=== PATIENT | female | born 1970 | race Caucasian/White ===

== ENCOUNTER → 2016-06-23 | Outpatient (CLI) | payer BC ==
[~2016-06-23] MED LIST: CATHETER FLUSH 10 ML SYR IV PRN
--- OUTSIDE RECORDS SUMMARY | 2016-06-23 09:42 | XMS REPORT | Clinical Summary ---
Author Author User, [employer] Organization [facility] Physician [place] Address Unknown Phone Unavailable Allergies, Adverse Reactions, Alerts Allergy Name Reaction Description Start Date Severity Status Provider No Known Allergies Jamie Hurley Conditions or Problems Problem Name Problem Code Onset Date Status Entry Date Provider Comment Standard Description Annotate HYPOTHYROIDISM, PRIMARY 244.9 Active Rachel Plaza Unspecified hypothyroidism WEIGHT GAIN, ABNORMAL 783.1 Resolved Rachel Plaza Abnormal weight gain FATIGUE 780.79 Resolved Rachel Plaza Other malaise and fatigue ABDOMINAL PAIN, LEFT LOWER QUADRANT 789.04 Resolved Rachel Plaza Abdominal pain, left lower quadrant WELL WOMAN V70.0 Resolved Rachel Plaza Routine general medical examination at a health care facility PLANTAR FASCIITIS, BILATERAL 728.71 Resolved Rachel Plaza Plantar fascial fibromatosis TRANSAMINASES, SERUM, ELEVATED 790.4 Resolved Rachel Plaza Nonspecific elevation of levels of transaminase or lactic acid dehydrogenase [LDH] MYCOPLASMA PNEUMONIA 483.0 Resolved Rachel Plaza Pneumonia due to Mycoplasma pneumoniae NUMBNESS, HAND 782.0 Resolved Rachel Plaza Disturbance of skin sensation HEADACHE 784.0 Resolved Rachel Plaza Headache DIZZINESS 780.4 Resolved Rachel Plaza Dizziness and giddiness WEIGHT LOSS 783.21 Active Rachel Plaza Loss of weight FEVER 780.6 Resolved Rachel Plaza Fever and other physiologic disturbances of temperature regulation EAR PAIN, BILATERAL 388.70 Resolved Rachel Plaza Otalgia, unspecified WRIST PAIN 719.43 Resolved Rachel Plaza Pain in joint involving forearm NEUROPATHY, IDIOPATHIC PERIPHERAL 356.9 Resolved Rachel Plaza Unspecified idiopathic peripheral neuropathy SHOULDER PAIN 719.41 Resolved Rachel Plaza Pain in joint involving shoulder region IRREGULAR MENSES 626.4 Resolved Rachel Plaza Irregular menstrual cycle EDEMA LEG 782.3 Resolved Rachel Plaza Edema SINUSITIS, SPHENOIDAL, ACUTE 461.3 Resolved Rachel Plaza Acute sphenoidal sinusitis SHOULDER PAIN 719.41 Resolved Rachel Plaza Pain in joint involving shoulder region DIZZINESS 780.4 Resolved Rachel Plaza Dizziness and giddiness BRONCHITIS 490 Resolved Rachel Plaza Bronchitis, not specified as acute or chronic GERD 530.81 Active Rachel Plaza Esophageal reflux SINUS CONGESTION 478.1 Resolved Rachel Plaza Other diseases of nasal cavity and sinuses LARYNGITIS 464.0 Resolved Rachel Plaza Acute laryngitis EAR PAIN, BILATERAL 388.70 Resolved Rachel Plaza Otalgia, unspecified SHOULDER PAIN 719.41 Resolved Rachel Plaza Pain in joint involving shoulder region MAMMOGRAM, ABNORMAL, LEFT 793.80 Resolved Rachel Plaza Abnormal mammogram, unspecified DERMATITIS 692.9 Resolved Rachel Plaza Contact dermatitis and other eczema, unspecified cause DERMATOPHYTOSIS 110.9 Resolved Rachel Plaza Dermatophytosis of unspecified site ANKLE PAIN, RIGHT 719.47 Resolved Rachel Plaza Pain in joint involving ankle and foot ANKLE PAIN, LEFT 719.47 Resolved Rachel Plaza Pain in joint involving ankle and foot COUGH 786.2 Resolved Rachel Plaza Cough PNEUMONIA 486 Resolved Rachel Plaza Pneumonia, organism unspecified DEHYDRATION 276.51 Resolved Rachel Plaza Dehydration SKIN NEOPLASM, BENIGN 216.9 Resolved Rachel Plaza Benign neoplasm of skin, site unspecified URI 465.9 Resolved Rachel Plaza Acute upper respiratory infections of unspecified site CHEST PAIN, ATYPICAL 786.59 Inactive Rachel Plaza Other chest pain BRONCHITIS 490 Inactive Rachel Plaza Bronchitis, not specified as acute or chronic WHEEZING 786.07 Inactive Rachel Plaza Wheezing SINUSITIS, SPHENOIDAL, ACUTE 461.3 Inactive Rachel Plaza Acute sphenoidal sinusitis SINUSITIS, SPHENOIDAL, ACUTE 461.3 Inactive Rachel Plaza Acute sphenoidal sinusitis WHEEZING 786.07 Resolved Rachel Plaza Wheezing HIP PAIN 719.45 Correction Rachel Plaza Pain in joint involving pelvic region and thigh OSTEOARTHRITIS, LUMBAR SPINE 721.90 Active Rachel Plaza Spondylosis of unspecified site without mention of myelopathy SINUSITIS, SPHENOIDAL, ACUTE 461.3 Resolved Rachel Plaza Acute sphenoidal sinusitis CHEST PAIN, ATYPICAL 786.59 Resolved Rachel Plaza Other chest pain HEMATOCHEZIA 578.1 Active Rachel Plaza Blood in stool WHEEZING 786.07 Active Rachel Plaza Wheezing BRONCHITIS, ACUTE 466.0 Active Rachel Plaza Acute bronchitis SHOULDER PAIN 719.41 Active Rachel Plaza Pain in joint involving shoulder region Medication List Medication Instructions Start Date Stop Date Generic Name NDC Status Provider Patient Instruction PREDNISONE 10 MG TAB 2 po day one time once daily for 5 days 2014 PREDNISONE [id number] No Longer Active Casi Elizabeth PROAIR HFA 108 (90 BASE) MCG/ACT AERS 2 puff Q4 hrs prn wheezing ALBUTEROL SULFATE 11987445899 Active Rachel Plaza ADVAIR DISKUS 100-50 MCG/DOSE MISC 1 puff BID FLUTICASONE- SALMETEROL 36742834458 Active Rachel Plaza TUSSIONEX PENNKINETIC ER 10-8 MG/5ML LQCR 1 tsp PO BID prn cough HYDROCOD POLST-CHLORPHEN POLST 82832213254 No Longer Active Rachel Plaza SUDAFED 30 MG TAB 1 PO TID prn congestion PSEUDOEPHEDRINE HCL 93165436483 Active Rachel Plaza PREDNISONE 10 MG TAB 4 PO at one time once daily for 2 days, then 2 PO at one time once daily PREDNISONE 20244470867 No Longer Active Rachel Plaza CEFDINIR 300 MG CAPS 1 PO BID CEFDINIR 14598723312 No Longer Active Casi Elizabeth SUDAFED 30 MG TAB 1 PO TID prn PSEUDOEPHEDRINE HCL 23467633402 No Longer Active Rachel DEXTER'Bala NASAL SPRAY (DEXAMETHASONE, GENTAMICIN, SALINE) 2 puffs each nostril TID for [address] DEXTER'Bala NASAL SPRAY ( DEXAMETHASONE, GENTAMICIN, SALINE) No Longer Active Racheljuventino Plaza AUGMENTIN 500-125 MG TAB 1 PO BID AMOXICILLIN-POT CLAVULANATE 95225522683 No Longer Active Rachel Rosie Plaza TOPAMAX 25 MG TABS 1 PO BID TOPIRAMATE 95058503890 Active Rachel Rosie Plaza ALEVE 220 MG TAB 2 PO QHS NAPROXEN SODIUM 71287946577 Active Rachel Rosie Plaza ULTRAM 50 MG TAB 1 PO TID TRAMADOL HCL 43363496349 No Longer Active Racheljuventino Plaza ADVAIR DISKUS 100-50 MCG/DOSE MISC 1 puff BID FLUTICASONE-SALMETEROL 29648039535 No Longer Active Racheljuventino Plaza BIAXIN 500 MG TAB 1 PO BID CLARITHROMYCIN 80574553987 No Longer Active Racheljuventino Plaza LEVOXYL 75 MCG TABS 1 PO DAILY LEVOTHYROXINE SODIUM 56419378179 Active Racheljuventino Plaza AMOXICILLIN 500 MG CAP 1 PO TID AMOXICILLIN 30531007953 No Longer Active Racheljuventino Plaza ATROVENT 0.06 % SOLN 2 puffs each nostril TID prn runny nose 2013 IPRATROPIUM BROMIDE 56003740718 No Longer Active Racheljuventino Plaza PREDNISONE 20 MG TAB 2 pills at once for 2 days then 1 pill daily for 2 days PREDNISONE 90058714463 No Longer Active Rachel Rosie Plaza AUGMENTIN 875-125 MG TAB 1 PO BID AMOXICILLIN-POT CLAVULANATE 61278322934 No Longer Active Rachel DEXTER'S NASAL SPRAY (DEXAMETHASONE, GENTAMICIN, SALINE) 2 puffs each nostril TID for [address] DEXTER'Bala NASAL SPRAY ( DEXAMETHASONE, GENTAMICIN, SALINE) No Longer Active Rachel Plaza PREDNISONE 20 MG TAB 2 pills at once for 2 days then 1 pill daily for 5 days PREDNISONE 02805737198 No Longer Active Racheljuventino Plaza BIAXIN 500 MG TAB 1 PO BID CLARITHROMYCIN 74653752330 No Longer Active Racheljuventino Plaza KENALOG 0.1 % CREA apply to affected areas BID TRIAMCINOLONE ACETONIDE No Longer Active Rachel Rosie Plaza PROAIR HFA 108 (90 BASE) MCG/ACT AERS 2 puff Q4 hrs prn wheezing ALBUTEROL SULFATE 82781479286 No Longer Active Racheljuventino Plaza SUDAFED 30 MG TAB 1 PO TID for 5 days PSEUDOEPHEDRINE HCL 54159767403 No Longer Active Rachel Plaza PREDNISONE 20 MG TAB 2 pills at once for 3 days then 1 pill daily for 3 days PREDNISONE 63648707653 No Longer Active Racheljuventino Plaza ADVAIR DISKUS 100-50 MCG/DOSE MISC 1 puff BID FLUTICASONE-SALMETEROL 88938809242 No Longer Active Racheljuventino Plaza BIAXIN 500 MG TAB 1 PO BID CLARITHROMYCIN 06591489841 No Longer Active Rachel Plaza OMEPRAZOLE 20 MG CPDR 1 PO daily OMEPRAZOLE 90652364999 Active Rachel Rosie Plaza PROAIR HFA 108 (90 BASE) MCG/ACT AERS 2 puff Q4 hrs prn wheezing ALBUTEROL SULFATE 17828046082 No Longer Active Racheljuventino Plaza LAMISIL 250 MG TAB 1 po daily TERBINAFINE HCL 54619809700 No Longer Active Rachel Rosie Plaza LOTRISONE 0.05-1 % CREAM apply to affected areas BID prn CLOTRIMAZOLE-BETAMETHASONE 61261261333 No Longer Active Rachel Rosie Plaza BIAXIN XL PAC 500 MG TB24 2 pills at same time daily for 7 days CLARITHROMYCIN 65557862992 No Longer Active Rachel Rosie Plaza PREDNISONE 20 MG TAB 3 pills daily at once for 2 days, 2 pills daily at once for 2 days, 1 once daily for 2 days PREDNISONE 41407188194 No Longer Active Racheljuventino Plaza ADVAIR DISKUS 100-50 MCG/DOSE MISC 1 puff BID for two weeks 05/02 FLUTICASONE-SALMETEROL 44562528857 No Longer Active Rachel Rosie Plaza PROAIR HFA 108 (90 BASE) MCG/ACT AERS 2 puff Q4 hrs prn wheezing ALBUTEROL SULFATE 72873413747 No Longer Active Racheljuventino Plaza LEVAQUIN 500 MG TAB 1 PO QD LEVOFLOXACIN 88232281615 No Longer Active Racheljuventino Plaza TESSALON 200 MG CAPS 1 PO TID prn cough BENZONATATE 12574067189 No Longer Active Rachel Rosie Plaza LAMISIL 250 MG TAB 1 PO daily TERBINAFINE HCL 05812764976 No Longer Active Rachel Rosie Plaza LAMISIL 250 MG TABS 1 PO daily TERBINAFINE HCL 26971962247 No Longer Active Rachel Rosie Plaza DIFLUCAN 100 MG TABS 1 PO daily FLUCONAZOLE 84525584224 No Longer Active Rachel Rosie Plaza NYSTATIN 349469 UNIT/GM CREA Apply to affected areas TID until resolved 01/10 NYSTATIN 08716067108 No Longer Active Rachel Rosie Plaza LAMISIL 250 MG TABS 1 PO daily TERBINAFINE HCL 03676353515 No Longer Active Rachel Rosie Plaza LOTRISONE 0.05-1 % CREAM apply small amount to affected areas TID CLOTRIMAZOLE-BETAMETHASONE 94325783043 No Longer Active Rachel Rosie Plaza BIAXIN XL PAC 500 MG TB24 2 pills at same time daily for 7 days CLARITHROMYCIN 27969249119 No Longer Active Racheljuventino Plaza CILOXAN 0.3 % SOLN 2 drops Q6hrs for 7 days CIPROFLOXACIN HCL 37984464979 No Longer Active Dorene Cristina METFORMIN HCL 500 MG TABS 2 PO BID METFORMIN HCL 23117473037 Active Rachel Rosie Plaza NAPROXEN 500 MG TAB 1 PO BID NAPROXEN 41050783963 No Longer Active Rachel Rosie Plaza LASIX 20 MG TAB 1 PO QD prn for swelling FUROSEMIDE 19037447836 No Longer Active Racheljuventino Plaza FLONASE 50 MCG/DOSE INHALANT 2 puffs each nostril daily FLONASE 50 MCG/DOSE INHALANT No Longer Active Racheljuventino Plaza KEVIN-D 24 HOUR 180-240 MG TB24 1 PO Daily for sinus pressure. FEXOFENADINE-PSEUDOEPHEDRINE 68041151054 No Longer Active Rachel Plaza KEVIN 180 MG TABS 1 PO QD FEXOFENADINE HCL 56028079354 No Longer Active Rachel Rosie Plaza MUCINEX 600 MG TB12 1 PO BID for 5 days GUAIFENESIN 47889725574 No Longer Active Rachel Rosie Plaza DOXYCYCLINE HYCLATE 100 MG CAP 1 po BID DOXYCYCLINE HYCLATE 57808349985 No Longer Active Rachel Arellanoner MULTIVITAMINS TABS 1 po daily MULTIPLE VITAMIN 39160214761 Active Rachel Arellanoner PHENTERMINE HCL 37.5 MG CAPS 1 po daily PHENTERMINE HCL 07980906179 Active Rachel Rosie Plaza Immunizations Vaccine Administration Date Value Standard Description Influenza vaccine given done influenza virus vaccine, unspecified formulation Influenza vaccine given Done influenza virus vaccine, unspecified formulation Vital Signs Date Name Value Unit Range Description blood pressure, diastolic - 8462-4 70 mm[Hg] BP coello blood pressure, systolic - 8480-6 118 mm[Hg] BP sys pulse rate E&M - 8867-4 78 /min Heart rate respiratory rate E&M - 9279-1 14 /min Resp rate temperature E&M 97.7 [degF] Body temperature weight E&M - 3141-9 184 [lb_av] Weight Measured blood pressure, diastolic - 8462-4 64 mm[Hg] BP coello blood pressure, systolic - 8480-6 110 mm[Hg] BP sys pulse rate E&M - 8867-4 74 /min Heart rate respiratory rate E&M - 9279-1 14 /min Resp rate weight E&M - 3141-9 186 [lb_av] Weight Measured blood pressure, diastolic - 8462-4 78 mm[Hg] BP coello blood pressure, systolic - 8480-6 110 mm[Hg] BP sys pulse rate E&M - 8867-4 60 /min Heart rate respiratory rate E&M - 9279-1 14 /min Resp rate weight E&M - 3141-9 186 [lb_av] Weight Measured blood pressure, diastolic - 8462-4 60 mm[Hg] BP coello blood pressure, systolic - 8480-6 130 mm[Hg] BP sys weight E&M - 3141-9 187 [lb_av] Weight Measured blood pressure, diastolic - 8462-4 84 mm[Hg] BP coello blood pressure, systolic - 8480-6 138 mm[Hg] BP sys pulse rate E&M - 8867-4 62 /min Heart rate respiratory rate E&M - 9279-1 14 /min Resp rate weight E&M - 3141-9 183 [lb_av] Weight Measured blood pressure, diastolic - 8462-4 68 mm[Hg] BP coello blood pressure, systolic - 8480-6 110 mm[Hg] BP sys pulse rate E&M - 8867-4 70 /min Heart rate respiratory rate E&M - 9279-1 14 /min Resp rate temperature E&M 97.8 [degF] Body temperature weight E&M - 3141-9 184 [lb_av] Weight Measured blood pressure, diastolic - 8462-4 80 mm[Hg] BP coello blood pressure, systolic - 8480-6 118 mm[Hg] BP sys pulse rate E&M - 8867-4 72 /min Heart rate respiratory rate E&M - 9279-1 14 /min Resp rate temperature E&M 98.6 [degF] Body temperature weight E&M - 3141-9 185 [lb_av] Weight Measured blood pressure, diastolic - 8462-4 78 mm[Hg] BP coello blood pressure, systolic - 8480-6 140 mm[Hg] BP sys pulse rate E&M - 8867-4 60 /min Heart rate respiratory rate E&M - 9279-1 12 /min Resp rate weight E&M - 3141-9 183 [lb_av] Weight Measured blood pressure, diastolic - 8462-4 70 mm[Hg] BP coello blood pressure, systolic - 8480-6 123 mm[Hg] BP sys pulse rate E&M - 8867-4 80 /min Heart rate respiratory rate E&M - 9279-1 14 /min Resp rate temperature E&M 98.6 [degF] Body temperature weight E&M - 3141-9 183 [lb_av] Weight Measured blood pressure, diastolic - 8462-4 79 mm[Hg] BP coello blood pressure, systolic - 8480-6 116 mm[Hg] BP sys pulse rate E&M - 8867-4 62 /min Heart rate respiratory rate E&M - 9279-1 14 /min Resp rate temperature E&M 98.6 [degF] Body temperature weight E&M - 3141-9 180 [lb_av] Weight Measured blood pressure, diastolic - 8462-4 66 mm[Hg] BP coello blood pressure, systolic - 8480-6 118 mm[Hg] BP sys pulse rate E&M - 8867-4 96 /min Heart rate respiratory rate E&M - 9279-1 14 /min Resp rate temperature E&M 98.6 [degF] Body temperature weight E&M - 3141-9 179 [lb_av] Weight Measured blood pressure, diastolic - 8462-4 70 mm[Hg] BP coello blood pressure, systolic - 8480-6 125 mm[Hg] BP sys pulse rate E&M - 8867-4 84 /min Heart rate respiratory rate E&M - 9279-1 14 /min Resp rate temperature E&M 98.6 [degF] Body temperature weight E&M - 3141-9 181 [lb_av] Weight Measured Diagnostic Results Date Name Value Unit Range Description Clinical Lists Update: CBC,CMP,Chol,Trig,TSH,Free T4 - Chemistry calcium, serum 9.2 mg/dL anion gap, serum 11 creatinine, serum 0.8 mg/dL bilirubin, serum, total 0.6 mg/dL thyroxine, serum, free 1.04 ng/dL Estimated Glomerular Filtration Rate (calc) 82 mL/min/1.73m2 thyroid stimulating hormone, serum 2.23 u[iU]/mL potassium, serum 3.9 mmol/L albumin, serum 4.1 g/dL glucose, plasma fasting 85 mg/dL alkaline phosphatase, serum 50 U/L protein, total, serum 6.2 g/dL urea nitrogen, blood 10 mg/dL sodium, serum 139 mmol/L carbon dioxide, venous blood 27.0 mmol/L aspartate aminotransferase (SGOT), serum 13 U/L chloride, serum 105 mmol/L cholesterol, serum 142 mg/dL alanine aminotransferase (SGPT), serum 13 U/L triglyceride, serum, fasting 65 mg/dL Clinical Lists Update: CBC,CMP,Chol,Trig,TSH,Free T4 - Hematology hematocrit, blood 41 % red blood cell distribution width 13.4 % mean corpuscular volume, RBC 94 fL leukocyte count, blood 5.9 10*3/mm3 erythrocyte (RBC) count 4.39 10*6/mm3 platelet count 294 10*3/mm3 hemoglobin, blood 13.1 g/dL Office Visit: Dr Plaza's Check Up: Established Patient Visit - Chemistry albumin, serum 4.1 g/dL alkaline phosphatase, serum 63 U/L urea nitrogen, blood 18 mg/dL calcium, serum 9.1 mg/dL chloride, serum 106 mmol/L cholesterol, serum 137 mg/dL carbon dioxide, venous blood 26.0 mmol/L creatinine, serum 0.8 mg/dL thyroxine, serum, free 1.13 ng/dL thyroid stimulating hormone, serum 1.81 u[iU]/mL potassium, serum 4.0 mmol/L protein, total, serum 6.3 g/dL aspartate aminotransferase (SGOT), serum 19 U/L alanine aminotransferase (SGPT), serum 17 U/L bilirubin, serum, total 0.4 mg/dL triglyceride, serum, fasting 58 mg/dL sodium, serum 138 mmol/L anion gap, serum 10 glucose, plasma fasting 77 mg/dL Estimated Glomerular Filtration Rate (calc) 82 mL/min/1.73m2 Encounters Code Encounter Date Provider Facility CPT-98748 Ofc Vst, Est Level IV 15:30:54 CDT [facility] CPT-19165 Ofc Vst, Est Level III 20:51:09 CDT Rachel Plaza DO, FACP CPT-54464 Ofc Vst, Est Level III 16:39:04 [facility] Rachel Plaza DO, FACP CPT-38454 Ofc Vst, Est Level III 20:33:24 [facility] Rachel Plaza DO, FACP CPT-69040 Ofc Vst, Est Level IV 20:17:26 [facility] CPT-88217 Ofc Vst, Est Level III 16:29:23 [facility] BLOCK[facility] Rachel Plaza DO, FACP CPT-23402 Ofc Vst, Est Level III 16:41:30 CDT Racheljuventino Mckenna Bola, DO, FACP CPT-98925 Ofc Vst, Est Level III 12:12:47 CDT Rachel Rosie Mckenna Bola, DO, FACP CPT-66199 Ofc Vst, Est Level III 16:03:46 CDT Rachel Rosie Mckenna Bola, DO, FACP CPT-92242 Ofc Vst, Est Level IV 17:56:18 CDT Rachel Rosie Plaza [facility] CPT-33210 Ofc Vst, Est Level III 15:42:50 CDT Rachel Rosie Plaza [facility] CPT-75379 Ofc Vst, Est Level III 15:37:57 CDT Rachel Rosie Plaza [facility] CPT-65377 Ofc Vst, Est Level III 19:30:03 CDT Rachel Rosie Mckenna Bola, DO, FACP CPT-25116 Ofc Vst, Est Level III 20:02:43 CDT Rachel Rosie Plaza [facility] CPT-99337 Ofc Vst, Est Level III 13:45:40 [employer] [facility] Rachel Mckenna Bola, DO, FACP CPT-41349 Ofc Vst, Est Level III 19:57:30 [employer] [facility] Rachel Mckenna Bola, DO, FACP CPT-65706 Ofc Vst, Est Level III 20:20:40 [employer] Rachel Mckenna Bola, DO, FACP CPT-38907 Ofc Vst, Est Level III 15:09:23 CAR BLOCK[employer] Rachel Arellanoner Rachel S Bola, DO, FACP CPT-61951 Ofc Vst, Est Level III 16:20:28 CDT Racheljuventino Mckenna Bola, DO, FACP CPT-79080 Ofc Vst, Est Level III 10:14:05 CDT Rachel Rosie Mckenna Plaza, DO, FACP CPT-16898 Ofc Vst, Est Level III 15:38:48 CDT Rachel Rosie Mckenna Plaza, DO, FACP CPT-60481 Ofc Vst, Est Level III 17:19:17 CDT Rachel Rosie Mckenna Plaza, DO, FACP CPT-28560 Ofc Vst, Est Level III 16:30:31 CDT Rachel Rosie Mckenna Plaza, DO, FACP CPT-45902 Ofc Vst, Est Level III 20:41:25 CDT Rachel Rosie Mckenna Plaza, DO, FACP CPT-59657 Ofc Vst, Est Level III 16:38:44 CDT Rachel Rosie Mckenna Plaza, DO, FACP CPT-51073 Ofc Vst, Est Level III 14:31:54 CDT Rachel Rosie Mckenna Plaza, DO, FACP CPT-64130 Ofc Vst, Est Level III 20:41:14 CAR BLOCK[employer] Rachel Rosie Mckenna Plaza, DO, FACP CPT-67642 Ofc Vst, Est Level III 16:34:32 [employer] BLOCK[employer] Rachel Rosie Mckenna Plaza, DO, FACP CPT-88217 Ofc Vst, Est Level III 17:31:03 [employer] BLOCK[facility] Rachel Rosie Mckenna Plaza, DO, FACP CPT-65707 Ofc Vst, Est Level III 13:46:07 [employer] BLOCK[facility] Rachel Rosie Mckenna Plaza, DO, FACP CPT-80375 Ofc Vst, Est Level III 16:31:25 CDT Rachel Rosie Mckenna Plaza, DO, FACP CPT-99937 Ofc Vst, Est Level III 13:49:29 CDT Rachel Rosie Plaza [facility] CPT-88117 Ofc Vst, Est Level III 13:49:22 CDT Rachel Rosie Plaza [facility] CPT-66767 Ofc Vst, Est Level III 13:28:51 CDT Rachel Rosie Plaza [facility] CPT-93951 Ofc Vst, Est Level III 13:30:40 CDT Rachel Rosie Mckenna Bola, DO, FACP CPT-21964 Ofc Vst, Est Level III 14:49:17 CDT Rachel Rosie Plaza [facility] CPT-71139 Ofc Vst, Est Level III 13:30:39 CAR BLOCK[employer] Rachel Rosie Mckenna Bola, DO, FACP CPT-13780 Ofc Vst, Est Level III 09:43:47 CAR BLOCKER Rachel Plaza [facility] CPT-00416 Ofc Vst, Est Level III 09:43:54 CAR BLOCK[facility] Rachel Rosie Plaza [facility] CPT-91054 Ofc Vst, Est Level IV 10:15:14 [employer] BLOCK[employer] Rachel Mckenna Bola, DO, FACP CPT-59527 Ofc Vst, Est Level III 15:24:26 [employer] [facility] Rachel Mckenna Bola, DO, FACP CPT-91500 Ofc Vst, Est Level III 14:22:31 [employer] BLOCK[employer] Rachel Mckenna Bola, DO, FACP CPT-82134 Ofc Vst, Est Level IV 10:02:54 CDT Racheljuventino Plaza [facility] CPT-65806 Ofc Vst, Est Level III 16:32:40 CDT Racheljuventino Plaza [facility] CPT-84966 Ofc Vst, Est Level III 16:29:26 CDT Racheljuventino Mckenna Bola, DO, FACP CPT-11958 Ofc Vst, Est Level IV 14:43:12 CDT Racheljuventino Plaza [facility] CPT-23756 Ofc Vst, Est Level IV 14:48:51 CDT Rachel Rosie Plaza [facility] CPT-08708 Ofc Vst, Est Level III 14:21:26 CDT Rachel Rosie Mckenna Bola, DO, FACP CPT-10391 Ofc Vst, Est Level III 16:25:48 CDT Rachel Rosie Mckenna Bola, DO, FACP CPT-77290 Ofc Vst, Est Level III 15:53:26 CDT Rachel Rosie Mckenna Bola, DO, FACP CPT-80439 Ofc Vst, Est Level III 16:00:22 CDT Rachel Rosie Mckenna Bola, DO, FACP CPT-32939 Ofc Vst, Est Level III 10:41:27 CAR BLOCK[employer] Rachel Mckenna Bola, DO, FACP CPT-71096 Ofc Vst, Est Level IV 09:59:09 CAR BLOCK[employer] Rachel Mckenna Bola, DO, FACP CPT-76971 Ofc Vst, Est Level III 10:07:13 CAR BLOCKER Rachel [facility] CPT-33913 Ofc Vst, Est Level III 14:54:02 CAR BLOCK[employer] Rachel Mckenna Bola, DO, FACP CPT-91795 Ofc Vst, Est Level III 13:15:03 CDT Racheljuventino Plaza [facility] CPT-94039 Ofc Vst, Est Level IV 16:30:43 CDT Racheljuventino Mckenna Bola, DO, FACP CPT-51269 Ofc Vst, Est Level IV 12:52:15 CDT Racheljuventino Mckenna Bola, DO, FACP CPT-79330 Ofc Vst, Est Level III 14:55:16 CDT Rachel Rosie Plaza [facility] CPT-56893 Ofc Vst, Est Level III 09:36:49 CDT Rachel Rosie Mckenna Plaza, DO, FACP CPT-92726 Ofc Vst, Est Level IV 13:11:53 CDT Rachel Rosie Mckenna Bola, DO, FACP CPT-14385 Ofc Vst, Est Level IV 09:21:55 CAR BLOCK[facility] Rachel Rosie Mckenna Bola, DO, FACP CPT-18988 Ofc Vst, Est Level IV 16:18:13 CAR BLOCK[facility] Rachel Rosie Plaza [facility] CPT-99920 Ofc Vst, Est Level III 14:24:17 CAR BLOCK[facility] Rachel Plaza [facility] CPT-26451 Ofc Vst, Est Level III 14:33:19 CAR BLOCK[facility] Rachel Rosie Plaza [facility] CPT-12400 Ofc Vst, Est Level III 16:11:48 CDT Rachel Rosie Mckenna Bola, DO, FACP CPT-33414 Ofc Vst, Est Level IV 21:11:44 CDT Rachel Rosie Plaza [facility] CPT-01942 Ofc Vst, Est Level IV 16:18:03 CDT Rachel Rosie Mckenna Bola, DO, FACP CPT-13017 Ofc Vst, Est Level IV 16:48:22 CDT Rachel Rosie Plaza [facility] CPT-10549 Ofc Vst, Est Level IV 14:26:27 CDT Rachel Rosie Mckenna Bola, DO, FACP CPT-60480 Ofc Vst, Est Level IV 16:41:37 [employer] BLOCK[employer] Rachel Mckenna Bola, DO, FACP CPT-44261 Ofc Vst, Est Level III 16:38:27 CAR BLOCK[employer] Rachel Rosie Mckenna Plaza, DO, FACP CPT-99202 Ofc Vst, Est Level III 18:02:37 CAR BLOCKER Archeljuventino Mckenna Bola, DO, FACP CPT-82938 Ofc Vst, Est Level III 15:48:55 CAR BLOCK[employer] Rachel Mckenna Bola, DO, FACP CPT-88526 Ofc Vst, Est Level III 17:01:29 CDT Rachel Rosie Mckenna Bola, DO, FACP CPT-01552 Ofc Vst, Est Level III 16:07:45 CDT Rachel Rosie Mckenna Bola, DO, FACP CPT-12144 Ofc Vst, Est Level III 10:10:13 CDT Rachel Rosie Mckenna Bola, DO, FACP CPT-60488 Ofc Vst, Est Level III 15:02:09 CDT Rachel Rosie Mckenna Bola, DO, FACP CPT-68383 Ofc Vst, Est Level III 15:58:47 CDT Rachel Rosie Mckenna Bola, DO, FACP CPT-65422 Ofc Vst, Est Level IV 16:03:29 CDT Racheljuventino Plaza [facility] CPT-33861 Ofc Vst, Est Level III 09:44:56 CDT Rachel Rosie Mckenna Bola, DO, FACP CPT-54215 Ofc Vst, Est Level IV 13:34:08 CAR BLOCK[facility] Rachel Rosie Mckenna Bola, DO, FACP CPT-79062 Ofc Vst, Est Level III 16:12:13 CAR BLOCK[facility] Rachel Renoi Bala Bola, DO, FACP CPT-51765 Ofc Vst, Est Level IV 09:46:09 CAR BLOCK[facility] Rachel Rosie Mckenna Bola, DO, FACP CPT-45437 Ofc Vst, Est Level III 17:04:16 CAR BLOCK[facility] Rachel Mckenna Plaza, DO, FACP CPT-84828 Ofc Vst, Est Level IV 16:28:43 CDT Rachel Rosie Mckenna Plaza, DO, FACP CPT-34003 Ofc Vst, Est Level III 16:25:00 CDT Rachel Rosie Plaza Rachel Mckenna Plaza, DO, FACP CPT-57561 Ofc Vst, Est Level III 16:34:11 CDT Rachel Rosie Arellanoner Rachel Mckenna Plaza, DO, FACP CPT-72936 Ofc Vst, Est Level III 11:09:04 CDT Rachel Rosie Arellanoner Rachel Mckenna Plaza, DO, FACP CPT-91883 Ofc Vst, Est Level III 10:15:02 CDT Rachel Rosie Arellanoner Rachel Mckenna Plaza, DO, FACP CPT-50066 Ofc Vst, New Level III 15:50:58 CDT Rachel [facility] [facility] Procedures Code Procedure Name Date Entry Date Standard Description CPT-56532 Preventive, Est, (40-64) 16:23:06 CDT CPT-26933 Handling of specimen from office to lab 13:14:22 CDT CPT-69022 Preventive, Est, (40-64) 13:14:22 CDT CPT-74243 Biopsy, skin/subcut/mucous membrane; sngl lsn 11:08:35 CDT CPT-77172 Preventive, Est, (40-64) 15:03:18 CDT CPT-68795 Handling of specimen from office to lab 15:03:18 CDT CPT-94848 Handling of specimen from office to lab 16:01:28 CDT CPT-66170 Preventive, Est, (18-39) 16:01:28 CDT CPT-50890 Preventive, Est, (18-39) 10:39:27 CDT CPT-65615 Handling of specimen from office to lab 10:39:27 CDT CPT-74189 Preventive, Est, (18-39) 13:53:34 CDT CPT-82902 Handling of specimen from office to lab 13:53:34 CDT CPT-05887 Preventive, Est, (18-39) 09:42:54 CDT CPT-76435 Handling of specimen from office to lab 09:42:54 CDT
--- NOTE | 2016-06-23 13:06 | Diagnostic Imaging Report ---
EXAMINATION: HIDA with EF measurements Indication: Abdominal pain TECHNIQUE: After the intravenous administration of 5.3 mCi of Tc 99m Choletec, imaging over the abdomen was obtained. This was followed by administration of Ensure orally to stimulate intrinsic CCK secretion, followed by continued imaging with ejection fraction measured. FINDINGS: There is homogeneous uptake in the liver with prompt bile duct and gallbladder filling seen. Bowel activity is seen at 30 minutes. Based on further imaging and gallbladder area of interest activity measurements after the administration of Ensure, the gallbladder ejection fraction is estimated at 69%. IMPRESSION: 1. Normal hepatobiliary uptake and Gallbladder filling. 2. Normal gallbladder ejection fraction. Dictated by: Dictated on workstation # [id number]
== END ==
LOC: CARD 09:36
PROVIDERS: ATTEND Internal Medicine
DX: R10.11 Right upper quadrant pain (principal)
CPT/HCPCS: 78227

== ENCOUNTER → 2016-06-25 | Outpatient (CLI) | payer BC ==
--- NOTE | 2016-06-26 14:24 | Diagnostic Imaging Report ---
Bilateral screening mammogram The current study was also evaluated with a Computer Aided Detection (CAD) system. Indication: Screening. No current complaints stated on the questionnaire. COMPARISON: 06/13/15 FINDINGS: There is a 5 mm asymmetry that appears more prominent compared to the prior exam in the medial aspect of the right breast. No definitive correlate on the MLO view. The left breast demonstrate nonspecific asymmetry with increased density along the outer aspect that appears to spread out on the MLO view. IMPRESSION: Focal compression views and ultrasound evaluation for medial right breast and lateral left breast asymmetries. BI-RADS 0. ACR BI-RADS Category 0: Incomplete. (Needs additional imaging evaluation). Result letter will be mailed to the patient. Note: At least 10% of breast cancer is not imaged by mammography. Dictated by: Dictated on workstation # [id number]
== END ==
LOC: RAD 09:36
PROVIDERS: ATTEND Internal Medicine
DX: Z12.31 Encounter for screening mammogram for malignant neoplasm of breast (principal)
CPT/HCPCS: 77067

== ENCOUNTER → 2016-07-04 | Outpatient (CLI) | payer BC ==
--- NOTE | 2016-07-04 08:16 | Diagnostic Imaging Report ---
Bilateral diagnostic mammogram. CAD is utilized. INDICATION: Asymmetries, one in the medial aspect of the right breast and another in the lateral aspect of the left breast, were evaluated with focal compression views with persistent underlying densities but no definitive mass detected. IMPRESSION: Persistent asymmetries with focal compression views with no definitive underlying mass. Ultrasound evaluation pending. ACR BI-RADS Category 0: Incomplete. (Needs additional imaging evaluation). Result letter will be mailed to the patient. Note: At least 10% of breast cancer is not imaged by mammography. Dictated by: Dictated on workstation # [id number]
--- NOTE | 2016-07-04 08:36 | Diagnostic Imaging Report ---
Bilateral breast ultrasound. INDICATION: Asymmetries along the outer aspect of the left breast and the inner aspect of the right breast. FINDINGS: The outer aspect of the left breast and inner aspect of the right breast were scanned with no underlying abnormality seen. IMPRESSION: Negative study. The asymmetries seen on mammography could be related to summation artifact of parenchyma. Six-month followup bilateral mammogram is recommended. Further evaluation with breast MRI could be considered based on patient's risk factors. ACR BI-RADS Category 3: Probably benign findings. Result letter will be mailed to the patient. Note: At least 10% of breast cancer is not imaged by mammography. Dictated by: Dictated on workstation # [id number]
== END ==
LOC: RAD 07:37
PROVIDERS: ATTEND Internal Medicine
DX: R92.0 Mammographic microcalcification found on diagnostic imaging of breast (principal)
CPT/HCPCS: 76642; 77066

== ENCOUNTER → 2017-05-13 | Outpatient (CLI) | payer BC ==
--- NOTE | 2017-05-13 15:01 | Diagnostic Imaging Report ---
EXAMINATION: Bilateral breast diagnostic mammogram with tomography evaluation. The current study was also evaluated with a Computer Aided Detection (CAD) system. INDICATION: Followup asymmetry along the upper outer aspect of the right breast. COMPARISON: 07/04/2016. FINDINGS: There is a focal asymmetry in the upper-outer aspect of the left breast which appears minimally more prominent compared to the previous study. It is probably related to fibroglandular tissue with no definitive underlying mass confirmed with tomography. The right breast demonstrates no definite change. IMPRESSION: The focal asymmetry in the upper-outer aspect of the left breast appears slightly more prominent on this exam. Tomographic evaluation is in favor of summation artifact of parenchyma. An ultrasound evaluation is pending. ACR BI-RADS Category 0: Incomplete. (Needs additional imaging evaluation). Result letter will be mailed to the patient. Note: At least 10% of breast cancer is not imaged by mammography. Dictated by: Dictated on workstation # [id number]
--- NOTE | 2017-05-13 20:21 | Diagnostic Imaging Report ---
Left breast ultrasound. INDICATION: Asymmetry along the outer aspect of the left breast. FINDINGS: In the outer aspect of the left breast there is a hyperechoic area which probably correlates with the fibroglandular tissue centered around 2 o'clock zone probably correlating with the mammographic findings. No suspicious mass. IMPRESSION: The focal asymmetry in the upper outer aspect of the left breast is likely related to summation artifact of fibroglandular tissue. The density of the tissue is markedly increased when compared to older mammograms and only very minimally increased from the most recent study. Overall, this is felt to be benign asymmetric fibroglandular tissue. Evaluation with MRI suggested to ensure lack of occult suspicious finding. If not performed, then close followup with a left breast mammogram in 6 months is recommended. ACR BI-RADS Category 3: Probably benign findings. Dictated by: Dictated on workstation # [id number]
== END ==
LOC: RAD 13:49
PROVIDERS: ATTEND Internal Medicine
DX: N64.89 Other specified disorders of breast (principal); R92.0 Mammographic microcalcification found on diagnostic imaging of breast
CPT/HCPCS: 76642; 77066

== ENCOUNTER 2017-07-09 13:21 | Outpatient (CLI) | payer OTHER, BC ==
[~2017-07-09] VITALS: Ht 165.1 cm; Wt 86.2 kg
[2017-07-09] MEDS ORDERED: methylPREDNISolone 80 MG/ML (DEPO MEDROL) VIAL ONE (13:31)
[2017-07-09 13:39] VITALS: BP 122/81
[2017-07-09 14:02] VITALS: BP 121/73
== END 2017-07-09 14:04 | disposition home or self-care (01) ==
LOC: CARD 13:21
PROVIDERS: ATTEND Pain Medicine Interventional Pain Medicine
DX: M54.16 Radiculopathy, lumbar region (principal)
CPT/HCPCS: 62323

== ENCOUNTER → 2017-09-03 | Outpatient (CLI) | payer OTHER ==
[~2017-09-03] VITALS: Ht 165.1 cm; Wt 88.5 kg
[~2017-09-03] MED LIST changes: -CATHETER FLUSH 10 ML SYR IV PRN; +methylPREDNISolone 80 MG/ML (DEPO MEDROL) VIAL ONE
[2017-09-03 12:51] VITALS: BP 117/70
--- NOTE | 2017-09-03 20:42 | OPERATIVE REPORT ---
DATE OF SERVICE: DIAGNOSIS: Lumbar radiculopathy. PROCEDURE: Fluoroscopic guided interlaminar epidural steroid injection. PROCEDURE IN DETAIL: After obtaining informed consent from the patient, the patient's chart was reviewed. The patient was then brought to the procedure room and placed in the prone position. A timeout was performed. The back was prepped with antiseptic solution and under fluoro guidance, the patient's lumbar spine was identified at the level of L5-S1. The L5-S1 vertebra was identified with fluoro guidance and approximately 2 mL of 1.5% lidocaine solution was used to anesthetize the skin directly down to the pedicle of the L5-S1 and under fluoroscopic guidance, the tract was anesthetized up to the interlaminar space and the ligamentum flavum. This needle was withdrawn. Then, a 20-gauge 3.5 inch Tuohy needle was then directed following the same tract that was anesthetized with the spinal needle. Using loss of resistance, the epidural space was identified and then the syringe was switched for contrast solution which was injected, approximately 1 mL. After secondary confirmation of epidural access, another syringe was placed and 80 mg of Depo-Medrol was injected. The Tuohy needle was then flushed out with approximately 2 mL of the normal saline used from the loss of resistance syringe. Band-Aids were applied to all the procedure sites. The patient tolerated the procedure well and was taken to the recovery room in stable condition. COMPLICATIONS: None. Job ID: [id number] DocumentID: [id number] Dictated Date: 09/03/2017 13:11:17 Transportation Planning Technician Date: 09/03/2017 20:41:41 Dictated By: EDITH RENO DO
== END ==
LOC: CARD 12:31
PROVIDERS: ATTEND Pain Medicine Interventional Pain Medicine
DX: M54.16 Radiculopathy, lumbar region (principal); Z79.899 Other long term (current) drug therapy
CPT/HCPCS: 62323

== ENCOUNTER 2018-03-11 12:05 | Outpatient (CLI) | payer OTHER ==
[~2018-03-11] VITALS: Ht 165.1 cm; Wt 86.2 kg
[2018-03-11 12:10] VITALS: BP 136/76
[2018-03-11 12:50] LABS: BASOPHILS % (AUTO) 0 % (0-10); EOSINOPHILS # (AUTO) 0.1 10^3/uL (0.0-0.3); EOSINOPHILS % (AUTO) 2 % (0-10); HEMATOCRIT 38 % (35-52); HEMOGLOBIN 12.4 G/DL (11.5-16.0); LYMPHOCYTES % (AUTO) 25 % (12-44); MEAN CORPUSCULAR HEMOGLOBIN 30 PG (25-34); MEAN CORPUSCULAR HGB CONC 33 G/DL (32-36); MEAN CORPUSCULAR VOLUME 90 FL (80-99); MEAN PLATELET VOLUME 10.8 FL (7.4-10.4); MONOCYTES # (AUTO) 0.7 X 10^3 (0.0-1.0); MONOCYTES % (AUTO) 9 % (0-12); NEUTROPHILS % (AUTO) 64 % (42-75); PLATELET COUNT 295 10^3/uL (130-400); RED BLOOD COUNT 4.18 10^6/uL (4.35-5.85); RED CELL DISTRIBUTION WIDTH 12.9 % (10.0-14.5); WHITE BLOOD COUNT 7.8 10^3/uL (4.3-11.0)
[2018-03-11] MEDS ORDERED: MONT10TA24 PO (12:50)
[2018-03-11] MEDS ORDERED: FLUT9.9S NSEACH (12:50)
[2018-03-11] MEDS ORDERED: GABA-488 PO (12:50)
[2018-03-11] MEDS ORDERED: OMEP40CA36 PO (12:50)
[2018-03-11] MEDS ORDERED: MULT-884 PO (12:50)
[2018-03-11] MEDS ORDERED: CYAN50003 PO (12:50)
[2018-03-11] MEDS ORDERED: ASCO500T6 PO (12:50)
[2018-03-11] MEDS ORDERED: METF-399 PO (12:50)
[2018-03-11] MEDS ORDERED: CITA40TA19 PO (12:50)
[2018-03-11] MEDS ORDERED: CETI10TA17 PO (12:50)
[2018-03-11] MEDS ORDERED: LEVO100T7 PO (12:50)
[2018-03-11] MEDS ORDERED: PHEN37.53 PO (12:50)
== END 2018-03-11 12:40 | disposition home or self-care (01) ==
LOC: PREOP 12:05
PROVIDERS: ATTEND Orthopaedic Surgery Orthopaedic Surgery of the Spine
DX: Z01.812 Encounter for preprocedural laboratory examination (principal); Z11.2 Encounter for screening for other bacterial diseases; M48.061 Spinal stenosis, lumbar region without neurogenic claudication; Z22.322 Carrier or suspected carrier of Methicillin resistant Staphylococcus aureus
CPT/HCPCS: 36415; 85025; 86850; 86900; 86901; 87081

== ENCOUNTER 2018-03-22 05:59 | Inpatient (IN) | payer OTHER ==
[~2018-03-22] VITALS: Ht 165.1 cm; Wt 86.2 kg
[~2018-03-22 05:59] MED LIST changes: +ASCO500T6 PO; +CETI10TA17 PO; +CITA40TA19 PO; +CYAN50003 PO; +FLUT9.9S NSEACH; +GABA-488 PO; +LEVO100T7 PO; +METF-399 PO; +MONT10TA24 PO; +MULT-884 PO; +OMEP40CA36 PO; +PHEN37.53 PO; -methylPREDNISolone 80 MG/ML (DEPO MEDROL) VIAL ONE
--- OUTSIDE RECORDS SUMMARY | 2018-03-22 06:04 | XMS REPORT ---
Author Author STEPHANIE STEEL Organization [facility] Address [address] [place] [address] Care Team Providers Care Cardroom Attendant Name Role Phone STEPHANIE STEEL Unavailable PROBLEMS Type Condition ICD9-CM Code [id number] Code Onset Dates Condition Status SNOMED Code Problem Eustachian tube dysfunction, bilateral H69.83 Active 44642337 ALLERGIES No Information ENCOUNTERS Encounter Location Date Diagnosis [facility] [id number] [place] [address] [phone] Feb, Encounter for immunization Z23 [facility] [address] [id number] Apr, Acute suppurative otitis media of left ear with spontaneous rupture of tympanic membrane, recurrence not specified H66.012 and Otalgia of left ear H92.02 [facility] [address] [id number] Dec, Encounter for [facility] [id number] [place] [address] [phone] Dec, Acute non-recurrent pansinusitis J01.40 [facility] [address] [id number] September, Eustachian tube dysfunction, left H69.82 [facility] [address] [id number] Aug, Sinus congestion R09.81 ; Eustachian tube dysfunction, right H69.81 and Eustachian tube dysfunction, left H69.82 [facility] [id number] [place] [address] [id number] May, Acute non-recurrent pansinusitis J01.40 [facility] [address] [address] Jun, Eustachian tube dysfunction H69.80 [facility] [id number] [place] [address] [phone] Jun, Eustachian tube dysfunction, bilateral H69.83 [facility] [id number] [place] [address]- [phone] Feb, Encounter for immunization Z23 [facility] [id number] [place] [address] [phone]- [phone] Feb, [facility] [id number] [place] [address] [phone] Feb, [facility] [id number] [place] [address]5930- [phone] Feb, [facility] [id number] [place] [address] [phone] Feb, [facility] [id number] [place] [address] [phone]- [phone] Feb, [facility] [id number] [place] [phone]- [phone] Feb, IMMUNIZATIONS Vaccine Route Administration Date Status FLULAVAL QUAD 0.5ML (6 MO & UP) 2017 IM Intramuscular Mar 08, 2018 Administered SOCIAL HISTORY Never Assessed REASON FOR VISIT Flu shot PLAN OF CARE VITAL SIGNS MEDICATIONS Unknown Medications RESULTS No Results PROCEDURES Procedure Date Ordered Result Body Site FLULAVAL QUAD 0.5ML (6 MO AND UP) 2018 Mar 08, 2018 SINGLE IMMUNIZATION ADMIN Mar 08, 2018 INSTRUCTIONS MEDICATIONS ADMINISTERED No Known Medications MEDICAL (GENERAL) HISTORY Type Description Date Medical History hypothyroid
--- OUTSIDE RECORDS SUMMARY | 2018-03-22 06:04 | XMS REPORT ---
Author Author TODD WALLACE [facility] Address [address] [place] [address] Care Team Providers Care Pneudraulic Systems Mechanic Name Role Phone TODD WALLACE Unavailable PROBLEMS Type Condition ICD9-CM Code CXJ27-WF Code Onset Dates Condition Status SNOMED Code Problem Eustachian tube dysfunction, bilateral H69.83 Active [id number] ALLERGIES No Information ENCOUNTERS Encounter Location Date Diagnosis [facility] [address] [id number] Apr, Acute suppurative otitis media of left ear with spontaneous rupture of tympanic membrane, recurrence not specified H66.012 and Otalgia of left ear H92.02 [facility] [place] [facility] [id number] [place] [address] [phone] Dec, Encounter for immunization Z23 [facility] [address] [phone] Dec, Acute non-recurrent pansinusitis J01.40 [facility] [place] [id number] [place] [address] [id number] September, Eustachian tube dysfunction, left H69.82 [facility] [place] [facility] [id number] [place] [address] [id number] Aug, Sinus congestion R09.81 ; Eustachian tube dysfunction, right H69.81 and Eustachian tube dysfunction, left H69.82 [facility] [employer] [place] [id number] [place] [address] [phone] May, Acute non-recurrent pansinusitis J01.40 [facility] [address] [phone] Jun, Eustachian tube dysfunction H69.80 [facility] [id number] [phone] Jun, Eustachian tube dysfunction, bilateral H69.83 [facility] [id number] [address] Feb, Encounter for immunization Z23 [facility] [id number] [address] Feb, [facility] [id number] [address] Feb, [facility] [id number] [phone] Feb, [facility] [id number] [address] Feb, [facility] [id number] [address] Feb, [facility] [id number] [phone] Feb, IMMUNIZATIONS Vaccine Route Administration Date Status TDAP (BOOSTRIX) IM Intramuscular Jan 12, 2017 Administered SOCIAL HISTORY Never Assessed REASON FOR VISIT Tdap TGuymonWI PLAN OF CARE VITAL SIGNS MEDICATIONS No Known Medications RESULTS No Results PROCEDURES Procedure Date Ordered Result Body Site TDAP (BOOSTRIX) Jan 12, 2017 SINGLE IMMUNIZATION ADMIN Jan 12, 2017 INSTRUCTIONS MEDICATIONS ADMINISTERED No Known Medications MEDICAL (GENERAL) HISTORY Type Description Date Medical History hypothyroid
--- OUTSIDE RECORDS SUMMARY | 2018-03-22 06:05 | XMS REPORT ---
Author TODD Medeiros [facility] eClinical[employer] Address Unknown Phone Unavailable Care Team Providers Care Research Geologist Name Role Phone TODD WALLACE Unavailable Allergies No Known Allergies Problems Problem Type Condition Code Onset Dates Condition Status Assessment Encounter for immunization Z23 Active Problem Need for prophylactic vaccination and inoculation, Influenza V04.81 Active Medications No Known Medications Procedures Procedure Coding System Code Date SINGLE IMMUNIZATION ADMIN CPT-4 28011 Mar 05, 2015 TDAP (BOOSTRIX) CPT-4 34955 Mar 05, 2015 Results No Known Results Immunizations Vaccine Administration Date TDAP (BOOSTRIX) Mar 05, 2015 Summary Purpose eClinicalWorks Submission
--- OUTSIDE RECORDS SUMMARY | 2018-03-22 06:05 | XMS REPORT ---
Author Author TODD WALLACE Organization [facility] Address [address] [place] [address] Care Team Providers Care Per Diem Clerk Name Role Phone TODD WALLACE Unavailable PROBLEMS Type Condition ICD9-CM Code [id number] Code Onset Dates Condition Status SNOMED Code Problem Eustachian tube dysfunction, bilateral H69.83 Active 98680100 ALLERGIES No Known Allergies SOCIAL HISTORY Never Assessed PLAN OF CARE Activity Details Follow Up prn Reason: VITAL SIGNS Height 65 in 2016-10-06 Weight 208.4 lbs 2016-10-06 Temperature 98.3 degrees Fahrenheit 2016-10-06 Heart Rate 82 bpm 2016-10-06 Respiratory Rate 18 2016-10-06 BMI 34.68 kg/m2 2016-10-06 Blood pressure systolic 122 mmHg 2016-10-06 Blood pressure diastolic 71 mmHg 2016-10-06 MEDICATIONS Medication Instructions Dosage Frequency Start Date End Date Duration Status Levothyroxine Sodium Active Metformin HCl Active Phentermine HCl Active Sudafed 30 MG Orally every 6 hrs 1 tablet as needed 6h Aug, 10 days Active PredniSONE 20 mg Orally Once a day 2 tablets 24h September, September, 05 days Active RESULTS No Results PROCEDURES No Known procedures IMMUNIZATIONS No Known Immunizations MEDICAL (GENERAL) HISTORY Type Description Date Medical History hypothyroid
--- OUTSIDE RECORDS SUMMARY | 2018-03-22 06:05 | XMS REPORT ---
Author Author TODD WALLACE [facility] Address [address] [place] [address] Care Team Providers Care Bath Steward/Stewardess Name Role Phone TODD WALLACE Unavailable PROBLEMS Type Condition ICD9-CM Code ITE06-KV Code Onset Dates Condition Status SNOMED Code Problem Eustachian tube dysfunction, bilateral H69.83 Active 17596539 ALLERGIES No Known Allergies ENCOUNTERS Encounter Location Date Diagnosis [facility] [employer] [place] [facility] [address] [id number] Apr, Acute suppurative otitis media of left ear with spontaneous rupture of tympanic membrane, recurrence not specified H66.012 and Otalgia of left ear H92.02 [facility] [id number] [place] [address] [phone] Dec, Encounter for immunization Z23 [facility] [address] [phone] Dec, Acute non-recurrent pansinusitis J01.40 [facility] [id number] [place] [address] [phone] September, Eustachian tube dysfunction, left H69.82 [facility] [id number] [place] [address] [phone] Aug, Sinus congestion R09.81 ; Eustachian tube dysfunction, right H69.81 and Eustachian tube dysfunction, left H69.82 [facility] [employer] [facility] [facility] [id number] [place] [address] [id number] May, Acute non-recurrent pansinusitis J01.40 [facility] [address] [id number]- 4758 Jun, Eustachian tube dysfunction H69.80 [facility] [address] [phone] Jun, Eustachian tube dysfunction, bilateral H69.83 [facility] [address] [place] [address] Feb, Encounter for immunization Z23 [facility] [id number] [place] [address] 76986- [phone] Feb, [facility] [address] [place] [address] [phone]- [phone] Feb, [facility] [id number] [place] [address] 04980- 9757 Feb, [facility] [id number] [place] [address] 39229- 9478 Feb, [facility] [id number] [place] [address] 84476- [phone] Feb, [facility] [address], [place] [address] Feb, IMMUNIZATIONS No Known Immunizations SOCIAL HISTORY Never Assessed REASON FOR VISIT ear pain-[facility] SPINE SURGEON/RESEARCH AND DEVELOPMENT DIRECTOR PLAN OF CARE Activity Details Follow Up prn Reason: VITAL SIGNS Height 65 in 2017-05-01 Weight 189 lbs 2017-05-01 Temperature 98 degrees Fahrenheit 2017-05-01 Heart Rate 80 bpm 2017-05-01 Respiratory Rate 18 2017-05-01 BMI 31.45 kg/m2 2017-05-01 Blood pressure systolic 128 mmHg 2017-05-01 Blood pressure diastolic 68 mmHg 2017-05-01 MEDICATIONS Medication Instructions Dosage Frequency Start Date End Date Duration Status Levothyroxine Sodium Active Multivitamin Adult - Active Phentermine HCl Active Floxin Otic 0.3 % Otic Once a day in left ear 10 drops into affected ear Apr, Apr, 7 day(s) Active Metformin HCl Active Omeprazole Not-Taking Fluticasone Propionate 50 MCG/ACT Nasally 2 times a day 1 spray in each nostril 12Jun, 30 day(s) Not-Taking Naproxen 250 MG Orally Twice a day 1 tablet 12h Active Sudafed 30 MG Orally every 6 hrs 1 tablet as needed 6h Aug, 10 days Not-Taking Citalopram Hydrobromide 20 MG Orally Once a day 1 tablet 24h Active RESULTS No Results PROCEDURES No Known procedures INSTRUCTIONS MEDICATIONS ADMINISTERED No Known Medications MEDICAL (GENERAL) HISTORY Type Description Date Medical History hypothyroid
--- OUTSIDE RECORDS SUMMARY | 2018-03-22 06:05 | XMS REPORT ---
Author Author TODD WALLACE Organization [facility] Address [address] [place] [address] Care Team Providers Care Routing Clerk Name Role Phone MADISON TODD Unavailable PROBLEMS Type Condition ICD9-CM Code NCR44-NE Code Onset Dates Condition Status SNOMED Code Problem Eustachian tube dysfunction, bilateral H69.83 Active 19953185 ALLERGIES Substance Reaction Event Type Date Status N.K.D.A. Unknown Non Drug Allergy May, Unknown SOCIAL HISTORY No smoking Hx information available PLAN OF CARE Activity Details Follow Up prn Reason: VITAL SIGNS Height 65 in 2016-06-16 Weight 206.3 lbs 2016-06-16 Temperature 98.5 degrees Fahrenheit 2016-06-16 Heart Rate 82 bpm 2016-06-16 Respiratory Rate 18 2016-06-16 BMI 34.33 kg/m2 2016-06-16 Blood pressure systolic 124 mmHg 2016-06-16 Blood pressure diastolic 78 mmHg 2016-06-16 MEDICATIONS Unknown Medications RESULTS No Results PROCEDURES Procedure Date Ordered Related Diagnosis Body Site DEPO MEDROL 80 MG/ML Jun 16, 2016 THER/PROPH/DIAG INJ, SC/IM Jun 16, 2016 Office Visit, Est Pt., Level 4 Jun 16, 2016 IMMUNIZATIONS Vaccine Route Administration Date Status DEPO MEDROL 80 MG/ML IM Intramuscular Jun 16, 2016 Administered
--- OUTSIDE RECORDS SUMMARY | 2018-03-22 06:06 | XMS REPORT | Clinical Summary ---
Author Author User, Vdancer Organization [facility]ly [facility] [place] Address Unknown Phone Unavailable Allergies, Adverse Reactions, [...] acute or chronic GERD 530.81 Active Rachel lPaza Esophageal reflux SINUS CONGESTION 478.1 Resolved Rachel [...] unspecified site ANKLE PAIN, RIGHT 719.47 Resolved [facility] Pain in joint involving ankle and [...] once daily for 5 days 2014 PREDNISONE [id number] No Longer Active Casi Elizabeth PROAIR HFA 108 (90 BASE) MCG/ACT AERS 2 puff Q4 hrs prn wheezing ALBUTEROL SULFATE 23437380006 Active Rachel Plaza ADVAIR DISKUS 100-50 MCG/DOSE MISC 1 puff BID FLUTICASONE- SALMETEROL 31714262614 Active Rachel Plaza TUSSIONEX PENNKINETIC ER 10-8 MG/5ML LQCR 1 tsp PO BID prn cough HYDROCOD POLST-CHLORPHEN POLST 12832697574 No Longer Active Rachel Plaza SUDAFED 30 MG TAB 1 PO TID prn congestion PSEUDOEPHEDRINE HCL 25639067557 Active Rachel Plaza PREDNISONE 10 MG TAB 4 PO at one time once daily for 2 days, then 2 PO at one time once daily PREDNISONE 91973577575 No Longer Active Rachel Plaza CEFDINIR 300 MG CAPS 1 PO BID CEFDINIR 53684744172 No Longer Active Casi [place] SUDAFED 30 MG TAB 1 PO TID prn PSEUDOEPHEDRINE HCL 30219300694 No Longer Active Rachel DEXTER'Bala NASAL SPRAY (DEXAMETHASONE, GENTAMICIN, SALINE) 2 puffs each nostril TID for [address] DEXTER'Bala NASAL SPRAY ( DEXAMETHASONE, GENTAMICIN, SALINE) No Longer Active Racheljuventino Plaza AUGMENTIN 500-125 MG TAB 1 PO BID AMOXICILLIN-POT CLAVULANATE 67559517722 No Longer Active Rachel Rosie Plaza TOPAMAX 25 MG TABS 1 PO BID TOPIRAMATE 71416505524 Active Rachel Rosie Plaza ALEVE 220 MG TAB 2 PO QHS NAPROXEN SODIUM 00883652692 Active Rachel Rosie Plaza ULTRAM 50 MG TAB 1 PO TID TRAMADOL HCL 10402695383 No Longer Active Racheljuventino Plaza ADVAIR DISKUS 100-50 MCG/DOSE MISC 1 puff BID FLUTICASONE-SALMETEROL 82623976207 No Longer Active Racheljuventino Plaza BIAXIN 500 MG TAB 1 PO BID CLARITHROMYCIN 35400412418 No Longer Active Racheljuventino Plaza LEVOXYL 75 MCG TABS 1 PO DAILY LEVOTHYROXINE SODIUM 16107542824 Active Rachel Rosie Plaza AMOXICILLIN 500 MG CAP 1 PO TID AMOXICILLIN 37492747282 No Longer Active Racheljuventino Plaza ATROVENT 0.06 % SOLN 2 puffs each nostril TID prn runny nose 2013 IPRATROPIUM BROMIDE 54187392313 No Longer Active Racheljuventino Plaza PREDNISONE 20 MG TAB 2 pills at once for 2 days then 1 pill daily for 2 days PREDNISONE 67611662962 No Longer Active Rachel Rosie Plaza AUGMENTIN 875-125 MG TAB 1 PO BID AMOXICILLIN-POT CLAVULANATE 42838376751 No Longer Active Rachel DEXTER'S NASAL SPRAY (DEXAMETHASONE, GENTAMICIN, SALINE) 2 puffs each nostril TID for [address] CISNEROS NASAL SPRAY ( DEXAMETHASONE, GENTAMICIN, SALINE) No Longer Active Racheljuventino Plaza PREDNISONE 20 MG TAB 2 pills at once for 2 days then 1 pill daily for 5 days PREDNISONE 87163327546 No Longer Active Racheljuventino Plaza BIAXIN 500 MG TAB 1 PO BID CLARITHROMYCIN 06923814272 No Longer Active Racheljuventino Plaza KENALOG 0.1 % CREA apply to affected areas BID TRIAMCINOLONE ACETONIDE No Longer Active Rachel Rosie Plaza PROAIR HFA 108 (90 BASE) MCG/ACT AERS 2 puff Q4 hrs prn wheezing ALBUTEROL SULFATE 28244623799 No Longer Active Rachel Plaza SUDAFED 30 MG TAB 1 PO TID for 5 days PSEUDOEPHEDRINE HCL 99715783594 No Longer Active Rachel Plaza PREDNISONE 20 MG TAB 2 pills at once for 3 days then 1 pill daily for 3 days PREDNISONE 34531369612 No Longer Active Racheljuventino Plaza ADVAIR DISKUS 100-50 MCG/DOSE MISC 1 puff BID FLUTICASONE-SALMETEROL 80572872647 No Longer Active Rachel Roise Plaza BIAXIN 500 MG TAB 1 PO BID CLARITHROMYCIN 51766284098 No Longer Active Racheljuventino Plaza OMEPRAZOLE 20 MG CPDR 1 PO daily OMEPRAZOLE 36202864850 Active Rachel Rosie Plaza PROAIR HFA 108 (90 BASE) MCG/ACT AERS 2 puff Q4 hrs prn wheezing ALBUTEROL SULFATE 30592207970 No Longer Active Rachel Rosie Plaza LAMISIL 250 MG TAB 1 po daily TERBINAFINE HCL 62872259521 No Longer Active Rachel Rosie Plaza LOTRISONE 0.05-1 % CREAM apply to affected areas BID prn CLOTRIMAZOLE-BETAMETHASONE 57455244382 No Longer Active Rachel Rosie Plaza BIAXIN XL PAC 500 MG TB24 2 pills at same time daily for 7 days CLARITHROMYCIN 85113290101 No Longer Active Rachel Rosie Plaza PREDNISONE 20 MG TAB 3 pills daily at once for 2 days, 2 pills daily at once for 2 days, 1 once daily for 2 days PREDNISONE 54430193945 No Longer Active Rachel Rosie Plaza ADVAIR DISKUS 100-50 MCG/DOSE MISC 1 puff BID for two weeks 05/02 FLUTICASONE-SALMETEROL 86458027651 No Longer Active Rachel Rosie Plaza PROAIR HFA 108 (90 BASE) MCG/ACT AERS 2 puff Q4 hrs prn wheezing ALBUTEROL SULFATE 36192049964 No Longer Active Racheljuventino Plaza LEVAQUIN 500 MG TAB 1 PO QD LEVOFLOXACIN 06644311478 No Longer Active Rachel Rosie Plaza TESSALON 200 MG CAPS 1 PO TID prn cough BENZONATATE 93715726863 No Longer Active Rachel Rosie Plaza LAMISIL 250 MG TAB 1 PO daily TERBINAFINE HCL 42666265573 No Longer Active Rachel Rosie Plaza LAMISIL 250 MG TABS 1 PO daily TERBINAFINE HCL 58558842059 No Longer Active Rachel Rosie Plaza DIFLUCAN 100 MG TABS 1 PO daily FLUCONAZOLE 53311946030 No Longer Active Rachel Rosie Plaza NYSTATIN 334844 UNIT/GM CREA Apply to affected areas TID until resolved 01/10 NYSTATIN 07446826557 No Longer Active Rachel Plaza LAMISIL 250 MG TABS 1 PO daily TERBINAFINE HCL 20454738137 No Longer Active Racheljuventino Plaza LOTRISONE 0.05-1 % CREAM apply small amount to affected areas TID CLOTRIMAZOLE-BETAMETHASONE 48186563118 No Longer Active Racheljuventino Plaza BIAXIN XL PAC 500 MG TB24 2 pills at same time daily for 7 days CLARITHROMYCIN 70672458330 No Longer Active Racheljuventino Plaza CILOXAN 0.3 % SOLN 2 drops Q6hrs for 7 days CIPROFLOXACIN HCL 68980668951 No Longer Active Dorene Cristina METFORMIN HCL 500 MG TABS 2 PO BID METFORMIN HCL 21200792830 Active Racheljuventino Plaza NAPROXEN 500 MG TAB 1 PO BID NAPROXEN 29043839989 No Longer Active Racheljuventino Plaza LASIX 20 MG TAB 1 PO QD prn for swelling FUROSEMIDE 33857016149 No Longer Active Rachel Plaza FLONASE 50 MCG/DOSE INHALANT 2 puffs each nostril daily FLONASE 50 MCG/DOSE INHALANT No Longer Active Racheljuventino Plaza KEVIN-D 24 HOUR 180-240 MG TB24 1 PO Daily for sinus pressure. FEXOFENADINE-PSEUDOEPHEDRINE 36914944706 No Longer Active Rachel Plaza KEVIN 180 MG TABS 1 PO QD FEXOFENADINE HCL 62368301826 No Longer Active Racheljuventino Plaza MUCINEX 600 MG TB12 1 PO BID for 5 days GUAIFENESIN 61264527047 No Longer Active Racheljuventino Plaza DOXYCYCLINE HYCLATE 100 MG CAP 1 po BID DOXYCYCLINE HYCLATE 81310854464 No Longer Active Rachel Rosie Plaza MULTIVITAMINS TABS 1 po daily MULTIPLE VITAMIN 36100555241 Active Racheljuventino Luxe Bola PHENTERMINE HCL 37.5 MG CAPS 1 po daily PHENTERMINE HCL 35011137725 Active Racheljuventino Luxe Bola Immunizations Vaccine Administration Date Value Standard Description [...] mL/min/1.73m2 Encounters Code Encounter Date Provider Facility CPT-51683 Ofc Vst, Est Level IV 15:30:54 CDT [facility] CPT-06402 Ofc Vst, Est Level III 20:51:09 CDT Rachel Plaza DO, FACP CPT-49548 Ofc Vst, Est Level III 16:39:04 PROFESSOR OF CHEMISTRY Rachel Plaza DO, FACP CPT-64669 Ofc Vst, Est Level III 20:33:24 PROFESSOR OF CHEMISTRY Rachel Plaza DO, FACP CPT-69260 Ofc Vst, Est Level IV 20:17:26 PROFESSOR OF CHEMISTRY [facility] CPT-47420 Ofc Vst, Est Level III 16:29:23 PROFESSOR OF CHEMISTRY Rachel Plaza DO, FACP CPT-63818 Ofc Vst, Est Level III 16:41:30 CDT Rachel Renoi S Bola, DO, FACP CPT-35104 Ofc Vst, Est Level III 12:12:47 CDT Rachel Rosie Mckenna Bola, DO, FACP CPT-93551 Ofc Vst, Est Level III 16:03:46 CDT Rachel Rosie Mckenna Bola, DO, FACP CPT-55826 Ofc Vst, Est Level IV 17:56:18 CDT Rachel Rosie Plaza [facility] CPT-92924 Ofc Vst, Est Level III 15:42:50 CDT Rachel Rsoie Plaza [facility] CPT-46152 Ofc Vst, Est Level III 15:37:57 CDT Rachel Rosie Plaza [facility] CPT-91010 Ofc Vst, Est Level III 19:30:03 CDT Rachel Rosie Mckenna Bola, DO, FACP CPT-28354 Ofc Vst, Est Level III 20:02:43 CDT Rachel Rosie Plaza [facility] CPT-79708 Ofc Vst, Est Level III 13:45:40 PROFESSOR OF CHEMISTRY Rachel Mckenna Bola, DO, FACP CPT-66573 Ofc Vst, Est Level III 19:57:30 PROFESSOR OF CHEMISTRY Rachel Arellanoner Rachel Mckenna Bola, DO, FACP CPT-45001 Ofc Vst, Est Level III 20:20:40 PROFESSOR OF CHEMISTRY Rachel Mckenna Bola, DO, FACP CPT-60400 Ofc Vst, Est Level III 15:09:23 PROFESSOR OF CHEMISTRY Rachel Velez Bola Rachel S Bola, DO, FACP CPT-19707 Ofc Vst, Est Level III 16:20:28 CDT Racheljuventino Velez Bola Rachel Mckenna Bola, DO, FACP CPT-38163 Ofc Vst, Est Level III 10:14:05 CDT Rachel Rosie Mckenna Plaza, DO, FACP CPT-67867 Ofc Vst, Est Level III 15:38:48 CDT Rachel Rosie Mckenna Plaza, DO, FACP CPT-74466 Ofc Vst, Est Level III 17:19:17 CDT Rachel Rosie Mckenna Plaza, DO, FACP CPT-14370 Ofc Vst, Est Level III 16:30:31 CDT Rachel Rosie Mckenna [facility], DO, FACP CPT-70745 Ofc Vst, Est Level III 20:41:25 CDT Rachel Rosie Mckenna Plaza, DO, FACP CPT-91130 Ofc Vst, Est Level III 16:38:44 CDT Rachel Rosie Mckenna [facility], DO, FACP CPT-68612 Ofc Vst, Est Level III 14:31:54 CDT Rachel Rosie Mckenna Plaza, DO, FACP CPT-57449 Ofc Vst, Est Level III 20:41:14 PROFESSOR OF CHEMISTRY Rachel Rosie Mckenna Plaza, DO, FACP CPT-55573 Ofc Vst, Est Level III 16:34:32 PROFESSOR OF CHEMISTRY Rachel Rosie Mckenna Plaza, DO, FACP CPT-96489 Ofc Vst, Est Level III 17:31:03 PROFESSOR OF CHEMISTRY Rachel Rosie Mckenna Plaza, DO, FACP CPT-09668 Ofc Vst, Est Level III 13:46:07 PROFESSOR OF CHEMISTRY Rachel Rosie Mckenna Plaza, DO, FACP CPT-97299 Ofc Vst, Est Level III 16:31:25 CDT Rachel Rosie Mckenna Plaza, DO, FACP CPT-26267 Ofc Vst, Est Level III 13:49:29 CDT Rachel Rosie Plaza [facility] CPT-29950 Ofc Vst, Est Level III 13:49:22 CDT Rachel Rosie Plaza [facility] CPT-96862 Ofc Vst, Est Level III 13:28:51 CDT Rachel Rosie Plaza [facility] CPT-69725 Ofc Vst, Est Level III 13:30:40 CDT Rachel Rosie Mckenna Bola, DO, FACP CPT-59135 Ofc Vst, Est Level III 14:49:17 CDT Rachel Rosie [facility] CPT-74825 Ofc Vst, Est Level III 13:30:39 PROFESSOR OF CHEMISTRY Rachel Rosie Mckenna Bola, DO, FACP CPT-50489 Ofc Vst, Est Level III 09:43:47 PROFESSOR OF CHEMISTRY Rachel Rosie Plaza [facility] CPT-33397 Ofc Vst, Est Level III 09:43:54 PROFESSOR OF CHEMISTRY Rachel Rosie Plaza [facility] CPT-83862 Ofc Vst, Est Level IV 10:15:14 PROFESSOR OF CHEMISTRY Rachel Rosie Mckenna Bola, DO, FACP CPT-60304 Ofc Vst, Est Level III 15:24:26 PROFESSOR OF CHEMISTRY Rachel Mckenna Bola, DO, FACP CPT-18838 Ofc Vst, Est Level III 14:22:31 PROFESSOR OF CHEMISTRY Rachel Rosie Mckenna Bola, DO, FACP CPT-01648 Ofc Vst, Est Level IV 10:02:54 CDT Racheljuventino Plaza [facility] CPT-92928 Ofc Vst, Est Level III 16:32:40 CDT Rachel Rosie Plaza [facility] CPT-70259 Ofc Vst, Est Level III 16:29:26 CDT Racheljuventino Mckenna Bola, DO, FACP CPT-73773 Ofc Vst, Est Level IV 14:43:12 CDT Rachel Rosie Arellanoner [facility] CPT-26747 Ofc Vst, Est Level IV 14:48:51 CDT Rachel Rosie Plaza [facility] CPT-32249 Ofc Vst, Est Level III 14:21:26 CDT Rachel Rosie Mckenna Bola, DO, FACP CPT-61250 Ofc Vst, Est Level III 16:25:48 CDT Rachel Rosie Mckenna Bola, DO, FACP CPT-77167 Ofc Vst, Est Level III 15:53:26 CDT Rachel Rosie Mckenna Bola, DO, FACP CPT-83796 Ofc Vst, Est Level III 16:00:22 CDT Racheljuventino Mckenna Bola, DO, FACP CPT-57853 Ofc Vst, Est Level III 10:41:27 PROFESSOR OF CHEMISTRY Rachel Mckenna Bola, DO, FACP CPT-73935 Ofc Vst, Est Level IV 09:59:09 PROFESSOR OF CHEMISTRY Rachel Mckenna Bola, DO, FACP CPT-70880 Ofc Vst, Est Level III 10:07:13 PROFESSOR OF CHEMISTRY Rachel Plaza [facility] CPT-33016 Ofc Vst, Est Level III 14:54:02 PROFESSOR OF CHEMISTRY Rachel Mckenna Bola, DO, FACP CPT-19901 Ofc Vst, Est Level III 13:15:03 CDT Racheljuventino Plaza [facility] CPT-42247 Ofc Vst, Est Level IV 16:30:43 CDT Racheljuventino Mckenna Bola, DO, FACP CPT-45356 Ofc Vst, Est Level IV 12:52:15 CDT Racheljuventino Mckenna Bola, DO, FACP CPT-38558 Ofc Vst, Est Level III 14:55:16 CDT Rachel Rosie Plaza [facility] CPT-32005 Ofc Vst, Est Level III 09:36:49 CDT Rachel Rosie Mckenna Plaza, DO, FACP CPT-16147 Ofc Vst, Est Level IV 13:11:53 CDT Rachel Rosie Mckenna Plaza, DO, FACP CPT-43579 Ofc Vst, Est Level IV 09:21:55 PROFESSOR OF CHEMISTRY Rachel Rosie Mckenna Bola, DO, FACP CPT-51475 Ofc Vst, Est Level IV 16:18:13 PROFESSOR OF CHEMISTRY Rachel Rosie Plaza [facility] CPT-62700 Ofc Vst, Est Level III 14:24:17 PROFESSOR OF CHEMISTRY Rachel Plaza [facility] CPT-14461 Ofc Vst, Est Level III 14:33:19 PROFESSOR OF CHEMISTRY Rachel Rosie Plaza [facility] CPT-66679 Ofc Vst, Est Level III 16:11:48 CDT Rachel Rosie Mckenna Bola, DO, FACP CPT-76637 Ofc Vst, Est Level IV 21:11:44 CDT Rachel Rosie Plaza [facility] CPT-65949 Ofc Vst, Est Level IV 16:18:03 CDT Rachel Rosie Mckenna Bola, DO, FACP CPT-05501 Ofc Vst, Est Level IV 16:48:22 CDT Rachel Rosie Plaza [facility] CPT-91497 Ofc Vst, Est Level IV 14:26:27 CDT Rachel Rosie Mckenna Plaza, DO, FACP CPT-53935 Ofc Vst, Est Level IV 16:41:37 PROFESSOR OF CHEMISTRY Rachel Rosie Mckenna Bola, DO, FACP CPT-49847 Ofc Vst, Est Level III 16:38:27 PROFESSOR OF CHEMISTRY Rachel Rosie Mckenna Plaza, DO, FACP CPT-37807 Ofc Vst, Est Level III 18:02:37 PROFESSOR OF CHEMISTRY Rachel Mckenna Bola, DO, FACP CPT-02224 Ofc Vst, Est Level III 15:48:55 PROFESSOR OF CHEMISTRY Rachel Mckenna Plaza, DO, FACP CPT-51395 Ofc Vst, Est Level III 17:01:29 CDT Rachel Rosie Mckenna Bola, DO, FACP CPT-21630 Ofc Vst, Est Level III 16:07:45 CDT Rachel Rosie Mckenna Bola, DO, FACP CPT-37716 Ofc Vst, Est Level III 10:10:13 CDT Rachel Rosie Mckenna Bola, DO, FACP CPT-93667 Ofc Vst, Est Level III 15:02:09 CDT Rachel Rosie Mckenna Bola, DO, FACP CPT-56355 Ofc Vst, Est Level III 15:58:47 CDT Rachel Rosie Mckenna Bola, DO, FACP CPT-09938 Ofc Vst, Est Level IV 16:03:29 CDT Racheljuventino Plaza [facility] CPT-85072 Ofc Vst, Est Level III 09:44:56 CDT Rachel Rosie Mckenna Bola, DO, FACP CPT-71678 Ofc Vst, Est Level IV 13:34:08 PROFESSOR OF CHEMISTRY Rachel Rosie Mckenna Bola, DO, FACP CPT-09237 Ofc Vst, Est Level III 16:12:13 PROFESSOR OF CHEMISTRY Rachel Renoi Bala Bola, DO, FACP CPT-54651 Ofc Vst, Est Level IV 09:46:09 PROFESSOR OF CHEMISTRY Rachel Mckenna Bola, DO, FACP CPT-99867 Ofc Vst, Est Level III 17:04:16 PROFESSOR OF CHEMISTRY Rachel Mckenna Plaza, DO, FACP CPT-57725 Ofc Vst, Est Level IV 16:28:43 CDT Rachel Mckenna Plaza, DO, FACP CPT-72855 Ofc Vst, Est Level III 16:25:00 CDT Rachel [facility]annnelson [facility] Rachel Mckenna Plaza, DO, FACP CPT-06593 Ofc Vst, Est Level III 16:34:11 CDT Rachel Rosie Mckenna Plaza, DO, FACP CPT-16008 Ofc Vst, Est Level III 11:09:04 CDT Racheljuventino Mckenna Plaza, DO, FACP CPT-75645 Ofc Vst, Est Level III 10:15:02 CDT Rachel Mckenna Plaza, DO, FACP CPT-82151 Ofc Vst, New Level III 15:50:58 CDT Rachel Plaza [facility] [place] Procedures Code Procedure Name Date Entry Date Standard Description CPT-83499 Preventive, Est, (40-64) 16:23:06 CDT CPT-11445 Handling of specimen from office to lab 13:14:22 CDT CPT-68725 Preventive, Est, (40-64) 13:14:22 CDT CPT-70696 Biopsy, skin/subcut/mucous membrane; sngl lsn 11:08:35 CDT CPT-44162 Preventive, Est, (40-64) 15:03:18 CDT CPT-29384 Handling of specimen from office to lab 15:03:18 CDT CPT-22956 Handling of specimen from office to lab 16:01:28 CDT CPT-79126 Preventive, Est, (18-39) 16:01:28 CDT CPT-23897 Preventive, Est, (18-39) 10:39:27 CDT CPT-89246 Handling of specimen from office to lab 10:39:27 CDT CPT-94920 Preventive, Est, (18-39) 13:53:34 CDT CPT-89374 Handling of specimen from office to lab 13:53:34 CDT CPT-76925 Preventive, Est, (18-39) 09:42:54 CDT CPT-20486 Handling of specimen from office to lab 09:42:54 CDT
--- OUTSIDE RECORDS SUMMARY | 2018-03-22 06:07 | XMS REPORT | Clinical Summary ---
Author Author User, [employer] Organization Formerly [facility] Physician [place] Address Unknown Phone Unavailable Allergies, Adverse Reactions, [...] Rachel Plaza Blood in stool WHEEZING 786.07 Resolved Rachel Plaza Wheezing BRONCHITIS, ACUTE 466.0 Resolved Rachel Plaza Acute bronchitis SHOULDER PAIN 719.41 Active Rachel Plaza Pain in joint involving shoulder region Medication List Medication Instructions Start Date Stop Date Generic Name NDC Status Provider Patient Instruction BYETTA 5 MCG PEN 5 MCG/0.02ML SOPN 1 injection BID EXENATIDE 73392512467 Active Rachel Plaza SUDAFED 30 MG TAB 1 PO TID prn congestion PSEUDOEPHEDRINE HCL 27185106933 No Longer Active Rachel Plaza PHENTERMINE HCL 37.5 MG CAPS 1 po daily PHENTERMINE HCL 37920555275 No Longer Active Rachel Plaza PREDNISONE 10 MG TAB 2 po day one time once daily for 5 days 2014 PREDNISONE 64522105698 No Longer Active Cais Elizabeth PROAIR HFA 108 (90 BASE) MCG/ACT AERS 2 puff Q4 hrs prn wheezing ALBUTEROL SULFATE 60361947830 Active Rachel Plaza ADVAIR DISKUS 100-50 MCG/DOSE MISC 1 puff BID FLUTICASONE- SALMETEROL 93284187179 Active Rachel Plaza TUSSIONEX PENNKINETIC ER 10-8 MG/5ML LQCR 1 tsp PO BID prn cough HYDROCOD POLST-CHLORPHEN POLST 44606166572 No Longer Active Rachel Plaza PREDNISONE 10 MG TAB 4 PO at one time once daily for 2 days, then 2 PO at one time once daily PREDNISONE 88518008446 No Longer Active Racheljuventino Plaza CEFDINIR 300 MG CAPS 1 PO BID CEFDINIR 67598512513 No Longer Active Casi Elizabeth SUDAFED 30 MG TAB 1 PO TID prn PSEUDOEPHEDRINE HCL 81165402762 No Longer Active Rachel Rosie DEXTER'S NASAL SPRAY (DEXAMETHASONE, GENTAMICIN, SALINE) 2 puffs each nostril TID for [address] DEXTER'Bala NASAL SPRAY ( DEXAMETHASONE, GENTAMICIN, SALINE) No Longer Active Rachel Plaza AUGMENTIN 500-125 MG TAB 1 PO BID AMOXICILLIN-POT CLAVULANATE 50394113808 No Longer Active Rachel Rosie Plaza TOPAMAX 25 MG TABS 1 PO BID TOPIRAMATE 81301795329 Active Rachel Rosie Plaza ALEVE 220 MG TAB 2 PO QHS NAPROXEN SODIUM 51832900171 Active Rachel Rosie Plaza ULTRAM 50 MG TAB 1 PO TID TRAMADOL HCL 47996624139 No Longer Active Racheljuventino Plaza ADVAIR DISKUS 100-50 MCG/DOSE MISC 1 puff BID FLUTICASONE-SALMETEROL 03910502750 No Longer Active Rachel Rosie Plaza BIAXIN 500 MG TAB 1 PO BID CLARITHROMYCIN 56003830001 No Longer Active Rachel Rosie Plaza LEVOXYL 75 MCG TABS 1 PO DAILY LEVOTHYROXINE SODIUM 35213989519 Active Casi Elizabeth AMOXICILLIN 500 MG CAP 1 PO TID AMOXICILLIN 92496242305 No Longer Active Rachel Rosie Plaza ATROVENT 0.06 % SOLN 2 puffs each nostril TID prn runny nose 2013 IPRATROPIUM BROMIDE 24069253185 No Longer Active Rachel Plaza PREDNISONE 20 MG TAB 2 pills at once for 2 days then 1 pill daily for 2 days PREDNISONE 82153791795 No Longer Active Rachel Plaza AUGMENTIN 875-125 MG TAB 1 PO BID AMOXICILLIN-POT CLAVULANATE 99886798202 No Longer Active Rachel DEXTER'S NASAL SPRAY (DEXAMETHASONE, GENTAMICIN, SALINE) 2 puffs each nostril TID for [address] DEXTER'Bala NASAL SPRAY ( DEXAMETHASONE, GENTAMICIN, SALINE) No Longer Active Rachel Plaza PREDNISONE 20 MG TAB 2 pills at once for 2 days then 1 pill daily for 5 days PREDNISONE 85616577764 No Longer Active Rachel Plaza BIAXIN 500 MG TAB 1 PO BID CLARITHROMYCIN 54276635386 No Longer Active Rachel Plaza KENALOG 0.1 % CREA apply to affected areas BID TRIAMCINOLONE ACETONIDE No Longer Active Rachel Plaza PROAIR HFA 108 (90 BASE) MCG/ACT AERS 2 puff Q4 hrs prn wheezing ALBUTEROL SULFATE 24327648327 No Longer Active Rachel Plaza SUDAFED 30 MG TAB 1 PO TID for 5 days PSEUDOEPHEDRINE HCL 36049598687 No Longer Active Rachel Plaza PREDNISONE 20 MG TAB 2 pills at once for 3 days then 1 pill daily for 3 days PREDNISONE 08850751397 No Longer Active Rachel Plaza ADVAIR DISKUS 100-50 MCG/DOSE MISC 1 puff BID FLUTICASONE-SALMETEROL 17697914271 No Longer Active Rachel Plaza BIAXIN 500 MG TAB 1 PO BID CLARITHROMYCIN 66831359190 No Longer Active Rahceljuventino Plaza OMEPRAZOLE 20 MG CPDR 1 PO daily OMEPRAZOLE 90805677513 Active Rachel Rosie Plaza PROAIR HFA 108 (90 BASE) MCG/ACT AERS 2 puff Q4 hrs prn wheezing ALBUTEROL SULFATE 01774094900 No Longer Active Rachel Rosie Plaza LAMISIL 250 MG TAB 1 po daily TERBINAFINE HCL 69092573032 No Longer Active Rachel Rosie Plaza LOTRISONE 0.05-1 % CREAM apply to affected areas BID prn CLOTRIMAZOLE-BETAMETHASONE 92677721978 No Longer Active Rachel Rosie Plaza BIAXIN XL PAC 500 MG TB24 2 pills at same time daily for 7 days CLARITHROMYCIN 09091144483 No Longer Active Racheljuventino Plaza PREDNISONE 20 MG TAB 3 pills daily at once for 2 days, 2 pills daily at once for 2 days, 1 once daily for 2 days PREDNISONE 76537545130 No Longer Active Rachel Rosie Plaza ADVAIR DISKUS 100-50 MCG/DOSE MISC 1 puff BID for two weeks 05/02 FLUTICASONE-SALMETEROL 95405345885 No Longer Active Rachel Rosie Plaza PROAIR HFA 108 (90 BASE) MCG/ACT AERS 2 puff Q4 hrs prn wheezing ALBUTEROL SULFATE 92348498694 No Longer Active Rachel Rosie Plaza LEVAQUIN 500 MG TAB 1 PO QD LEVOFLOXACIN 28639672808 No Longer Active Rachel Rosie Plaza TESSALON 200 MG CAPS 1 PO TID prn cough BENZONATATE 49284490440 No Longer Active Rachel Rosie Plaza LAMISIL 250 MG TAB 1 PO daily TERBINAFINE HCL 81269273006 No Longer Active Rachel Rosie Plaza LAMISIL 250 MG TABS 1 PO daily TERBINAFINE HCL 73674632228 No Longer Active Rachel Rosie Plaza DIFLUCAN 100 MG TABS 1 PO daily FLUCONAZOLE 41405512046 No Longer Active Rachel Rosie Plaza NYSTATIN 418373 UNIT/GM CREA Apply to affected areas TID until resolved 01/10 NYSTATIN 22689333297 No Longer Active Rachel Rosie Plaza LAMISIL 250 MG TABS 1 PO daily TERBINAFINE HCL 61108249246 No Longer Active Rachel Rosie Plaza LOTRISONE 0.05-1 % CREAM apply small amount to affected areas TID CLOTRIMAZOLE-BETAMETHASONE 00818738483 No Longer Active Racheljuventino Plaza BIAXIN XL PAC 500 MG TB24 2 pills at same time daily for 7 days CLARITHROMYCIN 42430219379 No Longer Active Racheljuventino Plaza CILOXAN 0.3 % SOLN 2 drops Q6hrs for 7 days CIPROFLOXACIN HCL 63661303691 No Longer Active Dorene Cristina METFORMIN HCL 500 MG TABS 2 PO BID METFORMIN HCL 55804195012 Active Rachel Rosie Plaza NAPROXEN 500 MG TAB 1 PO BID NAPROXEN 22235126734 No Longer Active Racheljuventino Plaza LASIX 20 MG TAB 1 PO QD prn for swelling FUROSEMIDE 13229620734 No Longer Active Racheljuventino Plaza FLONASE 50 MCG/DOSE INHALANT 2 puffs each nostril daily FLONASE 50 MCG/DOSE INHALANT No Longer Active Rachel Plaza KEVIN-D 24 HOUR 180-240 MG TB24 1 PO Daily for sinus pressure. FEXOFENADINE-PSEUDOEPHEDRINE 62907651337 No Longer Active Racheljuventino Plaza KEVIN 180 MG TABS 1 PO QD FEXOFENADINE HCL 78017436638 No Longer Active Racheljuventino Luxe Bola MUCINEX 600 MG TB12 1 PO BID for 5 days GUAIFENESIN 47156547860 No Longer Active Rachel Plaza DOXYCYCLINE HYCLATE 100 MG CAP 1 po BID DOXYCYCLINE HYCLATE 27666968184 No Longer Active Rachel Plaza MULTIVITAMINS TABS 1 po daily MULTIPLE VITAMIN 96996851859 Active Racheljuventino Plaza Immunizations Vaccine Administration Date Value Standard Description Influenza vaccine given done influenza virus vaccine, unspecified formulation Influenza vaccine given Done influenza virus vaccine, unspecified formulation Vital Signs Date Name Value Unit Range Description blood pressure, diastolic - 8462-4 76 mm[Hg] BP coello blood pressure, systolic - 8480-6 118 mm[Hg] BP sys pulse rate E&M - 8867-4 72 /min Heart rate respiratory rate E&M - 9279-1 14 /min Resp rate temperature E&M 98.6 [degF] Body temperature weight E&M - 3141-9 191 [lb_av] Weight Measured blood pressure, diastolic - 8462-4 76 mm[Hg] BP coello blood pressure, systolic - 8480-6 130 mm[Hg] BP sys pulse rate E&M - 8867-4 80 /min Heart rate respiratory rate E&M - 9279-1 14 /min Resp rate temperature E&M 98.6 [degF] Body temperature weight E&M - 3141-9 191 [lb_av] Weight Measured blood pressure, diastolic - [...] E&M - 3141-9 179 [lb_av] Weight Measured Diagnostic Results Date Name Value Unit Range Description Clinical Lists Update: CBC,CMP,Chol,Trig,TSH,Free T4 - Chemistry albumin, serum 4.1 g/dL Estimated Glomerular Filtration Rate (calc) 82 mL/min/1.73m2 urea nitrogen, blood 10 mg/dL calcium, serum 9.2 mg/dL chloride, serum 105 mmol/L cholesterol, serum 142 mg/dL carbon dioxide, venous blood 27.0 mmol/L creatinine, serum 0.8 mg/dL thyroxine, serum, free 1.04 ng/dL thyroid stimulating hormone, serum 2.23 u[iU]/mL potassium, serum 3.9 mmol/L protein, total, serum 6.2 g/dL aspartate aminotransferase (SGOT), serum 13 U/L alanine aminotransferase (SGPT), serum 13 U/L bilirubin, serum, total 0.6 mg/dL triglyceride, serum, fasting 65 mg/dL sodium, serum 139 mmol/L anion gap, serum 11 glucose, plasma fasting 85 mg/dL alkaline phosphatase, serum 50 U/L Clinical Lists Update: CBC,CMP,Chol,Trig,TSH,Free T4 - Hematology hemoglobin, blood 13.1 g/dL hematocrit, blood 41 % platelet count 294 10*3/mm3 erythrocyte (RBC) count 4.39 10*6/mm3 leukocyte count, blood 5.9 10*3/mm3 mean corpuscular volume, RBC 94 fL red blood cell distribution width 13.4 % Office Visit: Dr Plaza's Check Up: Established Patient Visit - Chemistry creatinine, serum 0.8 mg/dL albumin, serum 4.1 g/dL thyroid stimulating hormone, serum 1.81 u[iU]/mL potassium, serum 4.0 mmol/L protein, total, serum 6.3 g/dL aspartate aminotransferase (SGOT), serum 19 U/L alanine aminotransferase (SGPT), serum 17 U/L bilirubin, serum, total 0.4 mg/dL triglyceride, serum, fasting 58 mg/dL sodium, serum 138 mmol/L anion gap, serum 10 glucose, plasma fasting 77 mg/dL Estimated Glomerular Filtration Rate (calc) 82 mL/min/1.73m2 carbon dioxide, venous blood 26.0 mmol/L cholesterol, serum 137 mg/dL chloride, serum 106 mmol/L calcium, serum 9.1 mg/dL urea nitrogen, blood 18 mg/dL alkaline phosphatase, serum 63 U/L thyroxine, serum, free 1.13 ng/dL Encounters Code Encounter Date Provider Facility CPT-01992 Ofc Vst, Est Level III 17:15:12 CDT Rachel Plaza DO, FACP CPT-92137 Ofc Vst, Est Level IV 15:58:13 CDT Rachel Rosie Plaza Rachel S Plaza, DO, FACP CPT-65580 Ofc Vst, Est Level IV 15:30:54 CDT Racheljuventino [facility]oner [facility] CPT-03395 Ofc Vst, Est Level III 20:51:09 CDT Rachel Rosie Mckenna Bola, DO, FACP CPT-06702 Ofc Vst, Est Level III 16:39:04 [employer] Rachel Mckenna Bola, DO, FACP CPT-64204 Ofc Vst, Est Level III 20:33:24 [employer] Rachel Arellanoner Rachel Bala Bola, DO, FACP CPT-54773 Ofc Vst, Est Level IV 20:17:26 [employer] Rachel Velez Plaza [facility] CPT-13332 Ofc Vst, Est Level III 16:29:23 [employer] Rachel Arellanoner Rachel Mckenna Bola, DO, FACP CPT-02486 Ofc Vst, Est Level III 16:41:30 CDT Racheljuventino Arellanoner Rachel Bala Bola, DO, FACP CPT-51205 Ofc Vst, Est Level III 12:12:47 CDT Racheljuventino Arellanoner Racheljuventino Plaza, DO, FACP CPT-92873 Ofc Vst, Est Level III 16:03:46 CDT Racheljuventino Velez Plaza Rachel Bala Bola, DO, FACP CPT-26741 Ofc Vst, Est Level IV 17:56:18 CDT Racheljuventino Velez Plaza [facility] CPT-67428 Ofc Vst, Est Level III 15:42:50 CDT Racheljuventino Velez Bola [facility] CPT-10471 Ofc Vst, Est Level III 15:37:57 CDT Rachel Rosie Plaza [facility] CPT-44885 Ofc Vst, Est Level III 19:30:03 CDT Racheljuventino Velez Plaza Rachel Bala Bola, DO, FACP CPT-79394 Ofc Vst, Est Level III 20:02:43 CDT Rachel Rosie [facility] CPT-68366 Ofc Vst, Est Level III 13:45:40 [employer] Rachel Rosie Ramos S Plaza, DO, FACP CPT-42005 Ofc Vst, Est Level III 19:57:30 [employer] Rachel Rosie Renoi S Plaza, DO, FACP CPT-64926 Ofc Vst, Est Level III 20:20:40 [employer] Rachel Rosie Renoi S Plaza, DO, FACP CPT-19005 Ofc Vst, Est Level III 15:09:23 [employer] Rachel Rosie Renoi S Plaza, DO, FACP CPT-82641 Ofc Vst, Est Level III 16:20:28 CDT Rachel Rosie Mckenna Bola, DO, FACP CPT-37361 Ofc Vst, Est Level III 10:14:05 CDT Rachel Rosie Renoi S Plaza, DO, FACP CPT-47527 Ofc Vst, Est Level III 15:38:48 CDT Rachel Rosie Mckenna Plaza, DO, FACP CPT-21100 Ofc Vst, Est Level III 17:19:17 CDT Rachel Rosie Mckenna Bola, DO, FACP CPT-16922 Ofc Vst, Est Level III 16:30:31 CDT Rachel Rosie Renoi S Plaza, DO, FACP CPT-97903 Ofc Vst, Est Level III 20:41:25 CDT Rachel Rosie Arellanoner Rachel S Plaza, DO, FACP CPT-33224 Ofc Vst, Est Level III 16:38:44 CDT Rachel Rosie Renoi S Bola, DO, FACP CPT-80921 Ofc Vst, Est Level III 14:31:54 CDT Rachel Rosie Mckenna Bola, DO, FACP CPT-66329 Ofc Vst, Est Level III 20:41:14 [employer] Rachel Rosie Mckenna Bola, DO, FACP CPT-63306 Ofc Vst, Est Level III 16:34:32 [employer] Rachel Mckenna Bola, DO, FACP CPT-33854 Ofc Vst, Est Level III 17:31:03 [employer] Rachel Rosie Mckenna Bola, DO, FACP CPT-61436 Ofc Vst, Est Level III 13:46:07 [employer] Rachel Rosie Mckenna Bola, DO, FACP CPT-09927 Ofc Vst, Est Level III 16:31:25 CDT Rachel Rosie Mckenna Bola, DO, FACP CPT-12849 Ofc Vst, Est Level III 13:49:29 CDT Rachel Rosie Plaza [facility] CPT-14857 Ofc Vst, Est Level III 13:49:22 CDT Rachel Rosie Plaza [facility] CPT-09517 Ofc Vst, Est Level III 13:28:51 [facility] Ofc Vst, Est Level III 13:30:40 CDT Rachel Rosie Mckenna Bola, DO, FACP CPT-30875 Ofc Vst, Est Level III 14:49:17 CDT Rachel Rosie Plaza [facility] CPT-85015 Ofc Vst, Est Level III 13:30:39 [employer] Rachel Rosie Mckenna Bola, DO, FACP CPT-61221 Ofc Vst, Est Level III 09:43:47 [employer] Rachel Rosie Plaza [facility] CPT-96656 Ofc Vst, Est Level III 09:43:54 [employer] Rachel Rosie Plaza [facility] CPT-99605 Ofc Vst, Est Level IV 10:15:14 [employer] Racheljuventino Mckenna Bola, DO, FACP CPT-88008 Ofc Vst, Est Level III 15:24:26 [employer] BUIL[employer] Rachel Mckenna Bola, DO, FACP CPT-51735 Ofc Vst, Est Level III 14:22:31 [employer] Rachel Rosie Mckenna Bola, DO, FACP CPT-61634 Ofc Vst, Est Level IV 10:02:54 CDT Rachel Rosie Plaza [facility] CPT-61469 Ofc Vst, Est Level III 16:32:40 CDT Rachel Rosie Plaza [facility] [place] [facility] CPT-47221 Ofc Vst, Est Level III 16:29:26 CDT Rachel Rosie Mckenna Bola, DO, FACP CPT-80577 Ofc Vst, Est Level IV 14:43:12 CDT Rachel Rosie Plaza [facility] [place] [facility] CPT-07493 Ofc Vst, Est Level IV 14:48:51 CDT Rachel Rosie Plaza [facility] [place] [facility] CPT-81627 Ofc Vst, Est Level III 14:21:26 CDT Racheljuventino Arellanoner Rachel Mckenna Bola, DO, FACP CPT-30835 Ofc Vst, Est Level III 16:25:48 CDT Racehl Rosie Mckenna Bola, DO, FACP CPT-12296 Ofc Vst, Est Level III 15:53:26 CDT Rachel Rosie Plaza Rachel S Bola, DO, FACP CPT-17063 Ofc Vst, Est Level III 16:00:22 CDT Rachel Rosie Bola Rachel S Bola, DO, FACP CPT-73527 Ofc Vst, Est Level III 10:41:27 [employer] Rachel Rosie Mckenna Bola, DO, FACP CPT-45687 Ofc Vst, Est Level IV 09:59:09 [employer] BU[employer] Rachel Mckenna Bola, DO, FACP CPT-99572 Ofc Vst, Est Level III 10:07:13 [employer] Rachel Plaza [facility] CPT-21667 Ofc Vst, Est Level III 14:54:02 [employer] Rachel Rosie Mckenna Bola, DO, FACP CPT-47570 Ofc Vst, Est Level III 13:15:03 CDT Rachel Rosie Plaza [facility] CPT-62768 Ofc Vst, Est Level IV 16:30:43 CDT Racheljuventino Mckenna Bola, DO, FACP CPT-12847 Ofc Vst, Est Level IV 12:52:15 CDT Rachel Rosie Mckenna Bola, DO, FACP CPT-15704 Ofc Vst, Est Level III 14:55:16 CDT Racheljuventino Plaza [facility] CPT-90797 Ofc Vst, Est Level III 09:36:49 CDT Racheljuventino Mckenna Bola, DO, FACP CPT-93660 Ofc Vst, Est Level IV 13:11:53 CDT Racheljuventino Mckenna Bola, DO, FACP CPT-34547 Ofc Vst, Est Level IV 09:21:55 [employer] Rachel Rosie Mckenna Bola, DO, FACP CPT-69361 Ofc Vst, Est Level IV 16:18:13 [employer] BUIL[employer] Rachel Plaza [facility] CPT-45890 Ofc Vst, Est Level III 14:24:17 [employer] BUIL[employer] Rachel Plaza [facility] CPT-30831 Ofc Vst, Est Level III 14:33:19 [employer] Rachel Rosie Plaza [facility] CPT-56531 Ofc Vst, Est Level III 16:11:48 CDT Rachel Rosie Mckenna Bola, DO, FACP CPT-32657 Ofc Vst, Est Level IV 21:11:44 CDT Rachel Rosie Plaza [facility] CPT-63145 Ofc Vst, Est Level IV 16:18:03 CDT Rachel Rosie Mckenna Bola, DO, FACP CPT-55956 Ofc Vst, Est Level IV 16:48:22 CDT Rachel Rosie Plaza [facility] CPT-84537 Ofc Vst, Est Level IV 14:26:27 CDT Rachel Rosie Mckenna Bola, DO, FACP CPT-93170 Ofc Vst, Est Level IV 16:41:37 [employer] Rachel Mckenna Bola, DO, FACP CPT-06056 Ofc Vst, Est Level III 16:38:27 [employer] Rachel Mckenna Bola, DO, FACP CPT-70202 Ofc Vst, Est Level III 18:02:37 [employer] Racheljuventino Mckenna Plaza, DO, FACP CPT-67477 Ofc Vst, Est Level III 15:48:55 [employer] Rachel Mckenna Bola, DO, FACP CPT-99667 Ofc Vst, Est Level III 17:01:29 CDT Racheljuventino Mckenna Bola, DO, FACP CPT-95103 Ofc Vst, Est Level III 16:07:45 CDT Rachel Rosie Ramos S Bola, DO, FACP CPT-53977 Ofc Vst, Est Level III 10:10:13 CDT Rachel Rosie Arellanoner Rachel S Bola, DO, FACP CPT-84157 Ofc Vst, Est Level III 15:02:09 CDT Racheljuventino Mckenna Bola, DO, FACP CPT-69209 Ofc Vst, Est Level III 15:58:47 CDT Rachel Rosie Mckenna Bola, DO, FACP CPT-87332 Ofc Vst, Est Level IV 16:03:29 CDT Rachel Rosie Plaza [facility] CPT-52368 Ofc Vst, Est Level III 09:44:56 CDT Rachel Rosie Mckenna Bola, DO, FACP CPT-75849 Ofc Vst, Est Level IV 13:34:08 [employer] Racheljuventino Mckenna Bola, DO, FACP CPT-05403 Ofc Vst, Est Level III 16:12:13 [employer] Rachel Mckenna Bola, DO, FACP CPT-63291 Ofc Vst, Est Level IV 09:46:09 [employer] Rachel Rosie Mckenna Bola, DO, FACP CPT-65565 Ofc Vst, Est Level III 17:04:16 [employer] Racheljuventino Mckenna Bola, DO, FACP CPT-98722 Ofc Vst, Est Level IV 16:28:43 CDT Racheljuventino Mckenna Bola, DO, FACP CPT-12348 Ofc Vst, Est Level III 16:25:00 CDT Racheljuventino Mckenna Bola, DO, FACP CPT-85653 Ofc Vst, Est Level III 16:34:11 CDT Rachel Rosie Mckenna Bola, DO, FACP CPT-79546 Ofc Vst, Est Level III 11:09:04 CDT Rachel Rosie Mckenna Bola, DO, FACP CPT-61759 Ofc Vst, Est Level III 10:15:02 CDT Racheljuventino Mckenna Bola, DO, FACP CPT-03385 Ofc Vst, New Level III 15:50:58 CDT Rachel Plaza [facility] [place] Procedures Code Procedure Name Date Entry Date Standard Description CPT-88544 Preventive, Est, (40-64) 16:23:06 CDT CPT-14576 Handling of specimen from office to lab 13:14:22 CDT CPT-51485 Preventive, Est, (40-64) 13:14:22 CDT CPT-05305 Biopsy, skin/subcut/mucous membrane; sngl lsn 11:08:35 CDT CPT-41023 Preventive, Est, (40-64) 15:03:18 CDT CPT-49607 Handling of specimen from office to lab 15:03:18 CDT CPT-51811 Handling of specimen from office to lab 16:01:28 CDT CPT-09733 Preventive, Est, (18-39) 16:01:28 CDT CPT-67621 Preventive, Est, (18-39) 10:39:27 CDT CPT-83528 Handling of specimen from office to lab 10:39:27 CDT CPT-73520 Preventive, Est, (18-39) 13:53:34 CDT CPT-44581 Handling of specimen from office to lab 13:53:34 CDT CPT-54451 Preventive, Est, (18-39) 09:42:54 CDT CPT-38604 Handling of specimen from office to lab 09:42:54 CDT
--- OUTSIDE RECORDS SUMMARY | 2018-03-22 06:08 | XMS REPORT | Clinical Summary ---
Author Author User, Holvi Organization [facility] Address Unknown Phone Unavailable Allergies, Adverse Reactions, [...] Plaza Abnormal mammogram, unspecified DERMATITIS 692.9 Resolved Racehl Plaza Contact dermatitis and other eczema, unspecified [...] 5 MCG/0.02ML SOPN 1 injection BID EXENATIDE 30233230037 Active Rachel Plaza SUDAFED 30 MG TAB 1 PO TID prn congestion PSEUDOEPHEDRINE HCL 92209761320 No Longer Active Rachel Plaza PHENTERMINE HCL 37.5 MG CAPS 1 po daily PHENTERMINE HCL 77050839614 No Longer Active Rachel Plaza PREDNISONE 10 MG TAB 2 po day one time once daily for 5 days 2014 PREDNISONE 11738230099 No Longer Active Casi Elizabeth PROAIR HFA 108 (90 BASE) MCG/ACT AERS 2 puff Q4 hrs prn wheezing ALBUTEROL SULFATE 19256531276 Active Rachel Plaza ADVAIR DISKUS 100-50 MCG/DOSE MISC 1 puff BID FLUTICASONE- SALMETEROL 32550922812 Active Rachel Plaza TUSSIONEX PENNKINETIC ER 10-8 MG/5ML LQCR 1 tsp PO BID prn cough HYDROCOD POLST-CHLORPHEN POLST 97788498505 No Longer Active Rachel Plaza PREDNISONE 10 MG TAB 4 PO at one time once daily for 2 days, then 2 PO at one time once daily PREDNISONE 06018022097 No Longer Active Racheljuventino Plaza CEFDINIR 300 MG CAPS 1 PO BID CEFDINIR 09605906282 No Longer Active Casi Elizabeth SUDAFED 30 MG TAB 1 PO TID prn PSEUDOEPHEDRINE HCL 50401777651 No Longer Active Rachel DEXTER'S NASAL SPRAY (DEXAMETHASONE, GENTAMICIN, SALINE) 2 puffs each nostril TID for [address] DEXTER'Bala NASAL SPRAY ( DEXAMETHASONE, GENTAMICIN, SALINE) No Longer Active Rachel Plaza AUGMENTIN 500-125 MG TAB 1 PO BID AMOXICILLIN-POT CLAVULANATE 86562264215 No Longer Active Racheljuventino Plaza TOPAMAX 25 MG TABS 1 PO BID TOPIRAMATE 28232469985 Active Rachel Rosie Plaza ALEVE 220 MG TAB 2 PO QHS NAPROXEN SODIUM 87596984954 Active Rachel Rosie Plaza ULTRAM 50 MG TAB 1 PO TID TRAMADOL HCL 83555312239 No Longer Active Racheljuventino Plaza ADVAIR DISKUS 100-50 MCG/DOSE MISC 1 puff BID FLUTICASONE-SALMETEROL 77183859864 No Longer Active Rachel Rosie Plaza BIAXIN 500 MG TAB 1 PO BID CLARITHROMYCIN 26517934297 No Longer Active Racheljuventino Plaza LEVOXYL 75 MCG TABS 1 PO DAILY LEVOTHYROXINE SODIUM 69028011269 Active Casi Elizabeth AMOXICILLIN 500 MG CAP 1 PO TID AMOXICILLIN 38892960201 No Longer Active Rachel Rosie Plaza ATROVENT 0.06 % SOLN 2 puffs each nostril TID prn runny nose 2013 IPRATROPIUM BROMIDE 25267119075 No Longer Active Rachel Plaza PREDNISONE 20 MG TAB 2 pills at once for 2 days then 1 pill daily for 2 days PREDNISONE 99409928494 No Longer Active Rachel Plaza AUGMENTIN 875-125 MG TAB 1 PO BID AMOXICILLIN-POT CLAVULANATE 36815395899 No Longer Active Rachel DEXTER'S NASAL SPRAY (DEXAMETHASONE, GENTAMICIN, SALINE) 2 puffs each nostril TID for [address] DEXTER'Bala NASAL SPRAY ( DEXAMETHASONE, GENTAMICIN, SALINE) No Longer Active Rachel Plaza PREDNISONE 20 MG TAB 2 pills at once for 2 days then 1 pill daily for 5 days PREDNISONE 59809355474 No Longer Active Rachel Plaza BIAXIN 500 MG TAB 1 PO BID CLARITHROMYCIN 04837896683 No Longer Active Rachel Plaza KENALOG 0.1 % CREA apply to affected areas BID TRIAMCINOLONE ACETONIDE No Longer Active Rachel Plaza PROAIR HFA 108 (90 BASE) MCG/ACT AERS 2 puff Q4 hrs prn wheezing ALBUTEROL SULFATE 56295756337 No Longer Active Rachel Plaza SUDAFED 30 MG TAB 1 PO TID for 5 days PSEUDOEPHEDRINE HCL 58198239500 No Longer Active Rachel Plaza PREDNISONE 20 MG TAB 2 pills at once for 3 days then 1 pill daily for 3 days PREDNISONE 52909099694 No Longer Active Rachel Plaza ADVAIR DISKUS 100-50 MCG/DOSE MISC 1 puff BID FLUTICASONE-SALMETEROL 11447665175 No Longer Active Rachel Plaza BIAXIN 500 MG TAB 1 PO BID CLARITHROMYCIN 93743552975 No Longer Active Racheljuventino Plaza OMEPRAZOLE 20 MG CPDR 1 PO daily OMEPRAZOLE 24954707391 Active Rachel Rosie Plaza PROAIR HFA 108 (90 BASE) MCG/ACT AERS 2 puff Q4 hrs prn wheezing ALBUTEROL SULFATE 52100262850 No Longer Active Rachel Rosie Plaza LAMISIL 250 MG TAB 1 po daily TERBINAFINE HCL 79149167605 No Longer Active Rachel Rosie Plaza LOTRISONE 0.05-1 % CREAM apply to affected areas BID prn CLOTRIMAZOLE-BETAMETHASONE 90949435093 No Longer Active Rachel Rosie Plaza BIAXIN XL PAC 500 MG TB24 2 pills at same time daily for 7 days CLARITHROMYCIN 93823150493 No Longer Active Rachel Rosie Plaza PREDNISONE 20 MG TAB 3 pills daily at once for 2 days, 2 pills daily at once for 2 days, 1 once daily for 2 days PREDNISONE 66311192892 No Longer Active Rachel Rosie Plaza ADVAIR DISKUS 100-50 MCG/DOSE MISC 1 puff BID for two weeks 05/02 FLUTICASONE-SALMETEROL 38977751847 No Longer Active Rachel Rosie Plaza PROAIR HFA 108 (90 BASE) MCG/ACT AERS 2 puff Q4 hrs prn wheezing ALBUTEROL SULFATE 54114345717 No Longer Active Rachel Rosie Plaza LEVAQUIN 500 MG TAB 1 PO QD LEVOFLOXACIN 29491305586 No Longer Active Rachel Rosie Plaza TESSALON 200 MG CAPS 1 PO TID prn cough BENZONATATE 87086332320 No Longer Active Rachel Rosie Plaza LAMISIL 250 MG TAB 1 PO daily TERBINAFINE HCL 22431029645 No Longer Active Rachel Rosie Plaza LAMISIL 250 MG TABS 1 PO daily TERBINAFINE HCL 14065278735 No Longer Active Racheljuventino Plaza DIFLUCAN 100 MG TABS 1 PO daily FLUCONAZOLE 32950647821 No Longer Active Racheljuventino Plaza NYSTATIN 497154 UNIT/GM CREA Apply to affected areas TID until resolved 01/10 NYSTATIN 50972072251 No Longer Active Racheljuventino Plaza LAMISIL 250 MG TABS 1 PO daily TERBINAFINE HCL 18411035661 No Longer Active Racheljuventino Plaza LOTRISONE 0.05-1 % CREAM apply small amount to affected areas TID CLOTRIMAZOLE-BETAMETHASONE 06710098523 No Longer Active Racheljuventino Plaza BIAXIN XL PAC 500 MG TB24 2 pills at same time daily for 7 days CLARITHROMYCIN 42142453523 No Longer Active Racheljuventino Plaza CILOXAN 0.3 % SOLN 2 drops Q6hrs for 7 days CIPROFLOXACIN HCL 81299332836 No Longer Active Dorene Cristina METFORMIN HCL 500 MG TABS 2 PO BID METFORMIN HCL 22250218144 Active Racheljuventino Plaza NAPROXEN 500 MG TAB 1 PO BID NAPROXEN 90596083480 No Longer Active Racheljuventino Plaza LASIX 20 MG TAB 1 PO QD prn for swelling FUROSEMIDE 18155009155 No Longer Active Racheljuventino Plaza FLONASE 50 MCG/DOSE INHALANT 2 puffs each nostril daily FLONASE 50 MCG/DOSE INHALANT No Longer Active Rachel Plaza KEVIN-D 24 HOUR 180-240 MG TB24 1 PO Daily for sinus pressure. FEXOFENADINE-PSEUDOEPHEDRINE 31590389564 No Longer Active Racheljuventino Plaza KEVIN 180 MG TABS 1 PO QD FEXOFENADINE HCL 39666901931 No Longer Active Racheljuventino Luxe Bola MUCINEX 600 MG TB12 1 PO BID for 5 days GUAIFENESIN 88594717792 No Longer Active Racheljuventino Plaza DOXYCYCLINE HYCLATE 100 MG CAP 1 po BID DOXYCYCLINE HYCLATE 07492444307 No Longer Active Rachel Plaza MULTIVITAMINS TABS 1 po daily MULTIPLE VITAMIN 32173095643 Active Racheljuventino Plaza Immunizations Vaccine Administration Date [...] E&M - 3141-9 180 [lb_av] Weight Measured Diagnostic Results Date Name Value Unit Range Description Clinical Lists Update: CBC,CMP,Chol,Trig,TSH,Free T4 - Chemistry Estimated Glomerular Filtration Rate (calc) 82 mL/min/1.73m2 glucose, plasma fasting 85 mg/dL albumin, serum 4.1 g/dL alkaline phosphatase, serum 50 U/L urea nitrogen, blood 10 mg/dL calcium, serum 9.2 mg/dL chloride, serum 105 mmol/L cholesterol, serum 142 mg/dL anion gap, serum 11 sodium, serum 139 mmol/L triglyceride, serum, fasting 65 mg/dL bilirubin, serum, total 0.6 mg/dL alanine aminotransferase (SGPT), serum 13 U/L aspartate aminotransferase (SGOT), serum 13 U/L protein, total, serum 6.2 g/dL potassium, serum 3.9 mmol/L thyroid stimulating hormone, serum 2.23 u[iU]/mL thyroxine, serum, free 1.04 ng/dL creatinine, serum 0.8 mg/dL carbon dioxide, venous blood 27.0 mmol/L Clinical Lists Update: CBC,CMP,Chol,Trig,TSH,Free T4 - Hematology hemoglobin, blood 13.1 g/dL platelet count 294 10*3/mm3 erythrocyte (RBC) count 4.39 10*6/mm3 leukocyte count, blood 5.9 10*3/mm3 mean corpuscular volume, RBC 94 fL red blood cell distribution width 13.4 % hematocrit, blood 41 % Clinical Lists Update: CMP,FLP,TSH,Free T4 - Chemistry Estimated Glomerular Filtration Rate (calc) 83 mL/min/1.73m2 glucose, plasma fasting 83 mg/dL cholesterol/HDL ratio, serum, percent 2.6 anion gap, serum 9 sodium, serum 137 mmol/L triglyceride, serum, fasting 117 mg/dL bilirubin, serum, total 0.5 mg/dL alanine aminotransferase (SGPT), serum 12 U/L aspartate aminotransferase (SGOT), serum 13 U/L protein, total, serum 6.1 g/dL potassium, serum 4.1 mmol/L LDL cholesterol, serum 67 mg/dL thyroid stimulating hormone, serum 1.61 u[iU]/mL HDL cholesterol, serum 55.0 mg/dL thyroxine, serum, free 1.05 ng/dL creatinine, serum 0.8 mg/dL carbon dioxide, venous blood 25.0 mmol/L cholesterol, serum 145 mg/dL chloride, serum 107 mmol/L calcium, serum 9.0 mg/dL urea nitrogen, blood 17 mg/dL alkaline phosphatase, serum 53 U/L albumin, serum 4.1 g/dL Office Visit: Dr Plaza's Check Up: Established Patient Visit - Chemistry Estimated Glomerular Filtration Rate (calc) 82 mL/min/1.73m2 albumin, serum 4.1 g/dL anion gap, serum 10 sodium, serum 138 mmol/L triglyceride, serum, fasting 58 mg/dL bilirubin, serum, total 0.4 mg/dL alanine aminotransferase (SGPT), serum 17 U/L aspartate aminotransferase (SGOT), serum 19 U/L protein, total, serum 6.3 g/dL potassium, serum 4.0 mmol/L thyroid stimulating hormone, serum 1.81 u[iU]/mL thyroxine, serum, free 1.13 ng/dL creatinine, serum 0.8 mg/dL carbon dioxide, venous blood 26.0 mmol/L cholesterol, serum 137 mg/dL chloride, serum 106 mmol/L calcium, serum 9.1 mg/dL urea nitrogen, blood 18 mg/dL alkaline phosphatase, serum 63 U/L glucose, plasma fasting 77 mg/dL Encounters Code Encounter Date Provider Facility CPT-47045 Ofc Vst, Est Level III 17:15:12 CDT Rachel Plaza DO, FACP CPT-41660 Ofc Vst, Est Level IV 15:58:13 CDT Rachel Plaza DO, FACP CPT-35513 Ofc Vst, Est Level IV 15:30:54 CDT Rachel Plaza [facility] CPT-17146 Ofc Vst, Est Level III 20:51:09 CDT Rachel Plaza DO, FACP CPT-04440 Ofc Vst, Est Level III 16:39:04 [employer] Rachel Plaza DO, FACP CPT-74129 Ofc Vst, Est Level III 20:33:24 [employer] Rachel Plaza DO, FACP CPT-21350 Ofc Vst, Est Level IV 20:17:26 [employer] Rachel Plaza [facility] CPT-46824 Ofc Vst, Est Level III 16:29:23 [employer] Rachel Plaza DO, FACP CPT-37926 Ofc Vst, Est Level III 16:41:30 CDT Rachel Plaza DO, FACP CPT-03892 Ofc Vst, Est Level III 12:12:47 CDT Rachel Rosie Mckenna Bola, DO, FACP CPT-38020 Ofc Vst, Est Level III 16:03:46 CDT Rachel Rosie Mckenna Bola, DO, FACP CPT-46752 Ofc Vst, Est Level IV 17:56:18 CDT Rachel Rosie Plaza [facility] CPT-59575 Ofc Vst, Est Level III 15:42:50 CDT Rachel Rosie Plaza [facility] CPT-73911 Ofc Vst, Est Level III 15:37:57 CDT Rachel Rosie Plaza [facility] CPT-20590 Ofc Vst, Est Level III 19:30:03 CDT Rachel Rosie Mckenna Bola, DO, FACP CPT-54527 Ofc Vst, Est Level III 20:02:43 CDT Rachel Rosie Plaza [facility] CPT-92859 Ofc Vst, Est Level III 13:45:40 [employer] Rachel Mckenna Bola, DO, FACP CPT-29476 Ofc Vst, Est Level III 19:57:30 [employer] Rachel Mckenna Bola, DO, FACP CPT-75659 Ofc Vst, Est Level III 20:20:40 [employer] Rachel Mckenna Bola, DO, FACP CPT-80869 Ofc Vst, Est Level III 15:09:23 [employer] Rachel Mckenna Bola, DO, FACP CPT-60587 Ofc Vst, Est Level III 16:20:28 CDT Rachel Rosie Arellanoner Rachel Bala Bola, DO, FACP CPT-06111 Ofc Vst, Est Level III 10:14:05 CDT Rachel Rosie Mckenna Bola, DO, FACP CPT-68546 Ofc Vst, Est Level III 15:38:48 CDT Rachel Rosie Mckenna Plaza, DO, FACP CPT-89219 Ofc Vst, Est Level III 17:19:17 CDT Rachel Rosie Mckenna Plaza, DO, FACP CPT-94089 Ofc Vst, Est Level III 16:30:31 CDT Rachel Rosie Mckenna [facility], DO, FACP CPT-29073 Ofc Vst, Est Level III 20:41:25 CDT Rachel Rosie Mckenna [facility], DO, FACP CPT-95197 Ofc Vst, Est Level III 16:38:44 CDT Rachel Rosie Mckenna [facility], DO, FACP CPT-34512 Ofc Vst, Est Level III 14:31:54 CDT Rachel Rosie Arellanoner, DO, FACP CPT-66329 Ofc Vst, Est Level III 20:41:14 [employer] Rachel Rosie Mckenna Plaza, DO, FACP CPT-01752 Ofc Vst, Est Level III 16:34:32 [employer] Rachel Mckenna Plaza, DO, FACP CPT-16615 Ofc Vst, Est Level III 17:31:03 [employer] Rachel Mckenna [facility], DO, FACP CPT-76615 Ofc Vst, Est Level III 13:46:07 [employer] Rachel Rosie Mckenna [facility], DO, FACP CPT-96451 Ofc Vst, Est Level III 16:31:25 CDT Rachel Rosie Mckenna [facility], DO, FACP CPT-07214 Ofc Vst, Est Level III 13:49:29 CDT Racheljuventino Plaza [facility] CPT-60133 Ofc Vst, Est Level III 13:49:22 CDT Rachel Rosie Plaza [facility] CPT-07362 Ofc Vst, Est Level III 13:28:51 CDT Rachel Rosie Plaza [facility] CPT-72749 Ofc Vst, Est Level III 13:30:40 CDT Rachel Rosie Mckenna [facility], DO, FACP CPT-72674 Ofc Vst, Est Level III 14:49:17 CDT Rachel Rosie Plaza [facility] CPT-97132 Ofc Vst, Est Level III 13:30:39 [employer] Rachel Rosie Mckenna Bola, DO, FACP CPT-71397 Ofc Vst, Est Level III 09:43:47 [employer] Rachel Plaza [facility] CPT-07294 Ofc Vst, Est Level III 09:43:54 [employer] Rachel Rosie Plaza [facility] CPT-58852 Ofc Vst, Est Level IV 10:15:14 [employer] Rachel Mckenna [facility], DO, FACP CPT-40633 Ofc Vst, Est Level III 15:24:26 [employer] Rachel Mckenna [facility], DO, FACP CPT-13392 Ofc Vst, Est Level III 14:22:31 [employer] Rachel Rosie Mckenna Bola, DO, FACP CPT-67612 Ofc Vst, Est Level IV 10:02:54 CDT Rachel Rosie Plaza [facility] CPT-18185 Ofc Vst, Est Level III 16:32:40 CDT Rachel Rosie Plaza [facility] CPT-15023 Ofc Vst, Est Level III 16:29:26 CDT Rachel Rosie Mckenna [facility], DO, FACP CPT-30282 Ofc Vst, Est Level IV 14:43:12 CDT Rachel Rosie Plaza [facility] CPT-67106 Ofc Vst, Est Level IV 14:48:51 CDT Racheljuventino Plaza [facility] CPT-57806 Ofc Vst, Est Level III 14:21:26 CDT Rachel Rosie Mckenna Bola, DO, FACP CPT-17631 Ofc Vst, Est Level III 16:25:48 CDT Rachel Rosie Mckenna Bola, DO, FACP CPT-00323 Ofc Vst, Est Level III 15:53:26 CDT Rachel Rosie Mckenna Bola, DO, FACP CPT-58352 Ofc Vst, Est Level III 16:00:22 CDT Rachel Rosie Mckenna Bola, DO, FACP CPT-78809 Ofc Vst, Est Level III 10:41:27 [employer] Rachel Mckenna Bola, DO, FACP CPT-12423 Ofc Vst, Est Level IV 09:59:09 [employer] Rachel Mckenna Bola, DO, FACP CPT-49370 Ofc Vst, Est Level III 10:07:13 [employer] Rachel [facility] CPT-74720 Ofc Vst, Est Level III 14:54:02 [employer] Rachel Mckenna Bola, DO, FACP CPT-01584 Ofc Vst, Est Level III 13:15:03 CDT Racheljuventino Plaza [facility] CPT-24723 Ofc Vst, Est Level IV 16:30:43 CDT Racheljuventino Mckenna Bola, DO, FACP CPT-59979 Ofc Vst, Est Level IV 12:52:15 CDT Racheljuventino Mckenna Bola, DO, FACP CPT-22369 Ofc Vst, Est Level III 14:55:16 CDT Racheljuventino Plaza [facility] CPT-99972 Ofc Vst, Est Level III 09:36:49 CDT Rachel Rosie Mckenna Plaza, DO, FACP CPT-92309 Ofc Vst, Est Level IV 13:11:53 CDT Rachel Rosie Mckenna Plaza, DO, FACP CPT-98989 Ofc Vst, Est Level IV 09:21:55 [employer] Rachel Rosie Mckenna Plaza, DO, FACP CPT-83568 Ofc Vst, Est Level IV 16:18:13 [employer] Rachel Rosie [facility] CPT-02062 Ofc Vst, Est Level III 14:24:17 [employer] Rachel Rosie Plaza [facility] CPT-76924 Ofc Vst, Est Level III 14:33:19 [employer] Rachel Rosie [facility] CPT-42297 Ofc Vst, Est Level III 16:11:48 CDT Rachel Rosie Mckenna Plaza, DO, FACP CPT-58755 Ofc Vst, Est Level IV 21:11:44 CDT Rachel Rosie Plaza [facility] CPT-40827 Ofc Vst, Est Level IV 16:18:03 CDT Rachel Rosie Mckenna Plaza, DO, FACP CPT-18550 Ofc Vst, Est Level IV 16:48:22 CDT Rachel Rosie [facility] CPT-38375 Ofc Vst, Est Level IV 14:26:27 CDT Rachel Rosie Mckenna Plaza, DO, FACP CPT-93314 Ofc Vst, Est Level IV 16:41:37 [employer] Rachel Mckenna Plaza, DO, FACP CPT-55986 Ofc Vst, Est Level III 16:38:27 [employer] Rachel Rosie Mckenna Plaza, DO, FACP CPT-97109 Ofc Vst, Est Level III 18:02:37 [employer] Rachel Mckenna Plaza, DO, FACP CPT-01490 Ofc Vst, Est Level III 15:48:55 [employer] Rachel Rosie Renoi Bala [facility], DO, FACP CPT-33365 Ofc Vst, Est Level III 17:01:29 CDT Rachel Rosie Mckenna Bola, DO, FACP CPT-04558 Ofc Vst, Est Level III 16:07:45 CDT Rachel Rosie Mckenna Bola, DO, FACP CPT-40322 Ofc Vst, Est Level III 10:10:13 CDT Rachel Rosie Mckenna Bola, DO, FACP CPT-05490 Ofc Vst, Est Level III 15:02:09 CDT Rachel Rosie Mckenna Bola, DO, FACP CPT-83231 Ofc Vst, Est Level III 15:58:47 CDT Racheljuventino Mckenna Bola, DO, FACP CPT-09654 Ofc Vst, Est Level IV 16:03:29 CD[facility] Ofc Vst, Est Level III 09:44:56 CDT Racheljuventino Mckenna Bola, DO, FACP CPT-42071 Ofc Vst, Est Level IV 13:34:08 [employer] Rachel Rosie Mckenna Plaza, DO, FACP CPT-74266 Ofc Vst, Est Level III 16:12:13 [employer] Rachel Rosie Renoi Bala [facility], DO, FACP CPT-54672 Ofc Vst, Est Level IV 09:46:09 [employer] Rachel Renoi S Plaza, DO, FACP CPT-92003 Ofc Vst, Est Level III 17:04:16 [employer] Rachel Rosie Renoi S Bola, DO, FACP CPT-06684 Ofc Vst, Est Level IV 16:28:43 CDT Rachel Plaza Racheljuventino Plaza, DO, FACP CPT-47107 Ofc Vst, Est Level III 16:25:00 CDT Rachel Plaza Racheljuventino Plaza, DO, FACP CPT-03178 Ofc Vst, Est Level III 16:34:11 CDT Rachel Rosiedieter Plaza, DO, FACP CPT-26723 Ofc Vst, Est Level III 11:09:04 CDT Racheljuventino Plaaz, DO, FACP CPT-80413 Ofc Vst, Est Level III 10:15:02 CDT Rachel Plaza Racheljuventino Plaza, DO, FACP CPT-30814 Ofc Vst, New Level III 15:50:58 CDT Rachel Rosie Bola [facility] Procedures Code Procedure Name Date Entry Date Standard Description CPT-16916 Preventive, Est, (40-64) 16:23:06 CDT CPT-81408 Handling of specimen from office to lab 13:14:22 CDT CPT-95091 Preventive, Est, (40-64) 13:14:22 CDT CPT-59261 Biopsy, skin/subcut/mucous membrane; sngl lsn 11:08:35 CDT CPT-90753 Preventive, Est, (40-64) 15:03:18 CDT CPT-27389 Handling of specimen from office to lab 15:03:18 CDT CPT-44837 Handling of specimen from office to lab 16:01:28 CDT CPT-13879 Preventive, Est, (18-39) 16:01:28 CDT CPT-45595 Preventive, Est, (18-39) 10:39:27 CDT CPT-23338 Handling of specimen from office to lab 10:39:27 CDT CPT-89451 Preventive, Est, (18) 13:53:34 CDT CPT-72705 Handling of specimen from office to lab 13:53:34 CDT CPT-82743 Preventive, Est, (18) 09:42:54 CDT CPT-13975 Handling of specimen from office to lab 09:42:54 CDT
--- OUTSIDE RECORDS SUMMARY | 2018-03-22 06:08 | XMS REPORT | Clinical Summary ---
Author Author User, PR Slides Organization [facility] Physician [place] Address Unknown Phone Unavailable Allergies, Adverse Reactions, [...] Generic Name NDC Status Provider Patient Instruction SUDAFED 30 MG TAB 1 PO TID prn congestion PSEUDOEPHEDRINE HCL 86925484561 No Longer Active Rachel Plaza PHENTERMINE HCL 37.5 MG CAPS 1 po daily PHENTERMINE HCL 00618186031 No Longer Active Rachel Plaza PREDNISONE 10 MG TAB 2 po day one time once daily for 5 days 2014 PREDNISONE [id number] No Longer Active Casi Elizabeth PROAIR HFA 108 (90 BASE) MCG/ACT AERS 2 puff Q4 hrs prn wheezing ALBUTEROL SULFATE 79781965896 Active Rachel Plaza ADVAIR DISKUS 100-50 MCG/DOSE MISC 1 puff BID FLUTICASONE- SALMETEROL 21923720558 Active Rachel Plaza TUSSIONEX PENNKINETIC ER 10-8 MG/5ML LQCR 1 tsp PO BID prn cough HYDROCOD POLST-CHLORPHEN POLST 38746570809 No Longer Active Rachel Plaza PREDNISONE 10 MG TAB 4 PO at one time once daily for 2 days, then 2 PO at one time once daily PREDNISONE 14076688119 No Longer Active Racheljuventino Plaza CEFDINIR 300 MG CAPS 1 PO BID CEFDINIR 20518290508 No Longer Active Casi Elizabeth SUDAFED 30 MG TAB 1 PO TID prn PSEUDOEPHEDRINE HCL 88300735954 No Longer Active Rachel Rosie DEXTER'Bala NASAL SPRAY (DEXAMETHASONE, GENTAMICIN, SALINE) 2 puffs each nostril TID for [address] CISNEROS NASAL SPRAY ( DEXAMETHASONE, GENTAMICIN, SALINE) No Longer Active Rachel Rosie Plaza AUGMENTIN 500-125 MG TAB 1 PO BID AMOXICILLIN-POT CLAVULANATE 45044515365 No Longer Active Rachel Rosie Plaza TOPAMAX 25 MG TABS 1 PO BID TOPIRAMATE 42391567258 Active Rachel Rosie Plaza ALEVE 220 MG TAB 2 PO QHS NAPROXEN SODIUM 98250175157 Active Rachel Rosie Plaza ULTRAM 50 MG TAB 1 PO TID TRAMADOL HCL 03361922679 No Longer Active Rachel Rosie Plaza ADVAIR DISKUS 100-50 MCG/DOSE MISC 1 puff BID FLUTICASONE-SALMETEROL 26210287515 No Longer Active Racheljuventino Plaza BIAXIN 500 MG TAB 1 PO BID CLARITHROMYCIN 54992090626 No Longer Active Rachel Rosie Plaza LEVOXYL 75 MCG TABS 1 PO DAILY LEVOTHYROXINE SODIUM 27478574652 Active Rachel Rosie Plaza AMOXICILLIN 500 MG CAP 1 PO TID AMOXICILLIN 48569109777 No Longer Active Rachel Rosie Plaza ATROVENT 0.06 % SOLN 2 puffs each nostril TID prn runny nose 2013 IPRATROPIUM BROMIDE 78629962387 No Longer Active Rachel Rosie Plaza PREDNISONE 20 MG TAB 2 pills at once for 2 days then 1 pill daily for 2 days PREDNISONE 15112449722 No Longer Active Racehljuventino Plaza AUGMENTIN 875-125 MG TAB 1 PO BID AMOXICILLIN-POT CLAVULANATE 58290844971 No Longer Active Rachel Rosie DEXTER'Bala NASAL SPRAY (DEXAMETHASONE, GENTAMICIN, SALINE) 2 puffs each nostril TID for [address] CISNEROS NASAL SPRAY ( DEXAMETHASONE, GENTAMICIN, SALINE) No Longer Active Rachel Plaza PREDNISONE 20 MG TAB 2 pills at once for 2 days then 1 pill daily for 5 days PREDNISONE 48396433900 No Longer Active Rachel Plaza BIAXIN 500 MG TAB 1 PO BID CLARITHROMYCIN 23516786782 No Longer Active Racheljuventino Plaza KENALOG 0.1 % CREA apply to affected areas BID TRIAMCINOLONE ACETONIDE No Longer Active Racheljuventino Plaza PROAIR HFA 108 (90 BASE) MCG/ACT AERS 2 puff Q4 hrs prn wheezing ALBUTEROL SULFATE 86923699168 No Longer Active Rachel Plaza SUDAFED 30 MG TAB 1 PO TID for 5 days PSEUDOEPHEDRINE HCL 99549452311 No Longer Active Rachel Plaza PREDNISONE 20 MG TAB 2 pills at once for 3 days then 1 pill daily for 3 days PREDNISONE 95237331597 No Longer Active Rachel Plaza ADVAIR DISKUS 100-50 MCG/DOSE MISC 1 puff BID FLUTICASONE-SALMETEROL 23244728428 No Longer Active Racheljuventino Plaza BIAXIN 500 MG TAB 1 PO BID CLARITHROMYCIN 55543115969 No Longer Active Racheljuventino Plaza OMEPRAZOLE 20 MG CPDR 1 PO daily OMEPRAZOLE 34520678141 Active Rachel Rosie Plaza PROAIR HFA 108 (90 BASE) MCG/ACT AERS 2 puff Q4 hrs prn wheezing ALBUTEROL SULFATE 87813135636 No Longer Active Rachel Rosie Plaza LAMISIL 250 MG TAB 1 po daily TERBINAFINE HCL 44947840813 No Longer Active Rachel Rosie Plaza LOTRISONE 0.05-1 % CREAM apply to affected areas BID prn CLOTRIMAZOLE-BETAMETHASONE 03074397715 No Longer Active Rachel Rosie Plaza BIAXIN XL PAC 500 MG TB24 2 pills at same time daily for 7 days CLARITHROMYCIN 27837988028 No Longer Active Racheljuventino Plaza PREDNISONE 20 MG TAB 3 pills daily at once for 2 days, 2 pills daily at once for 2 days, 1 once daily for 2 days PREDNISONE 06902719583 No Longer Active Racheljuventino Plaza ADVAIR DISKUS 100-50 MCG/DOSE MISC 1 puff BID for two weeks 05/02 FLUTICASONE-SALMETEROL 37492495232 No Longer Active Racheljuventino Plaza PROAIR HFA 108 (90 BASE) MCG/ACT AERS 2 puff Q4 hrs prn wheezing ALBUTEROL SULFATE 40314269349 No Longer Active Racheljuventino Plaza LEVAQUIN 500 MG TAB 1 PO QD LEVOFLOXACIN 38400744075 No Longer Active Rachel Rosie Plaza TESSALON 200 MG CAPS 1 PO TID prn cough BENZONATATE 03082607169 No Longer Active Rachel Rosie Plaza LAMISIL 250 MG TAB 1 PO daily TERBINAFINE HCL 40706469587 No Longer Active Rachel Rosie Plaza LAMISIL 250 MG TABS 1 PO daily TERBINAFINE HCL 26758331757 No Longer Active Rachel Rosie Plaza DIFLUCAN 100 MG TABS 1 PO daily FLUCONAZOLE 37138125990 No Longer Active Rachel Rosie Plaza NYSTATIN 485444 UNIT/GM CREA Apply to affected areas TID until resolved 01/10 NYSTATIN 32345903310 No Longer Active Rachel Rosie Plaza LAMISIL 250 MG TABS 1 PO daily TERBINAFINE HCL 11493158644 No Longer Active Rachel Rosie Plaza LOTRISONE 0.05-1 % CREAM apply small amount to affected areas TID CLOTRIMAZOLE-BETAMETHASONE 54407110428 No Longer Active Rachel Rosie Plaza BIAXIN XL PAC 500 MG TB24 2 pills at same time daily for 7 days CLARITHROMYCIN 50528226050 No Longer Active Racheljuventino Plaza CILOXAN 0.3 % SOLN 2 drops Q6hrs for 7 days CIPROFLOXACIN HCL 57381067768 No Longer Active Dorene Cristina METFORMIN HCL 500 MG TABS 2 PO BID METFORMIN HCL 32463830977 Active Racheljuventino Plaza NAPROXEN 500 MG TAB 1 PO BID NAPROXEN 64350811649 No Longer Active Racheljuventino Plaza LASIX 20 MG TAB 1 PO QD prn for swelling FUROSEMIDE 25454818474 No Longer Active Racheljuventino Plaza FLONASE 50 MCG/DOSE INHALANT 2 puffs each nostril daily FLONASE 50 MCG/DOSE INHALANT No Longer Active Rachel Rosie Plaza KEVIN-D 24 HOUR 180-240 MG TB24 1 PO Daily for sinus pressure. FEXOFENADINE-PSEUDOEPHEDRINE 01632175488 No Longer Active Racheljuventino Plaza KEVIN 180 MG TABS 1 PO QD FEXOFENADINE HCL 87817912535 No Longer Active Rachel Rosie Plaza MUCINEX 600 MG TB12 1 PO BID for 5 days GUAIFENESIN 26792396776 No Longer Active Rachel Luxe Bola DOXYCYCLINE HYCLATE 100 MG CAP 1 po BID DOXYCYCLINE HYCLATE 84183832881 No Longer Active Rachel Plaza MULTIVITAMINS TABS 1 po daily MULTIPLE VITAMIN 45463998647 Active Rachel Luxe Bola Immunizations Vaccine Administration Date Value [...] Clinical Lists Update: CBC,CMP,Chol,Trig,TSH,Free T4 - Chemistry sodium, serum 139 mmol/L anion gap, serum 11 cholesterol, serum 142 mg/dL calcium, serum 9.2 mg/dL glucose, plasma fasting 85 mg/dL urea nitrogen, blood 10 mg/dL carbon dioxide, venous blood 27.0 mmol/L bilirubin, serum, total 0.6 mg/dL alanine aminotransferase (SGPT), serum 13 U/L chloride, serum 105 mmol/L aspartate aminotransferase (SGOT), serum 13 U/L alkaline phosphatase, serum 50 U/L protein, total, serum 6.2 g/dL creatinine, serum 0.8 mg/dL potassium, serum 3.9 mmol/L albumin, serum 4.1 g/dL thyroid stimulating hormone, serum 2.23 u[iU]/mL triglyceride, serum, fasting 65 mg/dL thyroxine, serum, free 1.04 ng/dL Estimated Glomerular Filtration Rate (calc) 82 mL/min/1.73m2 Clinical Lists Update: CBC,CMP,Chol,Trig,TSH,Free T4 - Hematology platelet count 294 10*3/mm3 erythrocyte (RBC) count 4.39 10*6/mm3 red blood cell distribution width 13.4 % hemoglobin, blood 13.1 g/dL leukocyte count, blood 5.9 10*3/mm3 hematocrit, blood 41 % mean corpuscular volume, RBC 94 fL Office Visit: Dr Plaza's Check Up: Established Patient Visit - Chemistry alanine aminotransferase (SGPT), serum 17 U/L aspartate aminotransferase (SGOT), serum 19 U/L protein, total, serum 6.3 g/dL potassium, serum 4.0 mmol/L thyroid stimulating hormone, serum 1.81 u[iU]/mL triglyceride, serum, fasting 58 mg/dL thyroxine, serum, free 1.13 ng/dL calcium, serum 9.1 mg/dL urea nitrogen, blood 18 mg/dL bilirubin, serum, total 0.4 mg/dL anion gap, serum 10 alkaline phosphatase, serum 63 U/L albumin, serum 4.1 g/dL glucose, plasma fasting 77 mg/dL Estimated Glomerular Filtration Rate (calc) 82 mL/min/1.73m2 creatinine, serum 0.8 mg/dL carbon dioxide, venous blood 26.0 mmol/L cholesterol, serum 137 mg/dL sodium, serum 138 mmol/L chloride, serum 106 mmol/L Encounters Code Encounter Date Provider Facility CPT-65041 Ofc Vst, Est Level IV 15:58:13 CDT Rachel Plaza DO, FACP CPT-66116 Ofc Vst, Est Level IV 15:30:54 CDT [facility] CPT-40932 Ofc Vst, Est Level III 20:51:09 CDT Rachel Rosie Plaza Rachel S Plaza, DO, FACP CPT-53998 Ofc Vst, Est Level III 16:39:04 ASSOCIATE PROFESSOR OF SOCIOLOGY Rachel Mckenna Bola, DO, FACP CPT-58907 Ofc Vst, Est Level III 20:33:24 ASSOCIATE PROFESSOR OF SOCIOLOGY Rachel Mckenna Bola, DO, FACP CPT-54354 Ofc Vst, Est Level IV 20:17:26 ASSOCIATE PROFESSOR OF SOCIOLOGY Rachel Plaza [facility] CPT-34983 Ofc Vst, Est Level III 16:29:23 ASSOCIATE PROFESSOR OF SOCIOLOGY Rachel Mckenna Bola, DO, FACP CPT-00572 Ofc Vst, Est Level III 16:41:30 CDT Rachel Mckenna Bola, DO, FACP CPT-23213 Ofc Vst, Est Level III 12:12:47 CDT Racheljuventino Mckenna Bola, DO, FACP CPT-95583 Ofc Vst, Est Level III 16:03:46 CDT Racheljuventino Mckenna Bola, DO, FACP CPT-79782 Ofc Vst, Est Level IV 17:56:18 CDT Racheljuventino Plaza [facility] CPT-29911 Ofc Vst, Est Level III 15:42:50 CDT Racheljuventino Plaza [facility] CPT-11624 Ofc Vst, Est Level III 15:37:57 CDT Rachel Rosie Plaza [facility] CPT-42546 Ofc Vst, Est Level III 19:30:03 CDT Racheljuventino Mckenna Bola, DO, FACP CPT-60900 Ofc Vst, Est Level III 20:02:43 CDT Racheljuventino Plaza [facility] CPT-38812 Ofc Vst, Est Level III 13:45:40 ASSOCIATE PROFESSOR OF SOCIOLOGY Racheljuventino Mckenna Bola, DO, FACP CPT-66880 Ofc Vst, Est Level III 19:57:30 ASSOCIATE PROFESSOR OF SOCIOLOGY Rachel Rosie Mckenna Plaza, DO, FACP CPT-02314 Ofc Vst, Est Level III 20:20:40 ASSOCIATE PROFESSOR OF SOCIOLOGY Rachel Rosie Mckenna Plaza, DO, FACP CPT-59216 Ofc Vst, Est Level III 15:09:23 ASSOCIATE PROFESSOR OF SOCIOLOGY Rachel Rosie Mckenna Plaza, DO, FACP CPT-76232 Ofc Vst, Est Level III 16:20:28 CDT Rachel Rosie Mckenna Plaza, DO, FACP CPT-84688 Ofc Vst, Est Level III 10:14:05 CDT Rachel Rosie Mckenna Plaza, DO, FACP CPT-43421 Ofc Vst, Est Level III 15:38:48 CDT Rachel Rosie Mckenna Plaza, DO, FACP CPT-85940 Ofc Vst, Est Level III 17:19:17 CDT Rachel Rosie Mckenna Plaza, DO, FACP CPT-68391 Ofc Vst, Est Level III 16:30:31 CDT Rachel Rosie Mckenna Plaza, DO, FACP CPT-46184 Ofc Vst, Est Level III 20:41:25 CDT Rachel Rosie Mckenna Plaza, DO, FACP CPT-78731 Ofc Vst, Est Level III 16:38:44 CDT Rachel Rosie Mckenna Plaza, DO, FACP CPT-03770 Ofc Vst, Est Level III 14:31:54 CDT Rachel Rosie Mckenna Plaza, DO, FACP CPT-31433 Ofc Vst, Est Level III 20:41:14 ASSOCIATE PROFESSOR OF SOCIOLOGY Rachel Rosie Mckenna Bola, DO, FACP CPT-25660 Ofc Vst, Est Level III 16:34:32 ASSOCIATE PROFESSOR OF SOCIOLOGY Rachel Mckenna Plaza, DO, FACP CPT-97234 Ofc Vst, Est Level III 17:31:03 ASSOCIATE PROFESSOR OF SOCIOLOGY Rachel Mckenna Plaza, DO, FACP CPT-35397 Ofc Vst, Est Level III 13:46:07 ASSOCIATE PROFESSOR OF SOCIOLOGY Rachel Rosie Mckenna Plaza, DO, FACP CPT-74107 Ofc Vst, Est Level III 16:31:25 CDT Rachel Rosie Mckenna Bola, DO, FACP CPT-73536 Ofc Vst, Est Level III 13:49:29 CDT Rachel Rosie Plaza [facility] CPT-38838 Ofc Vst, Est Level III 13:49:22 CDT Rachel Rosie Plaza [facility] CPT-87444 Ofc Vst, Est Level III 13:28:51 CDT Rachel Rosie Plaza [facility] CPT-60762 Ofc Vst, Est Level III 13:30:40 CDT Rachel Rosie Mckenna Bola, DO, FACP CPT-35129 Ofc Vst, Est Level III 14:49:17 CDT Rachel Rosie Plaza [facility] CPT-46389 Ofc Vst, Est Level III 13:30:39 ASSOCIATE PROFESSOR OF SOCIOLOGY Rachel Mckenna Bola, DO, FACP CPT-89918 Ofc Vst, Est Level III 09:43:47 ASSOCIATE PROFESSOR OF SOCIOLOGY Rachel Plaza [facility] CPT-42560 Ofc Vst, Est Level III 09:43:54 ASSOCIATE PROFESSOR OF SOCIOLOGY Rachel Rosie Plaza [facility] CPT-76362 Ofc Vst, Est Level IV 10:15:14 ASSOCIATE PROFESSOR OF SOCIOLOGY Rachel Mckenna Bola, DO, FACP CPT-75768 Ofc Vst, Est Level III 15:24:26 ASSOCIATE PROFESSOR OF SOCIOLOGY Rachel Rosie Mckenna Plaza, DO, FACP CPT-65573 Ofc Vst, Est Level III 14:22:31 ASSOCIATE PROFESSOR OF SOCIOLOGY Racheljuventino Mckenna Bola, DO, FACP CPT-70936 Ofc Vst, Est Level IV 10:02:54 CDT Rachel Rosie Plaza [facility] CPT-03473 Ofc Vst, Est Level III 16:32:40 CDT Rachel Rosie Plaza [facility] CPT-48622 Ofc Vst, Est Level III 16:29:26 CDT Rachel Rosie Mckenna Bola, DO, FACP CPT-67538 Ofc Vst, Est Level IV 14:43:12 CDT Rachel Rosie Plaza [facility] CPT-36694 Ofc Vst, Est Level IV 14:48:51 CDT Rachel Rosie Plaza [facility] CPT-33139 Ofc Vst, Est Level III 14:21:26 CDT Rachel Rosie Mckenna Bola, DO, FACP CPT-89743 Ofc Vst, Est Level III 16:25:48 CDT Rachel Rosie Mckenna Bola, DO, FACP CPT-42897 Ofc Vst, Est Level III 15:53:26 CDT Racheljuventino Mckenna Bola, DO, FACP CPT-43052 Ofc Vst, Est Level III 16:00:22 CDT Rachel Rosie Mckenna Bola, DO, FACP CPT-21901 Ofc Vst, Est Level III 10:41:27 ASSOCIATE PROFESSOR OF SOCIOLOGY Rachel Arellanoner Rachel Bala Bola, DO, FACP CPT-77397 Ofc Vst, Est Level IV 09:59:09 ASSOCIATE PROFESSOR OF SOCIOLOGY Rachel Arellanoner Rachel Bala Bola, DO, FACP CPT-10871 Ofc Vst, Est Level III 10:07:13 ASSOCIATE PROFESSOR OF SOCIOLOGY Rachel Plaza [facility] CPT-66661 Ofc Vst, Est Level III 14:54:02 ASSOCIATE PROFESSOR OF SOCIOLOGY Racheljuventino Mckenna Bola, DO, FACP CPT-14198 Ofc Vst, Est Level III 13:15:03 CDT Rachel Rosie Plaza [facility] CPT-04537 Ofc Vst, Est Level IV 16:30:43 CDT Rachel Rosie Mckenna Bola, DO, FACP CPT-12133 Ofc Vst, Est Level IV 12:52:15 CDT Rachel Rosie Mckenna Bola, DO, FACP CPT-60259 Ofc Vst, Est Level III 14:55:16 CDT Rachel Rosie Plaza [facility] CPT-25344 Ofc Vst, Est Level III 09:36:49 CDT Rachel Rosie Mckenna Bola, DO, FACP CPT-49164 Ofc Vst, Est Level IV 13:11:53 CDT Rachel Rosie Mkcenna Bola, DO, FACP CPT-86683 Ofc Vst, Est Level IV 09:21:55 ASSOCIATE PROFESSOR OF SOCIOLOGY Rachel Mckenna Bola, DO, FACP CPT-59624 Ofc Vst, Est Level IV 16:18:13 ASSOCIATE PROFESSOR OF SOCIOLOGY Rachel Plaza [facility] CPT-32793 Ofc Vst, Est Level III 14:24:17 ASSOCIATE PROFESSOR OF SOCIOLOGY Rachel Rosie Plaza [facility] CPT-81134 Ofc Vst, Est Level III 14:33:19 ASSOCIATE PROFESSOR OF SOCIOLOGY Rachel Rosie Plaza [facility] CPT-68798 Ofc Vst, Est Level III 16:11:48 CDT Rachel Rosie Mckenna Bola, DO, FACP CPT-09078 Ofc Vst, Est Level IV 21:11:44 CDT Rachel Rosie Plaza [facility] CPT-10584 Ofc Vst, Est Level IV 16:18:03 CDT Racheljuventino Mckenna Bola, DO, FACP CPT-67871 Ofc Vst, Est Level IV 16:48:22 CDT Rachel Rosie [facility] CPT-96407 Ofc Vst, Est Level IV 14:26:27 CDT Rachel Rosie Mckenna Bola, DO, FACP CPT-99208 Ofc Vst, Est Level IV 16:41:37 ASSOCIATE PROFESSOR OF SOCIOLOGY Rachel Rosie Mckenna Plaza, DO, FACP CPT-09986 Ofc Vst, Est Level III 16:38:27 ASSOCIATE PROFESSOR OF SOCIOLOGY Rachel Rosie Renoi Bala Plaza, DO, FACP CPT-50667 Ofc Vst, Est Level III 18:02:37 ASSOCIATE PROFESSOR OF SOCIOLOGY Rachel Rosie Mckenna Bola, DO, FACP CPT-09700 Ofc Vst, Est Level III 15:48:55 ASSOCIATE PROFESSOR OF SOCIOLOGY Racheljuventino Mckenna Bola, DO, FACP CPT-91974 Ofc Vst, Est Level III 17:01:29 CDT Racheljuventino Mckenna Bola, DO, FACP CPT-35845 Ofc Vst, Est Level III 16:07:45 CDT Racheljuventino Mckenna Bola, DO, FACP CPT-07490 Ofc Vst, Est Level III 10:10:13 CDT Rachel Rosie Mckenna Bola, DO, FACP CPT-37877 Ofc Vst, Est Level III 15:02:09 CDT Racheljuventino Mckenna Bola, DO, FACP CPT-66408 Ofc Vst, Est Level III 15:58:47 CDT Racheljuventino Mckenna Bola, DO, FACP CPT-42445 Ofc Vst, Est Level IV 16:03:29 [address] [facility] Ofc Vst, Est Level III 09:44:56 CDT Rachel Rosie Bola Racheljuventino Arellanoner, DO, FACP CPT-85937 Ofc Vst, Est Level IV 13:34:08 ASSOCIATE PROFESSOR OF SOCIOLOGY Rachel Arellanoner Rachel Bala Bola, DO, FACP CPT-83253 Ofc Vst, Est Level III 16:12:13 ASSOCIATE PROFESSOR OF SOCIOLOGY Rachel Velez Plaza Racheljuventino Plaza, DO, FACP CPT-15039 Ofc Vst, Est Level IV 09:46:09 ASSOCIATE PROFESSOR OF SOCIOLOGY Rachel Velez Bola Plaza, DO, FACP CPT-82734 Ofc Vst, Est Level III 17:04:16 ASSOCIATE PROFESSOR OF SOCIOLOGY Racheljuventino Velez Bola Plaza, DO, FACP CPT-54476 Ofc Vst, Est Level IV 16:28:43 CDT Rachel Rosie Bola Ramos Bala Bola, DO, FACP CPT-62435 Ofc Vst, Est Level III 16:25:00 CDT Rachel Rosie Bola Plaza, DO, FACP CPT-74714 Ofc Vst, Est Level III 16:34:11 CDT Rachel Rosie Bola Plaza, DO, FACP CPT-97312 Ofc Vst, Est Level III 11:09:04 CDT Rachel Luxe Bola Plaza, DO, FACP CPT-63099 Ofc Vst, Est Level III 10:15:02 CDT Rachel Rosie Bola Plaza, DO, FACP CPT-53253 Ofc Vst, New Level III 15:50:58 CDT Rachel [facility] Phys[facility] [place] Procedures Code Procedure Name Date Entry Date Standard Description CPT-58612 Preventive, Est, (40-64) 16:23:06 CDT CPT-34679 Handling of specimen from office to lab 13:14:22 CDT CPT-03567 Preventive, Est, (40-64) 13:14:22 CDT CPT-17378 Biopsy, skin/subcut/mucous membrane; sngl lsn 11:08:35 CDT CPT-17044 Preventive, Est, (40-64) 15:03:18 CDT CPT-00570 Handling of specimen from office to lab 15:03:18 CDT CPT-63667 Handling of specimen from office to lab 16:01:28 CDT CPT-02623 Preventive, Est, (18-39) 16:01:28 CDT CPT-69138 Preventive, Est, (18-39) 10:39:27 CDT CPT-69277 Handling of specimen from office to lab 10:39:27 CDT CPT-83503 Preventive, Est, (18-39) 13:53:34 CDT CPT-19690 Handling of specimen from office to lab 13:53:34 CDT CPT-84333 Preventive, Est, (18-39) 09:42:54 CDT CPT-90388 Handling of specimen from office to lab 09:42:54 CDT
--- OUTSIDE RECORDS SUMMARY | 2018-03-22 06:09 | XMS REPORT | Clinical Summary ---
Author Author User, [employer] Organization [facility] Address Unknown Phone Unavailable Allergies, Adverse Reactions, [...] Otalgia, unspecified SHOULDER PAIN 719.41 Resolved Rachel Palza Pain in joint involving shoulder region MAMMOGRAM, [...] once daily for 5 days 2014 PREDNISONE 71199770552 No Longer Active Casi Elizabeth PROAIR HFA 108 (90 BASE) MCG/ACT AERS 2 puff Q4 hrs prn wheezing ALBUTEROL SULFATE 21356250770 Active Rachel Plaza ADVAIR DISKUS 100-50 MCG/DOSE MISC 1 puff BID FLUTICASONE- SALMETEROL 38931015116 Active Rachel Plaza TUSSIONEX PENNKINETIC ER 10-8 MG/5ML LQCR 1 tsp PO BID prn cough HYDROCOD POLST-CHLORPHEN POLST 76883126365 No Longer Active Rachel Plaza SUDAFED 30 MG TAB 1 PO TID prn congestion PSEUDOEPHEDRINE HCL 76654162185 Active Rachel Plaza PREDNISONE 10 MG TAB 4 PO at one time once daily for 2 days, then 2 PO at one time once daily PREDNISONE 90013582983 No Longer Active Rachel Plaza CEFDINIR 300 MG CAPS 1 PO BID CEFDINIR 07538844481 No Longer Active Casi Weogufka SUDAFED 30 MG TAB 1 PO TID prn PSEUDOEPHEDRINE HCL 35775593078 No Longer Active Rachel DEXTER'Bala NASAL SPRAY (DEXAMETHASONE, GENTAMICIN, SALINE) 2 puffs each nostril TID for [address] DEXTER'Bala NASAL SPRAY ( DEXAMETHASONE, GENTAMICIN, SALINE) No Longer Active Racheljuventino Plaza AUGMENTIN 500-125 MG TAB 1 PO BID AMOXICILLIN-POT CLAVULANATE 30125977212 No Longer Active Rachel Rosie Plaza TOPAMAX 25 MG TABS 1 PO BID TOPIRAMATE 47931692910 Active Rachel Rosie Plaza ALEVE 220 MG TAB 2 PO QHS NAPROXEN SODIUM 26294456227 Active Rachel Rosie Plaza ULTRAM 50 MG TAB 1 PO TID TRAMADOL HCL 09165737817 No Longer Active Racheljuventino Plaza ADVAIR DISKUS 100-50 MCG/DOSE MISC 1 puff BID FLUTICASONE-SALMETEROL 43217786832 No Longer Active Racheljuventino Plaza BIAXIN 500 MG TAB 1 PO BID CLARITHROMYCIN 47013243152 No Longer Active Racheljuventino Plaza LEVOXYL 75 MCG TABS 1 PO DAILY LEVOTHYROXINE SODIUM 24753643895 Active Rachel Rosie Plaza AMOXICILLIN 500 MG CAP 1 PO TID AMOXICILLIN 43672588705 No Longer Active Racheljuventino Plaza ATROVENT 0.06 % SOLN 2 puffs each nostril TID prn runny nose 2013 IPRATROPIUM BROMIDE 02749843767 No Longer Active Racheljuventino Plaza PREDNISONE 20 MG TAB 2 pills at once for 2 days then 1 pill daily for 2 days PREDNISONE 87122306622 No Longer Active Rachel Rosie Plaza AUGMENTIN 875-125 MG TAB 1 PO BID AMOXICILLIN-POT CLAVULANATE 06362770957 No Longer Active Rachel DEXTER'S NASAL SPRAY (DEXAMETHASONE, GENTAMICIN, SALINE) 2 puffs each nostril TID for [address] CISNEROS NASAL SPRAY ( DEXAMETHASONE, GENTAMICIN, SALINE) No Longer Active Racheljuventino Plaza PREDNISONE 20 MG TAB 2 pills at once for 2 days then 1 pill daily for 5 days PREDNISONE 08666860745 No Longer Active Racheljuventino Plaza BIAXIN 500 MG TAB 1 PO BID CLARITHROMYCIN 36536131179 No Longer Active Racheljuventino Plaza KENALOG 0.1 % CREA apply to affected areas BID TRIAMCINOLONE ACETONIDE No Longer Active Rachel Rosie Plaza PROAIR HFA 108 (90 BASE) MCG/ACT AERS 2 puff Q4 hrs prn wheezing ALBUTEROL SULFATE 55724090980 No Longer Active Rachel Plaza SUDAFED 30 MG TAB 1 PO TID for 5 days PSEUDOEPHEDRINE HCL 16872401598 No Longer Active Rachel Plaza PREDNISONE 20 MG TAB 2 pills at once for 3 days then 1 pill daily for 3 days PREDNISONE 87735272817 No Longer Active Racheljuventino Plaza ADVAIR DISKUS 100-50 MCG/DOSE MISC 1 puff BID FLUTICASONE-SALMETEROL 07968864086 No Longer Active Rachel Rosie Plaza BIAXIN 500 MG TAB 1 PO BID CLARITHROMYCIN 15515994166 No Longer Active Racheljuventino Plaza OMEPRAZOLE 20 MG CPDR 1 PO daily OMEPRAZOLE 73603223811 Active Rachel Rosie lPaza PROAIR HFA 108 (90 BASE) MCG/ACT AERS 2 puff Q4 hrs prn wheezing ALBUTEROL SULFATE 34371507796 No Longer Active Rachel Rosie Plaza LAMISIL 250 MG TAB 1 po daily TERBINAFINE HCL 10974598790 No Longer Active Rachel Rosie Plaza LOTRISONE 0.05-1 % CREAM apply to affected areas BID prn CLOTRIMAZOLE-BETAMETHASONE 51887697731 No Longer Active Rachel Rosie Plaza BIAXIN XL PAC 500 MG TB24 2 pills at same time daily for 7 days CLARITHROMYCIN 23266733516 No Longer Active Rachel Rosie Plaza PREDNISONE 20 MG TAB 3 pills daily at once for 2 days, 2 pills daily at once for 2 days, 1 once daily for 2 days PREDNISONE 15393548490 No Longer Active Rachle Rosie Plaza ADVAIR DISKUS 100-50 MCG/DOSE MISC 1 puff BID for two weeks 05/02 FLUTICASONE-SALMETEROL 56918842741 No Longer Active Rachel Rosie Plaza PROAIR HFA 108 (90 BASE) MCG/ACT AERS 2 puff Q4 hrs prn wheezing ALBUTEROL SULFATE 76639887241 No Longer Active Racheljuventino Plaza LEVAQUIN 500 MG TAB 1 PO QD LEVOFLOXACIN 54506495903 No Longer Active Rachel Rosie Plaza TESSALON 200 MG CAPS 1 PO TID prn cough BENZONATATE 33847768533 No Longer Active Rachel Rosie Plaza LAMISIL 250 MG TAB 1 PO daily TERBINAFINE HCL 37756747509 No Longer Active Rachel Rosie Plaza LAMISIL 250 MG TABS 1 PO daily TERBINAFINE HCL 04453023476 No Longer Active Rachel Rosie Plaza DIFLUCAN 100 MG TABS 1 PO daily FLUCONAZOLE 52358048955 No Longer Active Rachel Rosie Plaza NYSTATIN 572407 UNIT/GM CREA Apply to affected areas TID until resolved 01/10 NYSTATIN 09134853793 No Longer Active Rachel Plaza LAMISIL 250 MG TABS 1 PO daily TERBINAFINE HCL 31127430288 No Longer Active Racheljuventino Plaza LOTRISONE 0.05-1 % CREAM apply small amount to affected areas TID CLOTRIMAZOLE-BETAMETHASONE 28960941205 No Longer Active Racheljuventino Plaza BIAXIN XL PAC 500 MG TB24 2 pills at same time daily for 7 days CLARITHROMYCIN 18864682881 No Longer Active Racheljuventino Plaza CILOXAN 0.3 % SOLN 2 drops Q6hrs for 7 days CIPROFLOXACIN HCL 79856313132 No Longer Active Dorene Cristina METFORMIN HCL 500 MG TABS 2 PO BID METFORMIN HCL 21650497564 Active Racheljuventino Plaza NAPROXEN 500 MG TAB 1 PO BID NAPROXEN 40820663178 No Longer Active Racheljuventino Plaza LASIX 20 MG TAB 1 PO QD prn for swelling FUROSEMIDE 09713957936 No Longer Active Rachel Plaza FLONASE 50 MCG/DOSE INHALANT 2 puffs each nostril daily FLONASE 50 MCG/DOSE INHALANT No Longer Active Racheljuventino Plaza KEVIN-D 24 HOUR 180-240 MG TB24 1 PO Daily for sinus pressure. FEXOFENADINE-PSEUDOEPHEDRINE 85876098273 No Longer Active Rachel Plaza KEVIN 180 MG TABS 1 PO QD FEXOFENADINE HCL 32685332742 No Longer Active Racheljuventino Plaza MUCINEX 600 MG TB12 1 PO BID for 5 days GUAIFENESIN 37191113025 No Longer Active Racheljuventino Plaza DOXYCYCLINE HYCLATE 100 MG CAP 1 po BID DOXYCYCLINE HYCLATE 36806989090 No Longer Active Rachel Rosie Plaza MULTIVITAMINS TABS 1 po daily MULTIPLE VITAMIN 78157816955 Active Racheljuventino Luxe Bola PHENTERMINE HCL 37.5 MG CAPS 1 po daily PHENTERMINE HCL 78934806489 Active Racheljuventino Luxe Bola Immunizations Vaccine Administration [...] mL/min/1.73m2 Encounters Code Encounter Date Provider Facility CPT-57393 Ofc Vst, Est Level IV 15:30:54 CDT [facility] CPT-83702 Ofc Vst, Est Level III 20:51:09 CDT Rachel Plaza DO, FACP CPT-79946 Ofc Vst, Est Level III 16:39:04 [employer] Rachel Plaza DO, FACP CPT-46721 Ofc Vst, Est Level III 20:33:24 [employer] Rachel Plaza DO, FACP CPT-55960 Ofc Vst, Est Level IV 20:17:26 [employer] [facility] CPT-23662 Ofc Vst, Est Level III 16:29:23 [employer] Rachel Plaza DO, FACP CPT-99809 Ofc Vst, Est Level III 16:41:30 CDT Rachel Renoi S Bola, DO, FACP CPT-31446 Ofc Vst, Est Level III 12:12:47 CDT Rachel Rosie Mckenna Bola, DO, FACP CPT-78375 Ofc Vst, Est Level III 16:03:46 CDT Rachel Rosie Mckenna Bola, DO, FACP CPT-11656 Ofc Vst, Est Level IV 17:56:18 CDT Rachel Rosie Plaza [facility] CPT-78336 Ofc Vst, Est Level III 15:42:50 CDT Rachel Rosie Plaza [facility] CPT-56572 Ofc Vst, Est Level III 15:37:57 CDT Rachel Rosie [facility] CPT-04410 Ofc Vst, Est Level III 19:30:03 CDT Rachel Rosie Mckenna Bola, DO, FACP CPT-47476 Ofc Vst, Est Level III 20:02:43 CDT Rachel Rosie Plaza [facility] CPT-44717 Ofc Vst, Est Level III 13:45:40 [employer] Rachel Mckenna Bola, DO, FACP CPT-55336 Ofc Vst, Est Level III 19:57:30 [employer] Rachel Arellanoner Rachel Mckenna Bola, DO, FACP CPT-27809 Ofc Vst, Est Level III 20:20:40 [employer] Rachel Mckenna Bola, DO, FACP CPT-42412 Ofc Vst, Est Level III 15:09:23 [employer] Rachel Velez Bola Rachel S Bola, DO, FACP CPT-41175 Ofc Vst, Est Level III 16:20:28 CDT Racheljuventino Velez Bola Rachel Mckenna Bola, DO, FACP CPT-36169 Ofc Vst, Est Level III 10:14:05 CDT Rachel Rosie Mckenna Plaza, DO, FACP CPT-64501 Ofc Vst, Est Level III 15:38:48 CDT Rachel Rosie Mckenna Plaza, DO, FACP CPT-74917 Ofc Vst, Est Level III 17:19:17 CDT Rachel Rosie Mckenna Plaza, DO, FACP CPT-25710 Ofc Vst, Est Level III 16:30:31 CDT Rachel Rosie Mckenna Plaza, DO, FACP CPT-28858 Ofc Vst, Est Level III 20:41:25 CDT Rachel Rosie Mckenna Plaza, DO, FACP CPT-28605 Ofc Vst, Est Level III 16:38:44 CDT Rachel Rosie Mckenna Plaza, DO, FACP CPT-10871 Ofc Vst, Est Level III 14:31:54 CDT Rachel Rosie Mckenna Plaza, DO, FACP CPT-74254 Ofc Vst, Est Level III 20:41:14 [employer] Rachel Rosie Mckenna Plaza, DO, FACP CPT-65217 Ofc Vst, Est Level III 16:34:32 [employer] Rachel Rosie Mckenna Plaza, DO, FACP CPT-96593 Ofc Vst, Est Level III 17:31:03 [employer] Rachel Rosie Mckenna Plaza, DO, FACP CPT-31477 Ofc Vst, Est Level III 13:46:07 [employer] Rachel Rosie Mckenna Plaza, DO, FACP CPT-64357 Ofc Vst, Est Level III 16:31:25 CDT Rachel Rosie Mckenna Plaza, DO, FACP CPT-36202 Ofc Vst, Est Level III 13:49:29 CDT Rachel Rosie Plaza [facility] CPT-74543 Ofc Vst, Est Level III 13:49:22 CDT Rachel Rosie Plaza [facility] CPT-84051 Ofc Vst, Est Level III 13:28:51 CDT Rachel Rosie Plaza [facility] CPT-05408 Ofc Vst, Est Level III 13:30:40 CDT Rachel Rosie Mckenna Bola, DO, FACP CPT-07144 Ofc Vst, Est Level III 14:49:17 CDT Rachel Rosie Plaza [facility] CPT-15503 Ofc Vst, Est Level III 13:30:39 [employer] Rachel Rosie Mckenna Bola, DO, FACP CPT-38705 Ofc Vst, Est Level III 09:43:47 [employer] Rachel Rosie Plaza [facility] CPT-26602 Ofc Vst, Est Level III 09:43:54 [employer] Rachel Rosie lPaza [facility] CPT-82578 Ofc Vst, Est Level IV 10:15:14 [employer] Rachel Rosie Mckenna Bola, DO, FACP CPT-58917 Ofc Vst, Est Level III 15:24:26 [employer] Rachel Mckenna Bola, DO, FACP CPT-56375 Ofc Vst, Est Level III 14:22:31 [employer] Rachel Rosie Mckenna Bola, DO, FACP CPT-14059 Ofc Vst, Est Level IV 10:02:54 CDT Racheljuventino Plaza [facility] CPT-18720 Ofc Vst, Est Level III 16:32:40 CDT Rachel Rosie Plaza [facility] CPT-72445 Ofc Vst, Est Level III 16:29:26 CDT Racheljuventino Mckenna Bola, DO, FACP CPT-90525 Ofc Vst, Est Level IV 14:43:12 CDT Rachel Rosie Arellanoner [facility] CPT-13341 Ofc Vst, Est Level IV 14:48:51 CDT Rachel Rosie Plaza [facility] CPT-11511 Ofc Vst, Est Level III 14:21:26 CDT Rachel Rosie Mckenna Bola, DO, FACP CPT-19389 Ofc Vst, Est Level III 16:25:48 CDT Rachel Rosie Mckenna Bola, DO, FACP CPT-40547 Ofc Vst, Est Level III 15:53:26 CDT Rachel Rosie Mckenna Bola, DO, FACP CPT-61708 Ofc Vst, Est Level III 16:00:22 CDT Racheljuventino Mckenna Bola, DO, FACP CPT-15613 Ofc Vst, Est Level III 10:41:27 [employer] Rachel Mckenna Bola, DO, FACP CPT-50035 Ofc Vst, Est Level IV 09:59:09 [employer] Rachel Mckenna Bola, DO, FACP CPT-01193 Ofc Vst, Est Level III 10:07:13 [employer] Rachel Plaza [facility] CPT-02972 Ofc Vst, Est Level III 14:54:02 [employer] Rachel Mckenna Bola, DO, FACP CPT-24854 Ofc Vst, Est Level III 13:15:03 CDT Racheljuventino Plaza [facility] CPT-50981 Ofc Vst, Est Level IV 16:30:43 CDT Racheljuventino Mckenna Bola, DO, FACP CPT-85293 Ofc Vst, Est Level IV 12:52:15 CDT Racheljuventino Mckenna Bola, DO, FACP CPT-43957 Ofc Vst, Est Level III 14:55:16 CDT Rachel Rosie Plaza [facility] CPT-05995 Ofc Vst, Est Level III 09:36:49 CDT Rachel Rosie Mckenna Plaza, DO, FACP CPT-14162 Ofc Vst, Est Level IV 13:11:53 CDT Rachel Rosie Mckenna Plaza, DO, FACP CPT-77744 Ofc Vst, Est Level IV 09:21:55 [employer] Rachel Rosie Mckenna Bola, DO, FACP CPT-67727 Ofc Vst, Est Level IV 16:18:13 [employer] Rachel Rosie Plaza [facility] CPT-63531 Ofc Vst, Est Level III 14:24:17 [employer] Rachel Plaza [facility] CPT-62430 Ofc Vst, Est Level III 14:33:19 [employer] Rachel Rosie Plaza [facility] CPT-24027 Ofc Vst, Est Level III 16:11:48 CDT Rachel Roise Mckenna Bola, DO, FACP CPT-48897 Ofc Vst, Est Level IV 21:11:44 CDT Rachel Rosie Plaza [facility] CPT-53575 Ofc Vst, Est Level IV 16:18:03 CDT Rachel Rosie Mckenna Bola, DO, FACP CPT-72622 Ofc Vst, Est Level IV 16:48:22 CDT Rachel Rosie Plaza [facility] CPT-45684 Ofc Vst, Est Level IV 14:26:27 CDT Rachel Rosie Mckenna Plaza, DO, FACP CPT-55942 Ofc Vst, Est Level IV 16:41:37 [employer] Rachel Rosie Mckenna Bola, DO, FACP CPT-89961 Ofc Vst, Est Level III 16:38:27 [employer] Rachel Rosie Mckenna Plaza, DO, FACP CPT-12632 Ofc Vst, Est Level III 18:02:37 [employer] Rachel Mckenna Bola, DO, FACP CPT-72256 Ofc Vst, Est Level III 15:48:55 [employer] Rachel Mckenna Plaza, DO, FACP CPT-06422 Ofc Vst, Est Level III 17:01:29 CDT Rachel Rosie Mckenna Bola, DO, FACP CPT-67183 Ofc Vst, Est Level III 16:07:45 CDT Rachel Rosie Mckenna Bola, DO, FACP CPT-12568 Ofc Vst, Est Level III 10:10:13 CDT Rachel Rosie Mckenna Bola, DO, FACP CPT-83978 Ofc Vst, Est Level III 15:02:09 CDT Rachel Rosie Mckenna Bola, DO, FACP CPT-77061 Ofc Vst, Est Level III 15:58:47 CDT Rachel Rosie Mckenna Bola, DO, FACP CPT-01665 Ofc Vst, Est Level IV 16:03:29 CDT Racheljuventino Plaza [facility] CPT-61462 Ofc Vst, Est Level III 09:44:56 CDT Rachel Rosie Mckenna Bola, DO, FACP CPT-93182 Ofc Vst, Est Level IV 13:34:08 [employer] Rachel Rosie Mckenna Bola, DO, FACP CPT-17353 Ofc Vst, Est Level III 16:12:13 [employer] Rachel Renoi Bala Bola, DO, FACP CPT-52619 Ofc Vst, Est Level IV 09:46:09 [employer] Rachel Mckenna Bola, DO, FACP CPT-49225 Ofc Vst, Est Level III 17:04:16 [employer] Rachel Mckenna Plaza, DO, FACP CPT-05199 Ofc Vst, Est Level IV 16:28:43 CDT Rachel Mckenna Plaza, DO, FACP CPT-60635 Ofc Vst, Est Level III 16:25:00 CDT Rachel [facility]elson [facility] Rachel Mckenna Plaza, DO, FACP CPT-36429 Ofc Vst, Est Level III 16:34:11 CDT Rachel Rosie Mckenna Plaza, DO, FACP CPT-09516 Ofc Vst, Est Level III 11:09:04 CDT Racheljuventino Mckenna Plaza, DO, FACP CPT-79925 Ofc Vst, Est Level III 10:15:02 CDT Rachel Mckenna Plaza, DO, FACP CPT-31132 Ofc Vst, New Level III 15:50:58 CDT Rachel Plaza [facility] Procedures Code Procedure Name Date Entry Date Standard Description CPT-53790 Preventive, Est, (40-64) 16:23:06 CDT CPT-42495 Handling of specimen from office to lab 13:14:22 CDT CPT-61856 Preventive, Est, (40-64) 13:14:22 CDT CPT-12052 Biopsy, skin/subcut/mucous membrane; sngl lsn 11:08:35 CDT CPT-25291 Preventive, Est, (40-64) 15:03:18 CDT CPT-42937 Handling of specimen from office to lab 15:03:18 CDT CPT-31010 Handling of specimen from office to lab 16:01:28 CDT CPT-74538 Preventive, Est, (18-39) 16:01:28 CDT CPT-70302 Preventive, Est, (18-39) 10:39:27 CDT CPT-17328 Handling of specimen from office to lab 10:39:27 CDT CPT-12934 Preventive, Est, (18-39) 13:53:34 CDT CPT-00995 Handling of specimen from office to lab 13:53:34 CDT CPT-95274 Preventive, Est, (18-39) 09:42:54 CDT CPT-78233 Handling of specimen from office to lab 09:42:54 CDT
--- OUTSIDE RECORDS SUMMARY | 2018-03-22 06:10 | XMS REPORT | Clinical Summary ---
Author Author User, [employer] Organization [facility] Address Unknown Phone Unavailable Allergies, Adverse Reactions, [...] sphenoidal sinusitis CHEST PAIN, ATYPICAL 786.[address] [facility] Other chest pain HEMATOCHEZIA 578.1 Active [...] 1 PO TID prn congestion PSEUDOEPHEDRINE HCL 37591240438 No Longer Active [facility] PHENTERMINE HCL 37.5 MG CAPS 1 po daily PHENTERMINE HCL 07803538798 No Longer Active [facility] PREDNISONE 10 MG TAB 2 po day one time once daily for 5 days 2014 PREDNISONE 26665958360 No Longer Active Casi Elizabeth PROAIR HFA 108 (90 BASE) MCG/ACT AERS 2 puff Q4 hrs prn wheezing ALBUTEROL SULFATE 65391911186 Active [facility] ADVAIR DISKUS 100-50 MCG/DOSE MISC 1 puff BID FLUTICASONE- SALMETEROL 27901817126 Active [facility] TUSSIONEX PENNKINETIC ER 10-8 MG/5ML LQCR 1 tsp PO BID prn cough HYDROCOD POLST-CHLORPHEN POLST 34559622781 No Longer Active [facility] PREDNISONE 10 MG TAB 4 PO at one time once daily for 2 days, then 2 PO at one time once daily PREDNISONE 60550961286 No Longer Active [facility] CEFDINIR 300 MG CAPS 1 PO BID CEFDINIR 64632010127 No Longer Active Casi Glenn SUDAFED 30 MG TAB 1 PO TID prn PSEUDOEPHEDRINE HCL 83397433663 No Longer Active Rachel Rosie DEXTER'Bala NASAL SPRAY (DEXAMETHASONE, GENTAMICIN, SALINE) 2 puffs each nostril TID for [address] CISNEROS NASAL SPRAY ( DEXAMETHASONE, GENTAMICIN, SALINE) No Longer Active [facility] AUGMENTIN 500-125 MG TAB 1 PO BID AMOXICILLIN-POT CLAVULANATE 03431404398 No Longer Active [facility] TOPAMAX 25 MG TABS 1 PO BID TOPIRAMATE 09943671298 Active [facility] ALEVE 220 MG TAB 2 PO QHS NAPROXEN SODIUM 83724043339 Active [facility] ULTRAM 50 MG TAB 1 PO TID TRAMADOL HCL 25645751490 No Longer Active [facility] ADVAIR DISKUS 100-50 MCG/DOSE MISC 1 puff BID FLUTICASONE-SALMETEROL 98077514134 No Longer Active [facility] BIAXIN 500 MG TAB 1 PO BID CLARITHROMYCIN 95991019476 No Longer Active [facility] LEVOXYL 75 MCG TABS 1 PO DAILY LEVOTHYROXINE SODIUM 26590857479 Active Casi Elizabeth AMOXICILLIN 500 MG CAP 1 PO TID AMOXICILLIN 67363980367 No Longer Active [facility] ATROVENT 0.06 % SOLN 2 puffs each nostril TID prn runny nose 2013 IPRATROPIUM BROMIDE 16069301520 No Longer Active [facility] PREDNISONE 20 MG TAB 2 pills at once for 2 days then 1 pill daily for 2 days PREDNISONE 72881288484 No Longer Active [facility] AUGMENTIN 875-125 MG TAB 1 PO BID AMOXICILLIN-POT CLAVULANATE 25171442579 No Longer Active Rachel Rosie DEXTER'Bala NASAL SPRAY (DEXAMETHASONE, GENTAMICIN, SALINE) 2 puffs each nostril TID for [address] CISNEROS NASAL SPRAY ( DEXAMETHASONE, GENTAMICIN, SALINE) No Longer Active [facility] PREDNISONE 20 MG TAB 2 pills at once for 2 days then 1 pill daily for 5 days PREDNISONE 89284996049 No Longer Active [facility] BIAXIN 500 MG TAB 1 PO BID CLARITHROMYCIN 36038130168 No Longer Active [facility] KENALOG 0.1 % CREA apply to affected areas BID TRIAMCINOLONE ACETONIDE No Longer Active [facility]ju[facility] PROAIR HFA 108 (90 BASE) MCG/ACT AERS 2 puff Q4 hrs prn wheezing ALBUTEROL SULFATE 82670517380 No Longer Active [facility] SUDAFED 30 MG TAB 1 PO TID for 5 days PSEUDOEPHEDRINE HCL 51598422608 No Longer Active [facility] PREDNISONE 20 MG TAB 2 pills at once for 3 days then 1 pill daily for 3 days PREDNISONE 39465856216 No Longer Active [facility]ju[facility]ino [facility] ADVAIR DISKUS 100-50 MCG/DOSE MISC 1 puff BID FLUTICASONE-SALMETEROL 11733317173 No Longer Active [facility] BIAXIN 500 MG TAB 1 PO BID CLARITHROMYCIN 14354179554 No Longer Active [facility] OMEPRAZOLE 20 MG CPDR 1 PO daily OMEPRAZOLE 24852937496 Active [facility] PROAIR HFA 108 (90 BASE) MCG/ACT AERS 2 puff Q4 hrs prn wheezing ALBUTEROL SULFATE 87062395124 No Longer Active [facility] LAMISIL 250 MG TAB 1 po daily TERBINAFINE HCL 68937563300 No Longer Active Rachel Roise [facility] LOTRISONE 0.05-1 % CREAM apply to affected areas BID prn CLOTRIMAZOLE-BETAMETHASONE 41672153455 No Longer Active [facility] BIAXIN XL PAC 500 MG TB24 2 pills at same time daily for 7 days CLARITHROMYCIN 05948356990 No Longer Active [facility] PREDNISONE 20 MG TAB 3 pills daily at once for 2 days, 2 pills daily at once for 2 days, 1 once daily for 2 days PREDNISONE 02233185793 No Longer Active [facility] ADVAIR DISKUS 100-50 MCG/DOSE MISC 1 puff BID for two weeks 05/02 FLUTICASONE-SALMETEROL 40420026221 No Longer Active [facility] PROAIR HFA 108 (90 BASE) MCG/ACT AERS 2 puff Q4 hrs prn wheezing ALBUTEROL SULFATE 12797177491 No Longer Active [facility] LEVAQUIN 500 MG TAB 1 PO QD LEVOFLOXACIN 19490201638 No Longer Active [facility] TESSALON 200 MG CAPS 1 PO TID prn cough BENZONATATE 61527269011 No Longer Active [facility] LAMISIL 250 MG TAB 1 PO daily TERBINAFINE HCL 94382449584 No Longer Active Rachel [facility] LAMISIL 250 MG TABS 1 PO daily TERBINAFINE HCL 52206339855 No Longer Active [facility]ju[facility] DIFLUCAN 100 MG TABS 1 PO daily FLUCONAZOLE 50433706362 No Longer Active [facility] NYSTATIN 556980 UNIT/GM CREA Apply to affected areas TID until resolved 01/10 NYSTATIN 11936760812 No Longer Active [facility] LAMISIL 250 MG TABS 1 PO daily TERBINAFINE HCL 12344986886 No Longer Active [facility] LOTRISONE 0.05-1 % CREAM apply small amount to affected areas TID CLOTRIMAZOLE-BETAMETHASONE 65714246684 No Longer Active [facility] BIAXIN XL PAC 500 MG TB24 2 pills at same time daily for 7 days CLARITHROMYCIN 37638291730 No Longer Active [facility] CILOXAN 0.3 % SOLN 2 drops Q6hrs for 7 days CIPROFLOXACIN HCL 11967615887 No Longer Active Dorene Cristina METFORMIN HCL 500 MG TABS 2 PO BID METFORMIN HCL 13398643712 Active [facility] NAPROXEN 500 MG TAB 1 PO BID NAPROXEN 57737233759 No Longer Active [facility] LASIX 20 MG TAB 1 PO QD prn for swelling FUROSEMIDE 21242112102 No Longer Active [facility]ue[facility] FLONASE 50 MCG/DOSE INHALANT 2 puffs each nostril daily FLONASE 50 MCG/DOSE INHALANT No Longer Active [facility] KEVIN-D 24 HOUR 180-240 MG TB24 1 PO Daily for sinus pressure. FEXOFENADINE-PSEUDOEPHEDRINE 34125342522 No Longer Active [facility] KEVIN 180 MG TABS 1 PO QD FEXOFENADINE HCL 44523459424 No Longer Active [facility] MUCINEX 600 MG TB12 1 PO BID for 5 days GUAIFENESIN 93112416189 No Longer Active [facility] DOXYCYCLINE HYCLATE 100 MG CAP 1 po BID DOXYCYCLINE HYCLATE 23554653943 No Longer Active [facility] MULTIVITAMINS TABS 1 po daily MULTIPLE VITAMIN 37078389111 Active [facility] Immunizations Vaccine Administration Date Value Standard [...] ng/dL Encounters Code Encounter Date Provider Facility CPT-87473 Ofc Vst, Est Level IV 15:58:13 CDT [facility] DO, FACP CPT-09336 Ofc Vst, Est Level IV 15:30:54 CDT [facility] CPT-99362 Ofc Vst, Est Level III 20:51:09 CDT Rachel [facility] DO, FACP CPT-04099 Ofc Vst, Est Level III 16:39:04 [facility] DO, FACP CPT-44238 Ofc Vst, Est Level III 20:33:24 GUIDE TOUR [facility] DO, FACP CPT-73147 Ofc Vst, Est Level IV 20:17:26 GUIDE TOUR Rachel [facility] CPT-93457 Ofc Vst, Est Level III 16:29:23 GUIDE TOUR Racheljuventino Mckenna Bola, DO, FACP CPT-58655 Ofc Vst, Est Level III 16:41:30 CDT Rachel Rosie Mckenna Bola, DO, FACP CPT-64474 Ofc Vst, Est Level III 12:12:47 CDT Rachel Rosie Mckenna Bola, DO, FACP CPT-11986 Ofc Vst, Est Level III 16:03:46 CDT Rachel Rosie Mckenna Bola, DO, FACP CPT-55068 Ofc Vst, Est Level IV 17:56:18 CDT [facility] CPT-21496 Ofc Vst, Est Level III 15:42:50 CDT [facility] CPT-07331 Ofc Vst, Est Level III 15:37:57 CDT [facility] CPT-17542 Ofc Vst, Est Level III 19:30:03 CDT Rachel Rosie Mckenna Bola, DO, FACP CPT-52880 Ofc Vst, Est Level III 20:02:43 CDT [facility] CPT-33184 Ofc Vst, Est Level III 13:45:40 GUIDE TOUR Rachel Rosie Mckenna Bola, DO, FACP CPT-49972 Ofc Vst, Est Level III 19:57:30 GUIDE TOUR Rachel Rosie Mckenna Bola, DO, FACP CPT-32385 Ofc Vst, Est Level III 20:20:40 GUIDE TOUR Rachel Rosie [facility], DO, FACP CPT-16063 Ofc Vst, Est Level III 15:09:23 GUIDE TOUR Rachel Rosie Arellanoner Rachel Mckenna Bola, DO, FACP CPT-94722 Ofc Vst, Est Level III 16:20:28 CDT [facility], DO, FACP CPT-60439 Ofc Vst, Est Level III 10:14:05 CDT [facility], DO, FACP CPT-64504 Ofc Vst, Est Level III 15:38:48 CDT [facility], DO, FACP CPT-90794 Ofc Vst, Est Level III 17:19:17 CDT Rachel [facility], DO, FACP CPT-74288 Ofc Vst, Est Level III 16:30:31 CDT [facility], DO, FACP CPT-20536 Ofc Vst, Est Level III 20:41:25 CDT [facility], DO, FACP CPT-17048 Ofc Vst, Est Level III 16:38:44 CDT [facility], DO, FACP CPT-92961 Ofc Vst, Est Level III 14:31:54 CDT [facility], DO, FACP CPT-12793 Ofc Vst, Est Level III 20:41:14 GUIDE TOUR [facility], DO, FACP CPT-47757 Ofc Vst, Est Level III 16:34:32 GUIDE TOUR Rachel [facility], DO, FACP CPT-93251 Ofc Vst, Est Level III 17:31:03 GUIDE TOUR Rachel [facility], DO, FACP CPT-46800 Ofc Vst, Est Level III 13:46:07 GUIDE TOUR Rachel [facility], DO, FACP CPT-60123 Ofc Vst, Est Level III 16:31:25 CDT Rachel Rosie Mckenna Bola, DO, FACP CPT-33362 Ofc Vst, Est Level III 13:49:29 CDT Rachel [facility] CPT-44463 Ofc Vst, Est Level III 13:49:22 CDT Rachel [facility] CPT-79710 Ofc Vst, Est Level III 13:28:51 CDT Rachel [facility] CPT-38119 Ofc Vst, Est Level III 13:30:40 CDT Rachel Rosie Mckenna Bola, DO, FACP CPT-55613 Ofc Vst, Est Level III 14:49:17 CDT Rachel [facility] CPT-50147 Ofc Vst, Est Level III 13:30:39 GUIDE TOUR Rachel Rosie Mckenna Bola, DO, FACP CPT-27240 Ofc Vst, Est Level III 09:43:47 GUIDE TOUR Rachel [facility] CPT-05015 Ofc Vst, Est Level III 09:43:54 GUIDE TOUR [facility] CPT-21982 Ofc Vst, Est Level IV 10:15:14 GUIDE TOUR Rachel Mckenna Bola, DO, FACP CPT-82664 Ofc Vst, Est Level III 15:24:26 GUIDE TOUR Rachel Mckenna Bola, DO, FACP CPT-19843 Ofc Vst, Est Level III 14:22:31 GUIDE TOUR Rachel Mckenna Bola, DO, FACP CPT-71704 Ofc Vst, Est Level IV 10:02:54 CDT [facility] CPT-37020 Ofc Vst, Est Level III 16:32:40 CDT Rachel [facility] CPT-15354 Ofc Vst, Est Level III 16:29:26 CDT Rachel Rosie Mckenna Bola, DO, FACP CPT-19479 Ofc Vst, Est Level IV 14:43:12 CDT Rahcel [facility] CPT-31846 Ofc Vst, Est Level IV 14:48:51 CDT [facility] CPT-48014 Ofc Vst, Est Level III 14:21:26 CDT Rachel Rosie Mckenna Bola, DO, FACP CPT-39134 Ofc Vst, Est Level III 16:25:48 CDT Rachel Rosie Mckenna Bola, DO, FACP CPT-91321 Ofc Vst, Est Level III 15:53:26 CDT Rachel Rosie Mckenna Bola, DO, FACP CPT-46980 Ofc Vst, Est Level III 16:00:22 CDT Rachel Rosie Mckenna Bola, DO, FACP CPT-46879 Ofc Vst, Est Level III 10:41:27 GUIDE TOUR Rachel Mckenna Bola, DO, FACP CPT-76241 Ofc Vst, Est Level IV 09:59:09 GUIDE TOUR Rachel Mckenna Bola, DO, FACP CPT-87068 Ofc Vst, Est Level III 10:07:13 GUIDE TOUR [facility] CPT-44381 Ofc Vst, Est Level III 14:54:02 GUIDE TOUR Rachel Mckenna Bola, DO, FACP CPT-20467 Ofc Vst, Est Level III 13:15:03 CDT [facility] CPT-88557 Ofc Vst, Est Level IV 16:30:43 CDT Rachel Rosie Mckenna Bola, DO, FACP CPT-66541 Ofc Vst, Est Level IV 12:52:15 CDT [facility], DO, FACP CPT-07566 Ofc Vst, Est Level III 14:55:16 CDT [facility] CPT-49230 Ofc Vst, Est Level III 09:36:49 CDT [facility], DO, FACP CPT-84132 Ofc Vst, Est Level IV 13:11:53 CDT [facility], DO, FACP CPT-25882 Ofc Vst, Est Level IV 09:21:55 GUIDE TOUR Rachel Rosie Mckenna Bola, DO, FACP CPT-85115 Ofc Vst, Est Level IV 16:18:13 GUIDE TOUR [facility] CPT-97202 Ofc Vst, Est Level III 14:24:17 GUIDE TOUR [facility] CPT-34627 Ofc Vst, Est Level III 14:33:19 GUIDE TOUR [facility] CPT-78992 Ofc Vst, Est Level III 16:11:48 CDT Racheljuventino Mckenna Bola, DO, FACP CPT-52571 Ofc Vst, Est Level IV 21:11:44 CDT [facility] CPT-05921 Ofc Vst, Est Level IV 16:18:03 CDT Racheljuventino M[facility], DO, FACP CPT-42650 Ofc Vst, Est Level IV 16:48:22 CDT Racehl [facility] CPT-94517 Ofc Vst, Est Level IV 14:26:27 CDT [facility], DO, FACP CPT-32194 Ofc Vst, Est Level IV 16:41:37 GUIDE TOUR Rachel Mckenna Bola, DO, FACP CPT-33973 Ofc Vst, Est Level III 16:38:27 GUIDE TOUR Rachel Mckenna Bola, DO, FACP CPT-80584 Ofc Vst, Est Level III 18:02:37 GUIDE TOUR Rachel Mckenna Bola, DO, FACP CPT-82089 Ofc Vst, Est Level III 15:48:55 GUIDE TOUR Racheljuventino Mckenna Bola, DO, FACP CPT-54532 Ofc Vst, Est Level III 17:01:29 CDT Racheljuventino Mckenna Bola, DO, FACP CPT-92398 Ofc Vst, Est Level III 16:07:45 CDT Racheljuventino Mckenna Bola, DO, FACP CPT-20137 Ofc Vst, Est Level III 10:10:13 CDT Racheljuventino Mckenna Bola, DO, FACP CPT-02167 Ofc Vst, Est Level III 15:02:09 CDT Racheljuventino Mckenna Bola, DO, FACP CPT-90152 Ofc Vst, Est Level III 15:58:47 CDT Racheljuventino Mckenna Bola, DO, FACP CPT-52315 Ofc Vst, Est Level IV 16:03:29 CDT Racheljuventino Plaza [facility] CPT-42776 Ofc Vst, Est Level III 09:44:56 CDT Racheljuventino Mckenna Bola, DO, FACP CPT-82800 Ofc Vst, Est Level IV 13:34:08 GUIDE TOUR Rachel Mckenna Bola, DO, FACP CPT-27390 Ofc Vst, Est Level III 16:12:13 GUIDE TOUR Rachel Rosie Mckenna Bola, DO, FACP CPT-57361 Ofc Vst, Est Level IV 09:46:09 GUIDE TOUR [facility], DO, FACP CPT-04715 Ofc Vst, Est Level III 17:04:16 GUIDE TOUR [facility], DO, FACP CPT-43528 Ofc Vst, Est Level IV 16:28:43 CDT [facility]juventino [facility], DO, FACP CPT-26238 Ofc Vst, Est Level III 16:25:00 CDT Racheljuventino Arellanoner [facility], DO, FACP CPT-02864 Ofc Vst, Est Level III 16:34:11 CDT [facility], DO, FACP CPT-45192 Ofc Vst, Est Level III 11:09:04 CDT [facility], DO, FACP CPT-97340 Ofc Vst, Est Level III 10:15:02 CDT Racheljuventino M[facility], DO, FACP CPT-17124 Ofc Vst, New Level III 15:50:58 CDT [facility] Procedures Code Procedure Name Date Entry Date Standard Description CPT-25052 Preventive, Est, (40-64) 16:23:06 CDT CPT-26237 Handling of specimen from office to lab 13:14:22 CDT CPT-71639 Preventive, Est, (40-64) 13:14:22 CDT CPT-66492 Biopsy, skin/subcut/mucous membrane; sngl lsn 11:08:35 CDT CPT-95201 Preventive, Est, (40-64) 15:03:18 CDT CPT-48548 Handling of specimen from office to lab 15:03:18 CDT CPT-88013 Handling of specimen from office to lab 16:01:28 CDT CPT-08592 Preventive, Est, (18-39) 16:01:28 CDT CPT-94955 Preventive, Est, (18-39) 10:39:27 CDT CPT-68062 Handling of specimen from office to lab 10:39:27 CDT CPT-05718 Preventive, Est, (18-39) 13:53:34 CDT CPT-76092 Handling of specimen from office to lab 13:53:34 CDT CPT-33245 Preventive, Est, (18-39) 09:42:54 CDT CPT-61302 Handling of specimen from office to lab 09:42:54 CDT
--- OUTSIDE RECORDS SUMMARY | 2018-03-22 06:12 | XMS REPORT | Clinical Summary ---
Author Author User, [employer] Organization Formerly [facility], [facility] Physician [place] Address Unknown Phone Unavailable Allergies, Adverse Reactions, [...] once daily for 5 days 2014 PREDNISONE [id number] No Longer Active Casi Elizabeth PROAIR HFA 108 (90 BASE) MCG/ACT AERS 2 puff Q4 hrs prn wheezing ALBUTEROL SULFATE 17967501226 Active Rachel Plaza ADVAIR DISKUS 100-50 MCG/DOSE MISC 1 puff BID FLUTICASONE- SALMETEROL 69523315553 Active Rachel Plaza TUSSIONEX PENNKINETIC ER 10-8 MG/5ML LQCR 1 tsp PO BID prn cough HYDROCOD POLST-CHLORPHEN POLST 71665972874 No Longer Active Rachel Plaza SUDAFED 30 MG TAB 1 PO TID prn congestion PSEUDOEPHEDRINE HCL 03679793401 Active Rachel Plaza PREDNISONE 10 MG TAB 4 PO at one time once daily for 2 days, then 2 PO at one time once daily PREDNISONE 13557572936 No Longer Active Rachel Plaza CEFDINIR 300 MG CAPS 1 PO BID CEFDINIR 58309769037 No Longer Active Casi Elizabeth SUDAFED 30 MG TAB 1 PO TID prn PSEUDOEPHEDRINE HCL 15215356677 No Longer Active Rachel DEXTER'Bala NASAL SPRAY (DEXAMETHASONE, GENTAMICIN, SALINE) 2 puffs each nostril TID for [address] DEXTER'Bala NASAL SPRAY ( DEXAMETHASONE, GENTAMICIN, SALINE) No Longer Active Rachel Rosie Plaza AUGMENTIN 500-125 MG TAB 1 PO BID AMOXICILLIN-POT CLAVULANATE 98594304479 No Longer Active Rachel Rosie Plaza TOPAMAX 25 MG TABS 1 PO BID TOPIRAMATE 95791202756 Active Rachel Rosie Plaza ALEVE 220 MG TAB 2 PO QHS NAPROXEN SODIUM 88232830104 Active Rachel Rosie Plaza ULTRAM 50 MG TAB 1 PO TID TRAMADOL HCL 85165687096 No Longer Active Rachel Rosie Plaza ADVAIR DISKUS 100-50 MCG/DOSE MISC 1 puff BID FLUTICASONE-SALMETEROL 60070952741 No Longer Active Racheljuventino Plaza BIAXIN 500 MG TAB 1 PO BID CLARITHROMYCIN 56314383338 No Longer Active Racheljuventino Plaza LEVOXYL 75 MCG TABS 1 PO DAILY LEVOTHYROXINE SODIUM 42397814772 Active Rachel Rosie Plaza AMOXICILLIN 500 MG CAP 1 PO TID AMOXICILLIN 58272513195 No Longer Active Racheljuventino Plaza ATROVENT 0.06 % SOLN 2 puffs each nostril TID prn runny nose 2013 IPRATROPIUM BROMIDE 55474936870 No Longer Active Racheljuventino Plaza PREDNISONE 20 MG TAB 2 pills at once for 2 days then 1 pill daily for 2 days PREDNISONE 15842830500 No Longer Active Rachel Rosie Plaza AUGMENTIN 875-125 MG TAB 1 PO BID AMOXICILLIN-POT CLAVULANATE 32922978020 No Longer Active Rachel DEXTER'S NASAL SPRAY (DEXAMETHASONE, GENTAMICIN, SALINE) 2 puffs each nostril TID for [address] CISNEROS NASAL SPRAY ( DEXAMETHASONE, GENTAMICIN, SALINE) No Longer Active Racheljuventino Plaza PREDNISONE 20 MG TAB 2 pills at once for 2 days then 1 pill daily for 5 days PREDNISONE 39930021493 No Longer Active Racheljuventino Plaza BIAXIN 500 MG TAB 1 PO BID CLARITHROMYCIN 51588688714 No Longer Active Racheljuventino Plaza KENALOG 0.1 % CREA apply to affected areas BID TRIAMCINOLONE ACETONIDE No Longer Active Rachel Rosie Plaza PROAIR HFA 108 (90 BASE) MCG/ACT AERS 2 puff Q4 hrs prn wheezing ALBUTEROL SULFATE 46856920355 No Longer Active Rachel Plaza SUDAFED 30 MG TAB 1 PO TID for 5 days PSEUDOEPHEDRINE HCL 30118746017 No Longer Active Rachel Plaza PREDNISONE 20 MG TAB 2 pills at once for 3 days then 1 pill daily for 3 days PREDNISONE 52610352257 No Longer Active Racheljuventino Plaza ADVAIR DISKUS 100-50 MCG/DOSE MISC 1 puff BID FLUTICASONE-SALMETEROL 82918147726 No Longer Active Rachel Rosie Plaza BIAXIN 500 MG TAB 1 PO BID CLARITHROMYCIN 35958196211 No Longer Active Racheljuventino Plaza OMEPRAZOLE 20 MG CPDR 1 PO daily OMEPRAZOLE 27409735909 Active Rachel Rosie Plaza PROAIR HFA 108 (90 BASE) MCG/ACT AERS 2 puff Q4 hrs prn wheezing ALBUTEROL SULFATE 09434171541 No Longer Active Rachel Rosie Plaza LAMISIL 250 MG TAB 1 po daily TERBINAFINE HCL 77784179768 No Longer Active Rachel Rosie Plaza LOTRISONE 0.05-1 % CREAM apply to affected areas BID prn CLOTRIMAZOLE-BETAMETHASONE 84967344316 No Longer Active Rachel Rosie Plaza BIAXIN XL PAC 500 MG TB24 2 pills at same time daily for 7 days CLARITHROMYCIN 81475432319 No Longer Active Rachel Rosie Plaza PREDNISONE 20 MG TAB 3 pills daily at once for 2 days, 2 pills daily at once for 2 days, 1 once daily for 2 days PREDNISONE 66100186378 No Longer Active Rachel Rosie Plaza ADVAIR DISKUS 100-50 MCG/DOSE MISC 1 puff BID for two weeks 05/02 FLUTICASONE-SALMETEROL 62330660284 No Longer Active Rachel Rosie Plaza PROAIR HFA 108 (90 BASE) MCG/ACT AERS 2 puff Q4 hrs prn wheezing ALBUTEROL SULFATE 97814467476 No Longer Active Racheljuventino Plaza LEVAQUIN 500 MG TAB 1 PO QD LEVOFLOXACIN 34399488480 No Longer Active Rachel Rosie Plaza TESSALON 200 MG CAPS 1 PO TID prn cough BENZONATATE 50912001114 No Longer Active Rachel Rosie Plaza LAMISIL 250 MG TAB 1 PO daily TERBINAFINE HCL 34690018912 No Longer Active Rachel Rosie Plaza LAMISIL 250 MG TABS 1 PO daily TERBINAFINE HCL 30424011594 No Longer Active Rachel Rosie Plaza DIFLUCAN 100 MG TABS 1 PO daily FLUCONAZOLE 61864492258 No Longer Active Rachel Rosie Plaza NYSTATIN 517491 UNIT/GM CREA Apply to affected areas TID until resolved 01/10 NYSTATIN 88326768609 No Longer Active Racheljuventino Plaza LAMISIL 250 MG TABS 1 PO daily TERBINAFINE HCL 70743632109 No Longer Active Rachel Rosie Plaza LOTRISONE 0.05-1 % CREAM apply small amount to affected areas TID CLOTRIMAZOLE-BETAMETHASONE 74488242403 No Longer Active Rachel Rosie Plaza BIAXIN XL PAC 500 MG TB24 2 pills at same time daily for 7 days CLARITHROMYCIN 35636484759 No Longer Active Racheljuventino Plaza CILOXAN 0.3 % SOLN 2 drops Q6hrs for 7 days CIPROFLOXACIN HCL 18456652583 No Longer Active Dorene Cristina METFORMIN HCL 500 MG TABS 2 PO BID METFORMIN HCL 58612847472 Active Rachel Rosie Plaza NAPROXEN 500 MG TAB 1 PO BID NAPROXEN 28191235843 No Longer Active Racheljuventino Plzaa LASIX 20 MG TAB 1 PO QD prn for swelling FUROSEMIDE 79050304018 No Longer Active Rachel Plaza FLONASE 50 MCG/DOSE INHALANT 2 puffs each nostril daily FLONASE 50 MCG/DOSE INHALANT No Longer Active Racheljuventino Plaza KEVIN-D 24 HOUR 180-240 MG TB24 1 PO Daily for sinus pressure. FEXOFENADINE-PSEUDOEPHEDRINE 15889747041 No Longer Active Racheljuventino Plaza KEVIN 180 MG TABS 1 PO QD FEXOFENADINE HCL 68044029557 No Longer Active Rachel Rosie Plaza MUCINEX 600 MG TB12 1 PO BID for 5 days GUAIFENESIN 96944993556 No Longer Active Rachel Rosie Plaza DOXYCYCLINE HYCLATE 100 MG CAP 1 po BID DOXYCYCLINE HYCLATE 92214147122 No Longer Active Racheljuventino Luxe Bola MULTIVITAMINS TABS 1 po daily MULTIPLE VITAMIN 51500292384 Active Racheljuventino Luxe Bola PHENTERMINE HCL 37.5 MG CAPS 1 po daily PHENTERMINE HCL 53261549005 Active Racheljuventino Luxe Bola Immunizations Vaccine Administration [...] mL/min/1.73m2 Encounters Code Encounter Date Provider Facility CPT-55258 Ofc Vst, Est Level IV 15:30:54 CDT Rachel Plaza [place] [facility] CPT-89340 Ofc Vst, Est Level III 20:51:09 CDT Rachel Plaza DO, FACP CPT-46808 Ofc Vst, Est Level III 16:39:04 [facility] Rachel Plaza DO, FACP CPT-25853 Ofc Vst, Est Level III 20:33:24 [facility] Rachel Plaza DO, FACP CPT-56035 Ofc Vst, Est Level IV 20:17:26 [facility] Rachel Plaza [facility] CPT-37571 Ofc Vst, Est Level III 16:29:23 [facility] Rachel Plaza DO, FACP CPT-84452 Ofc Vst, Est Level III 16:41:30 CDT Rachel Ramos S Bola, DO, FACP CPT-80934 Ofc Vst, Est Level III 12:12:47 CDT Rachel Rosie Mckenna Bola, DO, FACP CPT-80243 Ofc Vst, Est Level III 16:03:46 CDT Rachel Rosie Mckenna Bola, DO, FACP CPT-85252 Ofc Vst, Est Level IV 17:56:18 CDT Rachel Rosie Plaza [facility] CPT-25363 Ofc Vst, Est Level III 15:42:50 CDT Rachel Rosie Plaza [facility] CPT-88858 Ofc Vst, Est Level III 15:37:57 CDT Rachel Rosie Plaza [facility] CPT-43597 Ofc Vst, Est Level III 19:30:03 CDT Rachel Rosie Mckenna Bola, DO, FACP CPT-76363 Ofc Vst, Est Level III 20:02:43 CDT Rachel Rosie Plaza [facility] CPT-94026 Ofc Vst, Est Level III 13:45:40 [facility] Rachel Mckenna Bola, DO, FACP CPT-65998 Ofc Vst, Est Level III 19:57:30 [employer] Rachel Mckenna Bola, DO, FACP CPT-56353 Ofc Vst, Est Level III 20:20:40 [employer] Rachel Mckenna Bola, DO, FACP CPT-15603 Ofc Vst, Est Level III 15:09:23 [employer] [employer] [facility] Rachel Arellanoner Rachel S Bola, DO, FACP CPT-26723 Ofc Vst, Est Level III 16:20:28 CDT Rachel Rosie Plaza Rachel Mckenna Bola, DO, FACP CPT-29349 Ofc Vst, Est Level III 10:14:05 CDT Rachel Rosie Mckenna Plaza, DO, FACP CPT-07280 Ofc Vst, Est Level III 15:38:48 CDT Rachel Rosie Mckenna Plaza, DO, FACP CPT-95153 Ofc Vst, Est Level III 17:19:17 CDT Rachel Rosie Mckenna Plaza, DO, FACP CPT-63933 Ofc Vst, Est Level III 16:30:31 CDT Rachel Rosie Mckenna Plaza, DO, FACP CPT-22285 Ofc Vst, Est Level III 20:41:25 CDT Rachel Rosie Mckenna Plaza, DO, FACP CPT-70869 Ofc Vst, Est Level III 16:38:44 CDT Rachel Rosie Mckenna Plaza, DO, FACP CPT-83981 Ofc Vst, Est Level III 14:31:54 CDT Rachel Rosie Mckenna Plaza, DO, FACP CPT-84653 Ofc Vst, Est Level III 20:41:14 [facility] Rachel Rosie Mckenna Plaza, DO, FACP CPT-85287 Ofc Vst, Est Level III 16:34:32 [facility] Rachel Mckenna Plaza, DO, FACP CPT-10375 Ofc Vst, Est Level III 17:31:03 [employer] Rachel Rosie Mckenna Plaza, DO, FACP CPT-65666 Ofc Vst, Est Level III 13:46:07 [employer] Rachel Rosie Mckenna Plaza, DO, FACP CPT-80390 Ofc Vst, Est Level III 16:31:25 CDT Rachel Rosie Mckenna Plaza, DO, FACP CPT-04810 Ofc Vst, Est Level III 13:49:29 CDT Rachel Rosie Plaza [facility] CPT-57403 Ofc Vst, Est Level III 13:49:22 CDT Rachel Rosie Plaza [place] [facility] CPT-34269 Ofc Vst, Est Level III 13:28:51 CDT Rachel Rosie Plaza [place] [facility] CPT-23304 Ofc Vst, Est Level III 13:30:40 CDT Rachel Rosie Mckenna Bola, DO, FACP CPT-51455 Ofc Vst, Est Level III 14:49:17 CDT Rachel Rosie Plaza [place] [facility] CPT-16961 Ofc Vst, Est Level III 13:30:39 [employer] Rachel Rosie Mckenna Bola, DO, FACP CPT-90296 Ofc Vst, Est Level III 09:43:47 [employer] Rachel Rosie Plaza [place] [facility] CPT-83963 Ofc Vst, Est Level III 09:43:54 [employer] Rachel Rosie Plaza [place] [facility] CPT-43156 Ofc Vst, Est Level IV 10:15:14 [employer] Rachel Rosie Mckenna Bola, DO, FACP CPT-75029 Ofc Vst, Est Level III 15:24:26 [employer] Rachel Mckenna Bola, DO, FACP CPT-59916 Ofc Vst, Est Level III 14:22:31 [employer] Rachel Rosie Mckenna Bola, DO, FACP CPT-64320 Ofc Vst, Est Level IV 10:02:54 CDT Rachel Rosie Plaza [place] [facility] CPT-78546 Ofc Vst, Est Level III 16:32:40 CDT Rachel Rosie Plaza [place] [facility] CPT-10659 Ofc Vst, Est Level III 16:29:26 CDT Rachel Rosie Mckenna Bola, DO, FACP CPT-22550 Ofc Vst, Est Level IV 14:43:12 CDT Rachel Rosie [place] [facility] CPT-66951 Ofc Vst, Est Level IV 14:48:51 CDT Rachel Rosie Plaza [facility] CPT-70665 Ofc Vst, Est Level III 14:21:26 CDT Rachel Rosie Mckenna Bola, DO, FACP CPT-77407 Ofc Vst, Est Level III 16:25:48 CDT Rachel Rosie Mckenna Bola, DO, FACP CPT-96701 Ofc Vst, Est Level III 15:53:26 CDT Rachel Rosie Mckenna Bola, DO, FACP CPT-85229 Ofc Vst, Est Level III 16:00:22 CDT Racheljuventino Mckenna Bola, DO, FACP CPT-94073 Ofc Vst, Est Level III 10:41:27 [facility] Racheljuventino Mckenna Bola, DO, FACP CPT-35757 Ofc Vst, Est Level IV 09:59:09 [employer] Rachel Mckenna Bola, DO, FACP CPT-47323 Ofc Vst, Est Level III 10:07:13 [employer] Rachel Plaza [place] [facility] CPT-64178 Ofc Vst, Est Level III 14:54:02 [employer] Rachel Mckenna Bola, DO, FACP CPT-36497 Ofc Vst, Est Level III 13:15:03 CDT Racheljuventino Plaza [place] [facility] CPT-72016 Ofc Vst, Est Level IV 16:30:43 CDT Racheljuventino Mckenna Bola, DO, FACP CPT-52086 Ofc Vst, Est Level IV 12:52:15 CDT Racheljuventino Mckenna Bola, DO, FACP CPT-35209 Ofc Vst, Est Level III 14:55:16 CDT Rachel Rosie Plaza [facility] CPT-84604 Ofc Vst, Est Level III 09:36:49 CDT Rachel Rosie Mckenna Plaza, DO, FACP CPT-32096 Ofc Vst, Est Level IV 13:11:53 CDT Rachel Rosie Mckenna Plaza, DO, FACP CPT-60130 Ofc Vst, Est Level IV 09:21:55 [facility] Rachel Rosie Mckenna Plaza, DO, FACP CPT-45899 Ofc Vst, Est Level IV 16:18:13 [employer] Rachel Rosie Plaza [facility] CPT-86833 Ofc Vst, Est Level III 14:24:17 [employer] Rachel Rosie Plaza [facility] CPT-44038 Ofc Vst, Est Level III 14:33:19 [employer] Rachel Rosie Plaza [facility] CPT-52263 Ofc Vst, Est Level III 16:11:48 CDT Rachel Rosie Mckenna Bola, DO, FACP CPT-99941 Ofc Vst, Est Level IV 21:11:44 CDT Rachel Rosie Plaza [facility] CPT-73556 Ofc Vst, Est Level IV 16:18:03 CDT Rachel Rosie Mckenna Bola, DO, FACP CPT-64985 Ofc Vst, Est Level IV 16:48:22 CDT Rachel Rosie Plaza [facility] CPT-74891 Ofc Vst, Est Level IV 14:26:27 CDT Rachel Rosie Mckenna Plaza, DO, FACP CPT-14548 Ofc Vst, Est Level IV 16:41:37 [employer] Rachel Rosie Mckenna Plaza, DO, FACP CPT-13917 Ofc Vst, Est Level III 16:38:27 [employer] Rachel Rosie Mckenna Plaza, DO, FACP CPT-99392 Ofc Vst, Est Level III 18:02:37 [employer] Rachel Mckenna Plaza, DO, FACP CPT-42770 Ofc Vst, Est Level III 15:48:55 [employer] Rachel Mckenna Plaza, DO, FACP CPT-54938 Ofc Vst, Est Level III 17:01:29 CDT Rachel Rosie Mckenna Bola, DO, FACP CPT-05546 Ofc Vst, Est Level III 16:07:45 CDT Rachel Rosie Mckenna Bola, DO, FACP CPT-18087 Ofc Vst, Est Level III 10:10:13 CDT Rachel Rosie Mckenna Bola, DO, FACP CPT-10731 Ofc Vst, Est Level III 15:02:09 CDT Rachel Rosie Mckenna Bola, DO, FACP CPT-90745 Ofc Vst, Est Level III 15:58:47 CDT Rachel Rosie Mckenna Bola, DO, FACP CPT-59947 Ofc Vst, Est Level IV 16:03:29 CDT Racheljuventino Plaza [facility] CPT-69005 Ofc Vst, Est Level III 09:44:56 CDT Rachel Rosie Mckenna Bola, DO, FACP CPT-80609 Ofc Vst, Est Level IV 13:34:08 [facility] Rachel Rosie Mckenna Bola, DO, FACP CPT-78509 Ofc Vst, Est Level III 16:12:13 [employer] Rachel Mckenna Plaza, DO, FACP CPT-97721 Ofc Vst, Est Level IV 09:46:09 [employer] Rachel Mckenna Bola, DO, FACP CPT-67118 Ofc Vst, Est Level III 17:04:16 [employer] Rachel Mckenna Plaza, DO, FACP CPT-84096 Ofc Vst, Est Level IV 16:28:43 CDT Rachel Mckenna Plaza, DO, FACP CPT-82356 Ofc Vst, Est Level III 16:25:00 CDT Rachel Arellanoner Rachel Mckenna Plaza, DO, FACP CPT-33667 Ofc Vst, Est Level III 16:34:11 CDT Rachel Rosie Mckenna Plaza, DO, FACP CPT-69449 Ofc Vst, Est Level III 11:09:04 CDT Racheljuventino Mckenna Plaza, DO, FACP CPT-30797 Ofc Vst, Est Level III 10:15:02 CDT Racheljuventino Arellanoner, DO, FACP CPT-23923 Ofc Vst, New Level III 15:50:58 CDT Rachel Plaza [facility] Phys[facility] [place] Procedures Code Procedure Name Date Entry Date Standard Description CPT-68155 Preventive, Est, (40-64) 16:23:06 CDT CPT-04224 Handling of specimen from office to lab 13:14:22 CDT CPT-42877 Preventive, Est, (40-64) 13:14:22 CDT CPT-13532 Biopsy, skin/subcut/mucous membrane; sngl lsn 11:08:35 CDT CPT-96252 Preventive, Est, (40-64) 15:03:18 CDT CPT-48295 Handling of specimen from office to lab 15:03:18 CDT CPT-90652 Handling of specimen from office to lab 16:01:28 CDT CPT-18669 Preventive, Est, (18-39) 16:01:28 CDT CPT-31531 Preventive, Est, (18-39) 10:39:27 CDT CPT-43148 Handling of specimen from office to lab 10:39:27 CDT CPT-07763 Preventive, Est, (18-39) 13:53:34 CDT CPT-01973 Handling of specimen from office to lab 13:53:34 CDT CPT-69539 Preventive, Est, (18-39) 09:42:54 CDT CPT-96586 Handling of specimen from office to lab 09:42:54 CDT
--- OUTSIDE RECORDS SUMMARY | 2018-03-22 06:13 | XMS REPORT | Clinical Summary ---
Author Author User, [place] Organization [facility] [place] Address Unknown Phone Unavailable Allergies, Adverse Reactions, [...] once daily for 5 days 2014 PREDNISONE [id number] No Longer Active Casi Elizabeth PROAIR HFA 108 (90 BASE) MCG/ACT AERS 2 puff Q4 hrs prn wheezing ALBUTEROL SULFATE 95838503440 Active Rachel Plaza ADVAIR DISKUS 100-50 MCG/DOSE MISC 1 puff BID FLUTICASONE- SALMETEROL 63894417188 Active Rachel Plaza TUSSIONEX PENNKINETIC ER 10-8 MG/5ML LQCR 1 tsp PO BID prn cough HYDROCOD POLST-CHLORPHEN POLST 45489606506 No Longer Active Rachel Plaza SUDAFED 30 MG TAB 1 PO TID prn congestion PSEUDOEPHEDRINE HCL 07659793540 Active Rachel Plaza PREDNISONE 10 MG TAB 4 PO at one time once daily for 2 days, then 2 PO at one time once daily PREDNISONE 92688476031 No Longer Active Rachel Plaza CEFDINIR 300 MG CAPS 1 PO BID CEFDINIR 65338794827 No Longer Active Casi Elizabeth SUDAFED 30 MG TAB 1 PO TID prn PSEUDOEPHEDRINE HCL 51108343849 No Longer Active Rachel DEXTER'Bala NASAL SPRAY (DEXAMETHASONE, GENTAMICIN, SALINE) 2 puffs each nostril TID for [address] DEXTER'Bala NASAL SPRAY ( DEXAMETHASONE, GENTAMICIN, SALINE) No Longer Active Rachel Rosie Plaza AUGMENTIN 500-125 MG TAB 1 PO BID AMOXICILLIN-POT CLAVULANATE 82573656251 No Longer Active Racehl Rosie Plaza TOPAMAX 25 MG TABS 1 PO BID TOPIRAMATE 99428679990 Active Rachel Rosie Plaza ALEVE 220 MG TAB 2 PO QHS NAPROXEN SODIUM 33160726089 Active Rachel Rosie Plaza ULTRAM 50 MG TAB 1 PO TID TRAMADOL HCL 71524470054 No Longer Active Rachel Rosie Plaza ADVAIR DISKUS 100-50 MCG/DOSE MISC 1 puff BID FLUTICASONE-SALMETEROL 39476537651 No Longer Active Racheljuventino Plaza BIAXIN 500 MG TAB 1 PO BID CLARITHROMYCIN 73106713100 No Longer Active Racheljuventino Plaza LEVOXYL 75 MCG TABS 1 PO DAILY LEVOTHYROXINE SODIUM 55040560774 Active Rachel Rosie Plaza AMOXICILLIN 500 MG CAP 1 PO TID AMOXICILLIN 54924182599 No Longer Active Racheljuventino Plaza ATROVENT 0.06 % SOLN 2 puffs each nostril TID prn runny nose 2013 IPRATROPIUM BROMIDE 64075411674 No Longer Active Racheljuventino Plaza PREDNISONE 20 MG TAB 2 pills at once for 2 days then 1 pill daily for 2 days PREDNISONE 41152258147 No Longer Active Rachel Rosie Plaza AUGMENTIN 875-125 MG TAB 1 PO BID AMOXICILLIN-POT CLAVULANATE 71140676192 No Longer Active Rachel DEXTER'S NASAL SPRAY (DEXAMETHASONE, GENTAMICIN, SALINE) 2 puffs each nostril TID for [address] CISNEROS NASAL SPRAY ( DEXAMETHASONE, GENTAMICIN, SALINE) No Longer Active Racheljuventino Plaza PREDNISONE 20 MG TAB 2 pills at once for 2 days then 1 pill daily for 5 days PREDNISONE 79439844046 No Longer Active Racheljuventino Plaza BIAXIN 500 MG TAB 1 PO BID CLARITHROMYCIN 17803636409 No Longer Active Racheljuventino Plaza KENALOG 0.1 % CREA apply to affected areas BID TRIAMCINOLONE ACETONIDE No Longer Active Rachel Rosie Plaza PROAIR HFA 108 (90 BASE) MCG/ACT AERS 2 puff Q4 hrs prn wheezing ALBUTEROL SULFATE 17620365308 No Longer Active Rachel Plaza SUDAFED 30 MG TAB 1 PO TID for 5 days PSEUDOEPHEDRINE HCL 55096660972 No Longer Active Rachel Plaza PREDNISONE 20 MG TAB 2 pills at once for 3 days then 1 pill daily for 3 days PREDNISONE 44963732777 No Longer Active Racheljuventino Plaza ADVAIR DISKUS 100-50 MCG/DOSE MISC 1 puff BID FLUTICASONE-SALMETEROL 57102280692 No Longer Active Rachel Rosie Plaza BIAXIN 500 MG TAB 1 PO BID CLARITHROMYCIN 64576129928 No Longer Active Racheljuventino Plaza OMEPRAZOLE 20 MG CPDR 1 PO daily OMEPRAZOLE 25827526082 Active Rachel Rosie Plaza PROAIR HFA 108 (90 BASE) MCG/ACT AERS 2 puff Q4 hrs prn wheezing ALBUTEROL SULFATE 39827548264 No Longer Active Rachel Rosie Plaza LAMISIL 250 MG TAB 1 po daily TERBINAFINE HCL 13783729956 No Longer Active Rachel Rosie Plaza LOTRISONE 0.05-1 % CREAM apply to affected areas BID prn CLOTRIMAZOLE-BETAMETHASONE 14434162550 No Longer Active Rachel Rosie Plaza BIAXIN XL PAC 500 MG TB24 2 pills at same time daily for 7 days CLARITHROMYCIN 50025532551 No Longer Active Rachel Rosie Plaza PREDNISONE 20 MG TAB 3 pills daily at once for 2 days, 2 pills daily at once for 2 days, 1 once daily for 2 days PREDNISONE 78327764428 No Longer Active Rachel Rosie Plaza ADVAIR DISKUS 100-50 MCG/DOSE MISC 1 puff BID for two weeks 05/02 FLUTICASONE-SALMETEROL 00726720072 No Longer Active Rachel Rosie Plaza PROAIR HFA 108 (90 BASE) MCG/ACT AERS 2 puff Q4 hrs prn wheezing ALBUTEROL SULFATE 66127943457 No Longer Active Racheljuventino Plaza LEVAQUIN 500 MG TAB 1 PO QD LEVOFLOXACIN 92702238563 No Longer Active Rachel Rosie Plaza TESSALON 200 MG CAPS 1 PO TID prn cough BENZONATATE 76889473398 No Longer Active Rachel Rosie Plaza LAMISIL 250 MG TAB 1 PO daily TERBINAFINE HCL 24165537283 No Longer Active Rachel Rosie Plaza LAMISIL 250 MG TABS 1 PO daily TERBINAFINE HCL 35263847524 No Longer Active Rachel Rosie Plaza DIFLUCAN 100 MG TABS 1 PO daily FLUCONAZOLE 42482947139 No Longer Active Rachel Rosie Plaza NYSTATIN 410259 UNIT/GM CREA Apply to affected areas TID until resolved 01/10 NYSTATIN 96104307736 No Longer Active Racheljuventino Plaza LAMISIL 250 MG TABS 1 PO daily TERBINAFINE HCL 19037211258 No Longer Active Rachel Rosie Plaza LOTRISONE 0.05-1 % CREAM apply small amount to affected areas TID CLOTRIMAZOLE-BETAMETHASONE 90085163469 No Longer Active Rachel Rosie Plaza BIAXIN XL PAC 500 MG TB24 2 pills at same time daily for 7 days CLARITHROMYCIN 40858848146 No Longer Active Racheljuventino Plaza CILOXAN 0.3 % SOLN 2 drops Q6hrs for 7 days CIPROFLOXACIN HCL 88967000935 No Longer Active Dorene Cristina METFORMIN HCL 500 MG TABS 2 PO BID METFORMIN HCL 92743600181 Active Rachel Rosie Plaza NAPROXEN 500 MG TAB 1 PO BID NAPROXEN 21942908008 No Longer Active Racheljuventino Plaza LASIX 20 MG TAB 1 PO QD prn for swelling FUROSEMIDE 27234497203 No Longer Active Rachel Plaza FLONASE 50 MCG/DOSE INHALANT 2 puffs each nostril daily FLONASE 50 MCG/DOSE INHALANT No Longer Active Racheljuventino Plaza KEVIN-D 24 HOUR 180-240 MG TB24 1 PO Daily for sinus pressure. FEXOFENADINE-PSEUDOEPHEDRINE 39160159750 No Longer Active Racheljuventino Plaza KEVIN 180 MG TABS 1 PO QD FEXOFENADINE HCL 46901615875 No Longer Active Rachel Rosie Plaza MUCINEX 600 MG TB12 1 PO BID for 5 days GUAIFENESIN 14680095716 No Longer Active Rachel Rosie Plaza DOXYCYCLINE HYCLATE 100 MG CAP 1 po BID DOXYCYCLINE HYCLATE 82021987029 No Longer Active Archeljuventino Luxe Bola MULTIVITAMINS TABS 1 po daily MULTIPLE VITAMIN 35609976337 Active Racheljuventino Luxe Bola PHENTERMINE HCL 37.5 MG CAPS 1 po daily PHENTERMINE HCL 67582078009 Active Racheljuventino Luxe Bola Immunizations Vaccine Administration [...] mL/min/1.73m2 Encounters Code Encounter Date Provider Facility CPT-47194 Ofc Vst, Est Level IV 15:30:54 CDT Rachel Plaza [facility] CPT-97425 Ofc Vst, Est Level III 20:51:09 CDT Rachel Plaza DO, FACP CPT-41810 Ofc Vst, Est Level III 16:39:04 [employer] Rachel Plaza DO, FACP CPT-05027 Ofc Vst, Est Level III 20:33:24 [employer] Rachel Plaza DO, FACP CPT-45411 Ofc Vst, Est Level IV 20:17:26 [employer] Rachel Plaza [facility] CPT-44236 Ofc Vst, Est Level III 16:29:23 [employer] Rachel Plaza DO, FACP CPT-46841 Ofc Vst, Est Level III 16:41:30 CDT Rachel Ramos S Bola, DO, FACP CPT-00390 Ofc Vst, Est Level III 12:12:47 CDT Rachel Rosie Mckenna Bola, DO, FACP CPT-01355 Ofc Vst, Est Level III 16:03:46 CDT Rachel Rosie Mckenna Bola, DO, FACP CPT-43376 Ofc Vst, Est Level IV 17:56:18 CDT Rachel Rosie Plaza [facility] CPT-73568 Ofc Vst, Est Level III 15:42:50 CDT Rachel Rosie Plaza [facility] CPT-16399 Ofc Vst, Est Level III 15:37:57 CDT Rachel Roise Plaza [facility] CPT-03606 Ofc Vst, Est Level III 19:30:03 CDT Rachel Rosie Mckenna Bola, DO, FACP CPT-49238 Ofc Vst, Est Level III 20:02:43 CDT Rachel Rosie Plaza [facility] CPT-98010 Ofc Vst, Est Level III 13:45:40 [employer] Rachel Mckenna Bola, DO, FACP CPT-07857 Ofc Vst, Est Level III 19:57:30 [employer] Rachel Mckenna Bola, DO, FACP CPT-83274 Ofc Vst, Est Level III 20:20:40 [employer] Rachel Mckenna Bola, DO, FACP CPT-42544 Ofc Vst, Est Level III 15:09:23 [employer] Rachel Arellanoner Rachel S Bola, DO, FACP CPT-78481 Ofc Vst, Est Level III 16:20:28 CDT Rachel Rosie Plaza Rachel Mckenna Bola, DO, FACP CPT-81252 Ofc Vst, Est Level III 10:14:05 CDT Rachel Rosie Mckenna Plaza, DO, FACP CPT-77523 Ofc Vst, Est Level III 15:38:48 CDT Rachel Rosie Mckenna Plaza, DO, FACP CPT-22163 Ofc Vst, Est Level III 17:19:17 CDT Rachel Rosie Mckenna Plaza, DO, FACP CPT-92397 Ofc Vst, Est Level III 16:30:31 CDT Rachel Rosie Mckenna Plaza, DO, FACP CPT-15610 Ofc Vst, Est Level III 20:41:25 CDT Rachel Rosie Mckenna Plaza, DO, FACP CPT-71028 Ofc Vst, Est Level III 16:38:44 CDT Rachel Rosie Mckenna Plaza, DO, FACP CPT-93800 Ofc Vst, Est Level III 14:31:54 CDT Rachel Rosie Mckenna Plaza, DO, FACP CPT-54418 Ofc Vst, Est Level III 20:41:14 [employer] Rachel Rosie Mckenna Plaza, DO, FACP CPT-10715 Ofc Vst, Est Level III 16:34:32 [employer] Rachel Mckenna Plaza, DO, FACP CPT-67997 Ofc Vst, Est Level III 17:31:03 [employer] Rachel Rosie Mckenna Plaza, DO, FACP CPT-40256 Ofc Vst, Est Level III 13:46:07 [employer] Rachel Rosie Mckenna Plaza, DO, FACP CPT-99303 Ofc Vst, Est Level III 16:31:25 CDT Rachel Rosie Mckenna Plaza, DO, FACP CPT-89597 Ofc Vst, Est Level III 13:49:29 CDT Rachel Rosie Plaza [facility] CPT-91787 Ofc Vst, Est Level III 13:49:22 CDT Rachel Rosie Plaza [facility] CPT-96458 Ofc Vst, Est Level III 13:28:51 CDT Rachel Rosie Plaza [facility] CPT-90960 Ofc Vst, Est Level III 13:30:40 CDT Rachel Rosie Mckenna Bola, DO, FACP CPT-39137 Ofc Vst, Est Level III 14:49:17 CDT Rachel Rosie Plaza [facility] CPT-38516 Ofc Vst, Est Level III 13:30:39 [employer] Rachel Rosie Mckenna Bola, DO, FACP CPT-26918 Ofc Vst, Est Level III 09:43:47 [employer] Rachel Rosie Plaza [facility] CPT-48456 Ofc Vst, Est Level III 09:43:54 [employer] Rachel Rosie Plaza [facility] CPT-49876 Ofc Vst, Est Level IV 10:15:14 [employer] Rachel Rosie Mckenna Bola, DO, FACP CPT-57274 Ofc Vst, Est Level III 15:24:26 [employer] Rachel Mckenna Bola, DO, FACP CPT-01589 Ofc Vst, Est Level III 14:22:31 [employer] Rachel Rosie Mckenna Bola, DO, FACP CPT-61318 Ofc Vst, Est Level IV 10:02:54 CDT Rachel Rosie Plaza [facility] CPT-11575 Ofc Vst, Est Level III 16:32:40 CDT Rachel Rosie Plaza [facility] CPT-16444 Ofc Vst, Est Level III 16:29:26 CDT Rachel Rosie Mckenna Bola, DO, FACP CPT-89972 Ofc Vst, Est Level IV 14:43:12 CDT Rachel Rosie [facility] CPT-56795 Ofc Vst, Est Level IV 14:48:51 CDT Rachel Rosie Plaza [facility] CPT-19925 Ofc Vst, Est Level III 14:21:26 CDT Rachel Rosie Mckenna Bola, DO, FACP CPT-71939 Ofc Vst, Est Level III 16:25:48 CDT Rachel Rosie Mckenna Bola, DO, FACP CPT-00092 Ofc Vst, Est Level III 15:53:26 CDT Rachel Rosie Mckenna Bola, DO, FACP CPT-48546 Ofc Vst, Est Level III 16:00:22 CDT Racheljuventino Mckenna Bola, DO, FACP CPT-09060 Ofc Vst, Est Level III 10:41:27 [employer] Racheljuventino Mckenna Bola, DO, FACP CPT-46214 Ofc Vst, Est Level IV 09:59:09 [employer] Rachel Mckenna Bola, DO, FACP CPT-60852 Ofc Vst, Est Level III 10:07:13 [employer] Rachel Plaza [facility] CPT-46908 Ofc Vst, Est Level III 14:54:02 [employer] Rachel Mckenna Bola, DO, FACP CPT-56297 Ofc Vst, Est Level III 13:15:03 CDT Racheljuventino Plaza [facility] CPT-64552 Ofc Vst, Est Level IV 16:30:43 CDT Racheljuventino Mckenna Bola, DO, FACP CPT-82085 Ofc Vst, Est Level IV 12:52:15 CDT Racheljuventino Mckenna Bola, DO, FACP CPT-12249 Ofc Vst, Est Level III 14:55:16 CDT Rachel Rosie Plaza [facility] CPT-86223 Ofc Vst, Est Level III 09:36:49 CDT Rachel Rosie Mckenna Plaza, DO, FACP CPT-94159 Ofc Vst, Est Level IV 13:11:53 CDT Rachel Rosie Mckenna Plaza, DO, FACP CPT-98305 Ofc Vst, Est Level IV 09:21:55 [employer] Rachel Rosie Mckenna Plaza, DO, FACP CPT-82599 Ofc Vst, Est Level IV 16:18:13 [employer] Rachel Rosie Plaza [facility] CPT-05444 Ofc Vst, Est Level III 14:24:17 [employer] Rachel Rosie Plaza [facility] CPT-99490 Ofc Vst, Est Level III 14:33:19 [employer] Rachel Rosie Plaza [facility] CPT-33229 Ofc Vst, Est Level III 16:11:48 CDT Rachel Rosie Mckenna Bola, DO, FACP CPT-41826 Ofc Vst, Est Level IV 21:11:44 CDT Rachle Rosie Plaza [facility] CPT-01343 Ofc Vst, Est Level IV 16:18:03 CDT Rachel Rosie Mckenna Bola, DO, FACP CPT-68696 Ofc Vst, Est Level IV 16:48:22 CDT Rachel Rosie Plaza [facility] CPT-48461 Ofc Vst, Est Level IV 14:26:27 CDT Rachel Rosie Mckenna Plaza, DO, FACP CPT-64801 Ofc Vst, Est Level IV 16:41:37 [employer] Rachel Rosie Mckenna Plaza, DO, FACP CPT-84835 Ofc Vst, Est Level III 16:38:27 [employer] Rachel Rosie Mckenna Plaza, DO, FACP CPT-71414 Ofc Vst, Est Level III 18:02:37 [employer] Rachel Mckenna Plaza, DO, FACP CPT-17730 Ofc Vst, Est Level III 15:48:55 [employer] Rachel Mckenna Plaza, DO, FACP CPT-06735 Ofc Vst, Est Level III 17:01:29 CDT Rachel Rosie Mckenna Bola, DO, FACP CPT-68457 Ofc Vst, Est Level III 16:07:45 CDT Rachel Rosie Mckenna Bola, DO, FACP CPT-07346 Ofc Vst, Est Level III 10:10:13 CDT Rachel Rosie Mckenna Bola, DO, FACP CPT-97408 Ofc Vst, Est Level III 15:02:09 CDT Rachel Rosie Mckenna Bola, DO, FACP CPT-97766 Ofc Vst, Est Level III 15:58:47 CDT Rachel Rosie Mckenna Bola, DO, FACP CPT-75005 Ofc Vst, Est Level IV 16:03:29 CDT Racheljuventino Plaza [facility] CPT-27276 Ofc Vst, Est Level III 09:44:56 CDT Rachel Rosie Mckenna Bola, DO, FACP CPT-06370 Ofc Vst, Est Level IV 13:34:08 [employer] Rachel Roise Mckenna Bola, DO, FACP CPT-26633 Ofc Vst, Est Level III 16:12:13 [employer] Rachel Mckenna Plaza, DO, FACP CPT-35526 Ofc Vst, Est Level IV 09:46:09 [employer] Rachel Mckenna Bola, DO, FACP CPT-25708 Ofc Vst, Est Level III 17:04:16 [employer] Rachel Mckenna Plaza, DO, FACP CPT-17655 Ofc Vst, Est Level IV 16:28:43 CDT Rachel Mckenna Plaza, DO, FACP CPT-03859 Ofc Vst, Est Level III 16:25:00 CDT Rachel Arellanoner Rachel Mckenna Plaza, DO, FACP CPT-41389 Ofc Vst, Est Level III 16:34:11 CDT Rachel Rosie Mckenna Plaza, DO, FACP CPT-31526 Ofc Vst, Est Level III 11:09:04 CDT Racheljuventino Mckenna Plaza, DO, FACP CPT-26835 Ofc Vst, Est Level III 10:15:02 CDT Racheljuventino Arellanoner, DO, FACP CPT-13312 Ofc Vst, New Level III 15:50:58 CDT Rachel Plaza [facility] [place] Procedures Code Procedure Name Date Entry Date Standard Description CPT-87433 Preventive, Est, (40-64) 16:23:06 CDT CPT-74569 Handling of specimen from office to lab 13:14:22 CDT CPT-99312 Preventive, Est, (40-64) 13:14:22 CDT CPT-73761 Biopsy, skin/subcut/mucous membrane; sngl lsn 11:08:35 CDT CPT-40506 Preventive, Est, (40-64) 15:03:18 CDT CPT-75953 Handling of specimen from office to lab 15:03:18 CDT CPT-91820 Handling of specimen from office to lab 16:01:28 CDT CPT-26017 Preventive, Est, (18-39) 16:01:28 CDT CPT-17136 Preventive, Est, (18-39) 10:39:27 CDT CPT-75743 Handling of specimen from office to lab 10:39:27 CDT CPT-49804 Preventive, Est, (18-39) 13:53:34 CDT CPT-31620 Handling of specimen from office to lab 13:53:34 CDT CPT-01172 Preventive, Est, (18-39) 09:42:54 CDT CPT-30782 Handling of specimen from office to lab 09:42:54 CDT
--- OUTSIDE RECORDS SUMMARY | 2018-03-22 06:14 | XMS REPORT | Clinical Summary ---
Author Author User, [employer] Organization [facility] Physician [place] Address Unknown Phone Unavailable Allergies, Adverse Reactions, [...] forearm NEUROPATHY, IDIOPATHIC PERIPHERAL 356.9 Resolved Rachel Plaaz Unspecified idiopathic peripheral neuropathy SHOULDER PAIN 719.41 [...] once daily for 5 days 2014 PREDNISONE [id number] No Longer Active Casi Elizabeth PROAIR HFA 108 (90 BASE) MCG/ACT AERS 2 puff Q4 hrs prn wheezing ALBUTEROL SULFATE 16155024939 Active Rachel Plaza ADVAIR DISKUS 100-50 MCG/DOSE MISC 1 puff BID FLUTICASONE- SALMETEROL 76816163562 Active Rachel Plaza TUSSIONEX PENNKINETIC ER 10-8 MG/5ML LQCR 1 tsp PO BID prn cough HYDROCOD POLST-CHLORPHEN POLST 37696761939 No Longer Active Rachel Plaza SUDAFED 30 MG TAB 1 PO TID prn congestion PSEUDOEPHEDRINE HCL 31555092395 Active Rachel Plaza PREDNISONE 10 MG TAB 4 PO at one time once daily for 2 days, then 2 PO at one time once daily PREDNISONE 05135511534 No Longer Active Rachel Plaza CEFDINIR 300 MG CAPS 1 PO BID CEFDINIR 54758853212 No Longer Active Casi Lawrence SUDAFED 30 MG TAB 1 PO TID prn PSEUDOEPHEDRINE HCL 75798991492 No Longer Active Rachel DEXTER'Bala NASAL SPRAY (DEXAMETHASONE, GENTAMICIN, SALINE) 2 puffs each nostril TID for [address] DEXTER'Bala NASAL SPRAY ( DEXAMETHASONE, GENTAMICIN, SALINE) No Longer Active Racheljuventino Plaza AUGMENTIN 500-125 MG TAB 1 PO BID AMOXICILLIN-POT CLAVULANATE 35690605706 No Longer Active Rachel Rosie Plaza TOPAMAX 25 MG TABS 1 PO BID TOPIRAMATE 29679363519 Active Rachel Rosie Plaza ALEVE 220 MG TAB 2 PO QHS NAPROXEN SODIUM 70430053731 Active Rachel Rosie Plaza ULTRAM 50 MG TAB 1 PO TID TRAMADOL HCL 69435005967 No Longer Active Racheljuventino Plaza ADVAIR DISKUS 100-50 MCG/DOSE MISC 1 puff BID FLUTICASONE-SALMETEROL 22700901368 No Longer Active Racheljuventino Plaza BIAXIN 500 MG TAB 1 PO BID CLARITHROMYCIN 55219461274 No Longer Active Racheljuventino Plaza LEVOXYL 75 MCG TABS 1 PO DAILY LEVOTHYROXINE SODIUM 04576330517 Active Rachel Rosie Plaza AMOXICILLIN 500 MG CAP 1 PO TID AMOXICILLIN 63570537797 No Longer Active Racheljuventino Plaza ATROVENT 0.06 % SOLN 2 puffs each nostril TID prn runny nose 2013 IPRATROPIUM BROMIDE 48658410058 No Longer Active Racheljuventino Plaza PREDNISONE 20 MG TAB 2 pills at once for 2 days then 1 pill daily for 2 days PREDNISONE 52828583755 No Longer Active Rachel Rosie Plaza AUGMENTIN 875-125 MG TAB 1 PO BID AMOXICILLIN-POT CLAVULANATE 52412196076 No Longer Active Rachel DEXTER'S NASAL SPRAY (DEXAMETHASONE, GENTAMICIN, SALINE) 2 puffs each nostril TID for [address] CISNEROS NASAL SPRAY ( DEXAMETHASONE, GENTAMICIN, SALINE) No Longer Active Racheljuventino Plaza PREDNISONE 20 MG TAB 2 pills at once for 2 days then 1 pill daily for 5 days PREDNISONE 62444861154 No Longer Active Racheljuventino Plaza BIAXIN 500 MG TAB 1 PO BID CLARITHROMYCIN 59398569777 No Longer Active Racheljuventino Plaza KENALOG 0.1 % CREA apply to affected areas BID TRIAMCINOLONE ACETONIDE No Longer Active Rachel Rosie Plaza PROAIR HFA 108 (90 BASE) MCG/ACT AERS 2 puff Q4 hrs prn wheezing ALBUTEROL SULFATE 33188116429 No Longer Active Rachel Plaza SUDAFED 30 MG TAB 1 PO TID for 5 days PSEUDOEPHEDRINE HCL 15551912593 No Longer Active Rachel Plaza PREDNISONE 20 MG TAB 2 pills at once for 3 days then 1 pill daily for 3 days PREDNISONE 50173170409 No Longer Active Racheljuventino Plaza ADVAIR DISKUS 100-50 MCG/DOSE MISC 1 puff BID FLUTICASONE-SALMETEROL 48479740246 No Longer Active Rachel Rosie Plaza BIAXIN 500 MG TAB 1 PO BID CLARITHROMYCIN 01646576644 No Longer Active Racheljuventino Plaza OMEPRAZOLE 20 MG CPDR 1 PO daily OMEPRAZOLE 56694380243 Active Rachel Rosie Plaza PROAIR HFA 108 (90 BASE) MCG/ACT AERS 2 puff Q4 hrs prn wheezing ALBUTEROL SULFATE 51966691084 No Longer Active Rachel Rosie Plaza LAMISIL 250 MG TAB 1 po daily TERBINAFINE HCL 74847622877 No Longer Active Rachel Rosie Plaza LOTRISONE 0.05-1 % CREAM apply to affected areas BID prn CLOTRIMAZOLE-BETAMETHASONE 53504829144 No Longer Active Rachel Rosie Plaza BIAXIN XL PAC 500 MG TB24 2 pills at same time daily for 7 days CLARITHROMYCIN 07328307715 No Longer Active Rachel Rosie Plaza PREDNISONE 20 MG TAB 3 pills daily at once for 2 days, 2 pills daily at once for 2 days, 1 once daily for 2 days PREDNISONE 67166201830 No Longer Active Rachel Rosie Plaza ADVAIR DISKUS 100-50 MCG/DOSE MISC 1 puff BID for two weeks 05/02 FLUTICASONE-SALMETEROL 20688410130 No Longer Active Rachel Rosie Plaza PROAIR HFA 108 (90 BASE) MCG/ACT AERS 2 puff Q4 hrs prn wheezing ALBUTEROL SULFATE 95122055478 No Longer Active Racheljuventino Plaza LEVAQUIN 500 MG TAB 1 PO QD LEVOFLOXACIN 72648117374 No Longer Active Rachel Rosie Plaza TESSALON 200 MG CAPS 1 PO TID prn cough BENZONATATE 71785486045 No Longer Active Rachel Rosie Plaza LAMISIL 250 MG TAB 1 PO daily TERBINAFINE HCL 48224062286 No Longer Active Rachel Rosie Plaza LAMISIL 250 MG TABS 1 PO daily TERBINAFINE HCL 33403947617 No Longer Active Rachel Rosie Plaza DIFLUCAN 100 MG TABS 1 PO daily FLUCONAZOLE 23076967626 No Longer Active Rachel Rosie Plaza NYSTATIN 238976 UNIT/GM CREA Apply to affected areas TID until resolved 01/10 NYSTATIN 22541123365 No Longer Active Rachel Plaza LAMISIL 250 MG TABS 1 PO daily TERBINAFINE HCL 19973949641 No Longer Active Racheljuventino Plaza LOTRISONE 0.05-1 % CREAM apply small amount to affected areas TID CLOTRIMAZOLE-BETAMETHASONE 86049239948 No Longer Active Racheljuventino Plaza BIAXIN XL PAC 500 MG TB24 2 pills at same time daily for 7 days CLARITHROMYCIN 90422525126 No Longer Active Racheljuventino Plaza CILOXAN 0.3 % SOLN 2 drops Q6hrs for 7 days CIPROFLOXACIN HCL 16423040902 No Longer Active Dorene Cristina METFORMIN HCL 500 MG TABS 2 PO BID METFORMIN HCL 92342762879 Active Racheljuventino Plaza NAPROXEN 500 MG TAB 1 PO BID NAPROXEN 26887502080 No Longer Active Racheljuventino Plaza LASIX 20 MG TAB 1 PO QD prn for swelling FUROSEMIDE 52742100526 No Longer Active Rachel Plaza FLONASE 50 MCG/DOSE INHALANT 2 puffs each nostril daily FLONASE 50 MCG/DOSE INHALANT No Longer Active Racheljuventino Plaza KVEIN-D 24 HOUR 180-240 MG TB24 1 PO Daily for sinus pressure. FEXOFENADINE-PSEUDOEPHEDRINE 42649356559 No Longer Active Rachel Plaza KEVIN 180 MG TABS 1 PO QD FEXOFENADINE HCL 34164513563 No Longer Active Racheljuventino Plaza MUCINEX 600 MG TB12 1 PO BID for 5 days GUAIFENESIN 39620946832 No Longer Active Racheljuventino Plaza DOXYCYCLINE HYCLATE 100 MG CAP 1 po BID DOXYCYCLINE HYCLATE 37246256323 No Longer Active Rachel Rosie Plaza MULTIVITAMINS TABS 1 po daily MULTIPLE VITAMIN 77336072703 Active Racheljuventino Luxe Bola PHENTERMINE HCL 37.5 MG CAPS 1 po daily PHENTERMINE HCL 81077371235 Active Racheljuventino Luxe Bola Immunizations Vaccine Administration [...] pressure, diastolic - 8462-4 70 mm[Hg] BP ocello blood pressure, systolic - 8480-6 123 mm[Hg] [...] mL/min/1.73m2 Encounters Code Encounter Date Provider Facility CPT-18083 Ofc Vst, Est Level IV 15:30:54 CDT [facility] CPT-75896 Ofc Vst, Est Level III 20:51:09 CDT Rachel Plaza DO, FACP CPT-19332 Ofc Vst, Est Level III 16:39:04 [employer] Rachel Plaza DO, FACP CPT-54063 Ofc Vst, Est Level III 20:33:24 [employer] Rachel Plaza DO, FACP CPT-85578 Ofc Vst, Est Level IV 20:17:26 [employer] [facility] CPT-27048 Ofc Vst, Est Level III 16:29:23 [employer] Rachel Plaza DO, FACP CPT-32231 Ofc Vst, Est Level III 16:41:30 CDT Rachel Renoi S Bola, DO, FACP CPT-18894 Ofc Vst, Est Level III 12:12:47 CDT Rachel Rosie Mckenna Bola, DO, FACP CPT-22401 Ofc Vst, Est Level III 16:03:46 CDT Rachel Rosie Mckenna Bola, DO, FACP CPT-33935 Ofc Vst, Est Level IV 17:56:18 CDT Rachel Rosie Plaza [facility] CPT-31348 Ofc Vst, Est Level III 15:42:50 CDT Rachel Rosie Plaza [facility] CPT-58630 Ofc Vst, Est Level III 15:37:57 CDT Rachel Rosie Plaza [facility] CPT-27588 Ofc Vst, Est Level III 19:30:03 CDT Rachel Rosie Mckenna Bola, DO, FACP CPT-85214 Ofc Vst, Est Level III 20:02:43 CDT Rachel Rosie Plaza [facility] CPT-36872 Ofc Vst, Est Level III 13:45:40 [employer] Rachel Mckenna Bola, DO, FACP CPT-06879 Ofc Vst, Est Level III 19:57:30 [employer] Rachel Arellanoner Rachel Mckenna Bola, DO, FACP CPT-27666 Ofc Vst, Est Level III 20:20:40 [employer] Rachel Mckenna Bola, DO, FACP CPT-34328 Ofc Vst, Est Level III 15:09:23 [employer] Rachel Velez Bola Rachel S Bola, DO, FACP CPT-18623 Ofc Vst, Est Level III 16:20:28 CDT Racheljuventino Velez Bola Rachel Mckenna Bola, DO, FACP CPT-98541 Ofc Vst, Est Level III 10:14:05 CDT Rachel Rosie Mckenna Plaza, DO, FACP CPT-35711 Ofc Vst, Est Level III 15:38:48 CDT Rachel Rosie Mckenna Plaza, DO, FACP CPT-49984 Ofc Vst, Est Level III 17:19:17 CDT Rachel Rosie Mckenna Plaza, DO, FACP CPT-95443 Ofc Vst, Est Level III 16:30:31 CDT Rachel Rosie Mckenna Plaza, DO, FACP CPT-63634 Ofc Vst, Est Level III 20:41:25 CDT Rachel Rosie Mckenna Plaza, DO, FACP CPT-54662 Ofc Vst, Est Level III 16:38:44 CDT Rachel Rosie Mckenna Plaza, DO, FACP CPT-74183 Ofc Vst, Est Level III 14:31:54 CDT Rachel Rosie Mckenna Plaza, DO, FACP CPT-62977 Ofc Vst, Est Level III 20:41:14 [employer] Rachel Rosie Mckenna Plaza, DO, FACP CPT-77632 Ofc Vst, Est Level III 16:34:32 [employer] Rachel Rosie Mckenna Plaza, DO, FACP CPT-48960 Ofc Vst, Est Level III 17:31:03 [employer] Rachel Rosie Mckenna Plaza, DO, FACP CPT-21067 Ofc Vst, Est Level III 13:46:07 [employer] Rachel Rosie Mckenna Plaza, DO, FACP CPT-60058 Ofc Vst, Est Level III 16:31:25 CDT Rachel Rosie Mckenna Plaza, DO, FACP CPT-18402 Ofc Vst, Est Level III 13:49:29 CDT Rachel Rosie Plaza [facility] CPT-69748 Ofc Vst, Est Level III 13:49:22 CDT Rachel Rosie Plaza [facility] CPT-90057 Ofc Vst, Est Level III 13:28:51 CDT Rachel Rosie Plaza [facility] CPT-46421 Ofc Vst, Est Level III 13:30:40 CDT Rachel Rosie Mckenna Bola, DO, FACP CPT-75545 Ofc Vst, Est Level III 14:49:17 CDT Rachel Rosie Plaza [facility] CPT-27602 Ofc Vst, Est Level III 13:30:39 [employer] Rachel Rosie Mckenna Bola, DO, FACP CPT-12255 Ofc Vst, Est Level III 09:43:47 [employer] Rachel Rosie Plaza [facility] CPT-97766 Ofc Vst, Est Level III 09:43:54 [employer] Rachel Rosie Plaza [facility] CPT-32573 Ofc Vst, Est Level IV 10:15:14 [employer] Rachel Rosie Mckenna Bola, DO, FACP CPT-58391 Ofc Vst, Est Level III 15:24:26 [employer] Rachel Mckenna Bola, DO, FACP CPT-91809 Ofc Vst, Est Level III 14:22:31 [employer] Rachel Rosie Mckenna Bola, DO, FACP CPT-42878 Ofc Vst, Est Level IV 10:02:54 CDT Racheljuventino Plaza [facility] CPT-47821 Ofc Vst, Est Level III 16:32:40 CDT Rachel Rosie Plaza [facility] CPT-97123 Ofc Vst, Est Level III 16:29:26 CDT Racheljuventino Mckenna Bola, DO, FACP CPT-02118 Ofc Vst, Est Level IV 14:43:12 CDT Rachel Rosie Arellanoner [facility] CPT-79398 Ofc Vst, Est Level IV 14:48:51 CDT Rachel Rosie Plaza [facility] CPT-40310 Ofc Vst, Est Level III 14:21:26 CDT Rachel Rosie Mckenna Bola, DO, FACP CPT-79405 Ofc Vst, Est Level III 16:25:48 CDT Rachel Rosie Mckenna Bola, DO, FACP CPT-34439 Ofc Vst, Est Level III 15:53:26 CDT Rachel Rosie Mckenna Bola, DO, FACP CPT-60736 Ofc Vst, Est Level III 16:00:22 CDT Racheljuventino Mckenna Bola, DO, FACP CPT-21575 Ofc Vst, Est Level III 10:41:27 [employer] Rachel Mcknena Bola, DO, FACP CPT-24194 Ofc Vst, Est Level IV 09:59:09 [employer] Rachel Mckenna Bola, DO, FACP CPT-00123 Ofc Vst, Est Level III 10:07:13 [employer] Rachel Plaza [facility] CPT-25532 Ofc Vst, Est Level III 14:54:02 [employer] Rachel Mckenna Bola, DO, FACP CPT-27902 Ofc Vst, Est Level III 13:15:03 CDT Racheljuventino Plaza [facility] CPT-84099 Ofc Vst, Est Level IV 16:30:43 CDT Racheljuventino Mckenna Bola, DO, FACP CPT-54028 Ofc Vst, Est Level IV 12:52:15 CDT Racheljuventino Mckenna Bola, DO, FACP CPT-61543 Ofc Vst, Est Level III 14:55:16 CDT Rachel Rosie Plaza [facility] CPT-12151 Ofc Vst, Est Level III 09:36:49 CDT Rachel Rosie Mckenna Plaza, DO, FACP CPT-84991 Ofc Vst, Est Level IV 13:11:53 CDT Rachel Rosie Mckenna Plaza, DO, FACP CPT-41058 Ofc Vst, Est Level IV 09:21:55 [employer] Rachel Rosie Mckenna Bola, DO, FACP CPT-91526 Ofc Vst, Est Level IV 16:18:13 [employer] Rachel Rosie Plaza [facility] CPT-96892 Ofc Vst, Est Level III 14:24:17 [employer] Rachel Plaza [facility] CPT-46184 Ofc Vst, Est Level III 14:33:19 [employer] Rachel Rosie Plaza [facility] CPT-20867 Ofc Vst, Est Level III 16:11:48 CDT Rachel Rosie Mckenna Bola, DO, FACP CPT-16373 Ofc Vst, Est Level IV 21:11:44 CDT Rachel Rosie Plaza [facility] CPT-01382 Ofc Vst, Est Level IV 16:18:03 CDT Rachel Rosie Mckenna Bola, DO, FACP CPT-68428 Ofc Vst, Est Level IV 16:48:22 CDT Rachel Rosie Plaza [facility] CPT-08788 Ofc Vst, Est Level IV 14:26:27 CDT Rachel Rosie Mckenna Plaza, DO, FACP CPT-47703 Ofc Vst, Est Level IV 16:41:37 [employer] Rachel Rosie Mckenna Bola, DO, FACP CPT-87542 Ofc Vst, Est Level III 16:38:27 [employer] Rachel Rosie Mckenna Plaza, DO, FACP CPT-59951 Ofc Vst, Est Level III 18:02:37 [employer] Rachel Mckenna Bola, DO, FACP CPT-91577 Ofc Vst, Est Level III 15:48:55 [employer] Rachel Mckenna Plaza, DO, FACP CPT-82093 Ofc Vst, Est Level III 17:01:29 CDT Rachel Rosie Mckenna Bola, DO, FACP CPT-03970 Ofc Vst, Est Level III 16:07:45 CDT Rachel Rosie Mckenna Bola, DO, FACP CPT-84337 Ofc Vst, Est Level III 10:10:13 CDT Rachel Rosie Mckenna Bola, DO, FACP CPT-58170 Ofc Vst, Est Level III 15:02:09 CDT Rachel Rosie Mckenna Bola, DO, FACP CPT-90500 Ofc Vst, Est Level III 15:58:47 CDT Rachel Rosie Mckenna Bola, DO, FACP CPT-45282 Ofc Vst, Est Level IV 16:03:29 CDT Racheljuventino Plaza [facility] CPT-57634 Ofc Vst, Est Level III 09:44:56 CDT Rachel Rosie Mckenna Bola, DO, FACP CPT-11466 Ofc Vst, Est Level IV 13:34:08 [employer] Rachel Rosie Mckenna Bola, DO, FACP CPT-93171 Ofc Vst, Est Level III 16:12:13 [employer] Rachel Renoi Bala Bola, DO, FACP CPT-71940 Ofc Vst, Est Level IV 09:46:09 [employer] Rachel Mckenna Bola, DO, FACP CPT-69495 Ofc Vst, Est Level III 17:04:16 [employer] Rachel Mckenna Plaza, DO, FACP CPT-09194 Ofc Vst, Est Level IV 16:28:43 CDT Rachel Mckenna Plaza, DO, FACP CPT-73298 Ofc Vst, Est Level III 16:25:00 CDT Rachel [facility] Rachel Mckenna Plaza, DO, FACP CPT-39027 Ofc Vst, Est Level III 16:34:11 CDT Rachel Rosie Mckenna Plaza, DO, FACP CPT-79047 Ofc Vst, Est Level III 11:09:04 CDT Racheljuventino Mckenna Plaza, DO, FACP CPT-93610 Ofc Vst, Est Level III 10:15:02 CDT Rachel Mckenna Plaza, DO, FACP CPT-75834 Ofc Vst, New Level III 15:50:58 CDT Rachel Plaza [facility] Physician [place] Procedures Code Procedure Name Date Entry Date Standard Description CPT-53856 Preventive, Est, (40-64) 16:23:06 CDT CPT-04037 Handling of specimen from office to lab 13:14:22 CDT CPT-91216 Preventive, Est, (40-64) 13:14:22 CDT CPT-28485 Biopsy, skin/subcut/mucous membrane; sngl lsn 11:08:35 CDT CPT-10629 Preventive, Est, (40-64) 15:03:18 CDT CPT-51627 Handling of specimen from office to lab 15:03:18 CDT CPT-65818 Handling of specimen from office to lab 16:01:28 CDT CPT-91676 Preventive, Est, (18-39) 16:01:28 CDT CPT-57145 Preventive, Est, (18-39) 10:39:27 CDT CPT-82869 Handling of specimen from office to lab 10:39:27 CDT CPT-65857 Preventive, Est, (18-39) 13:53:34 CDT CPT-54523 Handling of specimen from office to lab 13:53:34 CDT CPT-73580 Preventive, Est, (18-39) 09:42:54 CDT CPT-54070 Handling of specimen from office to lab 09:42:54 CDT
[2018-03-22] MEDS ORDERED: ceFAZolin 2 GM IV Premixed 50 ML IV ONE (06:15)
--- OUTSIDE RECORDS SUMMARY | 2018-03-22 06:15 | XMS REPORT | Clinical Summary ---
Author Author User, Zilico Organization [facility] [place] Address Unknown Phone Unavailable Allergies, Adverse Reactions, [...] once daily for 5 days 2014 PREDNISONE [id number] No Longer Active Casi Elizabeth PROAIR HFA 108 (90 BASE) MCG/ACT AERS 2 puff Q4 hrs prn wheezing ALBUTEROL SULFATE 42454115935 Active Rachel Plaza ADVAIR DISKUS 100-50 MCG/DOSE MISC 1 puff BID FLUTICASONE- SALMETEROL 89630000889 Active Rachel Plaza TUSSIONEX PENNKINETIC ER 10-8 MG/5ML LQCR 1 tsp PO BID prn cough HYDROCOD POLST-CHLORPHEN POLST 23615097436 No Longer Active Rachel Plaza SUDAFED 30 MG TAB 1 PO TID prn congestion PSEUDOEPHEDRINE HCL 99070465892 Active Rachel Plaza PREDNISONE 10 MG TAB 4 PO at one time once daily for 2 days, then 2 PO at one time once daily PREDNISONE 05689420815 No Longer Active Rachel Plaza CEFDINIR 300 MG CAPS 1 PO BID CEFDINIR 29317734897 No Longer Active Casi [place] SUDAFED 30 MG TAB 1 PO TID prn PSEUDOEPHEDRINE HCL 82862848219 No Longer Active Rachel DEXTER'Bala NASAL SPRAY (DEXAMETHASONE, GENTAMICIN, SALINE) 2 puffs each nostril TID for [address] DEXTER'Bala NASAL SPRAY ( DEXAMETHASONE, GENTAMICIN, SALINE) No Longer Active Racheljuventino Plaza AUGMENTIN 500-125 MG TAB 1 PO BID AMOXICILLIN-POT CLAVULANATE 11134155983 No Longer Active Rachel Rosie Plaza TOPAMAX 25 MG TABS 1 PO BID TOPIRAMATE 34949804495 Active Rachel Rosie Plaza ALEVE 220 MG TAB 2 PO QHS NAPROXEN SODIUM 19643326605 Active Rachel Rosie Plaza ULTRAM 50 MG TAB 1 PO TID TRAMADOL HCL 49305327422 No Longer Active Racheljuventino Plaza ADVAIR DISKUS 100-50 MCG/DOSE MISC 1 puff BID FLUTICASONE-SALMETEROL 40278169432 No Longer Active Racheljuventino Plaza BIAXIN 500 MG TAB 1 PO BID CLARITHROMYCIN 53763051704 No Longer Active Racheljuventino Plaza LEVOXYL 75 MCG TABS 1 PO DAILY LEVOTHYROXINE SODIUM 12453912257 Active Rachel Rosie Plaza AMOXICILLIN 500 MG CAP 1 PO TID AMOXICILLIN 32914170704 No Longer Active Racheljuventino Plaza ATROVENT 0.06 % SOLN 2 puffs each nostril TID prn runny nose 2013 IPRATROPIUM BROMIDE 96207886841 No Longer Active Racheljuventino Plaza PREDNISONE 20 MG TAB 2 pills at once for 2 days then 1 pill daily for 2 days PREDNISONE 53682386578 No Longer Active Rachel Rosie Plaza AUGMENTIN 875-125 MG TAB 1 PO BID AMOXICILLIN-POT CLAVULANATE 34719127449 No Longer Active Rachel DEXTER'S NASAL SPRAY (DEXAMETHASONE, GENTAMICIN, SALINE) 2 puffs each nostril TID for [address] CISNEROS NASAL SPRAY ( DEXAMETHASONE, GENTAMICIN, SALINE) No Longer Active Racheljuventino Plaza PREDNISONE 20 MG TAB 2 pills at once for 2 days then 1 pill daily for 5 days PREDNISONE 60021146202 No Longer Active Racheljuventino Plaza BIAXIN 500 MG TAB 1 PO BID CLARITHROMYCIN 78313163562 No Longer Active Racheljuventino Plaza KENALOG 0.1 % CREA apply to affected areas BID TRIAMCINOLONE ACETONIDE No Longer Active Rachel Rosie Plaza PROAIR HFA 108 (90 BASE) MCG/ACT AERS 2 puff Q4 hrs prn wheezing ALBUTEROL SULFATE 79941639596 No Longer Active Rachel Plaza SUDAFED 30 MG TAB 1 PO TID for 5 days PSEUDOEPHEDRINE HCL 25931069322 No Longer Active Rachel Plaza PREDNISONE 20 MG TAB 2 pills at once for 3 days then 1 pill daily for 3 days PREDNISONE 65846855325 No Longer Active Racheljuventino Plaza ADVAIR DISKUS 100-50 MCG/DOSE MISC 1 puff BID FLUTICASONE-SALMETEROL 89392522884 No Longer Active Rachel Rosie Plaza BIAXIN 500 MG TAB 1 PO BID CLARITHROMYCIN 04718521761 No Longer Active Racheljuventino Plaza OMEPRAZOLE 20 MG CPDR 1 PO daily OMEPRAZOLE 52964195393 Active Rachel Rosie Plaza PROAIR HFA 108 (90 BASE) MCG/ACT AERS 2 puff Q4 hrs prn wheezing ALBUTEROL SULFATE 36114428800 No Longer Active Rachel Rosie Plaza LAMISIL 250 MG TAB 1 po daily TERBINAFINE HCL 36624422453 No Longer Active Rachel Rosie Plaza LOTRISONE 0.05-1 % CREAM apply to affected areas BID prn CLOTRIMAZOLE-BETAMETHASONE 47010135719 No Longer Active Rachel Rosie Plaza BIAXIN XL PAC 500 MG TB24 2 pills at same time daily for 7 days CLARITHROMYCIN 78821403874 No Longer Active Rachel Rosie Plaza PREDNISONE 20 MG TAB 3 pills daily at once for 2 days, 2 pills daily at once for 2 days, 1 once daily for 2 days PREDNISONE 08972678738 No Longer Active Rachel Rosie Plaza ADVAIR DISKUS 100-50 MCG/DOSE MISC 1 puff BID for two weeks 05/02 FLUTICASONE-SALMETEROL 74848222424 No Longer Active Rachel Rosie Plaza PROAIR HFA 108 (90 BASE) MCG/ACT AERS 2 puff Q4 hrs prn wheezing ALBUTEROL SULFATE 15964797668 No Longer Active Racheljuventino Plaza LEVAQUIN 500 MG TAB 1 PO QD LEVOFLOXACIN 34191100424 No Longer Active Rachel Rosie Plaza TESSALON 200 MG CAPS 1 PO TID prn cough BENZONATATE 11611185329 No Longer Active Rachel Rosie Plaza LAMISIL 250 MG TAB 1 PO daily TERBINAFINE HCL 68325995927 No Longer Active Rachel Rosie Plaza LAMISIL 250 MG TABS 1 PO daily TERBINAFINE HCL 38352781149 No Longer Active Rachel Rosie Plaza DIFLUCAN 100 MG TABS 1 PO daily FLUCONAZOLE 35063379626 No Longer Active Rachel Rosie Plaza NYSTATIN 659440 UNIT/GM CREA Apply to affected areas TID until resolved 01/10 NYSTATIN 62349133198 No Longer Active Rachel Plaza LAMISIL 250 MG TABS 1 PO daily TERBINAFINE HCL 99820399664 No Longer Active Racheljuventino Plaza LOTRISONE 0.05-1 % CREAM apply small amount to affected areas TID CLOTRIMAZOLE-BETAMETHASONE 36921116905 No Longer Active Racheljuventino Plaza BIAXIN XL PAC 500 MG TB24 2 pills at same time daily for 7 days CLARITHROMYCIN 54864850844 No Longer Active Racheljuventino Plaza CILOXAN 0.3 % SOLN 2 drops Q6hrs for 7 days CIPROFLOXACIN HCL 44820501564 No Longer Active Dorene Cristina METFORMIN HCL 500 MG TABS 2 PO BID METFORMIN HCL 43915093049 Active Racheljuventino Plaza NAPROXEN 500 MG TAB 1 PO BID NAPROXEN 93475944938 No Longer Active Racheljuventino Plaza LASIX 20 MG TAB 1 PO QD prn for swelling FUROSEMIDE 51030592932 No Longer Active Rachel Plaza FLONASE 50 MCG/DOSE INHALANT 2 puffs each nostril daily FLONASE 50 MCG/DOSE INHALANT No Longer Active Racheljuventino Plaza KEVIN-D 24 HOUR 180-240 MG TB24 1 PO Daily for sinus pressure. FEXOFENADINE-PSEUDOEPHEDRINE 10995301665 No Longer Active Rachel Plaza KEVIN 180 MG TABS 1 PO QD FEXOFENADINE HCL 70859516887 No Longer Active Racheljuventino Plaza MUCINEX 600 MG TB12 1 PO BID for 5 days GUAIFENESIN 19041455809 No Longer Active Racheljuventino Plaza DOXYCYCLINE HYCLATE 100 MG CAP 1 po BID DOXYCYCLINE HYCLATE 67954139938 No Longer Active Rachel Rosie Plaza MULTIVITAMINS TABS 1 po daily MULTIPLE VITAMIN 90032545186 Active Racheljuventino Luxe Bola PHENTERMINE HCL 37.5 MG CAPS 1 po daily PHENTERMINE HCL 70104841077 Active Racheljuventino Luxe Bola Immunizations Vaccine Administration [...] mL/min/1.73m2 Encounters Code Encounter Date Provider Facility CPT-27342 Ofc Vst, Est Level IV 15:30:54 CDT [facility] CPT-76213 Ofc Vst, Est Level III 20:51:09 CDT Rachel Plaza DO, FACP CPT-18958 Ofc Vst, Est Level III 16:39:04 [employer]ING [employer] Rachel Plaza DO, FACP CPT-25882 Ofc Vst, Est Level III 20:33:24 HE[employer]ING [employer] Rachel Plaza DO, FACP CPT-22236 Ofc Vst, Est Level IV 20:17:26 HEARING [employer]ER[employer] [facility] CPT-04167 Ofc Vst, Est Level III 16:29:23 HEARING [employer] Rachel Plaza DO, FACP CPT-47883 Ofc Vst, Est Level III 16:41:30 CDT Rachel Renoi S Bola, DO, FACP CPT-77002 Ofc Vst, Est Level III 12:12:47 CDT Rachel Rosie Mckenna Bola, DO, FACP CPT-39960 Ofc Vst, Est Level III 16:03:46 CDT Rachel Rosie Mckenna Bola, DO, FACP CPT-52386 Ofc Vst, Est Level IV 17:56:18 CDT Rachel Rosie [facility] CPT-25661 Ofc Vst, Est Level III 15:42:50 CDT Rachel Rosie [facility] CPT-01261 Ofc Vst, Est Level III 15:37:57 CDT Rachel Rosie Plaza [facility] CPT-05998 Ofc Vst, Est Level III 19:30:03 CDT Rachel Rosie Mckenna Bola, DO, FACP CPT-36937 Ofc Vst, Est Level III 20:02:43 CDT Rachel Rosie Plaza [facility] CPT-44327 Ofc Vst, Est Level III 13:45:40 HE[employer]ING [employer] Rachel Mckenna Bola, DO, FACP CPT-06451 Ofc Vst, Est Level III 19:57:30 HEARING IMP[employer]ER[employer] TE[employer]ER Rachel Arellanoner Rachel Mckenna Bola, DO, FACP CPT-47409 Ofc Vst, Est Level III 20:20:40 HEARING IMP[employer]ER[employer] TE[employer]ER Rachel Mckenna Bola, DO, FACP CPT-05514 Ofc Vst, Est Level III 15:09:23 HEARING IMP[employer]ER[employer] TE[employer]ER Rachel Velez Bola Rachel S Bola, DO, FACP CPT-54950 Ofc Vst, Est Level III 16:20:28 CDT Racheljuventino Velez Bola Rachel Mckenna Bola, DO, FACP CPT-24517 Ofc Vst, Est Level III 10:14:05 CDT Rachel Rosie Mckenna Plaza, DO, FACP CPT-50004 Ofc Vst, Est Level III 15:38:48 CDT Rachel Rosie Mckenna Plaza, DO, FACP CPT-56519 Ofc Vst, Est Level III 17:19:17 CDT Rachel Rosie Mckenna Plaza, DO, FACP CPT-26388 Ofc Vst, Est Level III 16:30:31 CDT Rachel Rosie Mckenna Plaza, DO, FACP CPT-49861 Ofc Vst, Est Level III 20:41:25 CDT Rachel Rosie Mckenna Plaza, DO, FACP CPT-83322 Ofc Vst, Est Level III 16:38:44 CDT Rachel Rosie Mckenna Plaza, DO, FACP CPT-39787 Ofc Vst, Est Level III 14:31:54 CDT Rachel Rosie Mckenna Plaza, DO, FACP CPT-34682 Ofc Vst, Est Level III 20:41:14 HE[employer]ING [employer] Rachel Rosie Mckenna Plaza, DO, FACP CPT-92625 Ofc Vst, Est Level III 16:34:32 HEARING IMP[employer]ER[employer] TE[employer] Rachel Rosie Mckenna Plaza, DO, FACP CPT-49220 Ofc Vst, Est Level III 17:31:03 HEARING IMP[employer]ER[employer] TE[employer]ER Rachel Rosie Mckenna Plaza, DO, FACP CPT-74918 Ofc Vst, Est Level III 13:46:07 HE[employer]ING IMP[employer] TE[employer] Rachel Rosie Mckenna Plaza, DO, FACP CPT-51496 Ofc Vst, Est Level III 16:31:25 CDT Rachel Rosie Mckenna Plaza, DO, FACP CPT-09472 Ofc Vst, Est Level III 13:49:29 CDT Rachel Rosie Plaza [facility] CPT-03600 Ofc Vst, Est Level III 13:49:22 CDT Rachel Rosie Plaza [place] [facility] CPT-61539 Ofc Vst, Est Level III 13:28:51 CDT Rachel Rosie Plaza [place] [facility] CPT-56020 Ofc Vst, Est Level III 13:30:40 CDT Rachel Rosie Mckenna Bola, DO, FACP CPT-44032 Ofc Vst, Est Level III 14:49:17 CDT Rachel Rosie Plaza [place] [facility] CPT-13239 Ofc Vst, Est Level III 13:30:39 HE[employer]ING [employer] Rachel Rosie Mckenna Bola, DO, FACP CPT-21595 Ofc Vst, Est Level III 09:43:47 HEARING IMPAIRED [employer]ER[employer] TE[employer]ER Rachel Rosie Plaza [place] [facility] CPT-14619 Ofc Vst, Est Level III 09:43:54 HEARING IMP[employer]ER[employer] TE[employer]ER Rachel Rosie Plaza [place] [facility] CPT-65215 Ofc Vst, Est Level IV 10:15:14 HEARING IMP[employer] TE[employer] Rachel Rosie Mckenna Bola, DO, FACP CPT-63992 Ofc Vst, Est Level III 15:24:26 HEARING IMPAIRED [employer]ER[employer] TE[employer]ER Rachel Mckenna Bola, DO, FACP CPT-59687 Ofc Vst, Est Level III 14:22:31 HEARING IMP[employer]IRED [employer]ER[employer] TE[employer]ER Rachel Rosie Mckenna Bola, DO, FACP CPT-30889 Ofc Vst, Est Level IV 10:02:54 CDT Racheljuventino Plaza [place] [facility] CPT-40966 Ofc Vst, Est Level III 16:32:40 CDT Rachel Rosie Plaza [place] [facility] CPT-69598 Ofc Vst, Est Level III 16:29:26 CDT Racheljuventino Mckenna Bola, DO, FACP CPT-77314 Ofc Vst, Est Level IV 14:43:12 CDT Rachel Rosie Arellanoner [place] [facility] CPT-08010 Ofc Vst, Est Level IV 14:48:51 CDT Rachel Rosie Plaza [facility] CPT-41953 Ofc Vst, Est Level III 14:21:26 CDT Rachel Rosie Mckenna Bola, DO, FACP CPT-76043 Ofc Vst, Est Level III 16:25:48 CDT Rachel Rosie Mckenna Bola, DO, FACP CPT-30299 Ofc Vst, Est Level III 15:53:26 CDT Rachel Rosie Mckenna Bola, DO, FACP CPT-13448 Ofc Vst, Est Level III 16:00:22 CDT Racheljuventino Mckenna Bola, DO, FACP CPT-14706 Ofc Vst, Est Level III 10:41:27 HE[employer]ING [employer] Rachel Mckenna Bola, DO, FACP CPT-37334 Ofc Vst, Est Level IV 09:59:09 HEARING [employer] Rachel Mckenna Bola, DO, FACP CPT-52971 Ofc Vst, Est Level III 10:07:13 HEARING IMP[employer] TE[employer]ER Rachel Plaza [facility] CPT-30936 Ofc Vst, Est Level III 14:54:02 HEARING IMP[employer]IRED [employer]ER[employer]ER Rachel Mckenna Bola, DO, FACP CPT-63089 Ofc Vst, Est Level III 13:15:03 CDT Racheljuventino Plaza [place] [facility] CPT-31659 Ofc Vst, Est Level IV 16:30:43 CDT Racheljuventino Mckenna Bola, DO, FACP CPT-12706 Ofc Vst, Est Level IV 12:52:15 CDT Racheljuventino Mckenna Bola, DO, FACP CPT-77136 Ofc Vst, Est Level III 14:55:16 CDT Rachel Rosie Plaza [facility] CPT-08656 Ofc Vst, Est Level III 09:36:49 CDT Rachel Rosie Mckenna Plaza, DO, FACP CPT-94263 Ofc Vst, Est Level IV 13:11:53 CDT Rachel Rosie Mckenna Plaza, DO, FACP CPT-25330 Ofc Vst, Est Level IV 09:21:55 HE[employer]ING [employer] Rachel Rosie Mckenna Bola, DO, FACP CPT-31967 Ofc Vst, Est Level IV 16:18:13 HEARING IMP[employer]IRED [employer] TE[employer]ER Rachel Rosie Plaza [facility] CPT-50533 Ofc Vst, Est Level III 14:24:17 HEARING IMP[employer] TE[employer]ER Rachel Plaza [facility] CPT-82298 Ofc Vst, Est Level III 14:33:19 HEARING IMP[employer]IRED [employer]ER[employer] TE[employer]ER Rachel Rosie Plaza [facility] [facility] CPT-42828 Ofc Vst, Est Level III 16:11:48 CDT Rachel Rosie Mckenna Bola, DO, FACP CPT-77331 Ofc Vst, Est Level IV 21:11:44 CDT Rachel Rosie Plaza [facility] CPT-70186 Ofc Vst, Est Level IV 16:18:03 CDT Rachel Rosie Mckenna Bola, DO, FACP CPT-80092 Ofc Vst, Est Level IV 16:48:22 CDT Rachel Rosie Plaza [facility] CPT-03421 Ofc Vst, Est Level IV 14:26:27 CDT Rachel Rosie Mckenna Plaza, DO, FACP CPT-60468 Ofc Vst, Est Level IV 16:41:37 HEARING [employer] Rachel Rosie Mckenna Bola, DO, FACP CPT-97702 Ofc Vst, Est Level III 16:38:27 HEARING IMP[employer]IRED [employer]ER[employer] TE[employer]ER Rachel Rosie Mckenna Plaza, DO, FACP CPT-70560 Ofc Vst, Est Level III 18:02:37 HEARING IMPAIRED [employer]ER[employer] TE[employer]ER Rachel Mckenna Bola, DO, FACP CPT-85592 Ofc Vst, Est Level III 15:48:55 HEARING IMP[employer]ER[employer] TE[employer]ER Rachel Mckenna Plaza, DO, FACP CPT-50558 Ofc Vst, Est Level III 17:01:29 CDT Rachel Rosie Mckenna Bola, DO, FACP CPT-92030 Ofc Vst, Est Level III 16:07:45 CDT Rachel Rosie Mckenna Bola, DO, FACP CPT-49852 Ofc Vst, Est Level III 10:10:13 CDT Rachel Rosie Mckenna Bola, DO, FACP CPT-33710 Ofc Vst, Est Level III 15:02:09 CDT Rachel Rosie Mckenna Bola, DO, FACP CPT-23977 Ofc Vst, Est Level III 15:58:47 CDT Rachel Rosie Mckenna Bola, DO, FACP CPT-20570 Ofc Vst, Est Level IV 16:03:29 CDT Racheljuventino Plaza [facility] CPT-72047 Ofc Vst, Est Level III 09:44:56 CDT Rachel Rosie Mckenna Bola, DO, FACP CPT-26860 Ofc Vst, Est Level IV 13:34:08 HEARING [employer] Rachel Rosie Mckenna Bola, DO, FACP CPT-51560 Ofc Vst, Est Level III 16:12:13 HEARING IMP[employer]IRED [employer]ER[employer] TE[employer]ER Rachel Renoi Bala Bola, DO, FACP CPT-71045 Ofc Vst, Est Level IV 09:46:09 HEARING IMPAIRED [employer] TE[employer]ER Rachel Mckenna Bola, DO, FACP CPT-41171 Ofc Vst, Est Level III 17:04:16 HEARING IMP[employer]ER Rachel Mckenna Plaza, DO, FACP CPT-98998 Ofc Vst, Est Level IV 16:28:43 CDT Rachel Mckenna Plaza, DO, FACP CPT-65624 Ofc Vst, Est Level III 16:25:00 CDT Rachel [facility]elson [facility] Rachel Mckenna Plaza, DO, FACP CPT-04514 Ofc Vst, Est Level III 16:34:11 CDT Rachel Rosie Mckenna Plaza, DO, FACP CPT-65269 Ofc Vst, Est Level III 11:09:04 CDT Racheljuventino Mckenna Plaza, DO, FACP CPT-33549 Ofc Vst, Est Level III 10:15:02 CDT Rachel Mckenna Plaza, DO, FACP CPT-51301 Ofc Vst, New Level III 15:50:58 CDT Rachel Plaza [facility] [place] Procedures Code Procedure Name Date Entry Date Standard Description CPT-99017 Preventive, Est, (40-64) 16:23:06 CDT CPT-16476 Handling of specimen from office to lab 13:14:22 CDT CPT-28232 Preventive, Est, (40-64) 13:14:22 CDT CPT-57328 Biopsy, skin/subcut/mucous membrane; sngl lsn 11:08:35 CDT CPT-27736 Preventive, Est, (40-64) 15:03:18 CDT CPT-40288 Handling of specimen from office to lab 15:03:18 CDT CPT-62256 Handling of specimen from office to lab 16:01:28 CDT CPT-92154 Preventive, Est, (18-39) 16:01:28 CDT CPT-84409 Preventive, Est, (18-39) 10:39:27 CDT CPT-28781 Handling of specimen from office to lab 10:39:27 CDT CPT-20883 Preventive, Est, (18-39) 13:53:34 CDT CPT-38078 Handling of specimen from office to lab 13:53:34 CDT CPT-96425 Preventive, Est, (18-39) 09:42:54 CDT CPT-89357 Handling of specimen from office to lab 09:42:54 CDT
[2018-03-22] MEDS: LACTATED RINGERS 1,000 ML IV PRN ×3 (06:20→11:17)
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
[2018-03-22] MEDS ORDERED: GENTAMICIN 40 MG/ML 2 ML INJ SDV ONE ×2 (06:48→06:58)
[2018-03-22] MEDS ORDERED: VANCOMYCIN 1000 MG/VIAL ONE (06:48)
[2018-03-22] MEDS ORDERED: ONDANSETRON 4 MG/2 ML (SDV) Z0FRAN ONE (06:52)
[2018-03-22] MEDS ORDERED: proPOfol 200 MG/20 ML (DIPRIVAN) VIAL IV ONE (06:52)
[2018-03-22] MEDS ORDERED: LIDOCAINE PF 2% 5 ML (XYLOCAINE) VIAL ONE (06:52)
[2018-03-22] MEDS ORDERED: LACTATED RINGERS 0 ML IV ONE (06:52)
[2018-03-22] MEDS ORDERED: ROCURONIUM 10 MG/ML 5 ML SYRINGE IV ONE (06:52)
[2018-03-22] MEDS ORDERED: fentaNYL INJECTION 100 MCG/2 ML AMP ONE (06:53)
[2018-03-22] MEDS ORDERED: MIDAZOLAM 2 MG/2 ML (VERSED) VIAL ONE ×2 (06:55→07:53)
[2018-03-22] MEDS ORDERED: NS (IVPB) 250 ML ONE (07:01)
[2018-03-22] MEDS ORDERED: ONDANSETRON 4 MG/2 ML (SDV) Z0FRAN IV PRN (07:30)
[2018-03-22] MEDS ORDERED: PROMETHAZINE 25 MG (PHENERGAN) TAB PO PRN (07:30)
[2018-03-22] MEDS ORDERED: ACETAMINOPHEN 325 MG TABLET PO PRN (07:30)
[2018-03-22] MEDS ORDERED: MILK OF MAGNESIA 400 MG/5 ML 30 ML UDC PO PRN (07:30)
[2018-03-22] MEDS ORDERED: DEXMEDETOMIDINE 200 MCG/2 ML (PRECEDEX) VIAL IV ONE (09:16)
[2018-03-22] MEDS ORDERED: TRANEXAMIC ACID 100 MG/ML 10 ML INJECTION IV ONE (09:16)
[2018-03-22] MEDS ORDERED: DEXAMETHASONE 10 MG/ML (DECADRON) 1 ML VIAL ONE (09:16)
[2018-03-22] MEDS ORDERED: SEVOFLURANE (ULTANE) 15 ML INHAL SOLN ONE ×2 (09:16→09:49)
--- NOTE | 2018-03-22 09:37 | Progress Note-Post Operative ---
Post-Operative Progess Note Surgeon (s)/Sheet Heater Helper (s) Surgeon GIOVANI ESTEBAN MD Sheet Heater Helper: ESEQUIEL Montgomery Pre-Operative Diagnosis Lumbar Stenosis/Radiculopathy Post-Operative Diagnosis Same Procedure & Operative Findings Date of Procedure 03/22/18 Procedure Performed/Findings L5-S1 AP fusion, with left facectomy Anesthesia Type GETA Estimated Blood Loss Estimated blood loss (mL): 100 Specimens/Packing Specimens Removed None GIOVANI ESTEBAN MD Mar 22, 2018 9:37 am
[2018-03-22] MEDS ORDERED: NEOSTIGMINE 1 MG/ML 5 ML SYRINGE ONE (09:46)
[2018-03-22] MEDS ORDERED: GLYCOPYRROLATE 0.2 MG/ML (ROBINUL) 2 ML VIAL ONE (09:46)
[2018-03-22] MEDS ORDERED: morphine INJ 10 MG/ML 1ML (SYR OR VIAL) ONE (10:15)
[2018-03-22] MEDS ORDERED: HYDROmorphone 2 MG/ML VIAL (DILAUDID) IV ONE (10:15)
[2018-03-22] MEDS ORDERED: MEPERIDINE (DEMEROL) INJ 50 MG/ML IVP ONE (10:15)
[2018-03-22] MEDS ORDERED: ONDANSETRON 4 MG/2 ML (SDV) Z0FRAN IVP PRN (10:15)
[2018-03-22] MEDS ORDERED: PROMETHAZINE INJ 25 MG/ML (PHENERGAN) AMP IVP ONE (10:15)
[2018-03-22] MEDS ORDERED: morphine INJ 10 MG/ML 1ML (SYR OR VIAL) IVP ONE (10:15)
--- NOTE | 2018-03-22 10:33 | Diagnostic Imaging Report ---
CLINICAL INDICATION: Patient is status post L5-S1 anterior/posterior spinal fusion with left facetectomy, bone graft, and instrumentation performed by Dr. Harper. Fluoroscopy was provided. EXAM: Four limited intraoperative x-ray images of the lumbosacral region. COMPARISON: None. FINDINGS AND IMPRESSION: There is L5-S1 anterior lumbar interbody fusion with interbody graft material and right-sided L5-S1 posterior spinal fusion hardware. Please see surgeon's report for more detail. Fluoroscopy was provided for surgeons and a total of 28.9 seconds and 12.42 mGy was provided. Dictated by: Dictated on workstation # [id number]
[2018-03-22 10:50] VITALS: BP 88/47
[2018-03-22] MEDS: morphine INJ 10 MG/ML 1ML (SYR OR VIAL) IVP PRN ×3 (11:38→23:23)
[2018-03-22] MEDS: DOCUSATE SODIUM 100 MG (COLACE) CAP PO SCH ×2 (11:42→21:09)
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
[2018-03-22 12:00] VITALS: BP 114/74
[2018-03-22] MEDS: HYDROcodone/APAP 5 MG/325 MG (LORTAB) TAB PO PRN ×3 (12:55→21:10)
[2018-03-22] MEDS: NS IV 1000 ML 1,000 ML IV SCH ×3 (12:57→23:32)
[2018-03-22] MEDS ORDERED: FLUT16SP22 NS (13:07)
--- NOTE | 2018-03-22 14:24 | OPERATIVE REPORT ---
DATE OF SERVICE: 03/22/2018 PREOPERATIVE DIAGNOSES: Lumbar stenosis, neural canal and neural foramen due to disk and osseous stenosis, lumbar degenerative disease and lumbar radiculopathy. POSTOPERATIVE DIAGNOSES: Lumbar stenosis, neural canal and neural foramen due to disk and osseous stenosis, lumbar degenerative disease and lumbar radiculopathy. PROCEDURES PERFORMED: 1. L5-S1 anterior lumbar interbody fusion. 2. L5-S1 interbody cage instrumentation. 3. L5-S1 anterior plate instrumentation. 4. L5-S1 posterior spinal fusion. 5. L5-S1 posterior nonsegmental pedicle screw instrumentation. 6. Left-sided complete facetectomy and transfacet decompression. 7. L5-S1 posterior spinal fusion. 8. Autograft for spine surgery, local. 9. Allograft for spine surgery, morselized. DATE AND TIME OF SURGERY: Please see anesthesia record. IMPLANTS USED: Medtronic Voyager Solera pedicle screw instrumentation, Medtronic pyramid plate, Medtronic Orthoblend bone graft and 4Web ALIF titanium cage. SURGEON: Giovani Harper MD DOCTOR OF NURSE ANESTHESIA PRACTICE: BROOKE Montgomery. ROLE OF CRIME LABORATORY ANALYST: Aid in retraction of the procedure, aid in implantation and tissue and wound closure. ANESTHESIA: General endotracheal. ESTIMATED BLOOD LOSS: Less 100 mL. INTRAVENOUS FLUIDS: Please see anesthesia record. ANTIBIOTICS: Ancef. COMPLICATIONS: None. SPECIMENS: None. INDICATIONS FOR PROCEDURE: The patient is a 47-year-old female with back and leg pain, high grade stenosis, failed conservative therapy, desires operative treatment. NEUROMONITORING: Standard intraoperative neuromonitoring was carried out by means of real time continuous high quality bidirectional mode, audio and visual communication with the instrument repair technician and surgeon by Dr. Johnson was performed to assess the to assess SSEPs, EMGs, TcMEPs, TOFs were carried out continuously throughout the procedure stable. DESCRIPTION OF PROCEDURE: The patient was taken to the preoperative holding area and brought back to the operative suite. After adequate induction of general anesthesia, preoperative antibiotics, placed supine on the OR table. Abdomen was prepped and draped. Left-sided retroperitoneum exposure with 5-1 level was carried out without difficulty. Once the appropriate level was confirmed on imaging, Bookwalter retractor was used to hold the soft tissue retracted and then the Wylies were used to hold the veins out of the way. Disk was prepped. Trial spacer was utilized and 12 tall 12-degree 4Web cage filled Allograft bone was impacted into position after adequate disk prep. Once it was in place, 35 mm pyramid plate was affixed to the spine. Locking mechanism was deployed. Wound was copiously irrigated. Wound was closed in layers. The patient turned prone on Olman table, careful padding to all extremities, sterilely prepped and draped the posterior spine, small Lorraine incision was made on the left side and guidewires were placed into the L5 and S1 pedicles and then utilizing the S1 guidewire, a tubular retractor was placed down and the facet joint was visualized. It was removed. The inferior and superior articular facets of the left-sided 5 to 1 facet joint were removed and the L5 root was visualized all the way out the foramen and completely and adequately decompressed. Autograft bone from the decompression was then utilized on the contralateral side where a guidewire was placed into the S1 pedicle on the left side. Tubular retractor was placed. The facet joint was visualized, decorticated on the right side and packed with autograft and allograft bone for the fusion portion of procedure. Wounds were irrigated, closed in layers. The patient was transferred to recovery room in stable condition having tolerated the procedure well. Job ID: [id number] DocumentID: [id number] Dictated Date: 03/22/2018 09:40:38 Shipwright Supervisor Date: 03/22/2018 14:24:41 Dictated By: GIOVANI HARPER MD [facility]
[2018-03-22] MEDS ORDERED: ceFAZolin INJECTION 2,000 MG in NS (IVPB) 50 ML IV SCH (15:30)
[2018-03-22] MEDS: ceFAZolin 2 GM IV Premixed 50 ML IV SCH ×2 (15:42→23:23)
[2018-03-22 16:15] VITALS: BP 117/61
[2018-03-22] MEDS: BACLOFEN 10 MG (LIORESAL) TAB PO PRN (18:17)
[2018-03-22 19:30] VITALS: BP 141/67
[2018-03-22] MEDS: POLYETHYLENE GLYCOL 17 GM (MIRALAX) PACK PO SCH (21:10)
[2018-03-22 23:57] VITALS: BP 143/69
[2018-03-23] MEDS: BACLOFEN 10 MG (LIORESAL) TAB PO PRN ×3 (03:42→20:26)
[2018-03-23] MEDS: HYDROcodone/APAP 5 MG/325 MG (LORTAB) TAB PO PRN ×5 (03:42→20:41)
[2018-03-23 03:53] VITALS: BP 120/55
[2018-03-23 05:52] LABS: HEMOGLOBIN 11.5 G/DL (11.5-16.0); MEAN PLATELET VOLUME 10.5 FL (7.4-10.4); RED BLOOD COUNT 3.95 10^6/uL (4.35-5.85); RED CELL DISTRIBUTION WIDTH 12.9 % (10.0-14.5); WHITE BLOOD COUNT 13.4 10^3/uL (4.3-11.0)
--- NOTE | 2018-03-23 06:17 | Progress Note (SOAP) ---
Subjective Date Seen by a Provider: Mar 23, 2018 Time Seen by a Provider: 06:16 Subjective/Events-last exam Pain ok, back pain different than normal. Has been up walking. Objective Exam Vital Signs Date Time Temp Pulse Resp B/P (MAP) Pulse Ox O2 Delivery O2 Flow Rate FiO2 03/23/18 03:53 99.4 93 18 120/55 (76) 94 Room Air 03/22/18 23:57 97.7 73 18 143/69 (93) 97 Room Air 03/22/18 21:00 Room Air 03/22/18 19:30 98.0 79 16 141/67 (91) 95 Room Air 03/22/18 16:15 96.5 76 16 117/61 (79) 93 Room Air 03/22/18 12:00 114/74 (87) 03/22/18 10:50 97.7 52 18 88/47 (61) 98 Room Air 03/22/18 10:50 Room Air I & O 03/23/18 07:00 Intake Total 2670 ml Output Total 3300 ml Balance -630 ml Capillary Refill : General Appearance: No Apparent Distress Respiratory: No Accessory Muscle Use, No Respiratory Distress Cardiovascular: Regular Rate, Rhythm, Normal Peripheral Pulses Gastrointestinal: non tender, soft Extremity: Normal Capillary Refill Neurologic/Psychiatric: Alert, Oriented x3, No Motor/Sensory Deficits Results Lab Laboratory Tests 03/23/18 05:25: White Blood Count 13.4H, Red Blood Count 3.95L, Hemoglobin 11.5, Hematocrit 36, Mean Corpuscular Volume 90, Mean Corpuscular Hemoglobin 29, Mean Corpuscular Hemoglobin Concent 32, Red Cell Distribution Width 12.9, Platelet Count 275, Mean Platelet Volume 10.5H Assessment/Plan Assessment/Plan Assess & Plan/Chief Complaint Lumbar Stenosis, Neuroforaminal Lumbar DDD Lumbar Radiculopathy Plan: Up with PT Pain control Clinical Quality Measures DVT/VTE Risk/Contraindication: Risk Factor Score Per Nursin RFS Level Per Nursing on Admit: 3=High GIOVANI ESTEBAN MD Mar 23, 2018 6:17 am
[2018-03-23 06:22] LABS: ALANINE AMINOTRANSFERASE 17 U/L (0-55); ALBUMIN 3.4 GM/DL (3.2-4.5); ALKALINE PHOSPHATASE 58 U/L (40-136); BILIRUBIN,TOTAL 0.4 MG/DL (0.1-1.0); BUN/CREATININE RATIO 11; CALCIUM 8.6 MG/DL (8.5-10.1); CARBON DIOXIDE 21 MMOL/L (21-32); CHLORIDE 108 MMOL/L (98-107); CREATININE SERUM 0.73 MG/DL (0.60-1.30); GFR ESTIMATED > 60; GLUCOSE 115 MG/DL (70-105); POTASSIUM 3.4 MMOL/L (3.6-5.0); SODIUM 140 MMOL/L (135-145); TOTAL PROTEIN 5.9 GM/DL (6.4-8.2)
[2018-03-23] MEDS: ceFAZolin 2 GM IV Premixed 50 ML IV SCH (06:56)
[2018-03-23] MEDS: PANTOPRAZOLE 40 MG (PROTONIX) TAB PO SCH ×2 (06:56→20:26)
[2018-03-23] MEDS ORDERED: MULTIVIT W/MINERALS TAB (THERAGRAN M) PO SCH (07:00)
[2018-03-23 08:17] VITALS: BP 123/77
[2018-03-23] MEDS: BISACODYL 5 MG (DULCOLAX) TABLET PO SCH (08:23)
[2018-03-23] MEDS: DOCUSATE SODIUM 100 MG (COLACE) CAP PO SCH ×2 (08:25→20:26)
--- NOTE | 2018-03-23 09:36 | Physical Therapy Evaluation ---
PT Evaluation-General Medical Diagnosis Admission Date Mar 22, 2018 at 05:59 Medical Diagnosis: L5-S1 Fusion Onset Date: Mar 22, 2018 Therapy Diagnosis Therapy Diagnosis: Weakness, Debility Height/Weight Height (Feet): 5 Height (Inches): 5.00 Weight (Pounds): 190 Weight (Ounces): 0.0 Precautions Precautions/Isolations: Fall Prevention, Standard Precautions Weight Bear Status Right Lower Extremity: Right Weight Bearing/Tolerated Left Lower Extremity: Left Weight Bearing/Tolerated Referral Physician: Honorio Sullivan PA Reason for Referral: Evaluation/Treatment Medical History Pertinent Medical History: GERD, Hypothroidism Current History Patient admitted to inpatient following spinal fusion of L5-S1. Reviewed History: Yes Social History Home: Multilevel Current Living Status: Spouse Entry Into Home: Stairs With Railing PT Steps Into Home: 2 PT Steps Inside Home: 12 Prior/Core FIM Prior Level of Function Functional [place] Measure 0=Not Assessed/NA 4=Minimal Assistance 1=Total Assistance 5=Supervision or Setup 2=Maximal Assistance 6=Modified [place] 3=Moderate Assistance 7=Complete IndependenceIRFPAI Quality Coding Scale 6 Independent with activity with or without an assistive device 5 Patient requires set up or clean up by helper. Patient completes activity by themselves 4 Supervision or touching assist (CGA). O[place] provide cues , steadying assist 3 The helper provides less than half the effort to complete the activity 2 The helper provides more than half the effort to complete the activity 1 Dependent. The helper does all the effort to complete an activity 7 Patient refused to complete or attempt activity 9 The patient did not perform the activity before the current illness or injury 88 Not attempted due to Medical conditions or safety concerns Bed Mobility: 7 Transfers (B,C,W/C) (FIM): 7 Gait: 7 Stairs: 7 PT Evaluation-Current Subjective Patient awake in bed eating breakfast when PT arrived. Pt agreed to evaluation from PT. Pain Numeric Pain Scale: 8 Location: Lower Location Body Site: Back Pain Description: Acute Objective Patient Orientation: Normal For Age Problem Solving: Fair Attachments: [place] Catheter, IV ROM/Strength ROM Upper Extremities WNL ROM Lower Extremities WNL Strength Upper Extremities WNL Strength Lower Extremities WNL Integumentary/Posture Bowel Incontinence: No Bladder Incontinence: No Neuromuscular (Tone, Coordination, Reflexes) NT Sensory Vision: Functional Hearing: Functional Sensation Right Upper Extremit: Intact Sensation Left Upper Extremity: Intact Sensation Right Lower Extremit: Intact Sensation Left Lower Extremity: Intact Transfers Functional [place] Measure 0=Not Assessed/NA 4=Minimal Assistance 1=Total Assistance 5=Supervision or Setup 2=Maximal Assistance 6=Modified [place] 3=Moderate Assistance 7=Complete [place] Transfers (B, C, W/C) (FIM): 4 Scootin Rollin Supine to/from Sit: 4 Sit to/from Stand: 5 Gait Mode of Locomotion: Walk Anticipated Mode of Locomotion: Walk Gait (FIM): 5 Distance (FIM): 3=150 ft Distance: 200' Gait Level of Assist: 5 Gait Persons Needed: 1 Gait Assistive Device: FWW Balance Sitting Static: Normal Sitting Dynamic: Normal Standing Static: Normal Standing Dynamic: Normal Assessment/Needs Patient was able to ambulate for 200' with a FWW requiring SBA. Patient rated her pain as an 8/10 and stated that she felt nauseous when she was ambulating. Patient returned to room and sat in recliner next to bed. Patient will benefit from therapy to improve overall function for daily demands. Rehab Potential: Good PT Senior Care Goals Senior Care Goals PT Senior Care Goals Time Frame: Mar 30, 2018 Transfers (B,C,W/C) (FIM): 7 Gait (FIM): 7 Gait distance (FIM): 3=150 ft Distance: >250 Gait Level of Assist: 5 Gait Assistive Device: FWW PT Plan Problem List Problem List: Activity Tolerance, Functional Strength, Safety, Balance, Gait, Transfer, Bed Mobility, ROM Treatment/Plan Treatment Plan: Continue Plan of Care Treatment Plan: Bed Mobility, Education, Functional Strength, Gait, Safety, Therapeutic Exercise, Transfers Treatment Duration: Mar 30, 2018 Frequency: 11 times per week Estimated Hrs Per Day: .5 hour per day Patient and/or Family Agrees t: Yes Discharge Recommendations Therapy D/C Recommendations: Home w/ Family Support Time/GCodes Time In: 852 Time Out: 909 Total Billed Treatment Time: 17 Total Billed Treatment 1 visit KATI Au PT Mar 23, 2018 09:36
--- NOTE | 2018-03-23 10:14 | Diagnostic Imaging Report ---
INDICATION: Back pain AP and lateral views of lumbar spine show postop changes from anterior posterior discectomy fusion at L5-S1. Alignment is normal. Hardware appears to be intact. IMPRESSION: Postop changes from discectomy fusion at L5-S1. Dictated by: Dictated on workstation # [id number]
--- NOTE | 2018-03-23 10:15 | Anesthesia-General Post-Op ---
General Patient Condition Mental Status/LOC: Same as Preop Cardiovascular: Satisfactory Nausea/Vomiting: Absent Respiratory: Satisfactory Pain: Controlled Complications: Absent Post Op Complications Complications None Follow Up Care/Instructions Patient Instructions None needed. Anesthesia/Patient Condition Patient Condition Patient is doing well, no complaints, stable vital signs, no apparent adverse anesthesia problems. No complications reported per nursing. LILLIANA AVALOS CRNA Mar 23, 2018 10:15
--- NOTE | 2018-03-23 10:24 | Progress Note-Hospitalist ---
JIM NEWMAN DO 03/23/18 1024: Subjective HPI/CC On Admission Date Seen by Provider: Mar 23, 2018 Time Seen by Provider: 09:30 CC: s/p uncomplicated lumbar spine surgery HPI: This is a 47yo[facility] clinic patient of mine for the past 14 years w/h/o asthma during URI with normal PFT, hypothyroidism and severe arthritis of osteoarthritis type with DJD of the spine who presents after an uncomplicated lumbar spine surgery. Currently she is in pain and mild hypotension so IVF of 1 liter of NS will be given. Family of her , mother and daughter are at the bedside. Checked meds and labs. Subjective/Events-last exam Patient having difficulty with the pain Tried to reassure her and comfort her Will check on pain meds that are available Checked meds and labs Review of Systems Musculoskeletal: back pain Objective Exam Vital Signs Vital Signs Date Time Temp Pulse Resp B/P (MAP) Pulse Ox O2 Delivery O2 Flow Rate FiO2 03/23/18 16:16 98.7 86 22 137/81 (99) 98 Room Air Capillary Refill : General Appearance: WD/WN, Moderate Distress (due to pain) Respiratory: Chest Non Tender, Lungs Clear, Normal Breath Sounds, No Accessory Muscle Use, No Respiratory Distress Cardiovascular: Regular Rate, Rhythm, No Edema, No Gallop, No JVD, No Murmur, Normal Peripheral Pulses Neurologic/Psychiatric: Alert, Oriented x3, No Motor/Sensory Deficits, Normal Mood/Affect Results/Procedures Lab Laboratory Tests 03/23/18 05:25 Patient resulted labs reviewed. Assessment/Plan Assessment and Plan Assess & Plan/Chief Complaint Assessment: Severe spine impingement s/p uncomplicated spine surgery per Dr Harper POD # 1 Hypothyroidism Asthma during URI with normal PFT OA GERD Plan: Monitor lung function IS usage Pain control Diagnosis/Problems Diagnosis/Problems (1) Lumbar stenosis Status: Chronic Qualifiers: Neurogenic claudication status: without neurogenic claudication Qualified Codes: M48.061 - Spinal stenosis, lumbar region without neurogenic claudication (2) Asthma Status: Chronic Qualifiers: Asthma severity: mild Asthma persistence: intermittent Asthma complication type: unspecified Qualified Codes: J45.20 - Mild intermittent asthma, uncomplicated (3) Hypothyroidism Status: Chronic Qualifiers: Hypothyroidism type: acquired Qualified Codes: E03.9 - Hypothyroidism, unspecified (4) Arthritis Status: Chronic (5) GERD (gastroesophageal reflux disease) Status: Chronic Qualifiers: Esophagitis presence: without esophagitis Qualified Codes: K21.9 - Gastro- esophageal reflux disease without esophagitis Clinical Quality Measures DVT/VTE Risk/Contraindication: Risk Factor Score Per Nursin RFS Level Per Nursing on Admit: 3=High CINDY RODRIGUEZ MED STUDENT 03/23/18 1048: Subjective Subjective/Events-last exam Pt. states that she is experiencing significant back pain this morning She has also been experiencing nausea with no vomiting She has been using her inspirometer She has not had a bowel movement but has taken some miralax and colace She reports no other symptoms Objective Exam General Appearance: No Apparent Distress, WD/WN Respiratory: Chest Non Tender, Lungs Clear, Normal Breath Sounds, No Accessory Muscle Use, No Respiratory Distress Cardiovascular: Regular Rate, Rhythm, No Edema, No Gallop, No JVD, No Murmur, Normal Peripheral Pulses Neurologic/Psychiatric: Alert, Oriented x3, No Motor/Sensory Deficits, Normal Mood/Affect Skin: Normal Color, Warm/Dry Assessment/Plan Assessment and Plan Assess & Plan/Chief Complaint Assessment: 1) Post-operative pain 2) Nausea related to surgery Plan: 1) Continue pain control 2) Ambulate more today JIM NEWMAN DO Mar 23, 2018 10:24 CINDY RODRIGUEZ MED STUDENT Mar 23, 2018 10:48
[2018-03-23] MEDS: NS IV 1000 ML 1,000 ML IV SCH ×2 (10:52→20:41)
[2018-03-23 12:00] VITALS: BP 171/77
--- NOTE | 2018-03-23 13:49 | Physical Therapy Progress Note ---
Therapy Progress Note Pt declined therapy due to extreme fatigue following surgery. Pt stated she will get up later and walk with family to complete her exercise. KATI HARDY PT Mar 23, 2018 13:49
[2018-03-23 16:16] VITALS: BP 137/81
[2018-03-23] MEDS: POLYETHYLENE GLYCOL 17 GM (MIRALAX) PACK PO SCH (20:26)
[2018-03-23 20:45] VITALS: BP 168/86
[2018-03-24] VITALS: BP 152/83
[2018-03-24] MEDS: HYDROcodone/APAP 5 MG/325 MG (LORTAB) TAB PO PRN ×7 (00:11→21:36)
[2018-03-24 04:36] VITALS: BP 132/80
[2018-03-24 05:52] LABS: BASOPHILS % (AUTO) 0 % (0-10); EOSINOPHILS # (AUTO) 0.1 10^3/uL (0.0-0.3); EOSINOPHILS % (AUTO) 1 % (0-10); HEMATOCRIT 38 % (35-52); HEMOGLOBIN 12.4 G/DL (11.5-16.0); LYMPHOCYTES # (AUTO) 1.8 X 10^3 (1.0-4.0); LYMPHOCYTES % (AUTO) 15 % (12-44); MEAN CORPUSCULAR HEMOGLOBIN 30 PG (25-34); MEAN CORPUSCULAR HGB CONC 33 G/DL (32-36); MEAN CORPUSCULAR VOLUME 90 FL (80-99); MEAN PLATELET VOLUME 10.9 FL (7.4-10.4); MONOCYTES # (AUTO) 0.9 X 10^3 (0.0-1.0); MONOCYTES % (AUTO) 8 % (0-12); NEUTROPHILS # (AUTO) 8.9 X 10^3 (1.8-7.8); NEUTROPHILS % (AUTO) 76 % (42-75); PLATELET COUNT 244 10^3/uL (130-400); RED BLOOD COUNT 4.17 10^6/uL (4.35-5.85); RED CELL DISTRIBUTION WIDTH 13.3 % (10.0-14.5); WHITE BLOOD COUNT 11.8 10^3/uL (4.3-11.0)
--- NOTE | 2018-03-24 06:03 | Progress Note (SOAP) ---
Subjective Date Seen by a Provider: Mar 24, 2018 Time Seen by a Provider: 06:00 Subjective/Events-last exam POD #2, s/p L5-S1 AP fusion with left facetectomy Patient complains of low back pain + flatus mild pyrexia last H.S. Review of Systems General: No Chills Cardiovascular: No: Chest Pain Gastrointestinal: Nausea; No: Vomiting, Abdominal Pain Musculoskeletal: back pain; No: leg pain Neurological: No: Weakness Objective Exam Vital Signs Date Time Temp Pulse Resp B/P (MAP) Pulse Ox O2 Delivery O2 Flow Rate FiO2 03/24/18 04:36 100.0 77 20 132/80 (97) 93 Room Air 03/24/18 00:00 98.9 94 22 152/83 (106) 93 Room Air 03/23/18 21:00 Room Air 03/23/18 20:45 99.3 84 20 168/86 (113) 100 Room Air 03/23/18 16:16 98.7 86 22 137/81 (99) 98 Room Air 03/23/18 12:00 98.1 84 20 171/77 (108) 96 Room Air 03/23/18 09:00 Room Air 03/23/18 08:17 98.4 77 18 123/77 (92) 96 Room Air I & O 03/24/18 07:00 Intake Total 1850 ml Output Total 1900 ml Balance -50 ml Capillary Refill : General Appearance: No Apparent Distress Respiratory: No Respiratory Distress Cardiovascular: No Edema, Normal Peripheral Pulses Gastrointestinal: non tender, soft, other (No [place]'s or Feliz-Severino's ) Neurologic/Psychiatric: Alert, Oriented x3, No Motor/Sensory Deficits, Normal Mood/Affect, property claims adjuster II-XII Norm as Tested Skin: Normal Color, Warm/Dry, Other (Dressing CDI) Lymphatic: No Adenopathy Results Lab Laboratory Tests 03/24/18 05:25: White Blood Count 11.8H, Red Blood Count 4.17L, Hemoglobin 12.4, Hematocrit 38, Mean Corpuscular Volume 90, Mean Corpuscular Hemoglobin 30, Mean Corpuscular Hemoglobin Concent 33, Red Cell Distribution Width 13.3, Platelet Count 244, Mean Platelet Volume 10.9H, Neutrophils (%) (Auto) 76H, Lymphocytes (%) (Auto) 15, Monocytes (%) (Auto) 8, Eosinophils (%) (Auto) 1, Basophils (%) (Auto) 0, Neutrophils # (Auto) 8.9H, Lymphocytes # (Auto) 1.8, Monocytes # (Auto) 0.9, Eosinophils # (Auto) 0.1, Basophils # (Auto) 0.0 Assessment/Plan Assessment/Plan Assess & Plan/Chief Complaint Lumbar stenosis with radiculopathy S/P L5-S1 AP fusion with left facetectomy DC gorman Obtain UA Reinforce need for IS AMbulate Clinical Quality Measures DVT/VTE Risk/Contraindication: Risk Factor Score Per Nursin RFS Level Per Nursing on Admit: 3=High HAL [place] Mar 24, 2018 06:03
[2018-03-24 06:12] LABS: ALANINE AMINOTRANSFERASE 30 U/L (0-55); ALBUMIN 3.3 GM/DL (3.2-4.5); ALKALINE PHOSPHATASE 78 U/L (40-136); BUN/CREATININE RATIO 6; CALCIUM 8.6 MG/DL (8.5-10.1); CARBON DIOXIDE 25 MMOL/L (21-32); CHLORIDE 105 MMOL/L (98-107); CREATININE SERUM 0.67 MG/DL (0.60-1.30); GFR ESTIMATED > 60; GLUCOSE 103 MG/DL (70-105); POTASSIUM 3.3 MMOL/L (3.6-5.0); SODIUM 139 MMOL/L (135-145); TOTAL PROTEIN 6.1 GM/DL (6.4-8.2)
[2018-03-24] MEDS: NS IV 1000 ML 1,000 ML IV SCH (06:56)
[2018-03-24 08:13] VITALS: BP 159/79
[2018-03-24] MEDS: DOCUSATE SODIUM 100 MG (COLACE) CAP PO SCH ×2 (08:59→20:12)
[2018-03-24] MEDS: BISACODYL 5 MG (DULCOLAX) TABLET PO SCH (08:59)
[2018-03-24] MEDS: BACLOFEN 10 MG (LIORESAL) TAB PO PRN (08:59)
[2018-03-24] MEDS: MULTIVIT W/MINERALS TAB (THERAGRAN M) PO SCH (09:04)
--- NOTE | 2018-03-24 10:42 | Progress Note-Hospitalist ---
Subjective HPI/CC On Admission Date Seen by Provider: Mar 24, 2018 Time Seen by Provider: 10:30 CC: s/p uncomplicated lumbar spine surgery HPI: This is a 47yoWF clinic patient of mine for the past 14 years w/h/o asthma during URI with normal PFT, hypothyroidism and severe arthritis of osteoarthritis type with DJD of the spine who presents after an uncomplicated lumbar spine surgery. Currently she is in pain and mild hypotension so IVF of 1 liter of NS will be given. Family of her , mother and daughter are at the bedside. Checked meds and labs. Subjective/Events-last exam Patient doing much better Had a shower and ate breakfast and catheter has been removed No bowel movement but gas produced Pain is much better controlled after a horrible night Overall feels like she is making progress now Checked meds and labs Using incentive spirometer Review of Systems Musculoskeletal: back pain Objective Exam Vital Signs Vital Signs Date Time Temp Pulse Resp B/P (MAP) Pulse Ox O2 Delivery O2 Flow Rate FiO2 03/24/18 09:00 Room Air 03/24/18 08:13 97.1 78 18 159/79 (105) 93 Capillary Refill : General Appearance: No Apparent Distress, WD/WN Respiratory: Chest Non Tender, Lungs Clear, Normal Breath Sounds, No Accessory Muscle Use, No Respiratory Distress Cardiovascular: Regular Rate, Rhythm, No Edema, No Gallop, No JVD, No Murmur, Normal Peripheral Pulses Back: Decreased Range of Motion, Vertebral Tenderness Extremity: Normal Capillary Refill, Normal Inspection, Normal Range of Motion, Non Tender, No Calf Tenderness, No Pedal Edema Neurologic/Psychiatric: Alert, Oriented x3, No Motor/Sensory Deficits, Normal Mood/Affect Skin: Normal Color, Warm/Dry Results/Procedures Lab Laboratory Tests 03/24/18 05:25 Patient resulted labs reviewed. Assessment/Plan Assessment and Plan Assess & Plan/Chief Complaint Assessment: Severe spine impingement s/p uncomplicated spine surgery per Dr Harper POD # 2 Hypothyroidism Asthma during URI with normal PFT OA GERD Plan: Monitor lung function IS usage Pain control Diagnosis/Problems Diagnosis/Problems (1) Lumbar stenosis Status: Chronic Qualifiers: Neurogenic claudication status: without neurogenic claudication Qualified Codes: M48.061 - Spinal stenosis, lumbar region without neurogenic claudication (2) Asthma Status: Chronic Qualifiers: Asthma severity: mild Asthma persistence: intermittent Asthma complication type: unspecified Qualified Codes: J45.20 - Mild intermittent asthma, uncomplicated (3) Hypothyroidism Status: Chronic Qualifiers: Hypothyroidism type: acquired Qualified Codes: E03.9 - Hypothyroidism, unspecified (4) Arthritis Status: Chronic (5) GERD (gastroesophageal reflux disease) Status: Chronic Qualifiers: Esophagitis presence: without esophagitis Qualified Codes: K21.9 - Gastro- esophageal reflux disease without esophagitis Clinical Quality Measures DVT/VTE Risk/Contraindication: Risk Factor Score Per Nursin RFS Level Per Nursing on Admit: 3=High JIM NEWMAN DO Mar 24, 2018 10:41
[2018-03-24] MEDS ORDERED: KCL 10 MEQ TAB (MICRO K) PO NR (11:15)
[2018-03-24 12:00] VITALS: BP 164/82
--- NOTE | 2018-03-24 12:15 | Physical Therapy Daily Note ---
PT Daily Note-Current Subjective Pt reports doing OK this morning. States she did walk in hallway with FWW and last night. Pain Numeric Pain Scale: 7 Location: Soft Tissue Location Body Site: Back Comment: surgical pain abd and LB. pain med before PT Appearance Pt supine in bed sleeping upon arrival. Pt sitting up in chair eating breakfast at end of session Mental Status Patient Orientation: Person, Place, Time, Eyes Open, Situation, Normal For Age Catheter and IV. Back brace Transfers Functional [place] Measure 0=Not Assessed/NA 4=Minimal Assistance 1=Total Assistance 5=Supervision or Setup 2=Maximal Assistance 6=Modified [place] 3=Moderate Assistance 7=Complete IndependenceIRFPAI Quality Coding Scale 6 Independent with activity with or without an assistive device 5 Patient requires set up or clean up by helper. Patient completes activity by themselves 4 Supervision or touching assist (CGA). [place] provide cues , steadying assist 3 The helper provides less than half the effort to complete the activity 2 The helper provides more than half the effort to complete the activity 1 Dependent. The helper does all the effort to complete an activity 7 Patient refused to complete or attempt activity 9 The patient did not perform the activity before the current illness or injury 88 Not attempted due to Medical conditions or safety concerns Transfers (B, C, W/C) (FIM): 5 Scootin Rollin Supine to/from Sit: 5 Sit to/from Stand: 5 Verb inst for technique supine to sit log roll and sit to stand hand and feet placement. Assist required to move bedsheets, retrieve back brace and walker and don socks. Pt able to don back brace with verb inst only Weight Bearing Right Lower Extremity: Right Weight Bearing/Tolerated Left Lower Extremity: Left Weight Bearing/Tolerated Gait Training Gait (FIM): 5 Distance (FIM): 3=150 ft Distance: 400' Gait Level of Assist: 5 Gait Persons Needed: 1 Gait Assistive Device: FWW slow pace. heavily relying on FWW to begin. Able to follow instruction to correct and amb with improved posture and relying on walker less. Assessment Current Status: Good Progress Pt tolerated treatment with min increase in pain. PT Longterm Goals Longterm Goals PT Longterm Goals Time Frame: Mar 30, 2018 Transfers (B,C,W/C) (FIM): 7 Gait (FIM): 7 Gait distance (FIM): 3=150 ft Distance: >250 Gait Level of Assist: 5 Gait Assistive Device: FWW PT Plan Problem List Problem List: Activity Tolerance, Functional Strength, Gait, Transfer, Bed Mobility Treatment/Plan Treatment Plan: Continue Plan of Care Treatment Plan: Bed Mobility, Education, Functional Strength, Gait, Safety, Therapeutic Exercise, Transfers Treatment Duration: Mar 30, 2018 Frequency: 11 times per week Estimated Hrs Per Day: .5 hour per day Patient and/or Family Agrees t: Yes Safety Risks/Education Patient Education: Gait Training, Transfer Techniques, Reviewed Don/Doff Brace , Safety Issues Teaching Recipient: Patient Teaching Methods: Demonstration, Discussion Response to Teaching: Verbalize Understanding, Return Demonstration Discharge Recommendations Plan Continue per POC to achieve goals. Needs to attempt stair training before discharging from hospital and returning home. Pt verbalizing agreement to attempt this afternoon if feeling up to it. Time/GCodes Time In: 912 Time Out: 937 Total Billed Treatment Time: 25 Total Billed Treatment 1 Visit GT 10 min FA 15 min MADYSON WARREN LIQUID CHLORINE OPERATOR Mar 24, 2018 12:15
[2018-03-24] MEDS ORDERED: FLUTICASONE NASAL SPRAY (FLONASE) 16 GM BTL NS PRN (12:45)
--- NOTE | 2018-03-24 15:00 | Physical Therapy Daily Note ---
PT Daily Note-Current Subjective Agreeable to PT. Reports she is apprehensive about trying the stairs. Post visit, pt reports she feels like she can do the stairs at home! Mental Status Patient Orientation: Person, Place, Time, Situation Transfers Functional [place] Measure 0=Not Assessed/NA 4=Minimal Assistance 1=Total Assistance 5=Supervision or Setup 2=Maximal Assistance 6=Modified [place] 3=Moderate Assistance 7=Complete IndependenceIRFPAI Quality Coding Scale 6 Independent with activity with or without an assistive device 5 Patient requires set up or clean up by helper. Patient completes activity by themselves 4 Supervision or touching assist (CGA). [place] provide cues , steadying assist 3 The helper provides less than half the effort to complete the activity 2 The helper provides more than half the effort to complete the activity 1 Dependent. The helper does all the effort to complete an activity 7 Patient refused to complete or attempt activity 9 The patient did not perform the activity before the current illness or injury 88 Not attempted due to Medical conditions or safety concerns Transfers (B, C, W/C) (FIM): 6 (takes extra time) Rollin Supine to/from Sit: 6 (log roll technique, uses bedrail heavily; takes extra time) Sit to/from Stand: 7 skilled cues on technique for log roll. Able to complete without assist. Weight Bearing Right Lower Extremity: Right Weight Bearing/Tolerated Left Lower Extremity: Left Weight Bearing/Tolerated Gait Training Gait (FIM): 5 Distance (FIM): 3=150 ft Distance: 200 ft x 2 Gait Level of Assist: 5 (SBA for safety) Gait Assistive Device: FWW Pt able to don brace; wore brace for upright mobility; pt also toileted with SBA for all. Stair Training Stair Training: Handrails/: 1 handrail Up/Down 8 steps with handrail with SBA. Demonstrated to pt how to use her walker in the event she does not have a handrail. Safe on stairs. Assessment Current Status: Good Progress Pt is slow with all mobility but able to complete without assist. Making good functional progress; did well on the stairs. PT Senior Living Goals Pipe Covering Molder Goals PT Pipe Covering Molder Goals Time Frame: Mar 30, 2018 Transfers (B,C,W/C) (FIM): 7 Gait (FIM): 7 Gait distance (FIM): 3=150 ft Distance: >250 Gait Level of Assist: 5 Gait Assistive Device: FWW PT Plan Problem List Problem List: Activity Tolerance, Functional Strength, Safety Treatment/Plan Treatment Plan: Continue Plan of Care Treatment Plan: Bed Mobility, Education, Functional Strength, Gait, Safety, Therapeutic Exercise, Transfers Treatment Duration: Mar 30, 2018 Frequency: 11 times per week Estimated Hrs Per Day: .5 hour per day Patient and/or Family Agrees t: Yes Safety Risks/Education Patient Education: Transfer Techniques, Steps Teaching Recipient: Patient Teaching Methods: Demonstration Response to Teaching: Return Demonstration Time/GCodes Time In: 1350 Time Out: 1421 Total Billed Treatment Time: 31 Total Billed Treatment visit FA 31 JCARLOS FORMAN PT Mar 24, 2018 15:00
[2018-03-24 15:40] VITALS: BP 149/73
[2018-03-24] MEDS: KCL 10 MEQ TAB (MICRO K) PO SCH (17:09)
[2018-03-24 19:15] VITALS: BP 146/74
[2018-03-24] MEDS: POLYETHYLENE GLYCOL 17 GM (MIRALAX) PACK PO SCH (20:12)
[2018-03-24] MEDS ORDERED: MONTELUKAST 10 MG (SINGULAIR) TAB PO SCH (21:00)
[2018-03-25 00:04] VITALS: BP 159/88
[2018-03-25] MEDS: HYDROcodone/APAP 5 MG/325 MG (LORTAB) TAB PO PRN ×4 (01:44→14:01)
[2018-03-25] MEDS: BACLOFEN 10 MG (LIORESAL) TAB PO PRN ×2 (01:44→10:02)
[2018-03-25 04:05] VITALS: BP 139/73
[2018-03-25 05:14] LABS: BILIRUBIN,URINE NEGATIVE (NEGATIVE); COLOR,URINE YELLOW; GLUCOSE, URINE (UA) NEGATIVE (NEGATIVE); KETONES,URINE 2+ (NEGATIVE); LEUKOCYTE ESTERASE ,URINE NEGATIVE (NEGATIVE); NITRITE,URINE NEGATIVE (NEGATIVE); PH,URINE 7 (5-9); PROTEIN,URINE 1+ (NEGATIVE); UROBILINOGEN,URINE 1 MG/DL (NORMAL)
[2018-03-25 05:28] LABS: BACTERIA,URINE TRACE /HPF; CLARITY,URINE SL CLOUDY
[2018-03-25] MEDS: KCL 10 MEQ TAB (MICRO K) PO SCH (06:17)
[2018-03-25] MEDS: PANTOPRAZOLE 40 MG (PROTONIX) TAB PO SCH (06:17)
[2018-03-25] MEDS ORDERED: LEVOTHYROXINE 100 MCG (LEVOTHROID) TAB PO SCH (06:30)
[2018-03-25] MEDS ORDERED: CYANOCOBALAMIN 1,000 MCG (VITAMIN B-12) TABLET PO SCH (07:00)
[2018-03-25 07:28] LABS: BASOPHILS % (AUTO) 0 % (0-10); EOSINOPHILS # (AUTO) 0.1 10^3/uL (0.0-0.3); EOSINOPHILS % (AUTO) 1 % (0-10); HEMATOCRIT 36 % (35-52); HEMOGLOBIN 11.9 G/DL (11.5-16.0); LYMPHOCYTES # (AUTO) 1.5 X 10^3 (1.0-4.0); LYMPHOCYTES % (AUTO) 17 % (12-44); MEAN CORPUSCULAR HEMOGLOBIN 29 PG (25-34); MEAN CORPUSCULAR HGB CONC 33 G/DL (32-36); MEAN CORPUSCULAR VOLUME 90 FL (80-99); MEAN PLATELET VOLUME 10.4 FL (7.4-10.4); MONOCYTES # (AUTO) 0.7 X 10^3 (0.0-1.0); MONOCYTES % (AUTO) 8 % (0-12); NEUTROPHILS # (AUTO) 6.4 X 10^3 (1.8-7.8); NEUTROPHILS % (AUTO) 73 % (42-75); PLATELET COUNT 285 10^3/uL (130-400); RED BLOOD COUNT 4.05 10^6/uL (4.35-5.85); WHITE BLOOD COUNT 8.7 10^3/uL (4.3-11.0)
[2018-03-25 07:53] LABS: ALANINE AMINOTRANSFERASE 23 U/L (0-55); ALBUMIN 3.3 GM/DL (3.2-4.5); ALKALINE PHOSPHATASE 92 U/L (40-136); BUN/CREATININE RATIO 8; CALCIUM 9.1 MG/DL (8.5-10.1); CARBON DIOXIDE 24 MMOL/L (21-32); CHLORIDE 103 MMOL/L (98-107); CREATININE SERUM 0.71 MG/DL (0.60-1.30); GFR ESTIMATED > 60; GLUCOSE 97 MG/DL (70-105); POTASSIUM 3.6 MMOL/L (3.6-5.0); SODIUM 139 MMOL/L (135-145); TOTAL PROTEIN 6.1 GM/DL (6.4-8.2)
[2018-03-25 08:00] VITALS: BP 121/66
[2018-03-25] MEDS ORDERED: ASCORBIC ACID (VIT C) 500 MG TABLET PO SCH (08:00)
[2018-03-25] MEDS: BISACODYL 5 MG (DULCOLAX) TABLET PO SCH (08:23)
[2018-03-25] MEDS: DOCUSATE SODIUM 100 MG (COLACE) CAP PO SCH (08:23)
[2018-03-25] MEDS: MULTIVIT W/MINERALS TAB (THERAGRAN M) PO SCH (08:23)
[2018-03-25] MEDS ORDERED: NON-FORMULARY MEDICATION 1 EA EA (Cyanocobalamin (Vitamin B-12) (Vitamin B-12) 5,000 MCG) PO SCH (09:00)
[2018-03-25] MEDS ORDERED: NON-FORMULARY MEDICATION 1 EA EA (Cetirizine HCl 10 MG) PO SCH (09:00)
[2018-03-25] MEDS ORDERED: NON-FORMULARY MEDICATION 1 EA EA (Citalopram Hydrobromide (Celexa) 40 MG) PO SCH (09:00)
[2018-03-25] MEDS ORDERED: NON-FORMULARY MEDICATION 1 EA EA (Omeprazole 40 MG) PO SCH (09:00)
[2018-03-25] MEDS ORDERED: LORATADINE (CLARITIN) 10 MG TAB PO SCH (09:00)
[2018-03-25] MEDS ORDERED: BISACODYL 10 MG SUPP (DULCOLAX) PR NR (10:00)
--- NOTE | 2018-03-25 10:22 | Progress Note-Hospitalist ---
Subjective HPI/CC On Admission Date Seen by Provider: Mar 25, 2018 Time Seen by Provider: 09:30 CC: s/p uncomplicated lumbar spine surgery HPI: This is a 47yo[facility] clinic patient of mine for the past 14 years w/h/o asthma during URI with normal PFT, hypothyroidism and severe arthritis of osteoarthritis type with DJD of the spine who presents after an uncomplicated lumbar spine surgery. Currently she is in pain and mild hypotension so IVF of 1 liter of NS will be given. Family of her , mother and daughter are at the bedside. Checked meds and labs. Subjective/Events-last exam Patient doing much better today Pain much improved No BM yet Using IS Lungs are clear Checked meds and labs Review of Systems Gastrointestinal: Constipation Musculoskeletal: back pain Objective Exam Vital Signs Vital Signs Date Time Temp Pulse Resp B/P (MAP) Pulse Ox O2 Delivery O2 Flow Rate FiO2 03/25/18 08:00 96.0 68 16 121/66 (84) 96 Room Air Capillary Refill : General Appearance: No Apparent Distress, WD/WN Respiratory: Chest Non Tender, Lungs Clear, Normal Breath Sounds, No Accessory Muscle Use, No Respiratory Distress Cardiovascular: Regular Rate, Rhythm, No Edema, No Gallop, No JVD, No Murmur, Normal Peripheral Pulses Gastrointestinal: Non Tender, Soft Extremity: Normal Capillary Refill, Normal Inspection, Normal Range of Motion, Non Tender, No Calf Tenderness, No Pedal Edema Neurologic/Psychiatric: Alert, Oriented x3, No Motor/Sensory Deficits, Normal Mood/Affect Results/Procedures Lab Laboratory Tests 03/25/18 06:47 Patient resulted labs reviewed. Assessment/Plan Assessment and Plan Assess & Plan/Chief Complaint Assessment: Severe spine impingement s/p uncomplicated spine surgery per Dr Harper POD # 3 Hypothyroidism Asthma during URI with normal PFT OA GERD Post op constipation Plan: Monitor lung function IS usage Pain control BM regimen with supp and SSE Diagnosis/Problems Diagnosis/Problems (1) Lumbar stenosis Status: Chronic Qualifiers: Neurogenic claudication status: without neurogenic claudication Qualified Codes: M48.061 - Spinal stenosis, lumbar region without neurogenic claudication (2) Asthma Status: Chronic Qualifiers: Asthma severity: mild Asthma persistence: intermittent Asthma complication type: unspecified Qualified Codes: J45.20 - Mild intermittent asthma, uncomplicated (3) Hypothyroidism Status: Chronic Qualifiers: Hypothyroidism type: acquired Qualified Codes: E03.9 - Hypothyroidism, unspecified (4) Arthritis Status: Chronic (5) GERD (gastroesophageal reflux disease) Status: Chronic Qualifiers: Esophagitis presence: without esophagitis Qualified Codes: K21.9 - Gastro- esophageal reflux disease without esophagitis (6) Constipation Status: Acute Qualifiers: Constipation type: slow transit constipation Qualified Codes: K59.01 - Slow transit constipation Clinical Quality Measures DVT/VTE Risk/Contraindication: Risk Factor Score Per Nursin RFS Level Per Nursing on Admit: 3=High JIM NEWMAN DO Mar 25, 2018 10:22
[2018-03-25 10:44] LABS: BILIRUBIN,URINE NEGATIVE (NEGATIVE); CLARITY,URINE CLEAR; COLOR,URINE YELLOW; GLUCOSE, URINE (UA) NEGATIVE (NEGATIVE); KETONES,URINE 3+ (NEGATIVE); LEUKOCYTE ESTERASE ,URINE NEGATIVE (NEGATIVE); NITRITE,URINE NEGATIVE (NEGATIVE); PH,URINE 7 (5-9); PROTEIN,URINE 1+ (NEGATIVE); UROBILINOGEN,URINE NORMAL (NORMAL)
[2018-03-25 11:02] LABS: BACTERIA,URINE TRACE /HPF; RBC,URINE RARE /HPF; WBC,URINE 0-2 /HPF
--- NOTE | 2018-03-25 11:24 | Physical Therapy Progress Note ---
Therapy Progress Note Pt has been up independently and walked hospital floor twice this morning before PT arrived. PT has no concerns with Pt performing functional activities and will DC. KATI HARDY PT Mar 25, 2018 11:24
[2018-03-25 12:11] VITALS: BP 131/74
[2018-03-25] MEDS ORDERED: BACL10TA PO (13:06)
[2018-03-25] MEDS ORDERED: ACHD5005 PO (13:06)
--- NOTE | 2018-03-25 13:09 | Discharge Inst-Surgical ---
Discharge Inst-Surgical Depart Medication/Instructions New, Converted or Re-Newed RX: RX on Chart Patient Instructions No lifting >10 lbs. Do not submerge incisions, may shower Call with questions or concerns Patient to follow up with Dr. Harper in 2 weeks Activity Activity as Tolerated: No Activity Instructions: Avoid Pulling & Pushing, Avoid Stress to Incision Driving Instructions: No Driving for 2 Weeks Incentive Spirometry: Every 2 Hours While Awake, For 2 weeks Diet Discharge Diet: No Restrictions If Any Problems/Questions/Issu: Contact Your Physician, Go to Emergency Room Skin/Wound Care Infection Signs and Symptoms: Increased Redness, Foul Odor of Wound, Increased Drainage, Increased Swelling, Temperature Above 101 F Operative Area Clean and Dry: Keep Incision Clean/Dry Steristrips: Leave Steristrips Intact HAL NJ Mar 25, 2018 13:09
--- NOTE | 2018-03-25 13:14 | Discharge Summary ---
Diagnosis/Chief Complaint Date of Admission Mar 22, 2018 at 05:59 Date of Discharge Discharge Date: Mar 25, 2018 Discharge Time: 13:10 Admission Diagnosis Admission Diagnosis Lumbar stenosis with radiculopathy Discharge Diagnosis Lumbar stenosis with radiculopathy Reason Hospital Visit lumbar stenosis with radiculopathy. Discharge Summary Hospital Course Hospital Course Patient admitted for scheduled surgical intervention. Patient underwent a L5-S1 AP fusion with left facetectomy. Post-operatively the patient progressed well. She tolerated PT and her pain was well controlled with oral narcotics. She had a BM on POD #3, and was felt to be stable for discharge home. Labs Laboratory Tests 03/23/18 05:25: White Blood Count 13.4H, Red Blood Count 3.95L, Mean Platelet Volume 10.5H, Potassium Level 3.4L, Chloride Level 108H, Glucose Level 115H, Total Protein 5.9L 03/24/18 05:25: White Blood Count 11.8H, Red Blood Count 4.17L, Mean Platelet Volume 10.9H, Potassium Level 3.3L, Total Protein 6.1L, Neutrophils (%) (Auto) 76H, Neutrophils # (Auto) 8.9H, Blood Urea Nitrogen 4L, Aspartate Amino Transf (AST/ SGOT) 35H 03/25/18 05:00: Urine Specific [place] 1.010L, Urine Protein 1+H, Urine Ketones 2+H, Urine RBC ( Auto) 3+H, Urine RBC 2-5H, Urine Squamous Epithelial Cells 10-25H, Urine Mucus SMALLH 03/25/18 06:47: Red Blood Count 4.05L, Total Protein 6.1L, Blood Urea Nitrogen 6L 03/25/18 10:30: Urine Specific [place] 1.010L, Urine Protein 1+H, Urine Ketones 3+H, Urine RBC ( Auto) 4+H, Urine Mucus SMALLH Procedures L5-S1 AP fusion with left facetectomy Consultations Dr. Plaza Discharge Physical Examination Allergies: Coded Allergies: No Known Drug Allergies (Unverified , 03/22/18) Vitals & I&Os Vital Signs Date Time Temp Pulse Resp B/P (MAP) Pulse Ox O2 Delivery O2 Flow Rate FiO2 03/25/18 12:11 97.3 77 16 131/74 (93) 97 Room Air General Appearance: Alert, Oriented X3 Respiratory: Normal Air Movement Cardiovascular: Regular Rate Abdominal: Soft, Other (No Feliz-Severino's or [place]'s sign) Extremities: No Edema, Normal Pulses Neuro: Strength at 5/5 X4 Ext, Normal Tone, Sensation Intact, Cranial Nerves 3- 12 NL Discharge Home Medications Reviewed and agree with Discharge Medication list on patient's Discharge Instruction sheet Instructions to Patient/Family Please see electronic discharge instructions given to patient. Clinical Quality Measures DVT/VTE Risk/Contraindication: Risk Factor Score Per Nursin RFS Level Per Nursing on Admit: 3=High HAL NJ Mar 25, 2018 13:14
[2018-03-25 16:00] VITALS: BP 153/72
[2018-03-25 16:55] VITALS: BP 153/72
== END 2018-03-25 16:55 | disposition home or self-care (01) | DRG 455 ==
LOC: 4TH 05:59 → SURG 06:00 → 4TH 10:50
PROVIDERS: ADMIT Orthopaedic Surgery Orthopaedic Surgery of the Spine; ATTEND Internal Medicine
PROC: 0SG3071 Fusion of Lumbosacral Joint with Autologous Tissue Substitute, Posterior Approach, Posterior Column, Open Approach (ICD-10-PCS; 2018-03-22)
PROC: 0SG30A0 Fusion of Lumbosacral Joint with Interbody Fusion Device, Anterior Approach, Anterior Column, Open Approach (ICD-10-PCS; principal; 2018-03-22 07:29)
DX: M48.061 Spinal stenosis, lumbar region without neurogenic claudication (principal); M51.16 Intervertebral disc disorders with radiculopathy, lumbar region; M43.00 Spondylolysis, site unspecified; J45.20 Mild intermittent asthma, uncomplicated; K21.9 Gastro-esophageal reflux disease without esophagitis; M19.91 Primary osteoarthritis, unspecified site; E03.9 Hypothyroidism, unspecified; F41.9 Anxiety disorder, unspecified; I95.9 Hypotension, unspecified; N80.9 Endometriosis, unspecified; R11.0 Nausea; R50.9 Fever, unspecified; Z87.891 Personal history of nicotine dependence; K59.01 Slow transit constipation
CPT/HCPCS: 36415; 72100; 80053; 81000; 84703; 85025; 85027; 86850; 86900; 86901; 94664

== ENCOUNTER → 2018-07-09 | Outpatient (CLI) | payer OTHER ==
[~2018-07-09] MED LIST changes: +ACHD5005 PO; +BACL10TA PO; +FLUT16SP22 NS
--- NOTE | 2018-07-12 10:01 | Diagnostic Imaging Report ---
EXAMINATION: Bilateral mammograms with CAD. INDICATION: Screening. COMPARISON: 05/13/2017 back through 03/12/2012. FINDINGS: There are scattered fibroglandular densities bilaterally. There is a nodular density in the medial aspect of the right breast. This appears slightly more prominent on today's examination. There is no other dominant mass, spiculated lesion, or suspicious calcification identified. There are a few benign type calcifications. The skin, nipples, and axillae are unremarkable. IMPRESSION: The nodular density in the medial aspect of the right breast appears slightly more prominent on today's examination. Further evaluation with spot compression views and, if warranted, an ultrasound would be recommended. ACR BI-RADS Category 0: Incomplete. (Needs additional imaging evaluation). Result letter will be mailed to the patient. Note: At least 10% of breast cancer is not imaged by mammography. Dictated by: Dictated on workstation # [id number]
== END ==
LOC: RAD 15:31
PROVIDERS: ATTEND Internal Medicine
DX: Z12.31 Encounter for screening mammogram for malignant neoplasm of breast (principal)
CPT/HCPCS: 77067

== ENCOUNTER → 2018-08-19 | Outpatient (CLI) | payer OTHER ==
--- NOTE | 2018-08-19 21:29 | Diagnostic Imaging Report ---
INDICATION: Left breast nodule. COMPARISON: Correlation is made with diagnostic mammogram earlier the same day and screening mammogram from 07/09/2018. EXAMINATION: Sonographic interrogation the inner right breast was performed. FINDINGS: There appears to be a cluster of cysts at the 3:30 location, 6 cm from the nipple. In aggregate, the cluster measures 7 mm x 3 mm x 5 mm. No internal vascularity is seen. No other masses are detected. IMPRESSION: Cluster of tiny cysts at the 3:30 location of right breast, correlating with the density noted mammographically. No concerning findings are identified. Patient may return to routine annual screening mammography. ACR BI-RADS Category 2: Benign findings. Result letter will be mailed to the patient. Note: At least 10% of breast cancer is not imaged by mammography. Dictated by: Dictated on workstation # [id number]
--- NOTE | 2018-08-19 22:45 | Diagnostic Imaging Report ---
INDICATION: Right breast density. Patient presents for additional views. Correlation is made with recent screening study from 07/09/2018. 2-D and 3-D unilateral right diagnostic mammography was performed including spot compression CC and ML views as well as conventional 90 degree lateral view. The current study was also evaluated with a Computer Aided Detection (CAD) system. FINDINGS: Additional views confirm the presence of a circumscribed nodular density in the inner portion of the right breast approximately 7-8 cm from the nipple. This is at approximately the 3-4 o'clock location of the right breast. No other masses are seen. No suspicious microcalcifications are seen. IMPRESSION: Circumscribed nodular density in inner right breast. Further evaluation with ultrasound is recommended and will be performed today. ACR BI-RADS Category 0: Incomplete. (Needs additional imaging evaluation). Result letter will be mailed to the patient. Note: At least 10% of breast cancer is not imaged by mammography. Dictated by: Dictated on workstation # [id number]
== END ==
LOC: RAD 08:13
PROVIDERS: ATTEND Internal Medicine
DX: N63.20 Unspecified lump in the left breast, unspecified quadrant (principal); R92.2 Inconclusive mammogram

== ENCOUNTER → 2018-11-17 | Outpatient (CLI) | payer OTHER | LOC: CARD 10:34 | PROVIDERS: ATTEND Internal Medicine | DX: I38 Endocarditis, valve unspecified (principal) | CPT/HCPCS: 93306 ==

== ENCOUNTER 2019-03-02 17:19 | Observation (INO) | payer OTHER ==
[~2019-03-02] VITALS: Ht 165 cm; Wt 95.0 kg
[~2019-03-02 17:19] MED LIST changes: -INDO50CA11 PO; -MAGN400T39 PO; +OMEP40CA27 PO; -OMEP40CA36 PO
[2019-03-02] MEDS ORDERED: NS IV 1000 ML 1,000 ML IV SCH (17:30)
[2019-03-02] MEDS ORDERED: fentaNYL INJECTION 100 MCG/2 ML AMP IVP ONE (17:30)
[2019-03-02] MEDS ORDERED: KETOROLAC 30 MG/ML VIAL IVP ONE (17:30)
--- NOTE | 2019-03-02 17:34 | ED Chest Pain ---
General Chief Complaint: Chest Pain Stated Complaint: CHEST PAIN Source: patient Exam Limitations: no limitations History of Present Illness Date Seen by Provider: Mar 02, 2019 Time Seen by Provider: 17:32 Initial Comments To ER with reports of left-sided chest pain directly behind her left breast. It is significantly worsened with any movement, bumps in the road on the way here, movement of the left arm, deep breathing. This began last night, she was seen at urgent care and had an EKG and chest x-ray done, was told to take an aspirin. She took a full dose aspirin this morning but presents with worsening pain on the way here, the bumps in the car ride were nearly intolerable. No abdominal pain. Timing/Duration: 1-2 days Severity/Quality: severe Location: central Radiation: no radiation Activities at Onset: none Prior CP/Workup: no prior chest pain ASA po EVALUATION ANALYST: Yes NTG SL EVALUATION ANALYST: No Associated Symptoms: No shortness of breath Allergies and Home Medications Allergies Coded Allergies: No Known Drug Allergies (Unverified , 03/22/18) Home Medications Ascorbic Acid 500 Mg Tablet, 500 MG PO DAILY, (Reported) Baclofen 10 Mg Tablet, 10 MG PO Q8H PRN for spasm Prescribed by: HAL NJ on 03/25/18 1306 Cetirizine HCl 10 Mg Tablet, 10 MG PO DAILY, (Reported) Citalopram Hydrobromide 40 Mg Tablet, 40 MG PO DAILY, (Reported) Cyanocobalamin (Vitamin B-12) 5,000 Mcg Tab.rapdis, 5,000 MCG PO DAILY, (Reported) Fluticasone Propionate 16 Gm [place].susp, 2 SPRAYS NS DAILY PRN for CONGESTION, (Reported) Gabapentin 300 Mg Capsule, 300 MG PO HS, (Reported) Hydrocodone Bit/Acetaminophen 1 Tab Tab, 1-2 TAB PO Q4H PRN for PAIN-MODERATE TO SEVERE Prescribed by: HAL NJ on 03/25/18 1306 Levothyroxine Sodium 100 Mcg Tablet, 100 MCG PO DAILY, (Reported) Metformin HCl 1,000 Mg Tablet, 1,000 MG PO 0800,1200, (Reported) Montelukast Sodium 10 Mg Tablet, 10 MG PO HS, (Reported) Multivits,Ca,Minerals/Iron/FA 1 Each Tablet, 1 TAB PO HS, (Reported) Omeprazole 40 Mg Capsule.dr, 40 MG PO DAILY, (Reported) Phentermine HCl 37.5 Mg Tablet, 37.5 MG PO 1200, (Reported) Patient Home Medication List Home Medication List Reviewed: Yes Review of Systems Review of Systems Constitutional: see HPI; No chills, No fever EENTM: No Symptoms Reported Respiratory: See HPI; Denies Cough; Shortness of Air (she is not short of breath but she does have pain with breathing) Cardiovascular: See HPI, Chest Pain Gastrointestinal: See HPI, Abdominal Pain Genitourinary: No Symptoms Reported Musculoskeletal: no symptoms reported Skin: no symptoms reported Psychiatric/Neurological: No Symptoms Reported Endocrine: No Symptoms Reported Hematologic/Lymphatic: No Symptoms Reported Past Awhpgyx-Ccrcfb-Jkbwip Hx Patient Social History Alcohol Beverage of Choice: Wine Former Smoker, Quit: Mar 22, 1998 Recent Foreign Travel: No Contact w/Someone Who Travel: No Recent Hopitalizations: No Immunizations Up To Date Date of Influenza Vaccine: Mar 08, 2018 Seasonal Allergies Seasonal Allergies: No Past Medical History Surgeries: Yes (D&C, [facility], ) Section, Orthopedic Respiratory: No Cardiac: No Neurological: No Female Reproductive Disorders: Endometriosis Genitourinary: No Gastrointestinal: No Gastroesophageal Reflux Musculoskeletal: Yes (stenosis) Arthritis, Chronic Back Pain Endocrine: Yes Hypothyroidsim HEENT: No Cancer: No Psychosocial: Yes Anxiety Integumentary: No Blood Disorders: No Family Medical History Myocardial infarction 19 FATHER Stroke or transient ischemic attack in mother 19 MOTHER Hypertension Physical Exam Vital Signs Vital Signs - First Documented 03/02/19 17:23 Temp 35.7 Pulse 83 Resp 22 B/P (MAP) 145/76 (99) Pulse Ox 100 O2 Delivery Room Air Capillary Refill : Height, Weight, BMI Height: 5'5.00" Weight: 190lbs. 0.0oz. [id number]; 31.6 BMI Method: General Appearance: WD/WN, Moderate Distress HEENT: PERRL/EOMI, TMs Normal Neck: Full Range of Motion, Normal Inspection Respiratory: Normal Breath Sounds, No Accessory Muscle Use, No Respiratory Distress Cardiovascular: Regular Rate, Rhythm, Normal Peripheral Pulses Gastrointestinal: Normal Bowel Sounds, Non Tender, Soft Extremity: Normal Capillary Refill, Normal Inspection Neurologic/Psychiatric: Alert, Oriented x3 Skin: Normal Color, Warm/Dry Progress/Results/Core Measures Results/Orders Lab Results Laboratory Tests Test 03/02/19 17:30 03/02/19 18:29 Range/Units White Blood Count 8.6 4.3-11.0 10^3/uL Red Blood Count 4.37 4.35-5.85 10^6/uL Hemoglobin 13.0 11.5-16.0 G/DL Hematocrit 40 35-52 % Mean Corpuscular Volume 91 80-99 FL Mean Corpuscular Hemoglobin 30 25-34 PG Mean Corpuscular Hemoglobin Concent 33 32-36 G/DL Red Cell Distribution Width 12.5 10.0-14.5 % Platelet Count 324 130-400 10^3/uL Mean Platelet Volume 10.2 7.4-10.4 FL Neutrophils (%) (Auto) 59 42-75 % Lymphocytes (%) (Auto) 31 12-44 % Monocytes (%) (Auto) 8 0-12 % Eosinophils (%) (Auto) 2 0-10 % Basophils (%) (Auto) 0 0-10 % Neutrophils # (Auto) 5.1 1.8-7.8 X 10^3 Lymphocytes # (Auto) 2.7 1.0-4.0 X 10^3 Monocytes # (Auto) 0.7 0.0-1.0 X 10^3 Eosinophils # (Auto) 0.2 0.0-0.3 10^3/uL Basophils # (Auto) 0.0 0.0-0.1 10^3/uL Prothrombin Time 13.3 12.2-14.7 SEC INR Comment 1.0 0.8-1.4 Activated Partial Thromboplast Time 30 24-35 SEC Sodium Level 142 135-145 MMOL/L Potassium Level 4.2 3.6-5.0 MMOL/L Chloride Level 105 98-107 MMOL/L Carbon Dioxide Level 26 21-32 MMOL/L Anion Gap 11 5-14 MMOL/L Blood Urea Nitrogen 16 7-18 MG/DL Creatinine 0.86 0.60-1.30 MG/DL Estimat Glomerular Filtration Rate > 60 BUN/Creatinine Ratio 19 Glucose Level 93 70-105 MG/DL Calcium Level 9.0 8.5-10.1 MG/DL Corrected Calcium 8.8 8.5-10.1 MG/DL Magnesium Level 1.7 1.6-2.4 MG/DL Total Bilirubin 0.4 0.1-1.0 MG/DL Aspartate Amino Transf (AST/SGOT) 14 5-34 U/L Alanine Aminotransferase (ALT/SGPT) 17 0-55 U/L Alkaline Phosphatase 63 40-136 U/L Myoglobin 45.8 10.0-92.0 NG/ML Troponin I < 0.028 <0.028 NG/ML C-Reactive Protein High Sensitivity 0.34 0.00-0.50 MG/DL B-Type Natriuretic Peptide 19.7 <100.0 PG/ML Total Protein 7.0 6.4-8.2 GM/DL Albumin 4.2 3.2-4.5 GM/DL Lipase 21 8-78 U/L My Orders Orders - HELENA GARCIA TACTICAL DEBRIEFER Cbc With Automated Diff (03/02/19 17:30) Magnesium (03/02/19 17:30) Chest 1 View, Ap/Pa Only (03/02/19 17:30) Cardiac Profile 1 (03/02/19 17:30) Comprehensive Metabolic Panel (03/02/19 17:30) Myoglobin Serum (03/02/19 17:30) Protime With Inr (03/02/19 17:30) Partial Thromboplastin Time (03/02/19 17:30) O2 (03/02/19 17:30) Monitor-Rhythm Ecg Trace Only (03/02/19 17:30) Lipid Panel (03/03/19 06:00) Ed Iv/Invasive Line Start (03/02/19 17:30) BNP (03/02/19 17:30) Ketorolac Injection (Toradol Injection) (03/02/19 17:30) Ns Iv 1000 Ml (Sodium Chloride 0.9%) (03/02/19 17:30) Fentanyl Injection (Sublimaze Injection (03/02/19 17:30) Ct Angio Chest W (03/02/19 17:44) Iohexol Injection (Omnipaque 350 Mg/Ml 1 (03/02/19 18:00) Received Contrast (Hold Metformin- Contr (03/02/19 18:00) Ns (Ivpb) (Sodium Chloride 0.9% Ivpb Bag (03/02/19 18:00) Lipase (03/02/19 18:20) Erythrocyte Sedimentation Rate (03/02/19 18:20) Hs C Reactive Protein (03/02/19 18:20) Medications Given in ED Current Medications Medications Dose Ordered Sig/Kim Route Start Time Stop Time Status Last Admin Dose Admin Fentanyl Citrate 50 mcg ONCE ONCE IVP 03/02/19 17:30 03/02/19 17:31 DC 03/02/19 17:49 50 MCG Iohexol 150 ml ONCE ONCE IV 03/02/19 18:00 03/02/19 18:01 DC 03/02/19 18:20 100 ML Ketorolac Tromethamine 30 mg ONCE ONCE IVP 03/02/19 17:30 03/02/19 17:31 DC 03/02/19 17:49 30 MG Sodium Chloride 100 ml ONCE ONCE IV 03/02/19 18:00 03/02/19 18:01 DC 03/02/19 18:21 80 ML Vital Signs/I&O 03/02/19 03/02/19 03/02/19 03/02/19 17:23 17:37 17:49 17:49 Temp 35.7 35.7 35.7 Pulse 83 Resp 22 B/P (MAP) 145/76 (99) Pulse Ox 100 O2 Delivery Room Air Room Air Departure Communication (Admissions) Time/Spoke to Admitting Phy: 18:[address] Plaza, patient's pain is down to 5 out of 10 after 50 g of fentanyl and 30 mg of Toradol, pain was 10 out of 10 on arrival. She denies any recent respiratory illnesses or known medical problems. Discussed the case with Dr. Plaza, we'll admit observation, repeat chest x-ray in the lateral decubitus position tomorrow, Toradol, insulin spirometry and breathing treatments. Impression Primary Impression: Pleurisy with effusion Disposition: ADMITTED INPATIENT Condition: Stable Admissions Decision to Admit Reason: Admit from ER (General) Decision to Admit/Date: Mar 02, 2019 Time/Decision to Admit Time: 18:41 Departure-Patient Inst. Referrals: JIM PLAZA DO (PCP/Family) Primary Care Physician HELENA GARCIA APRN Mar 02, 2019 17:34
[2019-03-02 17:35] LABS: BASOPHILS % (AUTO) 0 % (0-10); EOSINOPHILS # (AUTO) 0.2 10^3/uL (0.0-0.3); EOSINOPHILS % (AUTO) 2 % (0-10); HEMATOCRIT 40 % (35-52); LYMPHOCYTES # (AUTO) 2.7 X 10^3 (1.0-4.0); LYMPHOCYTES % (AUTO) 31 % (12-44); MEAN CORPUSCULAR HEMOGLOBIN 30 PG (25-34); MEAN CORPUSCULAR HGB CONC 33 G/DL (32-36); MEAN CORPUSCULAR VOLUME 91 FL (80-99); MEAN PLATELET VOLUME 10.2 FL (7.4-10.4); MONOCYTES # (AUTO) 0.7 X 10^3 (0.0-1.0); MONOCYTES % (AUTO) 8 % (0-12); NEUTROPHILS # (AUTO) 5.1 X 10^3 (1.8-7.8); NEUTROPHILS % (AUTO) 59 % (42-75); PLATELET COUNT 324 10^3/uL (130-400); RED CELL DISTRIBUTION WIDTH 12.5 % (10.0-14.5); WHITE BLOOD COUNT 8.6 10^3/uL (4.3-11.0)
[2019-03-02 17:46] LABS: PROTHROMBIN TIME PATIENT 13.3 SEC (12.2-14.7)
[2019-03-02 17:53] LABS: ALANINE AMINOTRANSFERASE 17 U/L (0-55); ALBUMIN 4.2 GM/DL (3.2-4.5); ALKALINE PHOSPHATASE 63 U/L (40-136); BILIRUBIN,TOTAL 0.4 MG/DL (0.1-1.0); BUN/CREATININE RATIO 19; CARBON DIOXIDE 26 MMOL/L (21-32); CHLORIDE 105 MMOL/L (98-107); CREATININE SERUM 0.86 MG/DL (0.60-1.30); GFR ESTIMATED > 60; GLUCOSE 93 MG/DL (70-105); MAGNESIUM 1.7 MG/DL (1.6-2.4); POTASSIUM 4.2 MMOL/L (3.6-5.0); SODIUM 142 MMOL/L (135-145)
[2019-03-02] MEDS ORDERED: HOLD METFORMIN - RECEIVED CONTRAST 20 ML VIAL IV SCH (18:00)
[2019-03-02] MEDS ORDERED: IOHEXOL 350 MG/ML 150 ML (OMNIPAQUE 350) VIAL IV ONE (18:00)
[2019-03-02] MEDS ORDERED: NS 100 ML (IVPB) BAG IV ONE (18:00)
--- NOTE | 2019-03-02 18:04 | Diagnostic Imaging Report ---
INDICATION: Chest pain. COMPARISON: None. FINDINGS: Single view of the chest demonstrates clear lungs bilaterally. The heart is normal. There is no pneumothorax. Osseous structures are normal . IMPRESSION: Negative chest. Dictated by: Dictated on workstation # [id number]
--- NOTE | 2019-03-02 18:35 | Diagnostic Imaging Report ---
PROCEDURE: CT angiography of the chest with contrast. TECHNIQUE: Multiple contiguous axial images were obtained through the chest after uneventful bolus administration of intravenous contrast. 3D reconstructed CTA MIP acquisitions were also performed. Auto Exposure Controls were utilized during the CT exam to meet ALARA standards for radiation dose reduction. INDICATION: Left-sided chest pain since Thursday. FINDINGS: There are no prior CTA chest examinations available for comparison. The plain film examination of the chest performed in conjunction with this study failed to show any sign of an acute cardiopulmonary abnormality. The heart size is at the upper limits of normal. There are no coronary artery calcifications noted. The aorta is not abnormally dilated and there is no sign of dissection. There is no defect within the pulmonary arteries to indicate a pulmonary embolus. There is a very small amount of fluid in the left lung base. This measures 7.5 mm in maximum depth. There is also mild dependent atelectasis in both lung bases. The lungs are otherwise clear. There is no mediastinal or hilar adenopathy. The thyroid gland was not well visualized. There is no obvious breast mass. The sections through the upper abdomen failed to show any sign of an acute abnormality. The bone windows are unremarkable for a fracture or for a destructive lesion. IMPRESSION: There is a small amount of fluid in the left lung base. This is nonspecific. There is no acute cardiopulmonary abnormality noted, otherwise. In particular, there is no sign of a dissection or of a pulmonary embolus. Dictated by: Dictated on workstation # [id number]
[2019-03-02 19:35] VITALS: BP 128/114
[2019-03-02 19:55] VITALS: BP 147/89
--- NOTE | 2019-03-02 19:55 | NUR ---
GEE BOTELLO admitted to room 411-1, with an admitting diagnosis of Pleurisy with Pleural Effusion, on 03/02/19 from ED via wheelchair, accompanied by staff. GEE BOTELLO introduced to surroundings, call light, bed controls, phone, TV, temperature control, lights, meal times, smoking policy, visitor policy, side rail policy, bathrooms and showers. Patient Rights given to patient in the handbook. GEE BOTELLO verbalizes understanding that [facility] is not responsible for the loss or damage to any personal effects or valuables that are kept in the patients posession during their hospitalization.
[2019-03-02 20:05] VITALS: BP 147/89
[2019-03-02] MEDS ORDERED: CATHETER FLUSH 10 ML SYR IV PRN (20:15)
[2019-03-02] MEDS ORDERED: fentaNYL INJECTION 100 MCG/2 ML AMP IV PRN (20:15)
[2019-03-02] MEDS ORDERED: ONDANSETRON 4 MG/2 ML (SDV) Z0FRAN IV PRN (20:15)
[2019-03-02] MEDS ORDERED: ALPRAZolam 0.5 MG (XANAX) TAB PO PRN (20:15)
[2019-03-02] MEDS ORDERED: KETOROLAC 15 MG/ML VIAL IV PRN (20:15)
[2019-03-02] MEDS: CATHETER FLUSH 10 ML SYR IV SCH (22:00)
[2019-03-02] MEDS ORDERED: RT-ALBUTEROL/IPRATROPIUM 3 ML (DUONEB) VIAL INH PRN (22:15)
[2019-03-03 00:18] VITALS: BP 139/67
[2019-03-03 00:19] VITALS: BP 139/67
[2019-03-03 04:25] VITALS: BP 135/65
[2019-03-03] MEDS ORDERED: LEVOTHYROXINE 100 MCG (LEVOTHROID) TAB ONE (04:36)
[2019-03-03] MEDS: CATHETER FLUSH 10 ML SYR IV SCH (06:00)
[2019-03-03 06:26] LABS: BASOPHILS % (AUTO) 0 % (0-10); EOSINOPHILS # (AUTO) 0.1 10^3/uL (0.0-0.3); EOSINOPHILS % (AUTO) 2 % (0-10); HEMATOCRIT 39 % (35-52); HEMOGLOBIN 12.8 G/DL (11.5-16.0); LYMPHOCYTES # (AUTO) 1.6 X 10^3 (1.0-4.0); LYMPHOCYTES % (AUTO) 28 % (12-44); MEAN CORPUSCULAR HEMOGLOBIN 30 PG (25-34); MEAN CORPUSCULAR HGB CONC 33 G/DL (32-36); MEAN CORPUSCULAR VOLUME 91 FL (80-99); MEAN PLATELET VOLUME 10.5 FL (7.4-10.4); MONOCYTES # (AUTO) 0.5 X 10^3 (0.0-1.0); MONOCYTES % (AUTO) 9 % (0-12); NEUTROPHILS # (AUTO) 3.4 X 10^3 (1.8-7.8); NEUTROPHILS % (AUTO) 61 % (42-75); PLATELET COUNT 287 10^3/uL (130-400); RED CELL DISTRIBUTION WIDTH 12.7 % (10.0-14.5); WHITE BLOOD COUNT 5.6 10^3/uL (4.3-11.0)
[2019-03-03 06:41] LABS: CHOLESTEROL 158 MG/DL (< 200); HDL CHOLESTEROL 56 MG/DL (40-60); TRIGLYCERIDES 77 MG/DL (<150); VLDL CHOLESTEROL 15 MG/DL (5-40)
[2019-03-03 08:12] VITALS: BP 143/65
--- NOTE | 2019-03-03 08:17 | History & Physical ---
History of Present Illness HPI/Chief Complaint Chief complaint: Left-sided chest pain HPI: This is a 48yoWF clinic Pt of mine for the past 14 years who has a PMH of asthma, recurrent bronchitis with normal PFTs and hypothyroidism who presents to the hospital ER a day after she had an Urgent Care visit for left-sided chest pain. They told her to take an Aspirin, everything was negative on the workup, but showed a little bit of fluid on the left side of the chest X-ray, so obtained an appointment with Dr. 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 Pt was worked up in the ER, CT angiogram showed no evidence of pulmonary embolism but a left-sided pleural effusion that was small in nature, so diagnosis of left-sided effusion with pleurisy was diagnosed. Dr. Kruger was updated. I went ahead and canceled her appointment with him at 11:00 today. He will see her in consultation because I did obtain an echocardiogram several months ago for some odd palpitations that only showed a trivial amount of valvular issues so he will review that and be a ble to evaluate her for any need of additional cardiac workup while she is in the hospital. My plan is to maintain Indomethacin 50 Mg TID, stop Ibuprofen, maintain Toradol while she is here since she is improved, she is having no hypoxia, labs remain normal, no evidence of any type of infection so she will go home today. Source: patient, family, RN/MD, old records Exam Limitations: no limitations Date Seen 03/03/19 Time Seen by a Provider: 08:45 Attending Physician Rachel Plaza DO PCP Rachel Plaza DO Referring Physician Date of Admission Mar 02, 2019 at 18:47 Home Medications & Allergies Home Medications Reviewed patient Home Medication Reconciliation performed by pharmacy medication reconciliations qc lab technician and/or nursing. Patients Allergies have been reviewed. Allergies Allergies Coded Allergies No Known Drug Allergies (Vyertdeqie02/5/18) Past Vlpfvwg-Jwkbxt-Jdfmio Hx Past Med/Social Hx: Reviewed Nursing Past Med/Soc Hx, Reviewed and Corrections made Patient Social History Marrital Status: Employed/Student: employed Alcohol Use: Denies Use Number of Drinks Today: Alcohol Beverage of Choice: Wine Recreational Drug Use: No Smoking Status: Never a Smoker Former Smoker, Quit: Mar 22, 1998 Recent Foreign Travel: No Contact w/other who traveled: No Recent Hopitalizations: No Recent Infectious Disease Expo: No Immunizations Up To Date Date of Influenza Vaccine: Feb 21, 2019 Seasonal Allergies Seasonal Allergies: No Past Medical History Surgeries: Section, Orthopedic Respiratory: Asthma, Pneumonia : No Female Reproductive Disorders: Endometriosis Gastrointestinal: Gastroesophageal Reflux Musculoskeletal: Arthritis, Chronic Back Pain Endocrine: Hypothyroidsim Psychosocial: Anxiety History of Blood Disorders: No Family History Myocardial infarction 19 FATHER Stroke or transient ischemic attack in mother 19 MOTHER Hypertension Review of Systems Constitutional: see HPI EENTM: no symptoms reported Respiratory: cough, dyspnea on exertion, short of breath Cardiovascular: chest pain Gastrointestinal: no symptoms reported Genitourinary: no symptoms reported Skin: no symptoms reported Psychiatric/Neurological: Anxiety All Other Systems Reviewed Negative Unless Noted: Yes Physical Exam Physical Exam Vital Signs Vital Signs - First Documented 03/02/19 03/02/19 17:23 22:05 Temp 35.7 Pulse 83 Resp 22 B/P (MAP) 145/76 (99) Pulse Ox 100 O2 Delivery Room Air FiO2 21 Capillary Refill : Less Than 3 Seconds Height, Weight, BMI Height: 5'5.00" Weight: 190lbs. 0.0oz. 86.495260ll; 34.89 BMI Method: General Appearance: No Apparent Distress, WD/WN, Moderate Distress Eyes: Bilateral Eye Normal Inspection, Bilateral Eye PERRL HEENT: PERRL/EOMI, TMs Normal Neck: Full Range of Motion, Normal Inspection Respiratory: Chest Non Tender, Normal Breath Sounds, No Accessory Muscle Use, No Respiratory Distress, Crackles (LLL) Cardiovascular: Regular Rate, Rhythm, No Edema, Normal Peripheral Pulses Gastrointestinal: Normal Bowel Sounds, Non Tender, Soft Back: Normal Inspection, No CVA Tenderness, No Vertebral Tenderness Extremity: Normal Capillary Refill, Normal Inspection Neurologic/Psychiatric: Alert, Oriented x3, No Motor/Sensory Deficits, Normal 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 Assessment/Plan Admission Diagnosis Assessment: Pleural effusion LLL Left sided pleurisy Abnormal ECHO consulting Cardiology Hypothyroidism Asthma Depression Anxiety Plan: Check CXR Lat decub Consult Dr Kruger Admission Status: Observation Diagnosis/Problems Diagnosis/Problems (1) Pleurisy with effusion Status: Acute (2) Asthma Status: Chronic (3) GERD (gastroesophageal reflux disease) Status: Chronic (4) Hypothyroidism Status: Chronic (5) Arthritis Status: Chronic Clinical Quality Measures AMI/AHF: ASA po Prior to arrival: Yes (325 MG) DVT/VTE Risk/Contraindication: Risk Factor Score Per Nursin RFS Level Per Nursing on Admit: 4+=Very High RACHEL PLAZA DO Mar 03, 2019 08:17
[2019-03-03] MEDS ORDERED: INDO50CA82 PO (08:55)
[2019-03-03] MEDS ORDERED: LEVOTHYROXINE 100 MCG (LEVOTHROID) TAB PO SCH (09:00)
--- NOTE | 2019-03-03 09:43 | Diagnostic Imaging Report ---
INDICATION: Pleural effusion and chest pain. Time of exam: 9:07 AM Comparison is made with prior chest from 03/02/2019. No pleural fluid is identified. The heart size is normal. Lungs are clear of acute infiltrates. The pulmonary vascularity is normal. There is no pneumothorax. IMPRESSION: No acute cardiopulmonary process is detected. Dictated by: Dictated on workstation # [id number]
--- NOTE | 2019-03-03 09:57 | Diagnostic Imaging Report ---
INDICATION: Pleurisy with chest pain and pleural effusion. Time of exam 9:19 AM IMPRESSION: Left side down decubitus view was performed. No free flowing pleural effusion is identified. Dictated by: Dictated on workstation # [id number]
[2019-03-03] MEDS ORDERED: MAGN400T39 PO (10:13)
--- NOTE | 2019-03-03 10:13 | NUR ---
SPOKE WITH THE PATIENT ABOUT HER MEDICATIONS. WE WENT OVER THE EXT MED HX AND SHE VERIFIED HOW SHE TAKES EACH OF THEM. SHE ALSO LISTED HER OTC MEDS.
[2019-03-03 11:29] VITALS: BP 126/69
--- NOTE | 2019-03-03 13:08 | Consultation-Cardiology ---
HPI-Cardiology Cardiology Consultation Date of Consultation 03/03/19 Date of Admission Time Seen by Provider: 13:03 Indication: chest pain HPI 48 years old lady with history of diabetes mellitus, strong family history of heart disease, started to have chest pain described it as dull in nature usually with deep inspiration and movement. Took some Advil with improvement the pain then started having pain again. Came into the emergency room and she was hospitalized. Currently she is chest pain-free. Denied any palpitation, reporting occasional episodes of feeling irregular or rapid heart beat lasting for 10-15 seconds and resolving spontaneously. No syncope or near syncopal episodes. Home Medications & Allergies Allergies: Coded Allergies: No Known Drug Allergies (Unverified , 03/22/18) Home Medication List Reviewed: Yes ASE-Lvhsks-Enpxgh Hx Patient Social History Employed/Student: employed Alcohol Use: Denies Use Recreational Drug Use: No Smoking Status: Never a Smoker Recent Foreign Travel: No Recent Infectious Disease Expo: No Recent Hopitalizations: No Immunizations Up To Date Date of Influenza Vaccine: Feb 21, 2019 Past Medical History discussed below Family Medical History Significant Family History: Hypertension Family History: Myocardial infarction 19 FATHER Stroke or transient ischemic attack in mother 19 MOTHER Review of Systems-General Review of Systems Constitutional: see HPI; No chills, No fever EENTM: see HPI, no symptoms reported Respiratory: see HPI; No cough, No dyspnea on exertion, No hemoptysis, No orthopnea, No phlegm, No short of breath, No stridor, No wheezing, No other Cardiovascular: see HPI, chest pain; No edema, No Hx of Intervention; palpitations; No syncope, No vascular heart diseas, No other Gastrointestinal: no symptoms reported, see HPI Genitourinary: no symptoms reported, see HPI Musculoskeletal: no symptoms reported, see HPI Skin: no symptoms reported, see HPI Psychiatric/Neurological: No Symptoms Reported Reviewed Test Results Reviewed Test Results Lab Laboratory Tests Test 03/02/19 17:30 03/02/19 18:29 03/03/19 05:45 Range/Units White Blood Count 8.6 5.6 4.3-11.0 10^3/uL Red Blood Count 4.37 4.30 L 4.35-5.85 10^6/uL Hemoglobin 13.0 12.8 11.5-16.0 G/DL Hematocrit 40 39 35-52 % Mean Corpuscular Volume 91 91 80-99 FL Mean Corpuscular Hemoglobin 30 30 25-34 PG Mean Corpuscular Hemoglobin Concent 33 33 32-36 G/DL Red Cell Distribution Width 12.5 12.7 10.0-14.5 % Platelet Count 324 287 130-400 10^3/uL Mean Platelet Volume 10.2 10.5 H 7.4-10.4 FL Neutrophils (%) (Auto) 59 61 42-75 % Lymphocytes (%) (Auto) 31 28 12-44 % Monocytes (%) (Auto) 8 9 0-12 % Eosinophils (%) (Auto) 2 2 0-10 % Basophils (%) (Auto) 0 0 0-10 % Neutrophils # (Auto) 5.1 3.4 1.8-7.8 X 10^3 Lymphocytes # (Auto) 2.7 1.6 1.0-4.0 X 10^3 Monocytes # (Auto) 0.7 0.5 0.0-1.0 X 10^3 Eosinophils # (Auto) 0.2 0.1 0.0-0.3 10^3/uL Basophils # (Auto) 0.0 0.0 0.0-0.1 10^3/uL Prothrombin Time 13.3 12.2-14.7 SEC INR Comment 1.0 0.8-1.4 Activated Partial Thromboplast Time 30 24-35 SEC Sodium Level 142 135-145 MMOL/L Potassium Level 4.2 3.6-5.0 MMOL/L Chloride Level 105 98-107 MMOL/L Carbon Dioxide Level 26 21-32 MMOL/L Anion Gap 11 5-14 MMOL/L Blood Urea Nitrogen 16 7-18 MG/DL Creatinine 0.86 0.60-1.30 MG/DL Estimat Glomerular Filtration Rate > 60 BUN/Creatinine Ratio 19 Glucose Level 93 70-105 MG/DL Calcium Level 9.0 8.5-10.1 MG/DL Corrected Calcium 8.8 8.5-10.1 MG/DL Magnesium Level 1.7 1.6-2.4 MG/DL Total Bilirubin 0.4 0.1-1.0 MG/DL Aspartate Amino Transf (AST/SGOT) 14 5-34 U/L Alanine Aminotransferase (ALT/SGPT) 17 0-55 U/L Alkaline Phosphatase 63 40-136 U/L Myoglobin 45.8 10.0-92.0 NG/ML Troponin I < 0.028 <0.028 NG/ML C-Reactive Protein High Sensitivity 0.34 0.00-0.50 MG/DL B-Type Natriuretic Peptide 19.7 <100.0 PG/ML Total Protein 7.0 6.4-8.2 GM/DL Albumin 4.2 3.2-4.5 GM/DL Lipase 21 8-78 U/L Erythrocyte Sedimentation Rate 9 0-20 MM/HR Triglycerides Level 77 <150 MG/DL Cholesterol Level 158 < 200 MG/DL LDL Cholesterol Direct 96 1-129 MG/DL VLDL Cholesterol 15 5-40 MG/DL HDL Cholesterol 56 40-60 MG/DL Physical Exam Physical Exam Vital Signs Vital Signs - First Documented 03/02/19 03/02/19 17:23 22:05 Temp 35.7 Pulse 83 Resp 22 B/P (MAP) 145/76 (99) Pulse Ox 100 O2 Delivery Room Air FiO2 21 Capillary Refill : Less Than 3 Seconds Height, Weight, BMI Height: 5'5.00" Weight: 190lbs. 0.0oz. 86.492677pf; 34.89 BMI Method: General Appearance: WD/WN, Moderate Distress Eyes: Bilateral Eye Normal Inspection, Bilateral Eye PERRL, Bilateral Eye EOMI HEENT: PERRL/EOMI, TMs Normal Neck: Full Range of Motion, Normal Inspection Respiratory: Normal Breath Sounds, No Accessory Muscle Use, No Respiratory Distress Cardiovascular: Regular Rate, Rhythm, No Edema, No Gallop, No JVD, No Murmur, Normal Peripheral Pulses Gastrointestinal: Normal Bowel Sounds, Non Tender, Soft Back: Normal Inspection, No CVA Tenderness, No Vertebral Tenderness Extremity: Normal Capillary Refill, Normal Inspection Neurologic/Psychiatric: Alert, Oriented x3 Skin: Normal Color, Warm/Dry Lymphatic: No Adenopathy A/P-Cardiology Admission Diagnosis Chest pain nonspecific etiology Palpitation Pleurisy Diabetes mellitus Assessment/Plan Chest pain, nonspecific etiology, most probably related to pleurisy, had small amount of pleural effusion on CT scan. Currently feeling better. EKG and car diac enzymes did not show any acute abnormality. Discussed with the patient in length regarding management plan, we can consider stress test in the future Diabetes mellitus, maintained on metformin Palpitation, discussed stopping phentermine History of back pain, had L5-S1 fusion with vasectomy done in March 2018. Recovered well. Strong family history of heart disease Clinical Quality Measures AMI/AHF: ASA po Prior to arrival: Yes (325 MG) DVT/VTE Risk/Contraindication: Risk Factor Score Per Nursin RFS Level Per Nursing on Admit: 4+=Very High ALEC JIMENEZ MD Mar 03, 2019 13:08
[2019-03-03] MEDS ORDERED: ACETAMINOPHEN 500 MG TAB (TYLENOL) PO PRN (13:15)
[2019-03-03 14:25] VITALS: BP 126/69
--- OUTSIDE RECORDS SUMMARY | 2019-03-26 03:02 | XMS REPORT ---
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 Name Role Phone POS TODD Norman Unavailable SP PROBLEMS Type Condition ICD9-CM Code [id number] Code Onset Dates Condition S tatus SNOMED POS Problem Eustachian tube dysfunction, bilateral H69.83 Active [id number] POS ALLERGIES No Information ENCOUNTERS Encounter Location Date Diagnosis POS [facility] [id number] [place] [id number] SP Feb, Encounter for immunization Z 23 SP [facility] [employer] [id number] [place] [address] SP Apr, Acute suppurative otitis med ia of left ear with spontaneous SP of tympanic membrane, recurrence not specified H66.012 and Otalgia of left ear H92.02 [facility] [id number] [place] [address] SP Dec, Encounter for immunization Z 23 SP [facility] [address] [facility] [id number] [address] [place] [address] SP Dec, Acute non-recurrent pansinus itis J01.40 SP [facility] [address] [facility] [id number] [place] [address] SP September, Eustachian tube dysfunction, left H69.82 SP [facility] [address] [email or web address] [facility] [id number] [place] [address] SP Aug, Sinus congestion R09.81 ; Eu stachian tube dysfunction, right SP and Eustachian tube dysfunction, left H69.82 [facility] [email or web address] [place] [id number] [place] [address] SP May, Acute non-recurrent pansinus itis J01.40 SP [facility] [address] [id number] [address] [place] [id number] SP Jun, Eustachian tube dysfunction H69.80 SP [facility] [address] [id number] [place] [address] SP Jun, Eustachian tube dysfunction, bilateral H69.83 SP [facility] [address] [id number] [address] [place] [id number] SP Feb, Encounter for immunization Z 23 SP [facility] [address] [id number] [address] [place] [id number] SP Feb, SP [facility] [address] [id number] [address] [place] [id number] SP Feb, SP [facility] [address] [id number] [address] [place] [phone] SP Feb, SP [facility] [address] [id number] [address] [place] [id number] SP Feb, SP [facility] [address] [id number] [address] [place] [id number] SP Feb, SP [facility] [address] [id number] [address] [place] [id number] SP Feb, SP IMMUNIZATIONS No Known Immunizations SOCIAL HISTORY Never Assessed REASON FOR VISIT PLAN OF CARE VITAL SIGNS MEDICATIONS Unknown Medications RESULTS No Results PROCEDURES No Known procedures INSTRUCTIONS MEDICATIONS ADMINISTERED No Known Medications MEDICAL (GENERAL) HISTORY Type Description Date POS Medical History hypothyroid SP
--- OUTSIDE RECORDS SUMMARY | 2019-03-26 03:13 | XMS REPORT | Continuity of Care Document ---
Author Organization Unknown POS Address Unknown SP Phone Unavailable SP Allergies Active Description Code Type Severity POS Reaction Onset Reported/Identified POS to Patient Clinical Status POS Yes NO KNOWN DRUG ALLERGIES UNKNOWN SP NO KNOWN DRUG ALLERG SP SP Yes NO KNOWN DRUG ALLERGIES UNKNOWN SP UNKNOWN SP Yes No Allergy Information Available [id number] SP Allergy Unknown N/A 7 SP SP Yes No Known Drug Allergies [id number] Drug SP Unknown N/A 03/22/2018 SP SP Medications Medication Packaging Start Date St op Date POS Route Dosage Sig POS KETOROLAC VIAL INJ 60 MG/2CC (TORADOL VIAL ) MG SP 11/04/2016 11/04/2016 SP [id number] LACTATED RINGERS 1000CC IV BAG INJ ml SP 06/16/2017 SP 0 Hour Problems Date Dx Coded Attending Type Code POS Diagnosed By POS 03/09/2012 TODD WALLACE APRN V04.81 SP FLU DX (3 YRS AND ABOVE, IM) SP 03/09/2012 TODD WALLACE APRN V04.81 SP FLU DX (3 YRS AND ABOVE, IM) SP 05/17/2014 JIM NEWMAN DO Ot V76.12 SP SP 06/13/2015 Ot 793.89 SP 06/13/2015 Ot V76.12 SP 06/13/2015 Ot 611.72 SP 06/13/2015 Ot 276.51 SP 06/13/2015 Ot 486 SP 06/13/2015 Ot 793.80 SP 06/13/2015 Ot 793.89 SP 06/13/2015 Ot V76.12 SP 06/13/2015 Ot 793.80 SP 06/13/2015 JIM NEWMAN DO Ot V76.12 SP SP 06/13/2015 JIM NEWMAN DO Ot 786.07 SP SP 06/13/2015 JIM NEWMAN DO Ot V76.12 SP SP 06/20/2015 NEWMAN DO, JIM Ot Z12.31 SP SP 06/28/2015 NEWMANJONNIE BUTTS JIM Ot Z12.31 SP SP 06/23/2016 Ot 276.51 DEH YDRATION SP SP 06/23/2016 Ot 486 PNEUMO ANDREW, ORGANISM SP SP 06/23/2016 Ot 793.80 UNS PEC ABNORMAL SP SP 06/23/2016 Ot 793.89 OTH (ABN) SP ON RADIOLOGICAL EXAMI SP 06/23/2016 Ot V76.12 OTH SCREEN MAMMO- SP NEOPLASM OF CONSTANCE SP 06/23/2016 Ot 793.80 UNS PEC ABNORMAL SP SP 06/23/2016 NEWMAN DO JIM Ot V76.12 SP SCREEN MAMMO-MALIGN NEOPLASM OF CONSTANCE SP 06/23/2016 NEWMANJONNIE BUTTS JIM Ot 786.07 SP SP 06/23/2016 NEWMANJONNIE BUTTS JIM Ot V76.12 SP SCREEN MAMMO-MALIGN NEOPLASM OF CONSTANCE SP 06/23/2016 TRENT BUTTS JIM Ot Z12.31 SP SCREEN MAMMOGRAM FOR MALIGNANT NE SP 06/24/2016 TRENT BUTTS JIM Ot R10.11 SP UPPER QUADRANT PAIN SP 06/24/2016 NEWMANJONNIE BUTTS JIM Ot R10.11 SP UPPER QUADRANT PAIN SP 06/26/2016 TRENT BUTTS JIM Ot Z12.31 SP SCREEN MAMMOGRAM FOR MALIGNANT NE SP 06/26/2016 TRENT BUTTS JIM Ot Z12.31 SP SCREEN MAMMOGRAM FOR MALIGNANT NE SP 07/02/2016 TRENT BUTTS JIM Ot R10.11 SP UPPER QUADRANT PAIN SP 07/08/2016 TRENT BUTTS JIM Ot R92.0 SP MICROCALCIFICATION FOUND ON SP 07/10/2016 TRENT BUTTS JIM Ot Z12.31 SP SCREEN MAMMOGRAM FOR MALIGNANT NE SP 07/17/2016 TRENT BUTTS JIM Ot R92.0 SP MICROCALCIFICATION FOUND ON SP 11/04/2016 Paulo Worthy 848.8 OTHER SP SITES OF SPRAINS AND STRAINS SP 11/04/2016 Paulo Worthy 924.10 SP OF LOWER LEG SP 11/04/2016 Paulo Worthy S29.019A SP OF MUSCLE AND TENDON OF UNSP WALL OF THORAX, INIT SP 11/04/2016 Paulo Worthy S80.11XA SP OF RIGHT LOWER LEG, INITIAL ENCOUNTER SP 01/30/2017 Ot 793.89 OTH (ABN) SP ON RADIOLOGICAL EXAMI SP 01/30/2017 Ot V76.12 OTH SCREEN MAMMO- SP NEOPLASM OF CONSTANCE SP 01/30/2017 Ot 793.80 UNS PEC ABNORMAL SP SP 01/30/2017 NEWMAN DO JIM Ot V76.12 SP SCREEN MAMMO-MALIGN NEOPLASM OF CONSTANCE SP 01/30/2017 LIZZIE NEWMAN DOI Ot 786.07 SP SP 01/30/2017 NEWMAN DO JIM Ot V76.12 SP SCREEN MAMMO-MALIGN NEOPLASM OF CONSTANCE SP 01/30/2017 NEWMAN DO JIM Ot Z12.31 SP SCREEN MAMMOGRAM FOR MALIGNANT NE SP 01/30/2017 LIZZIE NEWMAN DOI Ot R10.11 SP UPPER QUADRANT PAIN SP 01/30/2017 NEWMAN DO JIM Ot Z12.31 SP SCREEN MAMMOGRAM FOR MALIGNANT NE SP 01/30/2017 TRENT BUTTS JIM Ot R92.0 SP MICROCALCIFICATION FOUND ON SP 02/10/2017 Ot 793.89 OTH (ABN) SP ON RADIOLOGICAL EXAMI SP 02/10/2017 Ot V76.12 OTH SCREEN MAMMO- SP NEOPLASM OF CONSTANCE SP 02/10/2017 Ot 793.80 UNS PEC ABNORMAL SP SP 02/10/2017 TRENT BUTTS JIM Ot V76.12 SP SCREEN MAMMO-MALIGN NEOPLASM OF CONSTANCE SP 02/10/2017 LIZZIE NEWMAN DOI Ot 786.07 SP SP 02/10/2017 TRENT BUTTS JIM Ot V76.12 SP SCREEN MAMMO-MALIGN NEOPLASM OF CONSTANCE SP 02/10/2017 JIM NEWMAN DO Ot Z12.31 SP SCREEN MAMMOGRAM FOR MALIGNANT NE SP 02/10/2017 LIZZIE NEWMAN DOI Ot R10.11 SP UPPER QUADRANT PAIN SP 02/10/2017 LIZZIE NEWMAN DOI Ot Z12.31 SP SCREEN MAMMOGRAM FOR MALIGNANT NE SP 02/10/2017 JIM NEWMAN DO Ot R92.0 SP MICROCALCIFICATION FOUND ON SP 05/07/2017 Ot 793.89 OTH (ABN) SP ON RADIOLOGICAL EXAMI SP 05/07/2017 Ot V76.12 OTH SCREEN MAMMO- SP NEOPLASM OF CONSTANCE SP 05/07/2017 Ot 793.80 UNS PEC ABNORMAL SP SP 05/07/2017 NEWMANJIM CRISTINA DO Ot V76.12 SP SCREEN MAMMO-MALIGN NEOPLASM OF CONSTANCE SP 05/07/2017 JIM NEWMAN DO Ot 786.07 SP SP 05/07/2017 JIM NEWMAN DO Ot V76.12 SP SCREEN MAMMO-MALIGN NEOPLASM OF CONSTANCE SP 05/07/2017 JIM NEWMAN DO Ot Z12.31 SP SCREEN MAMMOGRAM FOR MALIGNANT NE SP 05/07/2017 JIM NEWMAN DO Ot R10.11 SP UPPER QUADRANT PAIN SP 05/07/2017 LIZZIE NEWMAN DOI Ot Z12.31 SP SCREEN MAMMOGRAM FOR MALIGNANT NE SP 05/07/2017 JIM NEWMAN DO Ot R92.0 SP MICROCALCIFICATION FOUND ON SP 05/28/2017 JIM NEWMAN DO Ot N64.89 SP SPECIFIED DISORDERS OF BREAST SP 05/28/2017 JIM NEWMAN DO Ot R92.0 SP MICROCALCIFICATION FOUND ON SP 06/09/2017 Bryanna Aldridge W 455.6 SP UNSPECIFIED HEMORRHOIDS WITHOUT MENTION OF COMPLICATIO N SP 06/09/2017 Bryanna Aldridge W 455.9 SP RESIDUAL HEMORRHOIDAL SKIN TAGS SP 06/09/2017 Bryanna Aldridge A 569.3 SP HEMORRHAGE OF RECTUM AND ANUS SP 06/09/2017 Bryanna Aldridge A K62.5 SP HEMORRHAGE OF ANUS AND RECTUM SP 06/09/2017 Bryanna Aldridge W K64.4 SP RESIDUAL HEMORRHOIDAL SKIN TAGS SP 06/09/2017 Bryanna Aldridge W K64.8 SP OTHER HEMORRHOIDS SP 07/09/2017 EDITH RENO DO Ot M54.16 SP RADICULOPATHY, LUMBAR REGION SP 07/10/2017 Ot 793.89 OTH (ABN) SP ON RADIOLOGICAL EXAMI SP 07/10/2017 Ot V76.12 OTH SCREEN MAMMO- SP NEOPLASM OF CONSTANCE SP 07/10/2017 Ot 793.80 UNS PEC ABNORMAL SP SP 07/10/2017 JIM NEWMAN DO Ot V76.12 SP SCREEN MAMMO-MALIGN NEOPLASM OF CONSTANCE SP 07/10/2017 JIM NEWMAN DO Ot 786.07 SP SP 07/10/2017 NEWMAN DO, JIM Ot V76.12 SP SCREEN MAMMO-MALIGN NEOPLASM OF CONSTANCE SP 07/10/2017 NEWMAN DO, JIM Ot Z12.31 SP SCREEN MAMMOGRAM FOR MALIGNANT NE SP 07/10/2017 NEWMAN DO, JIM Ot R10.11 SP UPPER QUADRANT PAIN SP 07/10/2017 NEWMAN DO, JIM Ot Z12.31 SP SCREEN MAMMOGRAM FOR MALIGNANT NE SP 07/10/2017 NEWMAN DO JIM Ot R92.0 SP MICROCALCIFICATION FOUND ON SP 07/10/2017 NEWMAN DO, JIM Ot N64.89 SP SPECIFIED DISORDERS OF BREAST SP 07/10/2017 NEWMAN DO, JIM Ot R92.0 SP MICROCALCIFICATION FOUND ON SP 07/10/2017 EDITH RENO DO Ot M54.16 SP RADICULOPATHY, LUMBAR REGION SP 09/03/2017 Ot 793.80 UNS PEC ABNORMAL SP SP 09/03/2017 NEWMAN DO, JIM Ot V76.12 SP SCREEN MAMMO-MALIGN NEOPLASM OF CONSTANCE SP 09/03/2017 NEWMAN DO JIM Ot 786.07 SP SP 09/03/2017 NEWMAN DO JIM Ot V76.12 SP SCREEN MAMMO-MALIGN NEOPLASM OF CONSTANCE SP 09/03/2017 NEWMAN DO JIM Ot Z12.31 SP SCREEN MAMMOGRAM FOR MALIGNANT NE SP 09/03/2017 NEWMAN DO JIM Ot R10.11 SP UPPER QUADRANT PAIN SP 09/03/2017 NEWMAN DO JIM Ot Z12.31 SP SCREEN MAMMOGRAM FOR MALIGNANT NE SP 09/03/2017 TRENT BUTTS JIM Ot R92.0 SP MICROCALCIFICATION FOUND ON SP 09/03/2017 NEWMAN DO JIM Ot N64.89 SP SPECIFIED DISORDERS OF BREAST SP 09/03/2017 NEWMAN DO JIM Ot R92.0 SP MICROCALCIFICATION FOUND ON SP 09/04/2017 EDITH RENO DO Ot M54.16 SP RADICULOPATHY, LUMBAR REGION SP 09/04/2017 EDITH RENO DO Ot Z79.899 SP OTHER [facility] (CURRENT) DRUG THERAPY SP 09/14/2017 GIOVANI ESTEBAN W 724.02 SPINAL SP OF LUMBAR REGION WITHOUT NEUROGENIC CLAUDICATION SP 09/14/2017 GIOVANI ESTEBAN W M48.07 SPINAL SP LUMBOSACRAL REGION SP 11/04/2017 GIOVANI ESTEBAN 724.02 SPINAL SP OF LUMBAR REGION WITHOUT NEUROGENIC CLAUDICATION SP 11/04/2017 GIOVANI ESTEBAN M48.07 SPINAL SP LUMBOSACRAL REGION SP 03/11/2018 EDITH RENO DO, Ot M54.16 SP RADICULOPATHY, LUMBAR REGION SP 03/11/2018 EDITH RENO DO Ot Z79.899 SP OTHER CAFETERIA DIRECTOR (CURRENT) DRUG THERAPY SP 03/11/2018 GIOVANI ESTEBAN MD, Ot M48.0 61 SP STENOSIS, LUMBAR REGION WITHOUT N SP 03/11/2018 GIOVANI ESTEBAN MD Ot Z01.8 12 SP FOR PREPROCEDURAL LABORATORY E SP 03/11/2018 GIOVANI ESTEBAN MD Ot Z11.2 SP FOR SCREENING FOR OTHER BACTER SP 03/11/2018 GIOVANI ESTEBAN MD Ot Z22.3 22 SP OR SUSPECTED CARRIER OF METHICIL SP 03/15/2018 GIOVANI ESTEBAN MD, Ot M48.0 61 SP STENOSIS, LUMBAR REGION WITHOUT N SP 03/15/2018 GIOVANI ESTEBAN MD Ot Z01.8 12 SP FOR PREPROCEDURAL LABORATORY E SP 03/15/2018 GIOVANI ESTEBAN MD Ot Z11.2 SP FOR SCREENING FOR OTHER BACTER SP 03/15/2018 GIOVANI ESTEBAN MD Ot Z22.3 22 SP OR SUSPECTED CARRIER OF METHICIL SP 03/22/2018 EDITH ERNO DO, Ot M54.16 SP RADICULOPATHY, LUMBAR REGION SP 03/22/2018 EDITH RENO DO Ot Z79.899 SP OTHER CAFETERIA DIRECTOR (CURRENT) DRUG THERAPY SP 03/24/2018 NEWMAN DO, JIM Ot E03.9 SP UNSPECIFIED SP 03/24/2018 NEWMAN DO, JIM Ot F41.9 SP DISORDER, UNSPECIFIED SP 03/24/2018 NEWMAN DO, JIM Ot I95.9 SP UNSPECIFIED SP 03/24/2018 TRENT BUTTS JIM Ot J45.20 SP INTERMITTENT ASTHMA, UNCOMPLICATED SP 03/24/2018 NEWMAN DO JIM Ot K21.9 SPESOPHAGEAL REFLUX DISEASE WITHOUT SP 03/24/2018 TRENT DO JIM Ot M19.91 SP OSTEOARTHRITIS, UNSPECIFIED SITE SP 03/24/2018 NEWMAN DO, JIM Ot M43.00 SP SITE UNSPECIFIED SP 03/24/2018 NEWMAN DO, JIM Ot M48.06 1 SP STENOSIS, LUMBAR REGION WITHOUT N SP 03/24/2018 NEWMAN DO, JIM Ot M51.16 SP DISC DISORDERS W RADICULO SP 03/24/2018 NEWMAN DO, JIM Ot N80.9 SP UNSPECIFIED SP 03/24/2018 NEWMAN DO, JIM Ot R11.0 SP SP 03/24/2018 NEWMAN DO, JIM Ot R50.9 SP UNSPECIFIED SP 03/24/2018 NEWMAN DO, JIM Ot Z87.89 1 SP HISTORY OF NICOTINE DEPENDENCE SP 03/25/2018 NEWMAN DO, JIM Ot E03.9 SP UNSPECIFIED SP 03/25/2018 NEWMAN DO, JIM Ot F41.9 SP DISORDER, UNSPECIFIED SP 03/25/2018 NEWMAN DO, JIM Ot I95.9 SP UNSPECIFIED SP 03/25/2018 NEWMAN DO, JIM Ot J45.20 SP INTERMITTENT ASTHMA, UNCOMPLICATED SP 03/25/2018 NEWMAN DO, JIM Ot K21.9 SPESOPHAGEAL REFLUX DISEASE WITHOUT SP 03/25/2018 NEWMAN DO, JIM Ot K59.01 SP TRANSIT CONSTIPATION SP 03/25/2018 NEWMAN DO, JIM Ot M19.91 SP OSTEOARTHRITIS, UNSPECIFIED SITE SP 03/25/2018 NEWMAN DO, JIM Ot M43.00 SP SITE UNSPECIFIED SP 03/25/2018 NEWMAN DO, JIM Ot M48.06 1 SP STENOSIS, LUMBAR REGION WITHOUT N SP 03/25/2018 NEWMAN DO, JIM Ot M51.16 SP DISC DISORDERS W RADICULO SP 03/25/2018 NEWMAN DO, JIM Ot N80.9 SP UNSPECIFIED SP 03/25/2018 NEWMAN DO, JIM Ot R11.0 SP SP 03/25/2018 NEWMAN DO, JIM Ot R50.9 SP UNSPECIFIED SP 03/25/2018 NEWMAN DO, JIM Ot Z87.89 1 SP HISTORY OF NICOTINE DEPENDENCE SP 07/07/2018 EDITH RENO DO Ot M54.16 SP RADICULOPATHY, LUMBAR REGION SP 07/07/2018 EDITH RENO DO Ot Z79.899 SP OTHER CAFETERIA DIRECTOR (CURRENT) DRUG THERAPY SP 07/09/2018 TRENT DO JIM Ot V76.12 SP SCREEN MAMMO-MALIGN NEOPLASM OF CONSTANCE SP 07/09/2018 TRENT BUTTS JIM Ot 786.07 SP SP 07/09/2018 NEWMANJONNIE BUTTS JIM Ot V76.12 SP SCREEN MAMMO-MALIGN NEOPLASM OF CONSTANCE SP 07/09/2018 TRENT BUTTS JIM Ot Z12.31 SP SCREEN MAMMOGRAM FOR MALIGNANT NE SP 07/09/2018 TRENT BUTTS JIM Ot R10.11 SP UPPER QUADRANT PAIN SP 07/09/2018 TRENT BUTTS JIM Ot Z12.31 SP SCREEN MAMMOGRAM FOR MALIGNANT NE SP 07/09/2018 TRENT BUTTS JIM Ot R92.0 SP MICROCALCIFICATION FOUND ON SP 07/09/2018 TRENT BUTTS JIM Ot N64.89 SP SPECIFIED DISORDERS OF BREAST SP 07/09/2018 TRENT BUTTS JIM Ot R92.0 SP MICROCALCIFICATION FOUND ON SP 07/09/2018 EDITH RENO DO Ot M54.16 SP RADICULOPATHY, LUMBAR REGION SP 07/09/2018 EDITH RENO DO Ot Z79.899 SP OTHER MCFP (CURRENT) DRUG THERAPY SP 08/09/2018 TRENT BUTTS JIM Ot Z12.31 SP SCREEN MAMMOGRAM FOR MALIGNANT NE SP 08/21/2018 TRENT BUTTS JIM Ot N63.20 SP LUMP IN THE LEFT BREAST, UNS SP 08/21/2018 TRENT BUTTS JIM Ot R92.2 SP MAMMOGRAM SP 09/14/2018 TRENT BUTTS JIM Ot N63.20 SP LUMP IN THE LEFT BREAST, UNS SP 09/14/2018 TRENT BUTTS JIM Ot R92.2 SP MAMMOGRAM SP 11/23/2018 LIZZIE NEWMAN DOI Ot I38 SP VALVE UNSPECIFIED SP 01/05/2019 TRENT BUTTS JIM Ot 786.07 SP SP 01/05/2019 TRENT BUTTS JIM Ot V76.12 SP SCREEN MAMMO-MALIGN NEOPLASM OF CONSTANCE SP 01/05/2019 TRENT BUTTS JIM Ot Z12.31 SP SCREEN MAMMOGRAM FOR MALIGNANT NE SP 01/05/2019 TRENT BUTTS JIM Ot R10.11 SP UPPER QUADRANT PAIN SP 01/05/2019 TRENT BUTTS JIM Ot Z12.31 SP SCREEN MAMMOGRAM FOR MALIGNANT NE SP 01/05/2019 TRENT BUTTS JIM Ot R92.0 SP MICROCALCIFICATION FOUND ON SP 01/05/2019 TRENT BUTTS, JIM Ot N64.89 SP SPECIFIED DISORDERS OF BREAST SP 01/05/2019 NEWMANJONNIE BUTTS JIM Ot R92.0 SP MICROCALCIFICATION FOUND ON SP 01/05/2019 HEARNDON DO, EDITH L Ot M54.16 SP RADICULOPATHY, LUMBAR REGION SP 01/05/2019 HEARNDON DO, EDITH L Ot Z79.899 SP OTHER CAFETERIA DIRECTOR (CURRENT) DRUG THERAPY SP 01/05/2019 TRENT BUTTS JIM Ot Z12.31 SP SCREEN MAMMOGRAM FOR MALIGNANT NE SP 01/05/2019 TRENT BUTTS JIM Ot N63.20 SP LUMP IN THE LEFT BREAST, UNS SP 01/05/2019 TRENT BUTTS JIM Ot R92.2 SP MAMMOGRAM SP 01/05/2019 LIZZIE NEWMAN DOI Ot I38 SP VALVE UNSPECIFIED SP 03/02/2019 TRENT BUTTS JIM Ot 786.07 SP SP 03/02/2019 TRENT BUTTS JIM Ot V76.12 SP SCREEN MAMMO-MALIGN NEOPLASM OF CONSTANCE SP 03/02/2019 LIZZIE NEWMAN DOI Ot Z12.31 SP SCREEN MAMMOGRAM FOR MALIGNANT NE SP 03/02/2019 TRENT BUTTS JIM Ot R10.11 SP UPPER QUADRANT PAIN SP 03/02/2019 TRENT BUTTS JIM Ot Z12.31 SP SCREEN MAMMOGRAM FOR MALIGNANT NE SP 03/02/2019 LIZZIE NEWMAN DOI Ot R92.0 SP MICROCALCIFICATION FOUND ON SP 03/02/2019 TRENT BUTTS JIM Ot N64.89 SP SPECIFIED DISORDERS OF BREAST SP 03/02/2019 TRENT BUTTS JIM Ot R92.0 SP MICROCALCIFICATION FOUND ON SP 03/02/2019 HEARNDON DO, EDITH L Ot M54.16 SP RADICULOPATHY, LUMBAR REGION SP 03/02/2019 CECILIANDON EDITH BUTTS L Ot Z79.899 SP OTHER MCFP (CURRENT) DRUG THERAPY SP 03/02/2019 TRENT BUTTS JIM Ot Z12.31 SP SCREEN MAMMOGRAM FOR MALIGNANT NE SP 03/02/2019 JIM NEWMAN DO Ot N63.20 SP LUMP IN THE LEFT BREAST, UNS SP 03/02/2019 JIM NEWMAN DO Ot R92.2 SP MAMMOGRAM SP 03/02/2019 JIM NEWMAN DO Ot I38 SP VALVE UNSPECIFIED SP 03/03/2019 JIM NEWMAN DO Ot E03.9 SP UNSPECIFIED SP 03/03/2019 JIM NEWMAN DO Ot E11.9 SP 2 DIABETES MELLITUS WITHOUT COMPLIC SP 03/03/2019 JIM NEWMAN DO Ot F41.8 SP SPECIFIED ANXIETY DISORDERS SP 03/03/2019 JIM NEWMAN DO Ot G89.29 SP CHRONIC PAIN SP 03/03/2019 JIM NEWMAN DO Ot J45.90 9 SP ASTHMA, UNCOMPLICATED SP 03/03/2019 JIM NEWMAN DO Ot J90 SP EFFUSION, NOT ELSEWHERE CLASSIFI SP 03/03/2019 JIM NEWMAN DO Ot K21.9 SPESOPHAGEAL REFLUX DISEASE WITHOUT SP 03/03/2019 JIM NEWMAN DO Ot M19.90 SP OSTEOARTHRITIS, UNSPECIFIED SP 03/03/2019 JIM NEWMAN DO Ot M54.9 SP UNSPECIFIED SP 03/03/2019 JIM NEWMAN DO Ot Z79.84 SP TERM (CURRENT) USE OF ORAL HYPOGLYC SP 03/03/2019 JIM NEWMAN DO Ot Z79.89 1 SP TERM (CURRENT) USE OF OPIATE ANALGE SP 03/03/2019 JIM NEWMAN DO Ot Z79.89 9 SP CAFETERIA DIRECTOR (CURRENT) DRUG THERAPY SP 03/03/2019 JIM NEWMAN DO Ot Z82.3 SP HISTORY OF STROKE SP 03/03/2019 JIM NEWMAN DO Ot Z82.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 SP 03/03/2019 JIM NEWMAN DO Ot Z83.3 SP HISTORY OF DIABETES MELLITUS SP 03/03/2019 JIM NEWMAN DO Ot Z87.89 1 SP HISTORY OF NICOTINE DEPENDENCE SP 03/03/2019 JIM NEWMAN DO Ot E03.9 SP UNSPECIFIED SP 03/03/2019 JIM NEWMAN DO Ot E11.9 SP 2 DIABETES MELLITUS WITHOUT COMPLIC SP 03/03/2019 JIM NEWMAN DO Ot F41.8 SP SPECIFIED ANXIETY DISORDERS SP 03/03/2019 JIM NEWMAN DO Ot G89.29 SP CHRONIC PAIN SP 03/03/2019 JMI NEWMAN DO Ot J45.90 9 SP ASTHMA, UNCOMPLICATED SP 03/03/2019 JIM NEWMAN DO Ot J90 SP EFFUSION, NOT ELSEWHERE CLASSIFI SP 03/03/2019 JIM NEWMAN DO Ot K21.9 SPESOPHAGEAL REFLUX DISEASE WITHOUT SP 03/03/2019 JIM NEMWAN DO Ot M19.90 SP OSTEOARTHRITIS, UNSPECIFIED SP 03/03/2019 JIM NEWMAN DO Ot M54.9 SP UNSPECIFIED SP 03/03/2019 JIM NEWMAN DO Ot Z79.84 SP TERM (CURRENT) USE OF ORAL HYPOGLYC SP 03/03/2019 JIM NEWMAN DO Ot Z79.89 1 SP TERM (CURRENT) USE OF OPIATE ANALGE SP 03/03/2019 JIM NEWMAN DO Ot Z79.89 9 SP CAFETERIA DIRECTOR (CURRENT) DRUG THERAPY SP 03/03/2019 JIM NEWMAN DO Ot Z82.3 SP HISTORY OF STROKE SP 03/03/2019 JIM NEWMAN DO Ot Z82.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 SP 03/03/2019 JIM NEWMAN DO Ot Z83.3 SP HISTORY OF DIABETES MELLITUS SP 03/03/2019 JIM NEWMAN DO Ot Z87.89 1 SP HISTORY OF NICOTINE DEPENDENCE SP 03/04/2019 OMAYRA RANGEL TALLOW REFINER Ot R07 .9 SP PAIN, UNSPECIFIED SP 03/04/2019 OMAYRA RANGEL TALLOW REFINER Ot R53.83 SP OTHER FATIGUE SP 03/22/2019 OMAYRA RANGEL TALLOW REFINER Ot R07 .9 SP PAIN, UNSPECIFIED SP 03/22/2019 OMAYRA RANGEL TALLOW REFINER Ot R53.83 SP OTHER FATIGUE SP Procedures Code Description Performed By Per formed On POS [id number] FU CATHY HOLGUIN W AUTOL SP POST APPR 03/22/2018 SP [id number] FU CATHY HOLGUIN W INTBD FUS SPDEV, ANT AP 03/22/2018 SP Results Test Result Range POS Urinalysis - 11/04/16 15:41 POS Icotest N/A Negative SP Urine Volume Urine Volume Sufficient (10mL) SP Urine Yeast Yeast Present SP Urine-Appearance Slightly Cloudy Clear SP Urine-Bacteria Trace SP Urine-Bilirubin Negative Negative SP Urine-Blood Negative Negative SP Urine-Color Yellow Colorless-Lt. [place] ow SP Urine-Epithelial Cells 0-5/HPF SP Urine-Glucose Negative Negative SP Urine-Ketones Trace Negative SP Urine-Leukocytes Negative Negative SP Urine-Nitrite Negative Negative SP Urine-Other Urine Saved if Culture Need ed (48hrs from time of SP SP Urine-pH 5.0 5-8.5 SP Urine-Protein Trace Negative SP Urine-RBC Negative SP Urine-Specific [place] 1.025 1.000-1 .030 SP Urine-WBC Negative SP Urobilinogen 0.2 E.U./dL 0.2-1.0 SP Thyroid Stimulating Hormone - 06/03/17 1 9:58 POS TSH 0.56 mIU/mL 0.32-5.00 SP Test-Serum - 06/09/17 07:15 POS Preg Test-S Negative Negative SP Complete blood count (CBC) with automate d white blood cell (WBC) differential - POS 12:30 Blood leukocytes automated count (number/volume) 7.8 10*3/uL POS 4.3-11.0 SP Blood erythrocytes automated count (number/volume) 4.18 10*6/uL SP 4.35-5.85 SP Venous blood hemoglobin measurement (mass/volume) 12.4 g/dL SP16.0 Blood hematocrit (volume fraction) 38 % 35-52 SP Automated erythrocyte mean corpuscular volume 90 [ foz_us] SP99 Automated erythrocyte mean corpuscular h emoglobin (mass per erythrocyte) SP 30 pg 25-34 SP Automated erythrocyte mean corpuscular h emoglobin concentration measurement SP 33 g/dL 32-36 SP Automated erythrocyte distribution width ratio 12. 9 % 10.0- SP Automated blood platelet count (count/volume) 295 10*3/uL SP400 Automated blood platelet mean volume measurement 10.8 [foz_us] SP 7.4-10.4 SP Automated blood neutrophils/100 leukocytes 64 % 42-75 SP Automated blood lymphocytes/100 leukocytes 25 % 12-44 SP Blood monocytes/100 leukocytes 9 % 0-12 SP Automated blood eosinophils/100 leukocytes 2 % 0-10 SP Automated blood basophils/100 leukocytes 0 % 0-10 SP Blood neutrophils automated count (number/volume) 5.0 10*3 SP7.8 Blood lymphocytes automated count (number/volume) 2.0 10*3 SP4.0 Blood monocytes automated count (number/volume) 0. 7 10*3 SP1.0 Automated eosinophil count 0.1 10*3/uL 0 .0-0.3 SP Automated blood basophil count (count/volume) 0.0 10*3/uL SP0.1 Blood type T Indirect antibody screen pa daniel - 03/11/18 12:30 POS ABO+Rh group AP NRG SP Blood group antibody screen NEGATIVE NR G SP Methicillin resistant Staphylococcus aur eus (MRSA) screening culture - 03/11/18 POS Methicillin resistant Staphylococcus aureus (MRSA) scr eening culture POS NRG SP Urine beta human chorionic gonadotropin (hCG) measurement - 03/22/18 06:08 POS Urine beta human chorionic gonadotropin (hCG) measurem ent NEGATIVE POS NEGATIVE SP Blood type T Indirect antibody screen [facility] - 03/22/18 06:27 POS ABO+Rh group AP NRG SP Transfusion band number [id number] NRG SP Blood group antibody screen NEGATIVE NR G SP Automated blood complete blood count (he mogram) panel - 03/23/18 05:25 POS Blood leukocytes automated count (number/volume) 13.4 10*3/uL SP 4.3-11.0 SP Blood erythrocytes automated count (number/volume) 3.95 10*6/uL SP 4.35-5.85 SP Venous blood hemoglobin measurement (mass/volume) 11.5 g/dL SP16.0 Blood hematocrit (volume fraction) 36 % 35-52 SP Automated erythrocyte mean corpuscular volume 90 [ foz_us] SP99 Automated erythrocyte mean corpuscular h emoglobin (mass per erythrocyte) SP 29 pg 25-34 SP Automated erythrocyte mean corpuscular h emoglobin concentration measurement SP 32 g/dL 32-36 SP Automated erythrocyte distribution width ratio 12. 9 % 10.0- SP Automated blood platelet count (count/volume) 275 10*3/uL SP400 Automated blood platelet mean volume measurement 10.5 [foz_us] SP 7.4-10.4 SP Comprehensive metabolic panel - 03/23/18 05:25 POS Serum or plasma sodium measurement (moles/volume) 140 mmol/L SP 135-145 SP Serum or plasma potassium measurement (moles/volume) 3.4 mmol/L SP 3.6-5.0 SP Serum or plasma chloride measurement (moles/volume) 108 mmol/L SP 98-107 SP Carbon dioxide 21 mmol/L 21-32 SP Serum or plasma anion gap determination (moles/volume) 11 mmol/L SP 5-14 SP Serum or plasma urea nitrogen measurement (mass/volume ) 8 mg/dL SP 7-18 SP Serum or plasma creatinine measurement (mass/volume) 0.73 mg/dL SP 0.60-1.30 SP Serum or plasma urea nitrogen/creatinine mass ratio 11 NRG SP Serum or plasma creatinine measurement w ith calculation of estimated glomerular SP rate > NRG SP Serum or plasma glucose measurement (mass/volume) 115 mg/dL SP105 Serum or plasma calcium measurement (mass/volume) 8.6 mg/dL SP10.1 Serum or plasma total bilirubin measurement (mass/volu me) 0.4 mg/dL SP 0.1-1.0 SP Serum or plasma alkaline phosphatase diann surement (enzymatic activity/volume) SP 58 U/L 40-136 SP Serum or plasma aspartate aminotransfera se measurement (enzymatic SP 22 U/L 5-34 SP Serum or plasma alanine aminotransferase measurement (enzymatic activity/volume) SP 17 U/L 0-55 SP Serum or plasma protein measurement (mass/volume) 5.9 g/dL SP8.2 Serum or plasma albumin measurement (mass/volume) 3.4 g/dL SP4.5 CALCIUM CORRECTED 9.1 mg/dL 8.5-10.1 SP Complete blood count (CBC) with automate d white blood cell (WBC) differential - POS 05:25 Blood leukocytes automated count (number/volume) 11.8 10*3/uL POS 4.3-11.0 SP Blood erythrocytes automated count (number/volume) 4.17 10*6/uL SP 4.35-5.85 SP Venous blood hemoglobin measurement (mass/volume) 12.4 g/dL SP16.0 Blood hematocrit (volume fraction) 38 % 35-52 SP Automated erythrocyte mean corpuscular volume 90 [ foz_us] SP99 Automated erythrocyte mean corpuscular h emoglobin (mass per erythrocyte) SP 30 pg 25-34 SP Automated erythrocyte mean corpuscular h emoglobin concentration measurement SP 33 g/dL 32-36 SP Automated erythrocyte distribution width ratio 13. 3 % 10.0- SP Automated blood platelet count (count/volume) 244 10*3/uL SP400 Automated blood platelet mean volume measurement 10.9 [foz_us] SP 7.4-10.4 SP Automated blood neutrophils/100 leukocytes 76 % 42-75 SP Automated blood lymphocytes/100 leukocytes 15 % 12-44 SP Blood monocytes/100 leukocytes 8 % 0-12 SP Automated blood eosinophils/100 leukocytes 1 % 0-10 SP Automated blood basophils/100 leukocytes 0 % 0-10 SP Blood neutrophils automated count (number/volume) 8.9 10*3 SP7.8 Blood lymphocytes automated count (number/volume) 1.8 10*3 SP4.0 Blood monocytes automated count (number/volume) 0. 9 10*3 SP1.0 Automated eosinophil count 0.1 10*3/uL 0 .0-0.3 SP Automated blood basophil count (count/volume) 0.0 10*3/uL SP0.1 Comprehensive metabolic panel - 03/24/18 05:25 POS Serum or plasma sodium measurement (moles/volume) 139 mmol/L SP 135-145 SP Serum or plasma potassium measurement (moles/volume) 3.3 mmol/L SP 3.6-5.0 SP Serum or plasma chloride measurement (moles/volume) 105 mmol/L SP 98-107 SP Carbon dioxide 25 mmol/L 21-32 SP Serum or plasma anion gap determination (moles/volume) 9 mmol/L SP 5-14 SP Serum or plasma urea nitrogen measurement (mass/volume ) 4 mg/dL SP 7-18 SP Serum or plasma creatinine measurement (mass/volume) 0.67 mg/dL SP 0.60-1.30 SP Serum or plasma urea nitrogen/creatinine mass ratio 6 NRG SP Serum or plasma creatinine measurement w ith calculation of estimated glomerular SP rate > NRG SP Serum or plasma glucose measurement (mass/volume) 103 mg/dL SP105 Serum or plasma calcium measurement (mass/volume) 8.6 mg/dL SP10.1 Serum or plasma total bilirubin measurement (mass/volu me) 1.0 mg/dL SP 0.1-1.0 SP Serum or plasma alkaline phosphatase diann surement (enzymatic activity/volume) SP 78 U/L 40-136 SP Serum or plasma aspartate aminotransfera se measurement (enzymatic SP 35 U/L 5-34 SP Serum or plasma alanine aminotransferase measurement (enzymatic activity/volume) SP 30 U/L 0-55 SP Serum or plasma protein measurement (mass/volume) 6.1 g/dL SP8.2 Serum or plasma albumin measurement (mass/volume) 3.3 g/dL SP4.5 CALCIUM CORRECTED 9.2 mg/dL 8.5-10.1 SP Complete urinalysis with reflex to cultu re - 03/25/18 05:00 POS Urine color determination YELLOW NRG SP Urine clarity determination SL CLOUDY N RG SP Urine pH measurement by test strip 7 5-9 SP Specific gravity of urine by test strip 1.010 1.016-1.022 SP Urine protein assay by test strip, semi-quantitative 1+ SP Urine glucose detection by automated test strip NE GATIVE SP Erythrocytes detection in urine sediment by light micr oscopy 3+ SP NEGATIVE SP Urine ketones detection by automated test strip 2+ NEGATIVE SP Urine nitrite detection by test strip NEGATIVE NEGATIVE SP Urine total bilirubin detection by test strip NEGA TIVE SP Urine urobilinogen measurement by automated test strip (mass/volume) 1 SPmg/dL NORMAL SP Urine leukocyte esterase detection by dipstick NEG ATIVE SP Automated urine sediment erythrocyte cou nt by microscopy (number/high power SP [HPF] NRG SP Automated urine sediment leukocyte count by microscopy (number/high power field) SP NONE NRG SP Bacteria detection in urine sediment by light microsco py TRACE SP NRG SP Squamous epithelial cells detection in u rine sediment by light microscopy SP 10-25 NRG SP Crystals detection in urine sediment by light microsco py NONE SP NRG SP Casts detection in urine sediment by light microscopy NONE SP Mucus detection in urine sediment by light microscopy SMALL SP NRG SP Complete urinalysis with reflex to culture NO NRG SP Complete blood count (CBC) with automate d white blood cell (WBC) differential - POS 06:47 Blood leukocytes automated count (number/volume) 8.7 10*3/uL POS 4.3-11.0 SP Blood erythrocytes automated count (number/volume) 4.05 10*6/uL SP 4.35-5.85 SP Venous blood hemoglobin measurement (mass/volume) 11.9 g/dL SP16.0 Blood hematocrit (volume fraction) 36 % 35-52 SP Automated erythrocyte mean corpuscular volume 90 [ foz_us] SP99 Automated erythrocyte mean corpuscular h emoglobin (mass per erythrocyte) SP 29 pg 25-34 SP Automated erythrocyte mean corpuscular h emoglobin concentration measurement SP 33 g/dL 32-36 SP Automated erythrocyte distribution width ratio 13. 0 % 10.0- SP Automated blood platelet count (count/volume) 285 10*3/uL SP400 Automated blood platelet mean volume measurement 10.4 [foz_us] SP 7.4-10.4 SP Automated blood neutrophils/100 leukocytes 73 % 42-75 SP Automated blood lymphocytes/100 leukocytes 17 % 12-44 SP Blood monocytes/100 leukocytes 8 % 0-12 SP Automated blood eosinophils/100 leukocytes 1 % 0-10 SP Automated blood basophils/100 leukocytes 0 % 0-10 SP Blood neutrophils automated count (number/volume) 6.4 10*3 SP7.8 Blood lymphocytes automated count (number/volume) 1.5 10*3 SP4.0 Blood monocytes automated count (number/volume) 0. 7 10*3 SP1.0 Automated eosinophil count 0.1 10*3/uL 0 .0-0.3 SP Automated blood basophil count (count/volume) 0.0 10*3/uL SP0.1 Comprehensive metabolic panel - 03/25/18 06:47 POS Serum or plasma sodium measurement (moles/volume) 139 mmol/L SP 135-145 SP Serum or plasma potassium measurement (moles/volume) 3.6 mmol/L SP 3.6-5.0 SP Serum or plasma chloride measurement (moles/volume) 103 mmol/L SP 98-107 SP Carbon dioxide 24 mmol/L 21-32 SP Serum or plasma anion gap determination (moles/volume) 12 mmol/L SP 5-14 SP Serum or plasma urea nitrogen measurement (mass/volume ) 6 mg/dL SP 7-18 SP Serum or plasma creatinine measurement (mass/volume) 0.71 mg/dL SP 0.60-1.30 SP Serum or plasma urea nitrogen/creatinine mass ratio 8 NRG SP Serum or plasma creatinine measurement w ith calculation of estimated glomerular SP rate > NRG SP Serum or plasma glucose measurement (mass/volume) 97 mg/dL SP105 Serum or plasma calcium measurement (mass/volume) 9.1 mg/dL SP10.1 Serum or plasma total bilirubin measurement (mass/volu me) 1.0 mg/dL SP 0.1-1.0 SP Serum or plasma alkaline phosphatase diann surement (enzymatic activity/volume) SP 92 U/L 40-136 SP Serum or plasma aspartate aminotransfera se measurement (enzymatic SP 23 U/L 5-34 SP Serum or plasma alanine aminotransferase measurement (enzymatic activity/volume) SP 23 U/L 0-55 SP Serum or plasma protein measurement (mass/volume) 6.1 g/dL SP8.2 Serum or plasma albumin measurement (mass/volume) 3.3 g/dL SP4.5 CALCIUM CORRECTED 9.7 mg/dL 8.5-10.1 SP Complete urinalysis with reflex to cultu re - 03/25/18 10:30 POS Urine color determination YELLOW NRG SP Urine clarity determination CLEAR NR G SP Urine pH measurement by test strip 7 5-9 SP Specific gravity of urine by test strip 1.010 1.016-1.022 SP Urine protein assay by test strip, semi-quantitative 1+ SP Urine glucose detection by automated test strip NE GATIVE SP Erythrocytes detection in urine sediment by light micr oscopy 4+ SP NEGATIVE SP Urine ketones detection by automated test strip 3+ NEGATIVE SP Urine nitrite detection by test strip NEGATIVE NEGATIVE SP Urine total bilirubin detection by test strip NEGA TIVE SP Urine urobilinogen measurement by automated test strip (mass/volume) SP NORMAL SP Urine leukocyte esterase detection by dipstick NEG ATIVE SP Automated urine sediment erythrocyte cou nt by microscopy (number/high power SP RARE NRG SP Automated urine sediment leukocyte count by microscopy (number/high power field) SP [HPF] NRG SP Bacteria detection in urine sediment by light microsco py TRACE SP NRG SP Squamous epithelial cells detection in u rine sediment by light microscopy SP 5-10 NRG SP Crystals detection in urine sediment by light microsco py NONE SP NRG SP Casts detection in urine sediment by light microscopy NONE SP Mucus detection in urine sediment by light microscopy SMALL SP NRG SP Complete urinalysis with reflex to culture NO NRG SP Renal epithelial cells detection in urin e sediment by light microscopy SP NONE NRG SP Automated blood complete blood count (he mogram) panel - 03/02/19 09:00 POS Blood leukocytes automated count (number/volume) 7.1 10*3/uL SP 4.3-11.0 SP Blood erythrocytes automated count (number/volume) 4.44 10*6/uL SP 4.35-5.85 SP Venous blood hemoglobin measurement (mass/volume) 13.0 g/dL SP16.0 Blood hematocrit (volume fraction) 40 % 35-52 SP Automated erythrocyte mean corpuscular volume 91 [ foz_us] SP99 Automated erythrocyte mean corpuscular h emoglobin (mass per erythrocyte) SP 29 pg 25-34 SP Automated erythrocyte mean corpuscular h emoglobin concentration measurement SP 32 g/dL 32-36 SP Automated erythrocyte distribution width ratio 12. 9 % 10.0- SP Automated blood platelet count (count/volume) 312 10*3/uL SP400 Automated blood platelet mean volume measurement 10.4 [foz_us] SP 7.4-10.4 SP Comprehensive metabolic panel - 03/02/19 09:00 POS Serum or plasma sodium measurement (moles/volume) 139 mmol/L SP 135-145 SP Serum or plasma potassium measurement (moles/volume) 4.0 mmol/L SP 3.6-5.0 SP Serum or plasma chloride measurement (moles/volume) 103 mmol/L SP 98-107 SP Carbon dioxide 28 mmol/L 21-32 SP Serum or plasma anion gap determination (moles/volume) 8 mmol/L SP 5-14 SP Serum or plasma urea nitrogen measurement (mass/volume ) 16 mg/dL SP 7-18 SP Serum or plasma creatinine measurement (mass/volume) 0.81 mg/dL SP 0.60-1.30 SP Serum or plasma urea nitrogen/creatinine mass ratio 20 NRG SP Serum or plasma creatinine measurement w ith calculation of estimated glomerular SP rate > NRG SP Serum or plasma glucose measurement (mass/volume) 62 mg/dL SP105 Serum or plasma calcium measurement (mass/volume) 9.0 mg/dL SP10.1 Serum or plasma total bilirubin measurement (mass/volu me) 0.6 mg/dL SP 0.1-1.0 SP Serum or plasma alkaline phosphatase diann surement (enzymatic activity/volume) SP 66 U/L 40-136 SP Serum or plasma aspartate aminotransfera se measurement (enzymatic SP 13 U/L 5-34 SP Serum or plasma alanine aminotransferase measurement (enzymatic activity/volume) SP 16 U/L 0-55 SP Serum or plasma protein measurement (mass/volume) 6.6 g/dL SP8.2 Serum or plasma albumin measurement (mass/volume) 4.0 g/dL SP4.5 CALCIUM CORRECTED 9.0 mg/dL 8.5-10.1 SP Serum or plasma creatine kinase MB measu rement (enzymatic activity/volume) - POS 09:00 Serum or plasma creatine kinase MB measu rement (enzymatic activity/volume) POS 2.0 ng/mL <6.6 SP Serum or plasma troponin i.cardiac measu rement (mass/volume) - 03/02/19 09:00 POS Serum or plasma troponin i.cardiac measurement (mass/v olume) < ng/mL POS <0.028 SP Myoglobin, serum - 03/02/19 09:00 POS Myoglobin, serum 45.0 ng/mL 10.0-92.0 SP Serum or plasma C reactive protein measu rement (mass/volume) - 03/02/19 09:00 POS Serum or plasma C reactive protein measurement (mass/v olume) 0.29 POS 0.00-0.50 SP Complete blood count (CBC) with automate d white blood cell (WBC) differential - POS 17:30 Blood leukocytes automated count (number/volume) 8.6 10*3/uL POS 4.3-11.0 SP Blood erythrocytes automated count (number/volume) 4.37 10*6/uL SP 4.35-5.85 SP Venous blood hemoglobin measurement (mass/volume) 13.0 g/dL SP16.0 Blood hematocrit (volume fraction) 40 % 35-52 SP Automated erythrocyte mean corpuscular volume 91 [ foz_us] SP99 Automated erythrocyte mean corpuscular h emoglobin (mass per erythrocyte) SP 30 pg 25-34 SP Automated erythrocyte mean corpuscular h emoglobin concentration measurement SP 33 g/dL 32-36 SP Automated erythrocyte distribution width ratio 12. 5 % 10.0- SP Automated blood platelet count (count/volume) 324 10*3/uL SP400 Automated blood platelet mean volume measurement 10.2 [foz_us] SP 7.4-10.4 SP Automated blood neutrophils/100 leukocytes 59 % 42-75 SP Automated blood lymphocytes/100 leukocytes 31 % 12-44 SP Blood monocytes/100 leukocytes 8 % 0-12 SP Automated blood eosinophils/100 leukocytes 2 % 0-10 SP Automated blood basophils/100 leukocytes 0 % 0-10 SP Blood neutrophils automated count (number/volume) 5.1 10*3 SP7.8 Blood lymphocytes automated count (number/volume) 2.7 10*3 SP4.0 Blood monocytes automated count (number/volume) 0. 7 10*3 SP1.0 Automated eosinophil count 0.2 10*3/uL 0 .0-0.3 SP Automated blood basophil count (count/volume) 0.0 10*3/uL SP0.1 PT panel in platelet poor plasma by coag ulation assay - 03/02/19 17:30 POS Prothrombin time (PT) in platelet poor plasma by coagu lation assay SP s 12.2-14.7 SP INR in platelet poor plasma or blood by coagulation as say 1.0 SP 0.8-1.4 SP Activated partial thromboplastin time (a PTT) in platelet poor plasma POS assay - 03/02/19 17:30 Activated partial thromboplastin time (a PTT) in platelet poor plasma POS assay 30 s 24-35 SP Comprehensive metabolic panel - 03/02/19 17:30 POS Serum or plasma sodium measurement (moles/volume) 142 mmol/L SP 135-145 SP Serum or plasma potassium measurement (moles/volume) 4.2 mmol/L SP 3.6-5.0 SP Serum or plasma chloride measurement (moles/volume) 105 mmol/L SP 98-107 SP Carbon dioxide 26 mmol/L 21-32 SP Serum or plasma anion gap determination (moles/volume) 11 mmol/L SP 5-14 SP Serum or plasma urea nitrogen measurement (mass/volume ) 16 mg/dL SP 7-18 SP Serum or plasma creatinine measurement (mass/volume) 0.86 mg/dL SP 0.60-1.30 SP Serum or plasma urea nitrogen/creatinine mass ratio 19 NRG SP Serum or plasma creatinine measurement w ith calculation of estimated glomerular SP rate > NRG SP Serum or plasma glucose measurement (mass/volume) 93 mg/dL SP105 Serum or plasma calcium measurement (mass/volume) 9.0 mg/dL SP10.1 Serum or plasma total bilirubin measurement (mass/volu me) 0.4 mg/dL SP 0.1-1.0 SP Serum or plasma alkaline phosphatase diann surement (enzymatic activity/volume) SP 63 U/L 40-136 SP Serum or plasma aspartate aminotransfera se measurement (enzymatic SP 14 U/L 5-34 SP Serum or plasma alanine aminotransferase measurement (enzymatic activity/volume) SP 17 U/L 0-55 SP Serum or plasma protein measurement (mass/volume) 7.0 g/dL SP8.2 Serum or plasma albumin measurement (mass/volume) 4.2 g/dL SP4.5 CALCIUM CORRECTED 8.8 mg/dL 8.5-10.1 SP Magnesium - 03/02/19 17:30 POS Magnesium 1.7 mg/dL 1.6-2.4 SP Serum or plasma troponin i.cardiac measu rement (mass/volume) - 03/02/19 17:30 POS Serum or plasma troponin i.cardiac measurement (mass/v olume) < ng/mL POS <0.028 SP Myoglobin, serum - 03/02/19 17:30 POS Myoglobin, serum 45.8 ng/mL 10.0-92.0 SP Serum or plasma lithium measurement (mol es/volume) - 03/02/19 17:30 POS BNP PT 19.7 pg/mL <100.0 SP Lipase - 03/02/19 17:30 POS Lipase 21 U/L 8-78 SP Serum or plasma C reactive protein measu rement (mass/volume) - 03/02/19 17:30 POS Serum or plasma C reactive protein measurement (mass/v olume) 0.34 POS 0.00-0.50 SP Erythrocyte sedimentation rate by dorothy gren method - 03/02/19 18:29 POS Erythrocyte sedimentation rate by westergren method 9 mm 0- SP Complete blood count (CBC) with automate d white blood cell (WBC) differential - POS 05:45 Blood leukocytes automated count (number/volume) 5.6 10*3/uL POS 4.3-11.0 SP Blood erythrocytes automated count (number/volume) 4.30 10*6/uL SP 4.35-5.85 SP Venous blood hemoglobin measurement (mass/volume) 12.8 g/dL SP16.0 Blood hematocrit (volume fraction) 39 % 35-52 SP Automated erythrocyte mean corpuscular volume 91 [ foz_us] SP99 Automated erythrocyte mean corpuscular h emoglobin (mass per erythrocyte) SP 30 pg 25-34 SP Automated erythrocyte mean corpuscular h emoglobin concentration measurement SP 33 g/dL 32-36 SP Automated erythrocyte distribution width ratio 12. 7 % 10.0- SP Automated blood platelet count (count/volume) 287 10*3/uL SP400 Automated blood platelet mean volume measurement 10.5 [foz_us] SP 7.4-10.4 SP Automated blood neutrophils/100 leukocytes 61 % 42-75 SP Automated blood lymphocytes/100 leukocytes 28 % 12-44 SP Blood monocytes/100 leukocytes 9 % 0-12 SP Automated blood eosinophils/100 leukocytes 2 % 0-10 SP Automated blood basophils/100 leukocytes 0 % 0-10 SP Blood neutrophils automated count (number/volume) 3.4 10*3 SP7.8 Blood lymphocytes automated count (number/volume) 1.6 10*3 SP4.0 Blood monocytes automated count (number/volume) 0. 5 10*3 SP1.0 Automated eosinophil count 0.1 10*3/uL 0 .0-0.3 SP Automated blood basophil count (count/volume) 0.0 10*3/uL SP0.1 Lipid 1996 panel - 03/03/19 05:45 POS Serum or plasma triglyceride measurement (mass/volume) 77 mg/dL SP <150 SP Serum or plasma cholesterol measurement (mass/volume) 158 mg/dL SP < 200 SP Serum or plasma cholesterol in HDL measurement (mass/v olume) 56 mg/dL SP 40-60 SP Cholesterol in LDL [mass/volume] in serum or plasma by direct assay 96 SPmg/dL 1-129 SP Serum or plasma cholesterol in VLDL measurement (mass/ volume) 15 mg/dL SP 5-40 SP Encounters ACCT No. Visit Date/Time Discharge Status POS Pt. Type Provider Facility Loc./Un it POS Complaint POS [id number] 02/21/2014 14:58:00 02/21/2014 23:59: 59 CLS SP Outpatient TODD WALLACE APRN SP [id number] 03/08/2013 11:24:00 03/08/2013 23:59: 59 CLS SP Outpatient JULIAN WALLACE APRNYL A JENELLE SP [id number] 09/07/2017 16:06:00 11/04/2017 14:15: 00 DIS SP Outpatient GIOVANI ESTEBAN [id number] 06/09/2017 00:00:00 06/09/2017 08:45: 00 DIS SP Outpatient Bryanna Aldridge SP [id number] 06/03/2017 09:26:00 06/03/2017 23:59: 00 DIS SP Outpatient Bryanna Aldridge SP [id number] 06/03/2017 09:00:00 06/03/2017 23:59: 00 DIS SP Outpatient SAMILELE CAT JENELLE [id number] 06/03/2017 00:00:00 06/03/2017 23:59: 00 DIS SP Outpatient SAMI, LELE SP [id number] 05/20/2017 09:52:00 05/20/2017 23:59: 00 DIS SP Outpatient SAMI, LELE JENELLE [id number] 05/19/2017 13:41:00 05/19/2017 23:59: 00 DIS SP Outpatient SAMI, LELE SP [id number] 12/09/2016 08:49:00 12/09/2016 23:59: 00 DIS SP Outpatient SAMILELE SP [id number] 11/04/2016 14:53:00 11/04/2016 16:31: 00 [facility] [id number] 06/06/2016 09:44:00 06/06/2016 23:59: 00 [place] [id number] 11/04/2016 15:41:11 Document SP SP [id number] 03/18/2019 08:12:00 23:59:59 SP CLS Preadmit TONY HARDIN, ALEC Landers [facility] CARD CHEST PAIN,PALPITATION SP [id number] 03/02/2019 18:47:00 14:29:00 SP DIS Inpatient NEWMANJIM CRISTINA DO [facility] 4TH PLEURISY WITH PLEURAL EFFUSI ON SP [id number] 03/02/2019 09:16:00 23:59:59 SP CLS Outpatient OMAYRA RANGEL APRN [facility] LAB CHEST PAIN,FATIGUE SP [id number] 11/17/2018 10:34:00 23:59:59 SP CLS Outpatient JIM NEWMAN DO [facility] CARD ENDOCARDITIS SP [id number] 08/19/2018 08:13:00 23:59:59 SP CLS Outpatient JIM NEWMAN DO [facility] RAD MICROCALCIFICATION FOUND ON DX IMAGING OF SPBREAST [id number] 07/09/2018 15:31:00 019 23:59:59 SP CLS Outpatient NEWMAN DO, JIM [facility] RAD SCREENING SP [id number] 03/22/2018 05:59:00 018 23:59:59 SP CLS Inpatient NEWMAN DO, JIM [facility] 4TH STENOSIS SP [id number] 03/11/2018 12:05:00 018 12:40:00 SP DIS Outpatient GIOVANI ESTEBAN MD [facility] PREOP STENOSIS SP [id number] 09/03/2017 12:31:00 018 23:59:59 SP CLS Outpatient EDITH RENO DO [facility] CARD 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 SP [id number] 07/09/2017 13:21:00 018 14:04:00 SP DIS Outpatient EDITH RENO DO [facility] CARD 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 SP [id number] 05/13/2017 13:49:00 017 23:59:59 SP CLS Outpatient NEWMAN , JIM [facility] RAD R92.0 ABN MAMMO SP [id number] 01/16/2017 10:52:00 017 23:59:59 SP CLS Preadmit NEWMAN DO JIM [facility] RAD R92.0 SP [id number] 07/04/2016 07:37:00 017 23:59:59 SP CLS Outpatient NEWMAN DO, JIM [facility] RAD R92.0 SP [id number] 06/25/2016 09:36:00 017 23:59:59 SP CLS Outpatient NEWMAN DO, JIM [facility] RAD SCREENING SP [id number] 06/23/2016 09:36:00 017 23:59:59 SP CLS Outpatient NEWMAN DO, JIM [facility] CARD RUQ PAIN SP [id number] 06/13/2015 09:48:00 016 23:59:59 SP CLS Outpatient NEWMAN DO, JIM [facility] RAD SCREENING SP [id number] 04/28/2014 10:37:00 014 23:59:59 SP CLS Outpatient NEWMAN DO, JIM [facility] RAD SCREENING SP [id number] 12/09/2013 14:55:00 014 23:59:59 SP CLS Outpatient NEWMAN DO, JIM [facility] RT WHEEZING SP [id number] 04/29/2013 12:57:00 013 23:59:59 SP CLS Outpatient NEWMAN DO, JIM [facility] RAD SCREENING SP [id number] 03/23/2012 08:31:00 SP Registration SP [id number] 03/12/2012 13:35:00 SP Registration SP [id number] 07/09/2011 10:27:00 SP Registration SP [id number] 04/18/2011 10:20:00 SP Registration SP [id number] 12/25/2010 07:39:00 SP Registration SP [id number] 12/04/2010 12:26:00 SP Registration SP
--- OUTSIDE RECORDS SUMMARY | 2019-03-26 04:04 | XMS REPORT | Continuity of Care Document ---
Author Organization Unknown POS Address Unknown SP Phone Unavailable SP Allergies Active Description Code Type Severity POS Reaction Onset Reported/Identified POS to Patient Clinical Status POS Yes NO KNOWN DRUG ALLERGIES UNKNOWN SP NO KNOWN DRUG ALLERG SP SP Yes NO KNOWN DRUG ALLERGIES UNKNOWN SP UNKNOWN SP Yes No Allergy Information Available [id number] SP Allergy Unknown N/A 7 SP SP Yes No Known Drug Allergies [id number] Drug SP Unknown N/A 03/22/2018 SP SP [...] YRS AND ABOVE, IM) SP 05/17/2014 JIM NWEMAN DO Ot V76.12 SP SP 06/13/2015 Ot [...] SCREEN MAMMO-MALIGN NEOPLASM OF CONSTANCE SP 01/30/2017 ILZZIE NEWMAN DOI Ot 786.07 SP SP 01/30/2017 [...] EDITH RENO DO Ot Z79.899 SP OTHER SKILLED NURSING (CURRENT) DRUG THERAPY SP 09/14/2017 GIOVANI ESTEBAN [...] EDITH RENO DO Ot Z79.899 SP OTHER GRAVEL HAULER (CURRENT) DRUG THERAPY SP 03/11/2018 GIOVANI ESTEBAN MD, Ot M48.0 61 SP STENOSIS, LUMBAR REGION WITHOUT N SP 03/11/2018 GIOVANI ESTEBAN MD Ot Z01.8 12 SP FOR PREPROCEDURAL LABORATORY E SP 03/11/2018 IGOVANI ESTEBAN MD Ot Z11.2 SP FOR SCREENING [...] SUSPECTED CARRIER OF METHICIL SP 03/22/2018 EDITH RENO DO, Ot M54.16 SP RADICULOPATHY, LUMBAR REGION SP 03/22/2018 EDITH RENO DO Ot Z79.899 SP OTHER GRAVEL HAULER (CURRENT) DRUG THERAPY SP 03/24/2018 NEWMAN DO, [...] EDITH RENO DO Ot Z79.899 SP OTHER GRAVEL HAULER (CURRENT) DRUG THERAPY SP 07/09/2018 TRENT DO [...] EDITH RENO DO Ot Z79.899 SP OTHER SKILLED NURSING (CURRENT) DRUG THERAPY SP 08/09/2018 TRENT BUTTS [...] DO, EDITH L Ot Z79.899 SP OTHER GRAVEL HAULER (CURRENT) DRUG THERAPY SP 01/05/2019 TRENT BUTTS [...] EDITH BUTTS L Ot Z79.899 SP OTHER SKILLED NURSING (CURRENT) DRUG THERAPY SP 03/02/2019 TRENT BUTTS [...] JIM NEWMAN DO Ot Z79.89 9 SP GRAVEL HAULER (CURRENT) DRUG THERAPY SP 03/03/2019 JIM NEWMAN [...] JIM NEWMAN DO Ot Z79.89 9 SP GRAVEL HAULER (CURRENT) DRUG THERAPY SP 03/03/2019 JIM NEWMAN DO Ot Z82.3 SP HISTORY OF STROKE SP 03/03/2019 JIM NEWMAN DO Ot Z82.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 SP 03/03/2019 JIM NEWMAN DO Ot Z83.3 SP HISTORY OF DIABETES MELLITUS SP 03/03/2019 JIM NEWMAN DO Ot Z87.89 1 SP HISTORY OF NICOTINE DEPENDENCE SP 03/04/2019 OMAYRA RANGEL IMPREGNATING MACHINE OPERATOR Ot R07 .9 SP PAIN, UNSPECIFIED SP 03/04/2019 OMAYRA RANGEL IMPREGNATING MACHINE OPERATOR Ot R53.83 SP OTHER FATIGUE SP 03/22/2019 OMAYRA RANGEL IMPREGNATING MACHINE OPERATOR Ot R07 .9 SP PAIN, UNSPECIFIED SP 03/22/2019 OMAYRA RANGEL IMPREGNATING MACHINE OPERATOR Ot R53.83 SP OTHER FATIGUE SP Procedures Code Description Performed By Per formed On POS [id number] FU CATHY HOLGUIN W AUTOL SP POST APPR 03/22/2018 SP [id number] FU CATHY HOLGUIN W INTBD FUS SPDEV, ANT AP 03/22/2018 SP Results Test Result Range POS Urinalysis - 11/04/16 15:41 POS Icotest N/A Negative SP Urine Volume Urine Volume Sufficient (10mL) SP Urine Yeast Yeast Present SP Urine-Appearance Slightly Cloudy Clear SP Urine-Bacteria Trace SP Urine-Bilirubin Negative Negative SP Urine-Blood Negative Negative SP Urine-Color Yellow Colorless-Lt. Nolan ow SP Urine-Epithelial Cells 0-5/HPF SP Urine-Glucose Negative Negative SP Urine-Ketones Trace Negative SP Urine-Leukocytes Negative Negative SP Urine-Nitrite Negative Negative SP Urine-Other Urine Saved if Culture Need ed (48hrs from time of SP SP Urine-pH 5.0 5-8.5 SP Urine-Protein Trace Negative SP Urine-RBC Negative SP Urine-Specific [place] 1.025 1.000-1 .030 SP Urine-WBC Negative SP [...] SP Blood type T Indirect antibody screen [facility] - 03/22/18 06:27 POS ABO+Rh group AP NRG SP Transfusion band number [id number] NRG SP Blood group antibody screen NEGATIVE [...] Provider Facility Loc./Un it POS Complaint POS [id number] 02/21/2014 14:58:00 02/21/2014 23:59: 59 CLS SP Outpatient TODD WALLACE APRN SP [id number] 03/08/2013 11:24:00 03/08/2013 23:59: 59 CLS SP Outpatient JULIAN WALLACE APRNYL A JENELLE SP [id number] 09/07/2017 16:06:00 11/04/2017 14:15: 00 DIS SP Outpatient GIOVANI ESTEBAN [id number] 06/09/2017 00:00:00 06/09/2017 08:45: 00 DIS SP Outpatient Bryanna Aldridge SP [id number] 06/03/2017 09:26:00 06/03/2017 23:59: 00 DIS SP Outpatient Bryanna Aldridge SP [id number] 06/03/2017 09:00:00 06/03/2017 23:59: 00 DIS SP Outpatient SAMILELE CAT JENELLE [id number] 06/03/2017 00:00:00 06/03/2017 23:59: 00 DIS SP Outpatient SAMI, LELE SP [id number] 05/20/2017 09:52:00 05/20/2017 23:59: 00 DIS SP Outpatient SAMI, LELE JENELLE [id number] 05/19/2017 13:41:00 05/19/2017 23:59: 00 DIS SP Outpatient SAMI, LELE SP [id number] 12/09/2016 08:49:00 12/09/2016 23:59: 00 DIS SP Outpatient SAMILELE SP [id number] 11/04/2016 14:53:00 11/04/2016 16:31: 00 [id number] 06/06/2016 09:44:00 06/06/2016 23:59: 00 [place] [id number] 11/04/2016 15:41:11 Document SP SP [id number] 03/18/2019 08:12:00 23:59:59 SP CLS Preadmit TONY HARDIN, ALEC Landers [facility] CARD CHEST PAIN,PALPITATION SP [id number] 03/02/2019 18:47:00 14:29:00 SP DIS Inpatient NEWMANJIM CRISTINA DO V [facility] 4TH PLEURISY WITH PLEURAL EFFUSI ON SP [id number] 03/02/2019 09:16:00 23:59:59 SP CLS Outpatient OMAYRA RANGEL APRN [facility] LAB CHEST PAIN,FATIGUE SP [id number] 11/17/2018 10:34:00 23:59:59 SP CLS Outpatient JIM NEWMAN DO [facility] CARD ENDOCARDITIS SP [id number] 08/19/2018 08:13:00 23:59:59 SP CLS Outpatient JIM NEWMAN DO [facility] RAD MICROCALCIFICATION FOUND ON DX IMAGING OF SPBREAST [id number] 07/09/2018 15:31:00 019 23:59:59 SP CLS Outpatient NEWMAN DO, JIM [facility] RAD SCREENING SP [id number] 03/22/2018 05:59:00 018 23:59:59 SP CLS Inpatient NEWMAN DO, JIM [facility] 4TH STENOSIS SP [id number] 03/11/2018 12:05:00 018 12:40:00 SP DIS Outpatient GIOVANI ESTEBAN MD [facility] PREOP STENOSIS SP [id number] 09/03/2017 12:31:00 018 23:59:59 SP CLS Outpatient EDITH RENO DO [facility] CARD 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 SP [id number] 07/09/2017 13:21:00 018 14:04:00 SP DIS Outpatient EDITH RENO DO [facility] CARD 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 SP [id number] 05/13/2017 13:49:00 017 23:59:59 SP CLS Outpatient NEWMAN , JIM [facility] RAD R92.0 ABN MAMMO SP [id number] 01/16/2017 10:52:00 017 23:59:59 SP CLS Preadmit NEWMAN DO JIM [facility] RAD R92.0 SP [id number] 07/04/2016 07:37:00 017 23:59:59 SP CLS Outpatient NEWMAN DO, JIM [facility] RAD R92.0 SP [id number] 06/25/2016 09:36:00 017 23:59:59 SP CLS Outpatient NEWMAN DO, JIM [facility] RAD SCREENING SP [id number] 06/23/2016 09:36:00 017 23:59:59 SP CLS Outpatient NEWMAN DO, JIM [facility] CARD RUQ PAIN SP [id number] 06/13/2015 09:48:00 016 23:59:59 SP CLS Outpatient NEWMAN DO, JIM [facility] RAD SCREENING SP [id number] 04/28/2014 10:37:00 014 23:59:59 SP CLS Outpatient NEWMAN DO, JIM [facility] RAD SCREENING SP [id number] 12/09/2013 14:55:00 014 23:59:59 SP CLS Outpatient NEWMAN DO, JIM [facility] RT WHEEZING SP [id number] 04/29/2013 12:57:00 013 23:59:59 SP CLS Outpatient NEWMAN DO, JIM [facility] RAD SCREENING SP [id number] 03/23/2012 08:31:00 SP Registration SP [id number] 03/12/2012 13:35:00 SP Registration SP [id number] 07/09/2011 10:27:00 SP Registration SP [id number] 04/18/2011 10:20:00 SP Registration SP [id number] 12/25/2010 07:39:00 SP Registration SP [id number] 12/04/2010 12:26:00 SP Registration SP
== END 2019-03-03 14:25 | disposition home or self-care (01) ==
LOC: EDUNIT# 17:19 → ER 17:20 → UNDOADMOB 18:47 → 4TH 18:47 → UNDODISOB 03-03 14:29
PROVIDERS: ADMIT Internal Medicine; ATTEND Internal Medicine
DX: J90 Pleural effusion, not elsewhere classified (principal); J45.909 Unspecified asthma, uncomplicated; K21.9 Gastro-esophageal reflux disease without esophagitis; M19.90 Unspecified osteoarthritis, unspecified site; E11.9 Type 2 diabetes mellitus without complications; G89.29 Other chronic pain; M54.9 Dorsalgia, unspecified; E03.9 Hypothyroidism, unspecified; F41.8 Other specified anxiety disorders; Z79.899 Other long term (current) drug therapy; Z79.84 Long term (current) use of oral hypoglycemic drugs; Z79.891 Long term (current) use of opiate analgesic; Z87.891 Personal history of nicotine dependence; Z82.49 Family history of ischemic heart disease and other diseases of the circulatory system; Z82.3 Family history of stroke; Z83.3 Family history of diabetes mellitus
CPT/HCPCS: 36415; 71045; 71046; 71275; 80053; 80061; 83690; 83735; 83874; 83880; 84484; 85025; 85610; 85652; 85730; 86141; 93005; 93041; 94760; 96361; 96374; 96375; G0378

== ENCOUNTER → 2019-03-02 | Outpatient (CLI) | payer OTHER ==
[~2019-03-02] MED LIST changes: +INDO50CA11 PO; +MAGN400T39 PO
[2019-03-02 09:26] LABS: MEAN PLATELET VOLUME 10.4 FL (7.4-10.4); RED CELL DISTRIBUTION WIDTH 12.9 % (10.0-14.5); WHITE BLOOD COUNT 7.1 10^3/uL (4.3-11.0)
[2019-03-02 09:51] LABS: ALANINE AMINOTRANSFERASE 16 U/L (0-55); ALKALINE PHOSPHATASE 66 U/L (40-136); BILIRUBIN,TOTAL 0.6 MG/DL (0.1-1.0); BUN/CREATININE RATIO 20; CARBON DIOXIDE 28 MMOL/L (21-32); CHLORIDE 103 MMOL/L (98-107); CREATININE SERUM 0.81 MG/DL (0.60-1.30); GFR ESTIMATED > 60; GLUCOSE 62 MG/DL (70-105); SODIUM 139 MMOL/L (135-145); TOTAL PROTEIN 6.6 GM/DL (6.4-8.2)
== END ==
LOC: LAB 09:16
PROVIDERS: ATTEND Nurse Practitioner Family
DX: R07.9 Chest pain, unspecified (principal); R53.83 Other fatigue
CPT/HCPCS: 36415; 80053; 82553; 83874; 84484; 85027; 86141

== ENCOUNTER → 2019-05-30 | Outpatient (CLI) | payer OTHER ==
[~2019-05-30] MED LIST changes: +INDO50CA82 PO; +MAGN400T39 PO
[2019-06-01 16:06] VITALS: BP 139/95
--- NOTE | 2019-06-01 16:06 | Cardiology Stress Test Report ---
Stress Test Report Date of Procedure/Referring: Date of Procedure: May 30, 2019 PCP Alec Kruger MD Admitting Physician Rachel Plaza DO Indications: Chest pain, palpitation Baseline Heart Rate: 86 Baseline Blood Pressure: Blood Pressure Systolic: 139 Blood Pressure Diastolic: 95 Baseline EKG: Baseline EKG: NSR Summary/Conclusion: Summary: In summary, the patient started exercising with a baseline heart rate, blood pressure and EKG mentioned above Patient was able to exercise for a total of 9 minutes on Jose Raul protocol, 10.5 METs Maximum heart rate 149 Maximum blood pressure 180/97 Stress EKG Minimal nondiagnostic changes Recovery EKG Return to baseline Conclusion: 1. Good exercise tolerance for a total of 9 minutes on Jose Raul protocol, 10.5 METs, achieving 86 percent of maximum expected heart rate 2. Minimal nondiagnostic EKG changes with exercise returned to baseline during recovery 3. No arrhythmia was noted 4. Hypertensive response to exercise ALEC KRUGER MD Jun 01, 2019 16:06
== END ==
LOC: CARD 10:04
PROVIDERS: ATTEND Internal Medicine Cardiovascular Disease
DX: I11.9 Hypertensive heart disease without heart failure (principal); E11.9 Type 2 diabetes mellitus without complications; R00.2 Palpitations; R07.9 Chest pain, unspecified
CPT/HCPCS: 93017

== ENCOUNTER → 2019-07-11 | Outpatient (CLI) | payer OTHER ==
[~2019-07-11] MED LIST changes: -MONT10TA24 PO; +MONT10TA26 PO
--- NOTE | 2019-07-12 12:12 | Diagnostic Imaging Report ---
INDICATION: Routine screening. COMPARISON: Comparison is made with prior mammograms from 07/09/2018 and 05/13/2017. TECHNIQUE: 2-D and 3-D bilateral screening mammography was performed. The current study was also evaluated with a Computer Aided Detection (CAD) system. 3-D tomosynthesis was also performed and reviewed. FINDINGS: Scattered fibroglandular densities are identified bilaterally. Previously noted cluster of cysts in the medial right breast is no longer visualized. No mass or malignant-appearing microcalcifications are seen. Axillae are unremarkable. IMPRESSION: No mammographic features suspicious for malignancy are identified. ACR BI-RADS Category 1: Negative. Result letter will be mailed to the patient. Note: At least 10% of breast cancer is not imaged by mammography. Dictated by: Dictated on workstation # [id number]
== END ==
LOC: RAD 15:35
PROVIDERS: ATTEND Internal Medicine
DX: Z12.31 Encounter for screening mammogram for malignant neoplasm of breast (principal)
CPT/HCPCS: 77067

== ENCOUNTER → 2020-04-24 | Outpatient (CLI) | payer OTHER ==
[~2020-04-24] MED LIST changes: +ASCO500T17 PO; -ASCO500T6 PO; -MONT10TA26 PO; +MONT10TA97 PO
--- NOTE | 2020-04-24 17:26 | Diagnostic Imaging Report ---
PROCEDURE: MRI lumbar spine. TECHNIQUE: Multiplanar, multisequence MRI of the lumbar spine was performed without contrast. DATE: April 24, 2020. COMPARISON: Lumbar spine radiographs March 23, 2018. INDICATION: 49-year-old female, injury. Lumbar radiculopathy. FINDINGS: There is anterior spinal fusion hardware and disc spacer material at L5-S1. The alignment of the lumbar spine is unremarkable. There is no focal concerning bone lesion. The T1 and T2 hyperintense lesion of the L2 vertebral body likely relates to a small vertebral body hemangioma. There is no acute fracture or compression deformity of the lumbar spine. The visualized cord and conus medullaris is unremarkable and terminates at the L1-L2 level. The disc heights are well preserved. L1-L2: There is mild diffuse disc bulge. The facet joints and ligamentum flavum are unremarkable. There is no foraminal narrowing. There is no spinal canal stenosis. L2-L3: There is mild diffuse disc bulge. The facet joints and ligamentum flavum are unremarkable. There is no foraminal narrowing. There is no spinal canal stenosis. L3-L4: There is no disc bulge. The facet joints and ligamentum flavum are unremarkable. There is no foraminal narrowing. There is no spinal canal stenosis. L4-L5: There is no disc bulge. The facet joints and ligamentum flavum are unremarkable. There is no foraminal narrowing. There is no spinal canal stenosis. L5-S1: There is no disc bulge. The facet joints and ligamentum flavum are unremarkable. There is no foraminal narrowing. There is no spinal canal stenosis. IMPRESSION: 1. Anterior spinal fusion hardware at L5-S1. 2. Mild diffuse disc bulges at L1-L2 and L2-L3 without foraminal or spinal stenosis. 3. No acute fracture or other concerning bone marrow signal abnormality. Dictated by: Dictated on workstation # [id number]
== END ==
LOC: RAD 16:05
PROVIDERS: ATTEND Physician Assistant
DX: M51.27 Other intervertebral disc displacement, lumbosacral region (principal); M43.27 Fusion of spine, lumbosacral region
CPT/HCPCS: 72148

== ENCOUNTER → 2020-06-21 | Outpatient (CLI) | payer OTHER ==
--- NOTE | 2020-06-21 15:41 | Diagnostic Imaging Report ---
PROCEDURE: Pelvic comp/transvaginal sonogram. TECHNIQUE: Complete transabdominal and transvaginal pelvic ultrasound was performed. In addition, limited pelvic Doppler was performed. INDICATION: Left lower quadrant pain. FINDINGS: Uterus is anteverted measuring 8.1 x 4.2 x 5.1 cm. Endometrium is approximately 12 mm in thickness. No myometrial mass is detected. There are multiple cervical nabothian cysts. Right ovary measures 1.6 x 1.8 x 1.5 cm and the left ovary measures 1.4 x 2.2 x 2.1 cm. Both ovaries contain multiple follicles. There is blood flow to both ovaries. No adnexal mass or free fluid is detected. IMPRESSION: Unremarkable transabdominal and transvaginal pelvic ultrasound. Dictated by: Dictated on workstation # [id number]
== END ==
LOC: RAD 13:50
PROVIDERS: ATTEND Nurse Practitioner
DX: R10.32 Left lower quadrant pain (principal)
CPT/HCPCS: 76830; 76856

== ENCOUNTER → 2020-08-30 | Outpatient (CLI) | payer OTHER ==
[~2020-08-30] MED LIST changes: +MONT10TA32 PO; -MONT10TA97 PO
--- NOTE | 2020-08-31 09:19 | Diagnostic Imaging Report ---
INDICATION: Routine screening COMPARISON is made with prior mammograms dated 07/11/2019 and 07/09/2018. 2-D and 3-D bilateral screening mammography was performed with CAD. Scattered fibroglandular densities are identified bilaterally. No mass or malignant appearing microcalcifications are seen. There are benign calcifications. Axillae are unremarkable. IMPRESSION: BI-RADS Category 2 No mammographic features suspicious for malignancy are identified. ACR BI-RADS Category 2: Benign findings. Result letter will be mailed to the patient. Note: At least 10% of breast cancer is not imaged by mammography. Dictated by: Dictated on workstation # [id number]
== END ==
LOC: RAD 14:49
PROVIDERS: ATTEND Internal Medicine
DX: Z12.31 Encounter for screening mammogram for malignant neoplasm of breast (principal)
CPT/HCPCS: 77063; 77067

== ENCOUNTER 2020-12-21 08:48 | Outpatient (CLI) | payer BC ==
[~2020-12-21 08:48] MED LIST changes: -OMEP40CA27 PO; +OMEP40CA6 PO; -PHEN37.53 PO; +PHEN37.58 PO
== END 2020-12-21 09:10 ==
LOC: SLEEP 08:48
PROVIDERS: ATTEND Otolaryngology Otolaryngology/Facial Plastic Surgery
DX: G47.33 Obstructive sleep apnea (adult) (pediatric) (principal); G47.10 Hypersomnia, unspecified
CPT/HCPCS: G0399

== ENCOUNTER 2021-01-04 10:05 | Outpatient (RCR) | payer BC ==
[2021-01-02] MEDS: IRON SUCROSE 200 MG/10 ML (VENOFER) VIAL IV SCH (10:26)
[2021-01-02 10:30] VITALS: BP 120/77
[2021-01-04 10:05] VITALS: BP 134/75
[2021-01-04] MEDS: IRON SUCROSE 200 MG/10 ML (VENOFER) VIAL IV SCH (10:28)
== END 2021-01-04 10:45 | disposition home or self-care (01) ==
LOC: SDC 10:05
PROVIDERS: ATTEND Internal Medicine
DX: E61.1 Iron deficiency (principal)
CPT/HCPCS: 96365; 96374

== ENCOUNTER → 2021-09-06 | Outpatient (CLI) | payer BC ==
[~2021-09-06] MED LIST changes: +MONT-40 PO; -MONT10TA32 PO
--- NOTE | 2021-09-09 12:16 | Diagnostic Imaging Report ---
INDICATION: Routine screening. COMPARISON: 08/30/2020 and 07/11/2019. TECHNIQUE: 2D and 3D bilateral screening mammography was performed with CAD. FINDINGS: Both breasts are heterogeneously dense, limiting the sensitivity of mammography. The parenchymal pattern is stable. No mass or malignant-appearing microcalcifications are seen. There are benign calcifications present. The axillae are unremarkable. IMPRESSION: No mammographic features suspicious for malignancy are identified. ACR BI-RADS Category 2: Benign findings. Result letter will be mailed to the patient. Note: At least 10% of breast cancer is not imaged by mammography. Dictated by: Dictated on workstation # [id number]
== END ==
LOC: RAD 14:45
PROVIDERS: ATTEND Internal Medicine
DX: Z12.31 Encounter for screening mammogram for malignant neoplasm of breast (principal)
CPT/HCPCS: 77063; 77067

== ENCOUNTER → 2021-12-02 | Outpatient (CLI) | payer BC ==
--- NOTE | 2021-12-02 16:09 | Diagnostic Imaging Report ---
Indication: Pain along the dorsum of the left foot. Time of Exam: 3:30 PM 3 views of the left foot were obtained. Metatarsals are intact. The phalanges appear intact. The midfoot and hindfoot are unremarkable apart from a large plantar calcaneal spur. No fractures are seen. Impression: No acute bony abnormality is detected. Dictated by: Dictated on workstation # [id number]
== END ==
LOC: RAD 15:02
PROVIDERS: ATTEND Internal Medicine
DX: M79.672 Pain in left foot (principal)
CPT/HCPCS: 73630

== ENCOUNTER 2021-12-11 10:31 | Outpatient (RCR) | payer BC ==
[2021-12-09] MEDS: IRON SUCROSE 200 MG/10 ML (VENOFER) VIAL IV SCH (14:38)
[2021-12-09 15:10] VITALS: BP 141/76
[~2021-12-11] VITALS: Ht 165.1 cm; Wt 95.5 kg
[2021-12-11] MEDS: IRON SUCROSE 200 MG/10 ML (VENOFER) VIAL IV SCH (10:58)
[2021-12-11 11:00] VITALS: BP 132/78
== END 2021-12-15 | disposition home or self-care (01) ==
LOC: SDC 10:31
PROVIDERS: ATTEND Internal Medicine
DX: D50.9 Iron deficiency anemia, unspecified (principal)
CPT/HCPCS: 96365

== ENCOUNTER → 2022-05-24 | Outpatient (CLI) | payer OTHER ==
--- NOTE | 2022-05-24 12:27 | Diagnostic Imaging Report ---
INDICATION: Lumbar radiculopathy. TIME OF EXAM: 12:22 PM, FINDINGS: AP, lateral, and coned lumbosacral views demonstrate postop changes of posterior instrumented fusion with stabilization rods and pedicle screws transfixing the L5-S1 level. There are also postop changes of anterior lumbar interbody fusion at L5-S1. Hardware appears intact. No fracture or loosening is seen. Vertebral body heights are maintained. There is generalized degenerative disc disease with variable disc space narrowing and marginal spurring. IMPRESSION: Lumbar spondylosis and post surgical change. No acute bony abnormality is detected. Dictated by: Dictated on workstation # [id number]
== END ==
LOC: RAD 11:46
PROVIDERS: ATTEND Nurse Practitioner Family
DX: M47.26 Other spondylosis with radiculopathy, lumbar region (principal)
CPT/HCPCS: 72100

== ENCOUNTER 2022-06-17 16:00 | Outpatient (RCR) | payer OTHER | END 2022-06-17 21:00 | disposition home or self-care (01) | PROVIDERS: ATTEND Physician Assistant | DX: M54.16 Radiculopathy, lumbar region (principal) ==

== ENCOUNTER 2022-07-14 08:03 | Outpatient (RCR) | payer OTHER | END 2022-07-15 | disposition home or self-care (01) | PROVIDERS: ATTEND Physician Assistant | DX: M54.16 Radiculopathy, lumbar region (principal) ==

== ENCOUNTER 2022-08-14 08:00 | Outpatient (RCR) | payer BC, OTHER | END 2022-08-15 | disposition home or self-care (01) | PROVIDERS: ATTEND Physician Assistant | DX: M54.16 Radiculopathy, lumbar region (principal) ==

== ENCOUNTER 2022-09-05 15:28 | Outpatient (RCR) | payer BC | END 2022-09-14 | disposition home or self-care (01) | PROVIDERS: ATTEND Physician Assistant | DX: M54.16 Radiculopathy, lumbar region (principal) ==

== ENCOUNTER 2022-10-08 16:12 | Outpatient (RCR) | payer BC ==
[~2022-10-08 16:12] MED LIST changes: +SEMA0.25 SQ; +UBID100C17 PO
== END 2022-10-15 | disposition home or self-care (01) ==
PROVIDERS: ATTEND Physician Assistant
DX: M54.16 Radiculopathy, lumbar region (principal)

== ENCOUNTER → 2022-10-10 | Outpatient (CLI) | payer BC ==
--- NOTE | 2022-10-10 17:45 | Diagnostic Imaging Report ---
INDICATION: Routine screening. COMPARISON: Prior mammograms of 09/06/2021 and 08/30/2020. EXAMINATION: 2D and 3D bilateral screening mammography was performed with CAD. The current study was also evaluated with a Computer Aided Detection (CAD) system. FINDINGS: Scattered fibroglandular densities are identified, bilaterally. The parenchymal pattern is stable. There are occasional benign calcifications. No mass or malignant-appearing microcalcifications are seen. Axillae are unremarkable. IMPRESSION: No mammographic features suspicious for malignancy are identified. Dictated by: Dictated on workstation # [id number]
== END ==
LOC: RAD 07:42
PROVIDERS: ATTEND Internal Medicine
DX: Z12.31 Encounter for screening mammogram for malignant neoplasm of breast (principal)
CPT/HCPCS: 77063; 77067

== ENCOUNTER 2022-10-14 10:55 | Outpatient (RCR) | payer BC ==
[2022-10-08] MEDS: IRON SUCROSE 200 MG/10 ML (VENOFER) VIAL IV SCH (11:33)
[2022-10-08 12:10] VITALS: BP 130/75
[2022-10-10] MEDS: IRON SUCROSE 200 MG/10 ML (VENOFER) VIAL IV SCH (11:30)
[2022-10-10 12:10] VITALS: BP 128/67
[~2022-10-14] VITALS: Ht 165.1 cm; Wt 95.5 kg
[~2022-10-14 10:55] MED LIST changes: -CYAN50003 PO; +CYAN50007 PO
[2022-10-14] MEDS ORDERED: IRON SUCROSE 200 MG/10 ML (VENOFER) VIAL IV SCH (11:15)
[2022-10-14 11:19] VITALS: BP 132/76
== END 2022-10-15 | disposition home or self-care (01) ==
LOC: SDC 10:55
PROVIDERS: ATTEND Internal Medicine
DX: Z01.89 Encounter for other specified special examinations (principal)
CPT/HCPCS: 96365

== ENCOUNTER 2022-11-03 13:48 | Outpatient (RCR) | payer BC | END 2022-11-14 | disposition home or self-care (01) | PROVIDERS: ATTEND Physician Assistant | DX: M54.16 Radiculopathy, lumbar region (principal) ==

== ENCOUNTER 2022-12-04 14:32 | Outpatient (RCR) | payer BC | END 2022-12-15 | disposition home or self-care (01) | PROVIDERS: ATTEND Physician Assistant | DX: M54.16 Radiculopathy, lumbar region (principal) ==

== ENCOUNTER → 2023-01-08 | Outpatient (CLI) | payer BC ==
--- NOTE | 2023-01-08 12:34 | Diagnostic Imaging Report ---
Chronic back pain, urgency of urinary and bowel with incontinence. COMPARISON: I have no priors for direct comparison. The most recent relevant correlation is CT angio chest with reconstructions dated 03/02/2019. TECHNIQUE: Multiplanar multisequence noncontrasted thoracic spinal MRI performed. FINDINGS: The thoracic vertebral statures are stable, normal and aligned anatomically. The thoracic spinal cord itself has a normal volume, morphology and signal intensity. Ligamentous structures intact. No paravertebral mass, hemorrhage or fluid collection. 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 No acute or suspicious marrow signal abnormality. There are multilevel fatty Modic type II degenerative changes involving mid and lower thoracic vertebral endplates. No marrow edema or acute bony pathology. At T1-T2, left paramedian focal disc protrusion indents the ventral thecal sac. There is mild canal stenosis with mild left foraminal narrowing. At T6-T7, large right paramedian disc protrusion indents the right ventral thecal sac. There is moderate canal stenosis but only mild right foraminal narrowing. There is narrowing of the right lateral recess. No other substantial stenosis. The facet relationships aside from mild degenerative change appeared normal. No paravertebral edema. IMPRESSION: 1. Normal spinal cord. No high-grade canal stenosis. Multilevel disc protrusions with foraminal and canal stenoses, as above. Scattered benign hemangiomas and multilevel degenerative fatty Modic type II degenerative endplate changes. No acute appearing abnormality. Dictated by: Dictated on workstation # [id number]
--- NOTE | 2023-01-08 12:57 | Diagnostic Imaging Report ---
PROCEDURE: MR imaging cervical spine without contrast. TECHNIQUE: Multiplanar, multisequence MR imaging of the cervical spine was performed without contrast. INDICATION: Urinary incontinence. COMPARISON: I have no relevant comparison. The cervical spinal cord itself has a normal volume, morphology and signal intensity. No cord compression. No paraspinal or epidural hemorrhage or other acute fluid collection. Cervical marrow signal intensity was unremarkable. There is trace grade 1 degenerative retrolisthesis of 1 mm C5 on C6. No facet dislocation. The ligamentous structures were intact. The craniocervical relationship normal. C1-C2: This level normal, no stenosis. C2-C3: There is small midline osteophyte disc material without significant canal stenosis. There is mild left foraminal narrowing. C3-C4: Disc bulge, endplate osteophytes and uncovertebral joint spurring result in mild biforaminal stenosis. No substantial canal narrowing. C4-C5: Posterior osteophyte disc material effaces the ventral thecal sac. There is mild canal stenosis with mild to moderate biforaminal stenosis. C5-C6: Osteophyte disc material effaces the ventral thecal sac. There is a moderate severity of canal stenosis. There is moderate right and severe left neural foraminal narrowing. C6-C7: Disc bulge and endplate osteophytes result in mild left foraminal narrowing and borderline mild canal stenosis. C7-T1: The level and disc unremarkable, no stenosis. Note is made at T2-T3 there is a posterior disc protrusion indenting the ventral thecal sac with mild canal stenosis and moderate right foraminal narrowing. IMPRESSION: Jay-cervical spondylosis and facet arthrosis with multilevel foraminal greater than canal stenoses detailed above. Normal cord. No acute-appearing bone or spinal pathology. Dictated by: Dictated on workstation # [id number]
== END ==
LOC: RAD 09:25
PROVIDERS: ATTEND Orthopaedic Surgery Orthopaedic Surgery of the Spine
DX: D17.9 Benign lipomatous neoplasm, unspecified (principal); M47.814 Spondylosis without myelopathy or radiculopathy, thoracic region; M51.24 Other intervertebral disc displacement, thoracic region; M48.04 Spinal stenosis, thoracic region; R32 Unspecified urinary incontinence
CPT/HCPCS: 72141; 72146

== ENCOUNTER 2023-01-14 09:29 | Outpatient (RCR) | payer BC | END 2023-01-15 | disposition home or self-care (01) | PROVIDERS: ATTEND Nurse Practitioner Family | DX: Z98.890 Other specified postprocedural states (principal) ==

== ENCOUNTER 2023-03-04 09:41 | Outpatient (RCR) | payer BC | END 2023-03-17 | disposition home or self-care (01) | DX: M54.50 Low back pain, unspecified (principal); M54.6 Pain in thoracic spine; M25.562 Pain in left knee ==

== ENCOUNTER 2023-04-03 15:54 | Outpatient (RCR) | payer BC | END 2023-04-16 | disposition home or self-care (01) | DX: Z01.89 Encounter for other specified special examinations (principal) ==